=== PATIENT | female | born 1995 | race Hispanic/Latino ===

== ENCOUNTER 2021-12-18 02:52 | Emergency (ER) | payer OTHER ==
--- OUTSIDE RECORDS SUMMARY | 2021-12-18 02:55 | XMS REPORT | Continuity of Care Document ---
:1995 Author Organization [facility] t Address [address] [place] [address] Care Team Providers Name Role Phone SHARPLESS Primary Care Physician Unavailable VIRY_Israel_Gracia Attending Clinician Unavailable Heraclio Wood Attending Clinician [phone] LUCÍA Attending Clinician Unavailable PATRICKOR Attending Clinician Unavailable VIRY_Israel_Gracia Admitting Clinician Unavailable YOSHOR Admitting Clinician Unavailable Payers Payer Name Policy Type Policy Number Effective Date Expiration Date [facility] [id number] CHOICE (MEDICAID REPLACEMENT - HMO) BCBS PPO POS EPO [id number] 2017 2019 CHOICE 00:00:00 00:00:00 SELF PAY OP [id number] 2020 2020 DIAGNSTC IMGING PKG 00:00:00 00:00:00 Problems This patient has no known problems. Allergies, Adverse Reactions, Alerts Allergy Allergy Status Severity Reaction(s) Onset Inactive Treating Comm ents Source Name Type Date Date Clinician No Known DA Active [facility] [place] No Known DA Active U 2017-07 [facility] [place] No Known DA Active U 2017-07 [facility] 00 [facility] NO KNOWN Allergy Active [facility] Medications This patient has no known medications. Procedures This patient has no known procedures. Encounters Start End Encounter Admission Attending Care Care Encounter Source Date/Time Date/Time Type Type Clinicians Facility Department ID 2021-12-12 2021-12-12 Outpatient [facility]_ PRIV PRIV [id number] [facility] 09:34:00 09:34:00 Shelton_G [id number] [facility] 2021-12-08 2021-12-08 Outpatient [facility]_ PRIV PRIV [id number] [facility] 06:38:00 06:38:00 Shelton_G [id number] [facility] 2021-12-08 2021-12-08 Outpatient [facility]_ PRIV PRIV [id number] [facility] 06:38:00 06:38:00 Shelton_G [id number] [facility] 2021-12-08 2021-12-08 Outpatient [facility]_ PRIV PRIV [id number] [facility] 06:38:00 06:38:00 Shelton_G [id number] [facility] 2021-11-26 2021-11-26 Outpatient [facility]_ PRIV PRIV [id number] [facility] 11:19:00 11:19:00 Shelton_G [id number] [facility] 2021-11-26 2021-11-26 Outpatient [facility]_ PRIV PRIV [id number] [facility] 11:19:00 11:19:00 Shelton_G [id number] [facility] 2021-11-26 2021-11-26 Outpatient Wood, PRIV PRIV [id number] 00:00:00 00:00:00 Heraclio [id number] Arnel [id number] 2021-11-25 2021-11-25 Outpatient [facility]_ PRIV PRIV [id number] [facility] 10:18:00 10:18:00 Shelton_G [id number] [facility] 2020-11-20 2020-11-20 Outpatient DARREN CALLAHAN SLE SLE [id number] [facility] 00:00:00 00:00:00 2020-01-12 2020-01-12 Outpatient ADELAIDA CANADA [facility] [id number] [facility] 00:00:00 00:00:00 RAJIV 2019-12-28 2019-12-28 Outpatient ADELAIDA CANADA [facility] [id number] [facility] 00:00:00 00:00:00 RAJIV 2019-12-14 2019-12-14 Outpatient ADELAIDA CANADA [facility] [id number] [facility] 00:00:00 00:00:00 RAJIV Results Test Description Test Time Test Comments Results Result Comments Source HEMOGLOBIN ELECTROPHORESIS 2021-11-26 08:49:03 Test Item Value Reference Range Interpretation Comme nts HEMOGLOBIN A1 (test code = 97.2 % 95.0-98.5 2575) HEMOGLOBIN A2 (test code = 2.8 % 1.6-3.7 2576) HEMOGLOBIN F () (test 0.0 % 0.0-2.0 code = 2722) HEMOGLOBIN S (test code = NONE % NONE DETECTED 2724) HEMOGLOBIN C (test code = NONE % NONE DETECTED 2726) OTHER HEMOGLOBIN VARIANT (test NONE DETEC % NONE DETECTED code = 24230) PATHOLOGIST'S INTERPRETATION (NOTE) NO ABNORMAL HEMOGLOBINS (test code = 2577) GERALDINE ZAMORANO M.D. THC METABOLITE, QUANT, [id number] 17:09:09 Test Item Value Reference Range Interpretation Comments CARBOXY-THC Negative INTERP (test code = 33946) CARBOXY-THC <15 ng/mL <15 Reference rang e indicates QNT (test cutoff for posi tive result code = 64337) determination. Specimen Type: Urine Urine zunilda g and metabolite concentrations are dependent on manyfactors, in cluding patient compliance, zunilda g dosing, dosing interval,indivi dual variation in drug absorpt ion and metabolism, uri neconcentration, and limitations of testing. Assay is intend ed formedical purposes only, not for forensic use. This test was developed and its perform ance characteristics determined by [facility] ([facility]). It has n ot beencleared or approved by the U.S. Food and Drug Admini stration (FDA).The FDA h as determined that such clear ance or approval is notnecessary . This test is used for clinic al purposes and should not jumana garded as investigational or for research. [facility] i s qualified toperform high complexity testing under t Clinical LaboratoryImpro vement Amendments (CLI A). TESTING PERFORM ED AT [facility], [facility]. [address] [facility], [facility] [address] [place] [address] CLIA NO: [id number] UNLESS OTHE RWISE INDICATED, ALL TESTING PER FORMED ATCLINICAL PATH [facility] [place]. [address] [place] [address] LABORATORY DIRE CTOR: BELLE HUBBARD M.D. CLIA NUMBER [id number] CAP ACCREDITATION N O. [id number] CULTURE, [id number] 09:19:03SPECIMEN NUMBER: [id number] CULTURE, URINE SPECIMEN NUMBER: [id number] SPECIMEN COMMENT: URINE SOURCE: URINE REPORT STATUS: FINAL FINAL REPORT: 11/23/2021 10- 50,000 CFU/ML UROGENITAL TE PRESENT NO COMMON PATHOGENSCT/NG, NAAT, [id number] 19:03:26 Test Item Value Reference Range Interpretation Comments GONORRHEA, NAAT NEGATIVE NEGATIVE IMPORTANT (test code = NOTICE: [place] [address]) [email or web address] Note: Assay methodology is nucleic acid amplification b y historical interpreter mediated amplification ( TMA) utilizing the A ptima Combo 2 Assay. CHLAMYDIA, NAAT NEGATIVE NEGATIVE IMPORTANT (test code = NOTICE: [place] [address]) [email or web address] Note: Assay methodology is nucleic acid amplification b y historical interpreter mediated amplification ( TMA) utilizing the A ptima Combo 2 Assay. VARICELLA ZOSTER [id number] 16:03:42 Test Item Value Reference Range Interpretation Comments VARICELLA ZOSTER IgG 541 INDEX SEE BELOW INTERPRETATION (test code = 67035) VZV IgG N EGATIVE . . . . . . . . . . . . INDEX <135 EQUIVOCAL. . . . . . . . . . . . I NDEX 135-164 NOTE: CONSIDER RETEST ING IN A CLINICALLY SUIT ABLE YADI OD OF TIME, NO SOONER THAN 1-2 WEEKS. POSITIVE . . . . . . . . . . . . INDEX >=165 DRUG ABUSE SCREEN 10 REFLEX [id number] 05:19:45 Test Item Value Reference Interpretation Comments Range AMPHETAMINES (test NEGATIVE NEGATIVE code = 3201) BARBITURATES (test NEGATIVE NEGATIVE code = 3202) BENZODIAZEPINES NEGATIVE NEGATIVE (test code = 3203) CANNABINOIDS (test SEE REFLEX NEGATIVE A code = 3204) TESTING COCAINE METABOLITE NEGATIVE NEGATIVE (test code = 3205) OPIATES (test code = NEGATIVE NEGATIVE 3209) OXYCODONE (test code NEGATIVE NEGATIVE = 41246) PHENCYCLIDINE (test NEGATIVE NEGATIVE code = 3210) METHADONE (test code NEGATIVE NEGATIVE = 3207) BUPRENORPHINE (test NEGATIVE NEGATIVE code = 40142) SOURCE (test code = URINE * SEE BELOW FOR 994294) THRESHOLDS AND IMPORTANT METHOD NOTES * ANALYTE SCREENING CUTOF F CONFIRMATORY CUTOFF ___AMPHETAMINES 500 NG/M L 100 NG/MLBARBITURAT ES 200 NG /ML 100 NG/MLBENZODIAZE PINES 200 NG /ML 100 NG/MLCANNABINOI DS (THC) 20 NG /ML 15 NG/MLCOCAINE ME TABOLITES 150 NG /ML 100 NG /MLOPIATE METABOLITES 300 NG/ML 100 NG/MLOXYCOD ONE 10 0 NG/ML 10 0 NG/MLPHENCYCLID INE (PCP) 25 NG /ML 25 NG/MLMETHADONE 300 NG /ML 100 NG/MLBUPRENORPH INE 5 NG /ML 5 NG /ML NOTE: Screening metho dology is qualitative Enz yme Immunoassay.The screening metho d may be less sensitive for certain medicationsincl uding clonazepam and lorazepam in the benzodia zepine assay andtramad ol or fentanyl in the opiate assay, amongst others. Patientcomplian ce, hydration statu s, timing and dose of med ications, drugabsorption and specimen qualit y may affect screenin g assay.For clini randa discrepancies, consider directed testin g for specificcompoun ds or contact the lab oratory within specimen stability tofor siddiqui for confirmatory te sting. This test is sp ecified for medicalpurp oses only. It is no t valid for forensic us e. [id number] 03:55:25 Test Item Value Reference Range Interpretation Comments RPR RESULT (test code = NON-REACTIVE NON-REACTIVE 3501) RPR TITER (test code = 3500) NOT INDIC. TITER NOT INDIC. HEPATITIS C REFLEX [id number] 03:48:03 Test Item Value Reference Range Interpretation Comments HEPATITIS C ANTIBODY (test code NON-REACTIVE NON-REACTIVE = 4675) OBSTETRIC PANEL + [id number] 03:48:03 Test Item Value Reference Range Interpretation Comments WBC (test code = 6.6 K/UL 3.5-11.0 1001) RBC (test code = 4.50 M/UL 3.80-5.40 1002) HEMOGLOBIN (test 13.3 G/DL 11.5-15.5 code = 1003) HEMATOCRIT (test 39.1 % 34.0-45.0 code = 1004) MCV (test code = 86.9 fL 80.0-99.0 1005) MCH (test code = 29.6 PG 25.0-33.0 1006) MCHC (test code = 34.0 G/DL 31.0-36.0 1007) RDW (test code = 12.7 % 11.5-15.0 1038) NEUTROPHILS (test 66.3 % code = 1008) LYMPHOCYTES (test 25.2 % code = 1010) MONOCYTES (test 5.4 % code = 1011) EOSINOPHILS (test 2.3 % code = 1012) BASOPHILS (test 0.5 % code = 1013) IMMATURE 0.3 % GRANULOCYTES (test code = 1036) NUCLEATED RBCS 0.0 /100 WBC'S See_Comment [Automate d message] (test code = 1065) The syste m which generated this result transmit laureano reference range : 0.0. The refere nce range was not u sed to interpret th is result as normal/abnormal . PLATELET COUNT 305 K/UL 130-400 (test code = 1015) ABSOLUTE 4.41 K/UL 1.50-7.50 NEUTROPHILS (test code = 1066) ABSOLUTE 1.67 K/UL 1.00-4.00 LYMPHOCYTES (test code = 1067) ABSOLUTE MONOCYTES 0.36 K/UL 0.20-1.00 (test code = 1068) ABSOLUTE 0.15 K/UL 0.00-0.50 EOSINOPHILS (test code = 1040) ABSOLUTE BASOPHILS 0.03 K/UL 0.00-0.20 (test code = 1069) ABS IMMATURE 0.02 K/UL 0.00-0.10 GRANULOCYTES (test code = 1020) ABS NUCLEATED RBCS 0.00 K/UL 0.00-0.11 (test code = 84849) BLOOD TYPE AND RH O POSITIVE A HISTORI RANDA RECORD (test code = 3901) CHECK FOR PREVIOUS RESULTS IS NOT PERFORMED.THESE RESULTS SHOULD BE CORRELATED WITH RESULTS OF PRIO R BLOODTYPING AND ANTIBODY SCREEN STUDIES. ANTIBODY SCREEN NEGATIVE NEGATIVE A HISTORICA L RECORD (test code = 3902) CHECK FOR PREVIOUS RESULTS IS NOT PERFORMED.THESE RESULTS SHOULD BE CORRELATED WITH RESULTS OF PRIO R BLOODTYPING AND ANTIBODY SCREEN STUDIES. RUBELLA ANTIBODY 215 IU/ML SEE BELOW SCREEN (test code = INTERPRE TATION 4600) RUBELLA IgG NON-REACTIVE/NO N-IMM UNE . . . . . . . IU/ML < 10 REACTIVE/IM MUNE . . . . . . . . . . . IU/ML >=10 RUBELLA IgG INTERP REACTIVE REACTIVE (test code = 31793) HEPATITIS B SURF AG NON-REACTIVE NON-REACTIVE (test code = 2739) RPR (test code = NON-REACTIVE NON-REACTIVE 91978) RPR TITER (test NOT INDIC. NOT INDIC. code = 3500) TITER HIV 1/2 4TH GEN, NON-REACTIVE NON-REACTIVE RFLX CONF (test code = 3514) PAP TEST, THINPREP, [id number] 08:18:37 Test Item Value Reference Range Interpretation Comments SOURCE: (test Cervical/Endo code = 8001) cervical SLIDES: (test 1 code = 8011) LMP: (test code = 06/23/2021 8021) SPECIMEN (NOTE) Satisfacto ry for ADEQUACY: (test evaluation. code = 87342) Endocervical cells/transform ation zone component present. INTERPRETATION: NILM/NO (test code = EPITH. --------- 21450) ABNORMALITY;S -------- EE BELOW NEGATIVE FO R INTRAEPITHELIAL LESION OR MALIGNANCY ( NILM) --------- --------- --------- - OTHER COMMENTS: (NOTE) Fungal organ isms (test code = consistent with Shirin 8081) present. SENIOR TECHNICAL PROGRAM MANAGER: Theresa Narayanan, (test code = CT(ASCP) 8101) LOCATION: (test (NOTE) Specimens pr ocessed and code = 76283) interpreted at [facility], [address] [place] [address], , CLIA: [id number] CPT: (test code = (NOTE) 61138 U NLESS 8140) OTHERWISE INDIC ATED, COMPUTER AIDED AND CYTOTECHNOLOGIS T SCREENING PERFO RMED. The Pap test i s a screening test with an inherent, but l ow probability of error. Your patient sh ould be reminded to consult you immediately if she experiences any suspicious signs or symptoms, regar dless of her Pap test re sult. An alternate re port format containi ng images or consolidated prior Pap histo ry is available as ap plicable. UNLESS O THERWISE INDICATED, ALL TESTING PERFORMED [facility] PATHOLOGY [facility], [facility]. [address] [place], [place] [address] LABORATORY DIR DAVE: BELLE RIVERS M.D. CLIA NUMBER [id number] CAP ACCREDITATION N O. [id number] THYROID II PROFILE (TU,T4,FTI,TSH)2021-07-12 06:20:17 Test Item Value Reference Range Interpretation Comments T-UPTAKE (test 30.2 % 24.3-39.0 code = 2817) THYROX. BIND. 1.1 0.8-1.3 NOT E: CAPAC. (test code THYROXINE BINDING = 71817) CAPACITY IS INV ERSELY RELATED TO T-UPTAKE,DECREA SED WITH HYPERTHYROIDISM AND LOW THYROID BINDING GLOBULIN (TBG),INCREASED IN HYPOTHYROIDISM OR WITH HIGH TBG. T4 (THYROXINE) 5.9 UG/DL 4.5-10.5 (test code = 2819) CORRECTED T4 (FTI) 5.4 UG/DL 4.2-11.6 (test code = 2820) TSH, THIRD 2.910 UIU/ML 0.400-4.100 UNLESS O THERWISE GENERATION (test INDICATED, ALL TESTING code = 2821) PERFORMED [facility] PATHOLOGY LABOR [employer] [address] [facility], [place] [address] LABORATORY DI SVETLANA: Ciro SNYDER [id number] CAP ACCREDITATION N O. [id number] CBC W/AUTO DIFF WITH [id number] 03:49:06 Test Item Value Reference Range Interpretation Comments WBC (test code = 8.1 K/UL 3.5-11.0 1001) RBC (test code = 4.49 M/UL 3.80-5.40 1002) HEMOGLOBIN (test code 13.1 G/DL 11.5-15.5 = 1003) HEMATOCRIT (test code 38.7 % 34.0-45.0 = 1004) MCV (test code = 86.2 fL 80.0-99.0 1005) MCH (test code = 29.2 PG 25.0-33.0 1006) MCHC (test code = 33.9 G/DL 31.0-36.0 1007) RDW (test code = 13.4 % 11.5-15.0 1038) NEUTROPHILS (test 56.3 % NOTE: EFF ECTIVE code = 1008) 06/10/2021, REFERENCE INTER VALS AND FLAGGING FORRELATIVE (%) WBC DIFFERENTIAL WI LL BE ELIMINATED REDUNDANT TOABS OLUTE COUNTS.SEE [email or web address] [employer] LLClabDiscovery [email or web address] l_CBC_reporting _upda te LYMPHOCYTES (test 32.9 % code = 1010) MONOCYTES (test code 6.3 % = 1011) EOSINOPHILS (test 3.7 % code = 1012) BASOPHILS (test code 0.6 % = 1013) IMMATURE GRANYLOCYTES 0.2 % (test code = 1036) NUCLEATED RBCS (test 0.0 /100 See_Comment [Autom ated message] code = 1065) WBC'S The system [employer] generated this result transmit laureano reference range : 0.0. The refere nce range was not u sed to interpret th is result as normal/abnormal . PLATELET COUNT (test 337 K/UL 130-400 code = 1015) ABSOLUTE NEUTROPHILS 4.52 K/UL 1.50-7.50 (test code = 1066) ABSOLUTE LYMPHOCYTES 2.65 K/UL 1.00-4.00 (test code = 1067) ABSOLUTE MONOCYTES 0.51 K/UL 0.20-1.00 (test code = 1068) ABSOLUTE EOSINOPHILS 0.30 K/UL 0.00-0.50 (test code = 1040) ABSOLUTE BASOPHILS 0.05 K/UL 0.00-0.20 (test code = 1069) ABS IMMATURE 0.02 K/UL 0.00-0.10 GRANULOCYTES (test code = 1020) ABS NUCLEATED RBCS 0.00 K/UL 0.00-0.11 (test code = 44299) LIPID [id number] 03:21:21 Test Item Value Reference Range Interpretation Comments CHOLESTEROL (test 190 MG/DL <200 code = 2210) TRIGLYCERIDES (test 96 MG/DL <150 code = 2232) HDL CHOLESTEROL (test 59 MG/DL >39 code = 2220) CALC LDL CHOL (test 111 MG/DL <100 H NOTE: C ALCULATED LDL code = 2237) IS BASED ON KAITLIN-JAMA METHOD WHICHINCLUDES ADJUSTABLE TRIGLYCERIDE:VL DL CHOLESTEROL RAT IO.THIS FACTOR VARIES B Y MEASURED TRIGLY CERIDE AND NON-HDLCHOL ESTEROL CONCENTRATIONS WITH INCREASED CALCU LATED LDL SEENIN HIGH ER TRIGLYCERIDE OR LOWER NON-HDL SPECIME NS. FOR MOREINFORMATION , SEE CLIENT ANNOUNCE MENT AT [email or web address] Design [email or web address] [email or web address] RATIO LDL/HDL 1.88 RATIO <3.22 (test code = 2238) COMPREHENSIVE METABOLIC [id number] 03:21:21 Test Item Value Reference Range Interpretation Comments GLUCOSE (test code = 92 MG/DL 70-99 2216) BUN (test code = 10 MG/DL 6-20 2207) CREATININE (test 0.78 MG/DL 0.60-1.30 EFFECTIVE code = 2214) 07/01/2021, [facility] HAS IMPLEMENTED THE NKF-ASN RECOMME NDED KD-EPI EGF R REFIT CALCULATI ON THAT DOES NOT INCLUDE A COEFFICIENT FOR RACE. FOR MORE INFORMATION, E ANNOUNCEMENT [email or web address] MR [employer]oelectricity/EGFR_CALC eGFR (2020 CKD-EPI) 106 >60 (test code = 16401) ML/MIN/1.73 CALC BUN/CREAT (test 13 RATIO 6-28 code = 2235) SODIUM (test code = 144 MEQ/L 678-789 7376) POTASSIUM (test code 4.0 MEQ/L 3.5-5.4 = 222) CHLORIDE (test code 107 MEQ/L 95-107 = 221) CARBON DIOXIDE (test 25 MEQ/L 19-31 code = 2206) CALCIUM (test code = 9.7 MG/DL 8.5-10.5 2208) PROTEIN, TOTAL (test 7.6 G/DL 6.1-8.3 code = 222) ALBUMIN (test code = 4.6 G/DL 3.5-5.2 2200) CALC GLOBULIN (test 3.0 G/DL 1.9-3.7 code = 2240) CALC A/G RATIO (test 1.5 RATIO 1.0-2.6 code = 2234) BILIRUBIN, TOTAL 0.3 MG/DL See_Comment [Automated message] (test code = 2207) The syste m which generated this result transmit laureano reference range : <=1.2. The refe rence range was not u sed to interpret th is result as normal/abnormal . ALKALINE PHOSPHATASE 91 U/L 40-112 (test code = 2204) AST (test code = 20 U/L 9-40 2217) ALT (test code = 25 U/L 5-40 2218) VAGINAL PATHOGENS DNA [id number] 16:05:19 Test Item Value Reference Range Interpretation Comments SHIRIN SPECIES (test POSITIVE NEGATIVE A code = ) G. VAGINALIS (test NEGATIVE NEGATIVE code = ) T. VAGINALIS (test NEGATIVE NEGATIVE UN LESS OTHERWISE code = ) INDICATED, ALL TESTING PERFORMED [facility] PATHOLOGY LABOR [facility] [address] [place] [id number] LABORATORY DIR DAVE: BELLE RIVERS M.D. CLIA NUMBER [id number] CAP ACCREDITATION N O. [id number] HGB [id number] 20:52:00 Test Item Value Reference Range Interpretation Comments HEMOGLOBIN (test code = 6.3 g/dL 10.7-13.9 LL RESU LTS CALLED TO HGB) KWADWO GAITAN D BACK & CONFIRMED? y. BY F.LAB.RV 2050. HEMATOCRIT (test code = 20.8 % 32.1-42.1 L HCT) HGB [id number] 10:43:00 Test Item Value Reference Range Interpretation Comments HEMOGLOBIN (test code = 6.2 g/dL 10.7-13.9 LL RES ULTS CALLED TO HGB) YUKI TrejoREAD BACK & CONFIRMED? YES. BY F.LAB.EBONY 12/02.Results ve rified by repeat rhoda sis HEMATOCRIT (test code = 21.2 % 32.1-42.1 L Resu lts verified by HCT) repeat analysis AG HEPATITIS B [id number] 00:16:00 Test Item Value Reference Range Interpretation Comments AG HEPATITIS B SURFACE (test code NONREACTIVE NONREACTIVE = HBSAG) Comments to Cigarette Tipper: LDO JIS CONSENT FORM SIGNED FOR HIV TESTING? YAB HEPATITIS C [id number] 00:16:00 Test Item Value Reference Range Interpretation Comments AB HEPATITIS C (test code = NONREACTIVE NONREACTIVE HCVAB) SIGNAL TO CUTOFF (test code = 0.03 <0.80 N CUTOFF) Comments to Cigarette Tipper: LDO JIS CONSENT FORM SIGNED FOR HIV TESTING? YAB [id number] 00:16:00 Test Item Value Reference Range Interpretation Comments AB TREPONEMA (test code = TREPAB) NONREACTIVE NONREACTIVE Comments to Cigarette Tipper: LDO JIS CONSENT FORM SIGNED FOR HIV TESTING? YAB HIV 1 00:16:00 Test Item Value Reference Range Interpretation Comments AB HIV 1 2 (test NONREACTIVE NONREACTIVE Done by Wayne ju[facility]district [facility] hospitalwayne Humphreyr code = [id number]) 4th Gen HIV Ag/Ab Combo Screen Comments to Cigarette Tipper: LDO JIS CONSENT FORM SIGNED FOR HIV TESTING? YAG HEPATITIS B [id number] 23:57:00 Test Item Value Reference Range Interpretation Comments AG HEPATITIS B SURFACE (test code NONREACTIVE NONREACTIVE = HBSAG) Comments to Cigarette Tipper: LDO JIS CONSENT FORM SIGNED FOR HIV TESTING? PALAKB HEPATITIS C [id number] 23:57:00 Test Item Value Reference Range Interpretation Comments AB HEPATITIS C (test code = HCVAB) NONREACTIVE SIGNAL TO CUTOFF (test code = CUTOFF) <0.80 Comments to Cigarette Tipper: LDO JIS CONSENT FORM SIGNED FOR HIV TESTING? PALAKB [id number] 23:57:00 Test Item Value Reference Range Interpretation Comments AB TREPONEMA (test code = TREPAB) NONREACTIVE NONREACTIVE Comments to Cigarette Tipper: LDO JIS CONSENT FORM SIGNED FOR HIV TESTING? PALAKB HIV 1 23:57:00 Test Item Value Reference Range Interpretation Comments AB HIV 1 2 (test code = [id number]) NONREACTIVE Comments to Cigarette Tipper: LDO JIS CONSENT FORM SIGNED FOR HIV TESTING? YCBC W/AUTO [id number] 22:48:00 Test Item Value Reference Range Interpretation Comments WHITE BLOOD CELL (test code = WBC) 13.4 K/mm3 6.6-12.1 H RED BLOOD CELL (test code = RBC) 4.35 M/mm3 3.45-5.01 N HEMOGLOBIN (test code = HGB) 9.6 g/dL 10.7-13.9 L HEMATOCRIT (test code = HCT) 32.6 % 32.1-42.1 N MEAN CELL VOLUME (test code = MCV) 75 fL 84.1-94.8 L MEAN CELL HGB (test code = MCH) 22.1 pg 27-35 L MEAN CELL HGB CONCETRATION (test 29.4 gm/dL 32.2-34.1 L code = MCHC) RED CELL DISTRIBUTION WIDTH (test 18.2 % 12.4-16.5 H code = RDW) PLATELET COUNT (test code = PLT) 299 K/mm3 133-385 N IMMATURE PLATELET FRACTION (test 0.0 % 0.0-10.8 N code = IPF) MEAN PLATELET VOLUME (test code = 11.0 fl 9.1-12.7 N MPV) NEUTROPHIL % (test code = NT%) 75.9 % 56.5-79.4 N LYMPHOCYTE % (test code = LY%) 10.6 % 14.3-34.3 L MONOCYTE % (test code = MO%) 6.4 % 5.1-10.4 N EOSINOPHIL % (test code = EO%) 6.1 % 0.1-3.0 H BASOPHIL % (test code = BA%) 0.1 % 0.1-1.0 N NEUTROPHIL # (test code = NT#) 10.2 K/mm3 LYMPHOCYTE # (test code = LY#) 1.4 K/mm3 MONOCYTE # (test code = MO#) 0.9 K/mm3 EOSINOPHIL # (test code = EO#) 0.82 K/mm3 BASOPHIL # (test code = BA#) 0.0 K/mm3 RBC MORPHOLOGY REQUIRED (test code NORMAL NORMAL = RBCM) PLATELET MORPHOLOGY REQUIRED (test NORMAL NORMAL code = PLTMR) URINALYSIS [id number] 09:12:00 Test Item Value Reference Range Interpretation Comments UA COLOR (test code = YELLOW YELLOW COLU) UA APPEARANCE (test code CLOUDY CLEAR A = APPU) UA GLUCOSE DIPSTICK (test NEGATIVE NEG code = DGLUU) UA BILIRUBIN DIPSTICK NEGATIVE NEG (test code = BILU) UA KETONE DIPSTICK (test NEGATIVE NEG code = KETU) UA SPECIFIC GRAVITY (test 1.009 1.001-1.035 N code = SGU) UA BLOOD DIPSTICK (test 1+ NEG A code = WILBERT) UA PH DIPSTICK (test code 6.0 5-9 = MINI) UA PROTEIN DIPSTICK (test NEGATIVE NEG code = PROU) UA UROBILINIOGEN DIPSTICK NEGATIVE mg/dL NEG (test code = URO) UA NITRITE DIPSTICK (test NEG NEG code = ROSITA) UA LEUKOCYTE ESTERASE 3+ NEG A DIPSTICK (test code = LEUU) UA WBC (test code = WBCU) TOO NUMEROUS TO CNT NONE SEEN A #/hpf UA RBC (test code = RBCU) 6-10 #/hpf NONE SEEN A UA EPITHELIAL CELLS (test MANY #/HPF RARE-FEW A code = EPIU) UA BACTERIA (test code = MANY /HPF RARE-FEW A BACU) UA MUCUS (test code = RARE NONE SEEN MUCU) URINE SAMPLE: CLEAN CATCH- US ABDOMEN [id number] 23:12:00 Patient Name: TAMARA SERRANO Unit No: [id number] EXAMS: CPT CODE: [id number] US ABDOMEN LTD [id number] PROCEDURE: RIGHT UPPER QUADRANT ULTRASOUND 09/19/2018 INDICATION: Right upper quadrant pain today with mild nausea. Attention gallbladder. COMPARISON: Limited abdomen ultrasound 05/12/2018 TECHNIQUE: Sonographic evaluation of the right upper quadrant was performed with supplemental color and pulsed Doppler. FINDINGS: LIVER: The liver is normal in contour and morphology with normal parenchymal echogenicity. GALLBLADDER: There are no gallstones, sludge, pericholecystic fluid or wall thickening. Positive sonographic Joyce. BILE DUCTS: No biliary dilatation. The common bile duct measures 3 mm in diameter. PANCREAS: The visualized pancreas appears normal. Obscured pancreatic tail by bowel gas. RIGHT KIDNEY: The right kidney measures 11 cm in length. Normal renal contour and morphology with normal echogenicity. Mild to moderate hydronephrosisand proximal hydroureter. No solid lesions. ADDITIONAL COMMENTS: No free fluid. IMPRESSION: 1. Mild to moderate right hydronephrosis and proximal hydroureter. Obstructing stone and distal extrinsic ureteral compression in the differential. 2. Otherwise unremarkable right upper quadrant ultrasound. 3. No free fluid. SL: ER-H at 2312 Reported and signed by: HANK Haines CC: Nika Wood Technologist: Cherry Disla RDMS Probe: Trnscrbd D/ (2312) [email or web address] OrigPrint D/T: S: 09/19/2018 (2315) [facility] NAME: TAMARA SERRANO Radiology Department PHYS: Nika Dunham MD [address] : 1995 AGE: 23 SEX: F [place], [place] [address] LOC: OlgaKAREN PHONE #: [phone] EXAM DATE: 09/19/2018 STATUS: REG ER FAX #: [phone] RAD NO: Page 1 SignedReport Patient Name: TAMARA SERRANO Unit No: [id number] EXAMS: CPT CODE: [id number] US ABDOMEN LTD [id number] <Continued> [facility] NAME: TAMARA SERRANO Radiology Department PHYS: Nika Dunham MD [address] : 1995 AGE: 23 SEX: F [place], [place] [address] LOC: OlgaKAREN PHONE #: [phone] EXAM DATE: 09/19/2018 STATUS: REG ER FAX #: [phone] RAD NO: Page 2 Signed ReportLIVER [id number] 22:27:00 Test Item Value Reference Range Interpretation Comments TOTAL PROTEIN (test code = PROT) 6.9 gm/dL 6.3-8.2 N ALBUMIN (test code = ALB) 2.8 gm/dL 3.4-4.8 L BILIRUBIN TOTAL (test code = 0.3 mg/dL 0.2-1.0 N BILT) BILIRUBIN DIRECT (test code = 0.1 mg/dL <0.2 N BILD) SGOT/AST (test code = AST) 17 units/L 15-37 N SGPT/ALT (test code = ALT) <6 units/L 12-78 L ALKALINE PHOSPHATASE TOTAL (test 168 units/L 46-116 H code = ALKP) MR, BRAIN, [id number] 10:59:00FINAL REPORT MRI brain and sella with and without contrast 02/23/2018 at 10:15.CLINICAL INDICATION: Prolactinoma. COMPARISON: 11/13/2017. TECHNIQUE: Multiplanar MR imaging of the br ain and sella was provided [id number] IV gadolinium administration using T1, T2, FLAIR, FFE, and diffusion weighted sequences. Thin cut sagittal and coronal sella imaging was included. FINDINGS: Patient motion limits this examination. Pathology may be obscured. With this limitation mind, there is no evident residual/recurrent tumor status post resection of a pathology proven prolactinoma. There has been relief of mass effect on the optic chiasm. There is no infarct, hematoma, mass, hydrocephalus,extra-axial collection, or abnormal intracranial enhancement. Normal appearing flow-voids are present in the major intracranial vascular structures. The pineal region, craniocervical junction, and orbits are unremarkable. The paranasal sinuses and nasal passages have a nonworrisome postoperative appearance. IMPRESSION: Motion limited examination, without evidence for residual/recurrent tumor. Signed: Donavon Momin MDReport Verified Date/Time: 02/23/2018 10:59:36 Reading Location: [facility] C013V Neuro Reading Room TISSUE [id number] 12:03:00Surgical Pathology Report Case: [id number] Authorizing Provider: Rajiv Canada MD Collected: 11/23/2017 1418 Ordering Location: [facility] PERIOPERATIVE Received: 11/23/2017 1422 SERVICES Pathologist: Sekou Burton MD Specimens: A) - Soft Tissue, Other, cyst wall vs compressed pituitary B) - Tumor, pituitary tumor A. 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 PITUITARY GLAND, TUMOR, TRANSSPHENOIDAL HYPOPHYSECTOMY: - SEVERELY FIBROTIC ADENOHYPOPHYSIS WITH MINUTE FRAGMENTS OF PROLACTIN CELL ADENOMA Signing Pathologist Direct Phone Line: [phone] signed by Sekou Burton MD on 11/26/2017 at 12:03 PMImmunoperoxidase stains are strongly positive for prolactin in a portion of the first specimen that lies adjacent to compressed adenohypophysis. In approximately stains for FSH, LH, growth hormone, TSH and ACTH are negative in tumor. The second specimen contains irregular nests of probable tumor with abundant fibrosis. Reticulin stains strongly support irregular and attenuated tumor lying adjacent to normal adenohypophysial nests. Reticulin stains on the second specimen cannot be interpreted secondary to the dense fibrosis.19095 X2, 64406 X2, 03115, 65928 X5, 45427H. Soft tissue, description, cyst wall versus compressed pituitary. B. Pituitary tumorA. Received fresh for frozen section examination labeled "soft tissue"is a 0.3 x 0.2 x 0.1 cm pink-taylor to red irregular shaped fragment of soft tissue that was submitted entirely for frozen section examination in one cassette (FSA). MH/plB. Received fresh labeled "tumor", description "pituitary tumor" is a 0.2 cm in greatest dimension, dark-red, irregular fragment of soft tissue. The specimen is entirely submitted in cassette B1. DB/ew FROZEN SECTION DIAGNOSIS: A. PITUITARY, SOFT TISSUE, BIOPSY: - ADENOMA WITH SURROUNDING COMPRESSED ADENOHYPOPHYSIS A-B Performed.Thefollowing special studies were performed on this case and the interpretation is incorporated in the diagnostic report above:The immunohistochemistry test was developed and its performance characteristics determined by [facility], Pathology Laboratory. It has not been cleared or approved by the U.S. Food and Drug Administration. The FDA has determined that such clearance or approval is not necessary. The test is used for clinical purposes. It should not be regarded as investigational or for research. This laboratory is certified under the Clinical Laboratory Improvement Amendments of 1988 (CLIA-88) as qualified to perform high complexity clinical laboratory testing.OSMOLALITY, [id number] 11:44:00 Test Item Value Reference Range Interpretation Comments OSMOLALITY URINE (BEAKER) (test 232 mOsm/kg 40-1400 code = 614) SPECIFIC GRAVITY, [id number] 09:26:00 Test Item Value Reference Range Interpretation Comments SPECIFIC GRAVITY UA (BEAKER) (test code 1.008 1.001-1.035 = 468) [id number] 06:51:00 Test Item Value Reference Range Interpretation Comments PROLACTIN (BEAKER) (test code = 41.88 ng/mL 5.18-26.53 H 758) BASIC METABOLIC [id number] 06:49:00 Test Item Value Reference Range Interpretation Comments SODIUM (BEAKER) 138 meq/L 136-145 (test code = 381) POTASSIUM (BEAKER) 3.6 meq/L 3.5-5.1 (test code = 379) CHLORIDE (BEAKER) 106 meq/L 98-107 (test code = 382) CO2 (BEAKER) (test 22 meq/L 22-29 code = 355) BLOOD UREA NITROGEN 6 mg/dL 7-21 L (BEAKER) (test code = 354) CREATININE (BEAKER) 0.72 mg/dL 0.57-1.25 (test code = 358) GLUCOSE RANDOM 119 mg/dL 70-105 H (BEAKER) (test code = 652) CALCIUM (BEAKER) 9.2 mg/dL 8.4-10.2 (test code = 697) EGFR (BEAKER) (test 100 mL/min/1.73 ESTIM ATED GFR IS code = 1092) sq m NOT ACCURATE CREATININE CLEARANCE IN PREDICTING GLOMERULAR FILTRATION RATE . ESTIMATED GFR I S NOT APPLICABLE FOR DIALYSIS PATIEN TS. CBC W/PLT COUNT & AUTO [id number] 06:23:00 Test Item Value Reference Range Interpretation Comments WHITE BLOOD CELL COUNT (BEAKER) 12.3 K/ L 3.5-10.5 H (test code = 775) RED BLOOD CELL COUNT (BEAKER) 3.78 M/ L 3.93-5.22 L (test code = 761) HEMOGLOBIN (BEAKER) (test code = 11.0 GM/DL 11.2-15.7 L 410) HEMATOCRIT (BEAKER) (test code = 33.4 % 34.1-44.9 L 411) MEAN CORPUSCULAR VOLUME (BEAKER) 88.4 fL 79.4-94.8 (test code = 753) MEAN CORPUSCULAR HEMOGLOBIN 29.1 pg 25.6-32.2 (BEAKER) (test code = 751) MEAN CORPUSCULAR HEMOGLOBIN CONC 32.9 GM/DL 32.2-35.5 (BEAKER) (test code = 752) RED CELL DISTRIBUTION WIDTH 13.3 % 11.7-14.4 (BEAKER) (test code = 412) PLATELET COUNT (BEAKER) (test 278 K/CU MM 150-450 code = 756) MEAN PLATELET VOLUME (BEAKER) 9.8 fL 9.4-12.3 (test code = 754) NUCLEATED RED BLOOD CELLS 0 /100 WBC 0-0 (BEAKER) (test code = 413) NEUTROPHILS RELATIVE PERCENT 86 % (BEAKER) (test code = 429) LYMPHOCYTES RELATIVE PERCENT 9 % (BEAKER) (test code = 430) MONOCYTES RELATIVE PERCENT 5 % (BEAKER) (test code = 431) EOSINOPHILS RELATIVE PERCENT 0 % (BEAKER) (test code = 432) BASOPHILS RELATIVE PERCENT 0 % (BEAKER) (test code = 437) NEUTROPHILS ABSOLUTE COUNT 10.59 K/ L 1.56-6.13 H (BEAKER) (test code = 670) LYMPHOCYTES ABSOLUTE COUNT 1.05 K/ L 1.18-3.74 L (BEAKER) (test code = 414) MONOCYTES ABSOLUTE COUNT (BEAKER) 0.56 K/ L 0.24-0.36 H (test code = 415) EOSINOPHILS ABSOLUTE COUNT 0.00 K/ L 0.04-0.36 L (BEAKER) (test code = 416) BASOPHILS ABSOLUTE COUNT (BEAKER) 0.01 K/ L 0.01-0.08 (test code = 417) IMMATURE GRANULOCYTES-RELATIVE 1 % 0-1 PERCENT (BEAKER) (test code = 2801) BASIC METABOLIC [id number] 17:26:00 Test Item Value Reference Range Interpretation Comments SODIUM (BEAKER) 142 meq/L 136-145 (test code = 381) POTASSIUM (BEAKER) 3.8 meq/L 3.5-5.1 (test code = 379) CHLORIDE (BEAKER) 112 meq/L 98-107 H (test code = 382) CO2 (BEAKER) (test 24 meq/L 22-29 code = 355) BLOOD UREA NITROGEN 7 mg/dL 7-21 (BEAKER) (test code = 354) CREATININE (BEAKER) 0.69 mg/dL 0.57-1.25 (test code = 358) GLUCOSE RANDOM 85 mg/dL 70-105 (BEAKER) (test code = 652) CALCIUM (BEAKER) 8.1 mg/dL 8.4-10.2 L (test code = 697) EGFR (BEAKER) (test 105 mL/min/1.73 ESTIM ATED GFR IS code = 1092) sq m NOT ACCURATE CREATININE CLEARANCE IN PREDICTING GLOMERULAR FILTRATION RATE . ESTIMATED GFR I S NOT APPLICABLE FOR DIALYSIS PATIEN TS. MR, BRAIN, [id number] 11:59:00FINAL REPORT MRI brain and sella with and without contrast [facility] protocol 11/13/2017 at 1139. CLINICAL INDICATION: Pituitary lesion. COMPARISON: CT brain 10/26/2017. TECHNIQUE: Mul tiplanar MR imaging of the brain and sella was provided [id number] IV gadolinium administration using T1, T2, FLAIR, FFE, and diffusion weighted sequences. Thin cut sagittal and coronal sella imagingwas included. Thin section axial T2 FLAIR and pre and postcontrast T1 3-D FFE imaging sequences were obtained for intraoperative neuro navigation purposes. FINDINGS: There is a cystic lesion within the sella turcica, which measures 14 mm AP by 19 mm transverse by 17 mm craniocaudal. There is suprasellar extension, with the lesion and displaced pituitary gland abutting the optic chiasm. There is mild right lateral parasellar extension, without arterial encasement or cavernous sinus invasion. There is chronic remodeling of the sella turcica, with the lesion bulging into the right sphenoid sinus. Thenative pituitary gland is draped over the superior and left margin of the lesion, with resultant posterior and leftward displacement of the infundibulum. There is no infarct, hematoma, hydrocephalus, or extra-axial collection. Normal appearing flow-voids are present in the major intracranial vascular structures. 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 The pineal region, craniocervical junction, and orbits are unremarkable.There are no concerning anatomic variants in the nasal passages or paranasal sinuses. 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 Signed: Donavon Momin Verified Date/Time: 11/13/2017 11:59:57 Reading Location: [address] Neuro Reading Room . [facility], BRAIN, [id number] 18:09:00FINAL REPORT CT head with and without contrast [facility] protocol 10/26/2017 3:37PM CLINICAL HISTORY: Disorder of pituitary gland, unspecified [E23.7] TECHNIQUE: With zero gantry angle, helical axial 1 mm noncontrast and contrast-enhanced CT images of the head were obtained. This examination was performed according to our departmental dose optimization program, which includes automated exposure control, adjustment of the mA and/or kV according to patient size, and/or use of iterated reconstruction technique. COMPARISON: None available FINDINGS: There is no hemorrhage, extraaxialfluid collection, hydrocephalus, or midline shift. There is an approximately 17 mm noncalcified cystic sellar/suprasellar lesion, with resultant chronic remodeling of the sella turcica. The paranasal sinuses and mastoid air cells are well aerated. The skull is intact. IMPRESSION: Stealth neuronavigation study. Signed: Donavon Momin Verified Date/Time: 10/26/2017 18:09:09 Reading Location: [facility] Radiology Reading Room BASI METABOLIC [id number] 12:42:00 Test Item Value Reference Range Interpretation Comments SODIUM (BEAKER) 144 meq/L 136-145 (test code = 381) POTASSIUM (BEAKER) 3.8 meq/L 3.5-5.1 (test code = 379) CHLORIDE (BEAKER) 106 meq/L 98-107 (test code = 382) CO2 (BEAKER) (test 27 meq/L 22-29 code = 355) BLOOD UREA NITROGEN 9 mg/dL 7-21 (BEAKER) (test code = 354) CREATININE (BEAKER) 0.79 mg/dL 0.57-1.25 (test code = 358) GLUCOSE RANDOM 88 mg/dL 70-105 (BEAKER) (test code = 652) CALCIUM (BEAKER) 9.7 mg/dL 8.4-10.2 (test code = 697) EGFR (BEAKER) (test 89 mL/min/1.73 ESTIMA LAUREANO GFR IS code = 1092) sq m NOT ACCURATE CREATININE CLEARANCE IN PREDICTING GLOMERULAR FILTRATION RATE . ESTIMATED GFR I S NOT APPLICABLE FOR DIALYSIS PATIEN TS. PROTHROMBIN [id number] 12:38:00 Test Item Value Reference Range Interpretation Comments PROTIME (BEAKER) (test code = 12.5 seconds 11.7-14.7 759) INR (BEAKER) (test code = 370) 0.9 <=5.9 RECOMMENDED COUMADIN/WARFARIN INR THERAPY RANGESSTANDARD DOSE: 2.0 - 3.0 Includes: PROPHYLAXIS forvenous thrombosis, systemic embolization; TREATMENT for venous thrombosis and/or pulmonary embolus.HIGH RISK: Target INR is 2.5-3.5 for patients with mechanical heart valves.[id number] 12:38:00 Test Item Value Reference Range Interpretation Comments PARTIAL THROMBOPLASTIN TIME 31.2 seconds 22.5-36.0 (BEAKER) (test code = 760) URINALYSIS W/ REFLEX URINE [id number] 12:29:00 Test Item Value Reference Range Interpretation Comments COLOR (BEAKER) (test code = 470) Yellow CLARITY (BEAKER) (test code = 469) Clear SPECIFIC GRAVITY UA (BEAKER) (test 1.019 1.001-1.035 code = 468) PH UA (BEAKER) (test code = 467) 5.5 5.0-8.0 PROTEIN UA (BEAKER) (test code = Negative Negative 464) GLUCOSE UA (BEAKER) (test code = Negative Negative 365) KETONES UA (BEAKER) (test code = Negative Negative 371) BILIRUBIN UA (BEAKER) (test code = Negative Negative 462) BLOOD UA (BEAKER) (test code = 461) Small Negative A NITRITE UA (BEAKER) (test code = Negative Negative 465) LEUKOCYTE ESTERASE UA (BEAKER) Trace Negative A (test code = 466) UROBILINOGEN UA (BEAKER) (test code 0.2 mg/dL 0.2-1.0 = 463) RBC UA (BEAKER) (test code = 519) 1 /HPF WBC UA (BEAKER) (test code = 520) 3 /HPF BACTERIA (BEAKER) (test code = 517) Rare MUCUS (BEAKER) (test code = 1574) Rare SQUAMOUS EPITHELIAL (BEAKER) (test 3 /HPF code = 516) SOURCE(BEAKER) (test code = 2795) CBC W/PLT COUNT & AUTO [id number] 12:20:00 Test Item Value Reference Range Interpretation Comments WHITE BLOOD CELL COUNT (BEAKER) 7.2 K/ L 3.5-10.5 (test code = 775) RED BLOOD CELL COUNT (BEAKER) 4.44 M/ L 3.93-5.22 (test code = 761) HEMOGLOBIN (BEAKER) (test code = 12.9 GM/DL 11.2-15.7 410) HEMATOCRIT (BEAKER) (test code = 39.5 % 34.1-44.9 411) MEAN CORPUSCULAR VOLUME (BEAKER) 89.0 fL 79.4-94.8 (test code = 753) MEAN CORPUSCULAR HEMOGLOBIN 29.1 pg 25.6-32.2 (BEAKER) (test code = 751) MEAN CORPUSCULAR HEMOGLOBIN CONC 32.7 GM/DL 32.2-35.5 (BEAKER) (test code = 752) RED CELL DISTRIBUTION WIDTH 12.9 % 11.7-14.4 (BEAKER) (test code = 412) PLATELET COUNT (BEAKER) (test 356 K/CU MM 150-450 code = 756) MEAN PLATELET VOLUME (BEAKER) 10.1 fL 9.4-12.3 (test code = 754) NUCLEATED RED BLOOD CELLS 0 /100 WBC 0-0 (BEAKER) (test code = 413) NEUTROPHILS RELATIVE PERCENT 70 % (BEAKER) (test code = 429) LYMPHOCYTES RELATIVE PERCENT 22 % (BEAKER) (test code = 430) MONOCYTES RELATIVE PERCENT 6 % (BEAKER) (test code = 431) EOSINOPHILS RELATIVE PERCENT 2 % (BEAKER) (test code = 432) BASOPHILS RELATIVE PERCENT 0 % (BEAKER) (test code = 437) NEUTROPHILS ABSOLUTE COUNT 5.04 K/ L 1.56-6.13 (BEAKER) (test code = 670) LYMPHOCYTES ABSOLUTE COUNT 1.58 K/ L 1.18-3.74 (BEAKER) (test code = 414) MONOCYTES ABSOLUTE COUNT (BEAKER) 0.43 K/ L 0.24-0.36 H (test code = 415) EOSINOPHILS ABSOLUTE COUNT 0.14 K/ L 0.04-0.36 (BEAKER) (test code = 416) BASOPHILS ABSOLUTE COUNT (BEAKER) 0.03 K/ L 0.01-0.08 (test code = 417) IMMATURE GRANULOCYTES-RELATIVE 0 % 0-1 PERCENT (BEAKER) (test code = 0773)
[2021-12-18 05:17] LABS: Urine Blood 2+ (Negative); Urine Glucose Negative (Negative); Urine Protein Trace (Negative); Urine Specific Gravity 1.025 (1.005-1.030)
[2021-12-18 05:32] LABS: Absolute Lymphocytes (CBC) 2.9 K/uL (0.7-4.9); Hematocrit 41.8 % (36.0-45.0); Lymphocytes % 30.3 % (15.3-44.8); MPV 8.9 fL (7.6-11.3); RBC Red Blood Cell Count 4.77 M/uL (3.86-4.86)
[2021-12-18 05:40] LABS: Urine Specific Gravity/Preg 1.025 (1.005-1.030)
[2021-12-18 05:49] LABS: Albumin 3.9 g/dL (3.4-5.0); Bilirubin Total 0.5 mg/dL (0.2-1.0); Potassium 3.4 mmol/L (3.5-5.1); Uric Acid 3.1 mg/dL (2.6-6.0)
[2021-12-18] MEDS ORDERED: ONDANSETRON 4 MG/2 ML VIAL ONE ×2 (07:02→07:03)
[2021-12-18] MEDS ORDERED: D5 0.9 NS 1,000 ML IV ONE (07:02)
[2021-12-18 07:08] LABS: Urine Bacteria 20-50 /HPF (<20); Urine Mucus 1+ /HPF (NONE SEEN); Urine RBC <5 /HPF (NONE SEEN)
--- NOTE | 2021-12-18 07:40 | EDPHYS ---
Physician Documentation [facility] Name: Kacy Mishra Age: 26 yrs Sex: Female : 1995 Arrival Date: 12/18/2021 Time: 02:54 Bed 16 Private MD: ED Physician Von Flores HPI: 12/18 06:05 This 26 yrs old Female presents to ER via Ambulatory with complaints of mh7 Abdominal Pain, Vomiting, Constipation. 06:05 The patient presents to the emergency department with nausea, that is moderate, mh7 vomiting, that is intermittent, described as clear fluid, abdominal pain, of the epigastric area, described as intermittent, and does not radiate. 06:05 Onset: The symptoms/episode began/occurred 2 week(s) ago. Possible causes: . mh7 The symptoms are aggravated by food , The symptoms are alleviated by nothing. Associated signs and symptoms: Pertinent positives: constipation, nausea, vomiting, Pertinent negatives: anorexia, belching, diarrhea, dysuria, fever, flatulence, GI bleeding, hematuria, vaginal discharge. Severity of symptoms: At their worst the symptoms were moderate 5 day(s) ago, in the emergency department the symptoms are unchanged. States that she is 9 weeks , , nausea, vomiting for 2 weeks. She has been seen by her healthcare management for this and given oral Zofran. She has had a normal ultrasound with her doctor. She denies vaginal bleeding.. 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 - Social history:: Smoking status: Patient denies any tobacco usage or history of. ROS: 06:05 Constitutional: Negative for fever, chills, and weight loss, Eyes: Negative for injury, mh7 pain, redness, and discharge, ENT: Negative for injury, pain, and discharge, Neck: Negative for injury, pain, and swelling, Cardiovascular: Negative for chest pain, palpitations, and edema, Respiratory: Negative for shortness of breath, cough, wheezing, and pleuritic chest pain, Back: Negative for injury and pain, : Negative for injury, bleeding, discharge, and swelling, MS/Extremity: Negative for injury and deformity, Skin: Negative for injury, rash, and discoloration, Neuro: Negative for headache, weakness, numbness, tingling, and seizure, Psych: Negative for depression, anxiety, suicide ideation, homicidal ideation, and hallucinations, Allergy/Immunology: Negative for hives, rash, and allergies, Endocrine: Negative for neck swelling, polydipsia, polyuria, polyphagia, and marked weight changes, Hematologic/Lymphatic: Negative for swollen nodes, abnormal bleeding, and unusual bruising. Exam: 06:05 Constitutional: This is a well developed, well nourished patient who is awake, alert, mh7 and in no acute distress. Head/Face: Normocephalic, atraumatic. Eyes: Pupils equal round and reactive to light, extra-ocular motions intact. Lids and lashes normal. Conjunctiva and sclera are non-icteric and not injected. Cornea within normal limits. Periorbital areas with no swelling, redness, or edema. Neck: Trachea midline, no thyromegaly or masses palpated, and no cervical lymphadenopathy. Supple, full range of motion without nuchal rigidity, or vertebral point tenderness. No Meningismus. Chest/axilla: Normal chest wall appearance and motion. Nontender with no deformity. No lesions are appreciated. Cardiovascular: Regular rate and rhythm with a normal S1 and S2. No gallops, murmurs, or rubs. Normal PMI, no JVD. No pulse deficits. Respiratory: Lungs have equal breath sounds bilaterally, clear to auscultation and percussion. No rales, rhonchi or wheezes noted. No increased work of breathing, no retractions or nasal flaring. Abdomen/GI: Soft, non-tender, with normal bowel sounds. No distension or tympany. No guarding or rebound. No evidence of tenderness throughout. Back: No spinal tenderness. No costovertebral tenderness. Full range of motion. Skin: Warm, dry with normal turgor. Normal color with no rashes, no lesions, and no evidence of cellulitis. MS/ Extremity: Pulses equal, no cyanosis. Neurovascular intact. Full, normal range of motion. Neuro: Awake and alert, GCS 15, oriented to person, place, time, and situation. Cranial nerves II-XII grossly intact. Motor strength 5/5 in all extremities. Sensory grossly intact. Cerebellar exam normal. Normal gait. Psych: Awake, alert, with orientation to person, place and time. Behavior, mood, and affect are within normal limits. Vital Signs: 03:20 BP 114 / 68; Pulse 87; Resp 20; Temp 98.5(O); Pulse Ox 100% ; Weight 72.57 kg; Height 5 vc1 ft. 6 in. (167.64 cm); Pain 5/10; 03:55 BP 138 / 80; Pulse 90; Resp 16; Temp 98.5; Pulse Ox 100% on R/A; liliana 05:31 BP 124 / 70; Pulse 64; Resp 16; Temp 98.5; Pulse Ox 100% on R/A; liliana 03:20 Body Mass Index 25.82 (72.57 kg, 167.64 cm) vc1 MDM: 07:38 Differential diagnosis: Nonspecific abd pain, gastritis, pancreatitis. Data reviewed: [facility] vital signs, nurses notes, lab test result(s), Beta HCG: CBC, electrolytes, urinalysis. Data interpreted: Pulse oximetry: on room air is 100 %. Interpretation: normal. Counseling: I had a detailed discussion with the patient and/or guardian regarding: the historical points, exam findings, and any diagnostic results supporting the discharge/admit diagnosis, lab results, the need for outpatient follow up, an OB/Gyne specialist, to return to the emergency department if symptoms worsen or persist or if there are any questions or concerns that arise at home. Response to treatment: the patient's symptoms have resolved after treatment, the patient's blood pressure is in an acceptable range, mental status has returned to baseline, the patient no longer shows bradycardia, the patient is not short of breath, the patient is not tachycardic, the patient's pain is gone, the patient's temperature has normalized. 07:40 Patient medically screened. [facility] 12/18 03:42 Order name: CBC with Diff; Complete Time: 06:29 lp1 12/18 03:42 Order name: CMP; Complete Time: 06:29 lp1 12/18 03:42 Order name: Lipase; Complete Time: 06:29 lp1 06/01 05:18 Order name: Urine Dipstick-Ancillary; Complete Time: 06:29 EDMS 12/18 05:21 Order name: Urine --Ancillary (enter results); Complete Time: 06:29 oe 12/18 05:26 Order name: Uric Acid; Complete Time: 06:29 EDMS 12/18 06:44 Order name: HCG-Quantitative; Complete Time: 07:29 [facility] 12/18 06:46 Order name: Urine Microscopic Only; Complete Time: 07:21 [facility] 12/18 06:46 Order name: Urine Culture [facility] 12/18 03:42 Order name: IV Saline Lock; Complete Time: 05:56 lp1 12/18 03:42 Order name: Labs collected and sent; Complete Time: 05:57 lp1 12/18 03:43 Order name: Urine Dipstick-Ancillary (obtain specimen); Complete Time: 05:57 lp1 12/18 03:43 Order name: Urine Test (obtain specimen); Complete Time: 05:57 lp1 12/18 07:38 Order name: PO challenge; Complete Time: 08:08 [facility] Administered Medications: 06:43 CANCELLED (wrong medicationn): NS 0.9% 1000 ml IV at 1000 ml once [facility] 07:05 Drug: Zofran (Ondansetron) 4 mg Route: IVP; Site: left antecubital; [facility] 07:05 Drug: D5-NS 1000 ml Route: IV; Rate: per protocol; Site: left antecubital; [facility] 08:00 Drug: Rocephin (cefTRIAXone) 1 grams Route: IV; Rate: per protocol; Site: left [facility] antecubital; Disposition Summary: 12/18/21 07:40 Discharge Ordered Location: Home [facility] Problem: an ongoing problem [facility] Symptoms: have improved [facility] Condition: Stable [facility] Diagnosis - Hyperemesis Gravidarum [facility] - UTI/ Urinary tract infection, site not specified [facility] Followup: [facility] - With: Private Physician - When: 1 - 2 days - Reason: Worsening of condition, Recheck today's complaints, Continuance of care, Re-evaluation by your physician Followup: [facility] - With: Julian Heart MD - When: 1 - 2 days - Reason: Worsening of condition, Recheck today's complaints Discharge Instructions: - Discharge Summary Sheet 7 - Hyperemesis Gravidarum [facility] - Urinary Tract Infection, Adult, [id number] [facility] Forms: - Medication Reconciliation Form [facility] - Thank You Letter [facility] - Antibiotic Education [facility] - Prescription Opioid Use [facility] Prescriptions: - ondansetron 4 mg Oral tablet,disintegrating - place 1 tablet by TRANSLINGUAL route every 8 hours As needed; 15 tablet; [facility] Refills: 0, Product Selection Permitted - Cephalexin 500 mg Oral Capsule - take 1 capsule by ORAL route every 12 hours for 7 days; 14 capsule; Refills: 0, [facility] Product Selection Permitted - Pepcid 20 mg Oral Tablet - take 1 tablet by ORAL route every 12 hours for 5 days; 10 tablet; Refills: 0, [facility] Product Selection Permitted Signatures: Dispatcher [employer] EDMS Mary Pace, RN RN lp1 Kenny Candelaria MD MD mh7 Shaylee Garner RN RN jg9 Maribel Riggs RN RN vc1 Corrections: (The following items were deleted from the chart) 05:24 05:22 URIC ACID+C.LAB.BRZ ordered. EDKS EDMS 06:43 06:43 NS 0.9% 1000 ml IV at 1000 ml once ordered. [facility]7
--- NOTE | 2021-12-18 07:40 | ER ---
Nurse's Notes [facility] Name: Kacy Mishra Age: 26 yrs Sex: Female : 1995 Arrival Date: 12/18/2021 Time: 02:54 Bed 16 Private MD: Diagnosis: Hyperemesis Gravidarum;UTI/ Urinary tract infection, site not specified Presentation: 12/18 03:20 Chief complaint: Patient states: "I have been constipated for over a month. I have vc1 tried everything suppositories, enemas, milk of magnesium. I am having so much abdominal pain. I have also been vomiting for 2 weeks and am unable to keep anything down. I just need help to get it out.". Coronavirus screen: Vaccine status: Patient reports receiving the 2nd dose of the covid vaccine. Pfizer At this time, the client does not indicate any symptoms associated with coronavirus-19. Ebola Screen: No symptoms or risks identified at this time. Initial Sepsis Screen: Does the patient meet any 2 criteria? RR > 20 per min. Does the patient have a suspected source of infection? No. Patient's initial sepsis screen is negative. Risk Assessment: Do you want to hurt yourself or someone else? Patient reports no desire to harm self or others. Onset of symptoms is unknown. 03:20 Method Of Arrival: Ambulatory vc1 03:20 Acuity: DALIA 3 vc1 Triage Assessment: 06:35 General: Appears in no apparent distress. liliana 06:37 General: Behavior is calm, cooperative. liliana 06:37 Pain: Denies pain. 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 - Social history:: Smoking status: Patient denies any tobacco usage or history of. Screenin:55 Abuse screen: Denies threats or abuse. Denies injuries from another. Nutritional liliana screening: No deficits noted. Tuberculosis screening: No symptoms or risk factors identified. Fall Risk None identified. Assessment: 03:32 Reassessment: The pt was placed in room #16 at this time. liliana 03:52 Reassessment: The pt reports that she has not had a bowel movement in 2 months, liliana although her PCP had her use MOM and enemas. The pt still denied that she has had a bowel movement in that time. She also states that she is 8-9 weeks with her second . I have asked the pt to provide a urine specimen. 06:35 Reassessment: MD is at bedside. liliana 06:38 GI: Bowel sounds present X 4 quads. liliana 06:38 GI: Abd is soft and non tender. liliana 08:09 Reassessment: Patient did not tolerate the PO challenge very well, she started having jg9 dry heaves but she reports she is ok to go home. Vital Signs: 03:20 BP 114 / 68; Pulse 87; Resp 20; Temp 98.5(O); Pulse Ox 100% ; Weight 72.57 kg; Height 5 vc1 ft. 6 in. (167.64 cm); Pain 5/10; 03:55 BP 138 / 80; Pulse 90; Resp 16; Temp 98.5; Pulse Ox 100% on R/A; liliana 05:31 BP 124 / 70; Pulse 64; Resp 16; Temp 98.5; Pulse Ox 100% on R/A; liliana 03:20 Body Mass Index 25.82 (72.57 kg, 167.64 cm) vc1 ED Course: 02:54 Patient arrived in ED. bp1 03:26 Triage completed. vc1 03:26 Arm band placed on left wrist. vc1 03:32 Kiara Leong, RN is Primary Nurse. liliana 03:52 Kenny Candelaria MD is Attending Physician. mh7 03:55 Bed in low position. Call light in reach. Side rails up X 1. liliana 05:32 No provider procedures requiring assistance completed. Inserted saline lock: 20 gauge liliana in left antecubital area, using aseptic technique. Blood collected. 06:48 HCG-Quantitative Sent. liliana 06:58 Urine Culture Sent. liliana 06:58 Urine Microscopic Only Sent. liliana 06:58 HCG-Quantitative Sent. liliana 07:39 Julian Heart MD is Referral Physician. mh7 07:44 Attending Physician role handed off by Kenny Candelaria MD [facility] 07:44 Von Flores MD is Attending Physician. [facility] 08:16 IV discontinued. jg9 Administered Medications: 06:43 CANCELLED (wrong medicationn): NS 0.9% 1000 ml IV at 1000 ml once [facility] 07:05 Drug: Zofran (Ondansetron) 4 mg Route: IVP; Site: left antecubital; 9 07:05 Drug: D5-NS 1000 ml Route: IV; Rate: per protocol; Site: left antecubital; j9 08:00 Drug: Rocephin (cefTRIAXone) 1 grams Route: IV; Rate: per protocol; Site: left 9 antecubital; Medication: 08:16 VIS not applicable for this client. jg9 Outcome: 06:37 Condition: stable liliana 07:40 Discharge ordered by . [facility] 08:16 Discharged to home ambulatory. 9 08:16 Discharge instructions given to patient. 08:17 Patient left the ED. jg9 Signatures: Von Flores MD MD [facility] Kenny Canedlaria MD MD [facility] Shaylee Garner RN RN jg9 Kiara Leong RN RN bo Calcote, Vanessa, RN RN vc1 Corrections: (The following items were deleted from the chart) 06:38 06:36 GI: liliana liliana
[2021-12-18] MEDS ORDERED: CEFTRIAXONE 1000 MG/VIAL ONE (08:03)
[2021-12-18 08:24] VITALS: TEMP 98.5; O2SAT 100
[2021-12-18 08:27] VITALS: BP 124/70
== END 2021-12-18 08:17 | disposition home or self-care (01) ==
LOC: ER 02:52
DX: O21.0 Mild hyperemesis gravidarum (principal); O23.41 Unspecified infection of urinary tract in pregnancy, first trimester; N39.0 Urinary tract infection, site not specified; Z3A.09 9 weeks gestation of pregnancy
CPT/HCPCS: 87088; 85025; 87086; 36415; 81025; 84550; 84702; 83690; 80053; 96375; 96374; 99284; J7042; J2405 ×2; 81003; 81015

== ENCOUNTER 2022-01-16 09:36 | Emergency (ER) | payer OTHER ==
[2022-01-16 10:34] LABS: Absolute Lymphocytes (CBC) 0.7 K/uL (0.7-4.9); Hematocrit 38.5 % (36.0-45.0); Lymphocytes % 3.5 % (15.3-44.8); MPV 8.9 fL (7.6-11.3); RBC Red Blood Cell Count 4.54 M/uL (3.86-4.86)
[2022-01-16 10:52] LABS: Blood Morphology Comment NOT SEEN (NOT SEEN); Platelet Estimate ADEQ
[2022-01-16] MEDS ORDERED: ONDANSETRON 4 MG/2 ML VIAL ONE (10:55)
[2022-01-16] MEDS ORDERED: NA CHLORIDE 0.9% 1,000 ML ONE ×2 (10:55→14:48)
[2022-01-16] MEDS ORDERED: FAMOTIDINE 20 MG/2 ML VIAL IV ONE (10:55)
[2022-01-16 11:23] LABS: Albumin 3.4 g/dL (3.4-5.0); Bilirubin Total 1.3 mg/dL (0.2-1.0); Potassium 3.4 mmol/L (3.5-5.1); Protein, Total 7.8 g/dL (6.4-8.2)
[2022-01-16] MEDS ORDERED: MORPHINE 2 MG/ML SYR ONE (11:56)
--- NOTE | 2022-01-16 12:05 | RAD REPORT ---
EXAM DESCRIPTION: US - OB Limited - 01/16/2022 11:43 am CLINICAL HISTORY: lower abdomen pain, COMPARISON: No comparisons FINDINGS: Single IUP identified with positive heart tones. The heart rate is measured at 185 beats . minute. Curvilinear small hypoechoic area along the right lateral head of the placenta is noted. Mild uplifti ng of the margins of the placenta. IMPRESSION: Single IUP with positive heart tones. Mild uplifting of the lateral margins of the placenta could represent placental abruption. Recommend clinical correlation.
[2022-01-16 12:53] LABS: Urine Blood 2+ (Negative); Urine Glucose Trace (Negative); Urine Protein Trace (Negative); Urine Specific Gravity >=1.030 (1.005-1.030); Urine pH 5.5 (5.0-7.0)
[2022-01-16 13:36] LABS: Urine Bacteria <20 /HPF (<20); Urine RBC <5 /HPF (NONE SEEN)
[2022-01-16 13:37] LABS: Urine Mucus 2+ /HPF (NONE SEEN)
--- NOTE | 2022-01-16 14:34 | ER ---
Nurse's Notes [facility] Name: Kacy Mishra Age: 26 yrs Sex: Female : 1995 Arrival Date: 01/16/2022 Time: 09:39 Bed 15 Private MD: Diagnosis: GI Bleed/ Gastrointestinal hemorrhage, unspecified;Elevated white blood cell count;Diarrhea, unspecified Presentation: 01/16 10:07 Chief complaint: Patient states: she has been having nausea, vomiting, diarrhea, ap3 abdominal cramping, chills, and bleeding since early this morning. Patient states she feels faint each time she attempts to go to the restroom. Patient reports being 12/13 weeks and has the urge to constantly "push". Coronavirus screen: Client presents with at least one sign or symptom that may indicate coronavirus-19. Ebola Screen: Patient denies travel to an Ebola-affected area in the 21 days before illness onset. Initial Sepsis Screen: Does the patient meet any 2 criteria? HR > 90 bpm. Does the patient have a suspected source of infection? No. Patient's initial sepsis screen is negative. Risk Assessment: Do you want to hurt yourself or someone else? Patient reports no desire to harm self or others. Onset of symptoms was January 16, 2022 at 02:00. 10:07 Method Of Arrival: Ambulatory ap3 10:07 Acuity: DALIA 3 ap3 Triage Assessment: 10:10 General: Appears uncomfortable, Behavior is restless. Pain: Complains of pain in ap3 abdomen. Neuro: Level of Consciousness is awake, alert, obeys commands, Oriented to person, place, time, situation, Speech is normal. Cardiovascular: Patient's skin is warm and dry. Respiratory: Airway is patent Respiratory effort is even, unlabored, Respiratory pattern is regular, symmetrical. GI: Reports diarrhea, nausea, vomiting. 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 - Social history:: Smoking status: Patient denies any tobacco usage or history of. Screenin:11 Abuse screen: Denies threats or abuse. Nutritional screening: No deficits noted. ap3 Tuberculosis screening: No symptoms or risk factors identified. 12:26 Fall Risk None identified. ww Assessment: 10:40 General: Appears uncomfortable. Pain: Complains of pain in back and abdomen. Neuro: ww Aguilar Agitation-Sedation Scale (RASS): 0 - Alert and Calm Level of Consciousness is awake, alert, obeys commands, Oriented to person, place, time, situation, Moves all extremities. Speech is normal. Cardiovascular: Capillary refill < 3 seconds Patient's skin is warm and dry. Respiratory: Airway is patent Respiratory effort is even, unlabored, Respiratory pattern is regular, symmetrical. GI: Abdomen is non-distended, Abd is soft Abdomen is tender to palpation in suprapubic area, right lower quadrant and left lower quadrant Reports lower abdominal pain, cramping, diarrhea, rectal bleeding, nausea, vomiting. : Reports inability to void. Derm: No signs and/or symptoms reported regarding the dermatologic system. Skin is intact, is healthy with good turgor. 11:00 Reassessment: Patient and/or family updated on plan of care and expected duration. Pain ww level reassessed. patient states she is having back pain and lower abdominal pain and she feels like she needs to push. Patient on hands and knees rocking in the bed. Jayro Page notified. Set up for vaginal exam and rectal exam. 12:24 Reassessment: Patient appears in no apparent distress at this time. Patient and/or ww family updated on plan of care and expected duration. Pain level reassessed. Patient is alert, oriented x 3, equal unlabored respirations, skin warm/dry/pink. Patient states symptoms have improved. 13:15 Reassessment: No changes from previously documented assessment. Patient and/or family ww updated on plan of care and expected duration. Pain level reassessed. Patient is alert, oriented x 3, equal unlabored respirations, skin warm/dry/pink. Patient states symptoms have not improved. 14:25 Reassessment: No changes from previously documented assessment. Patient and/or family ww updated on plan of care and expected duration. Pain level reassessed. Patient is alert, oriented x 3, equal unlabored respirations, skin warm/dry/pink. 15:11 Reassessment: Patient appears in no apparent distress at this time. No changes from ww previously documented assessment. Patient and/or family updated on plan of care and expected duration. Pain level reassessed. Patient is alert, oriented x 3, equal unlabored respirations, skin warm/dry/pink. Report given to NAEL Daugherty. 15:48 Reassessment: report given to EMS. ww Vital Signs: 10:07 BP 118 / 55; Pulse 124; Resp 19; Temp 98.8; Pulse Ox 100% ; Weight 68.04 kg; Height 5 ap3 ft. 6 in. (167.64 cm); Pain 9/10; 15:16 BP 114 / 64; Pulse 100; Resp 20; Pulse Ox 100% on R/A; ww 15:49 BP 116 / 65; Pulse 80; Resp 18; Pulse Ox 100% on R/A; ww 10:07 Body Mass Index 24.21 (68.04 kg, 167.64 cm) ap3 ED Course: 09:39 Patient arrived in ED. as 09:47 Jayro Hannon PA is PHCP. cp 09:47 Jayro Andrews MD is Attending Physician. cp 10:09 Triage completed. ap3 10:11 Arm band placed on right wrist. ap3 10:16 Aye Chavez RN is Primary Nurse. ww 10:32 Initial lab(s) drawn, by az, sent to lab. Inserted saline lock: 20 gauge in left em1 antecubital area, using aseptic technique. Blood collected. 11:43 US OB Limited In Process Unspecified. EDMS 12:26 Patient has correct armband on for positive identification. Placed in gown. Bed in low ww position. Call light in reach. Side rails up X 1. Pulse ox on. NIBP on. Warm blanket given. 13:31 attempted to initiate a transfer with Nenita from the [facility] Transfer Center. eb 13:36 initiated a transfer with Carmine from the [facility] transfer center. eb 13:53 connected the emergency room doctor radiotelephone technical operator for [facility] with Jayro YOON for patient transfer consultation. 13:59 administrative approval given by Carmine Aguayo Rn/ patient has been accepted to [facility] ER/ Dr. Estefany Rosales has accepted the patient in transfer/ report to be called to [phone]. Administered Medications: 10:50 Drug: NS 0.9% 1000 ml Route: IV; Rate: 1 bolus; Site: left antecubital; ww 10:51 Drug: Pepcid (famotidine) 20 mg Route: IVP; Site: left antecubital; ww 10:55 Drug: Zofran (Ondansetron) 4 mg Route: IVP; Site: left antecubital; ww 15:10 Drug: NS 0.9% (30 ml/kg) 30 ml/kg Route: IV; Rate: bolus; Site: left antecubital; ww Outcome: 14:34 ER care complete, transfer ordered by MD. lee 15:50 Transferred by ground EMS ww 15:50 Condition: stable 15:50 Instructed on the need for transfer. 15:58 Patient left the ED. ww Signatures: Dispatcher [employer] Malathi Hale Eric em1 Jayro Hannon PA PA cp Prokisch, Amanda, RN RN ap3 Elsa Gómez Whitney RN RN ww
--- NOTE | 2022-01-16 14:34 | EDPHYS ---
Physician Documentation [facility] Name: Kacy Mishra Age: 26 yrs Sex: Female : 1995 Arrival Date: 01/16/2022 Time: 09:39 Bed 15 Private MD: ED Physician Jayro Andrews HPI: 01/16 10:15 This 26 yrs old Female presents to ER via Ambulatory with complaints of cp Nausea/Vomiting/Diarrhea, Abdominal Cramping - 13 wks preg. 10:15 The patient presents to the emergency department with nausea, with "dry heaves", cp vomiting, that is continuous, diarrhea, that is continuous, abdominal pain, of the suprapubic area, right lower quadrant and left lower quadrant, described as constant. Onset: The symptoms/episode began/occurred this morning. Possible causes: . Associated signs and symptoms: Pertinent positives: rectal pain and rectal bleeding, Pertinent negatives: constipation, fever, vaginal bleeding. Severity of symptoms: in the emergency department the symptoms are unchanged despite home interventions. 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 - Social history:: Smoking status: Patient denies any tobacco usage or history of. ROS: 10:20 Constitutional: Negative for body aches, chills, fever, poor PO intake. cp 10:20 Eyes: Negative for injury, pain, redness, and discharge. cp 10:20 ENT: Negative for drainage from ear(s), ear pain, sore throat, difficulty swallowing, difficulty handling secretions. 10:20 Cardiovascular: Negative for chest pain, edema, palpitations. 10:20 Respiratory: Negative for cough, shortness of breath, wheezing. 10:20 Abdomen/GI: Positive for abdominal pain, nausea, vomiting, diarrhea, rectal bleeding, Negative for constipation. 10:20 Back: Negative for pain at rest, pain with movement. 10:20 : Negative for urinary symptoms, vaginal bleeding. 10:20 Neuro: Positive for near syncope, weakness, Negative for altered mental status, headache. 10:20 All other systems are negative. Exam: 10:25 Constitutional: The patient appears in no acute distress, alert, awake, non-toxic, well cp developed, well nourished, uncomfortable. 10:25 Head/Face: Normocephalic, atraumatic. cp 10:25 Eyes: Periorbital structures: appear normal, Conjunctiva: normal, no exudate, no injection, Sclera: no appreciated abnormality, Lids and lashes: appear normal, bilaterally. 10:25 ENT: External ear(s): are unremarkable, Nose: is normal, Mouth: Lips: moist, Oral mucosa: moist, Posterior pharynx: Airway: no evidence of obstruction, patent. 10:25 Chest/axilla: Inspection: normal. 10:25 Cardiovascular: Rate: tachycardic, Rhythm: regular. 10:25 Respiratory: the patient does not display signs of respiratory distress, Respirations: normal, no use of accessory muscles, no retractions, labored breathing, is not present, Breath sounds: are clear throughout, no decreased breath sounds, no stridor, no wheezing. 10:25 Abdomen/GI: Inspection: abdomen appears normal, Bowel sounds: active, all quadrants, Palpation: soft, in all quadrants, severe abdominal tenderness, in the suprapubic area and right lower quadrant, voluntary guarding, is elicited in the suprapubic area and right lower quadrant. 10:25 Back: CVA tenderness, is absent. 10:25 : Rectal exam: Guaiac testing: insufficient stool is present to send for examination. Vital Signs: 10:07 BP 118 / 55; Pulse 124; Resp 19; Temp 98.8; Pulse Ox 100% ; Weight 68.04 kg; Height 5 ap3 ft. 6 in. (167.64 cm); Pain 9/10; 15:16 BP 114 / 64; Pulse 100; Resp 20; Pulse Ox 100% on R/A; ww 15:49 BP 116 / 65; Pulse 80; Resp 18; Pulse Ox 100% on R/A; ww 10:07 Body Mass Index 24.21 (68.04 kg, 167.64 cm) ap3 MDM: 10:13 Patient medically screened. cp 13:55 Data reviewed: vital signs, nurses notes, lab test result(s), radiologic studies, cp ultrasound. 01/16 10:11 Order name: CBC with Diff; Complete Time: 10:59 01/16 12:05 Interpretation: Normal except: WBC 19.3; CINTHIA% 92.6; LYM% 3.5; NEUT A 17.9. 01/16 10:11 Order name: CMP; Complete Time: 12:05 01/16 12:05 Interpretation: Normal except: NA 134; K 3.4; CO2 20; GLUC 126; BUN 4; BILIT 1.3; A/G cp 0.8; GLOB 4.4. 01/16 10:11 Order name: Lipase; Complete Time: 12:05 01/16 10:11 Order name: Urine Microscopic Only; Complete Time: 13:51 01/16 13:51 Interpretation: Reviewed. 01/16 10:11 Order name: Quantitative Hcg; Complete Time: 12:05 01/16 10:53 Order name: Manual Differential; Complete Time: 10:59 EDMS 01/16 12:53 Order name: Urine Dipstick-Ancillary; Complete Time: 13:27 EDTN 01/16 13:31 Order name: COVID-19 SARS RT PCR (Document "Date of Onset" if Symptomatic) 01/16 13:51 Order name: Occult Blood 01/16 13:51 Order name: Ova And Parasites 01/16 13:51 Order name: Rotavirus Antigen 01/16 13:51 Order name: Stool Culture 01/16 10:11 Order name: IV Saline Lock; Complete Time: 10:31 01/16 10:11 Order name: Labs collected and sent; Complete Time: 10:31 01/16 10:11 Order name: Urine Dipstick-Ancillary (obtain specimen); Complete Time: 12:53 01/16 10:11 Order name: Urine Test (obtain specimen); Complete Time: 12:53 01/16 10:59 Order name: Pelvic Exam Setup; Complete Time: 11:03 01/16 11:20 Order name: US OB Limited; Complete Time: 12:17 01/16 12:17 Interpretation: Report reviewed. 01/16 13:51 Order name: CDIFF cp 01/16 14:00 Order name: Lactate 01/16 14:00 Order name: Procalcitonin 01/16 14:00 Order name: Blood Culture Adult (2) 01/16 11:20 Order name: Cath; Complete Time: 12:44 cp Administered Medications: 10:50 Drug: NS 0.9% 1000 ml Route: IV; Rate: 1 bolus; Site: left antecubital; ww 10:51 Drug: Pepcid (famotidine) 20 mg Route: IVP; Site: left antecubital; ww 10:55 Drug: Zofran (Ondansetron) 4 mg Route: IVP; Site: left antecubital; ww 15:10 Drug: NS 0.9% (30 ml/kg) 30 ml/kg Route: IV; Rate: bolus; Site: left antecubital; ww Disposition Summary: 01/16/22 14:34 Transfer Ordered Transfer Location: [facility] cp Reason: Higher level of care cp Condition: Stable cp Problem: new cp Symptoms: have improved cp Accepting Physician: Dr. Rosales [facility](01/16/22 15:58) ww Diagnosis - GI Bleed/ Gastrointestinal hemorrhage, unspecified cp - Elevated white blood cell count cp - Diarrhea, unspecified cp Forms: - Medication Reconciliation Form cp - SBAR form cp Signatures: Dispatcher [employer] EDMS Jayro Hannon PA PA cp Prokisch, Amanda, RN RN [email or web address] Elsa Gómez Whitney, RN RN ww Corrections: (The following items were deleted from the chart) 14:45 14:34 Doctor cp 15:58 14:45 Dr. Rosales [facility]
[2022-01-16 16:12] VITALS: TEMP 98.8; O2SAT 100
[2022-01-16 16:15] VITALS: BP 116/65
[2022-01-17 14:02] LABS: C.diff Antigen/Toxin Ag neg : Tox neg (NEG : NEG)
== END 2022-01-16 15:58 ==
LOC: ER 09:36
DX: O99.611 Diseases of the digestive system complicating pregnancy, first trimester (principal); K92.2 Gastrointestinal hemorrhage, unspecified; R19.7 Diarrhea, unspecified; D72.829 Elevated white blood cell count, unspecified; Z3A.13 13 weeks gestation of pregnancy; Z20.822 Contact with and (suspected) exposure to COVID-19
CPT/HCPCS: 87040; 87045; 85025; 36415; 87205; 87177; 82274; 87046; 83605; 87209; 84702; 87324; 83690; 80053; 84145; 87449; 87425; 76815; 96375; 96374; 99285; U0003; J2270; J7030 ×2; J2405; J3490; 81003; 81015

== ENCOUNTER 2025-04-19 14:50 | Inpatient (IN) | payer OTHER, SELFPAY ==
--- OUTSIDE RECORDS SUMMARY | 2025-04-19 15:00 | XMS REPORT | Continuity of Care Document ---
Author Name Unknown Address [address] [facility] [address] [place] [address] [facility] Address [address] [facility] 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 Primary Care Physician [phone] Estefany Rosales Attending Clinician Unavail able Ashly PETERSON, Vicki Attending Clinician [phone] [id number] Attending Clinician Ree Moreno NP, Nenita Attending Clinician [phone] MARTHA_JOSE RAUL_[place]_G Attending Clinician Unavail able Ann-Marie Wood Attending Clinician Unavailab natalie THOMAS_LJ_[place] Attending Clinician Unavaila Ann-Marie Briceno Attending Clinician [phone] Jerel Martin Attending Clinician Unavailable JADA BENITES Attending Clinician Ree Benites MD, Jada Augustin Attending Clinician + [phone] DARREN CASTREJON Attending Clinician Unavailable RAJIV CANADA Attending Clinician Unavailable MARTHA_JOSE RAUL_[place]_G Admitting Clinician Unavail Ann-Marie Padilla Admitting Clinician Unavailab natalie MARTHA_SWHATBIC_[place] Admitting Clinician Unavaila RAJIV Parra Admitting Clinician Unavailable Payers Payer Name Policy Type Policy Number Effective Date Expirati on Date Source [facility] (MEDICAID REPLACEMENT - HMO) [id number] 2021 00:00:00 [facility] [id number] 2019 00:00:00 2021 00:00:00 SELF PAY OP DIAGNSTC IMGING [id number] 2020 00:00:00 [employer] PPO POS EPO CHOICE [id number] 2017 00:00:00 2019 00:00:00 Problems Condition Name Condition Details Condition Category Status Onset Date Resolution Date Last Treatment Date Treating Clinician Comments Source depression Depression Problem Active 03 00:00: 00 [facility] 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 2018-07 015 00:00: 00 [facility] Pituitary lesion Pituitary lesion Disease Active 11-23 00:00: 00 [facility] Pre-op testing Pre-op testing Disease Active 11-23 00:00: 00 [facility] Allergies, Adverse Reactions, Alerts Allergy Name Allergy Type Status Severity Reaction(s) Onset Date Inactive Date Treating Clinician Comments Source No Known Allergie s DA Active U 2021-07 2-21 00:00: 00 [facility] No Known Allergie s DA Active U 30 00:00: 00 [facility] No Known Allergie s DA Active U 5-14 00:00: 00 [facility] No Known Allergie s DA Active U 5-14 00:00: 00 [facility] No Known Allergie s DA Active U 2017-07 0-24 00:00: 00 [facility] No Known Allergie s DA Active U 2017-07 0-18 00:00: 00 [facility] NO KNOWN ALLERGIE S Allergy Active [facility] Social History Social Habit Start Date Stop Date Quantity Comments Source Gender identity [facility] Health Sexual orientation C VS Health History SDOH Alcohol Frequency [facility] History SDOH Alcohol Std Drinks [facility] History SDOH Alcohol Binge [facility] Alcohol intake 2021-12-20 00:00:00 2021-12-20 00:00:00 Current drinker of alcohol (finding) [facility] Tobacco use and exposure 2017-10-26 00:00:00 2017-10-26 00:00:00 Never used [facility] Alcohol Comment 2017-10-26 00:00:00 2017-10-26 00:00:00 rare [facility] Sex Assigned At 1995 00:00:00 1995 00:00:00 [facility] Smoking Status Start Date Stop Date Source Tobacco smoking consumption unknown [facility] Health Never smoker [facility] Medications Ordered Medication Name Filled Medication Name Start Date Stop Date Current Medication? Ordering Clinician Indication Dosage Frequency Signature (SIG) Comments Components Source 21-iron fu-folic acid ( Complete) 14 mg iron- 400 mcg Tab 12-20 00:00: 00 Yes 1{tbl} QD Take 1 tablet by mouth daily. [facility] hydrocortis one (CORTEF) 10 MG tablet 11-24 13:04: 06 Yes 10mg Q.5D Take 10 mg by mouth 2 (two) times daily. [facility] sod chlor-bicar b-squeez bottle (NEILMED SINUS RINSE COMPLETE) pkdv 11-24 00:00: 00 Yes 1{packe t} Q.25D 1 packet by Nasal route 4 (four) times daily. [facility] cefpodoxime 200 mg tablet TAKE ONE (1) TABLET(S) BY MOUTH TWICE A DAY FOR 5 DAYS. cefpodoxime 200 mg tablet TAKE ONE (1) TABLET(S) BY MOUTH TWICE A DAY FOR 5 DAYS. No cefpodoxim e 200 mg tablet TAKE ONE (1) TABLET(S) BY MOUTH TWICE A DAY FOR 5 DAYS. [facility] cephalexin 500 mg capsule TAKE ONE (1) CAPSULE(S) BY MOUTH EVERY TWELVE HOURS FOR SEVEN DAYS. cephalexin 500 mg capsule TAKE ONE (1) CAPSULE(S) BY MOUTH EVERY TWELVE HOURS FOR SEVEN DAYS. No cephalexin 500 mg capsule TAKE ONE (1) CAPSULE(S) BY MOUTH EVERY TWELVE HOURS FOR SEVEN DAYS. [facility] famotidine 20 mg tablet TAKE ONE (1) TABLET(S) BY MOUTH EVERY TWELVE HOURS FOR 5 DAYS. famotidine 20 mg tablet TAKE ONE (1) TABLET(S) BY MOUTH EVERY TWELVE HOURS FOR 5 DAYS. No famotidine 20 mg tablet TAKE ONE (1) TABLET(S) BY MOUTH EVERY TWELVE HOURS FOR 5 DAYS. [facility] ondansetron 4 mg disintegrat ing tablet DISSOLVE ONE (1) TABLET(S) BY MOUTH EVERY EIGHT HOURS NEEDED. ondansetron 4 mg disintegrat ing tablet DISSOLVE ONE (1) TABLET(S) BY MOUTH EVERY EIGHT HOURS NEEDED. No ondansetro n 4 mg disintegra ting tablet DISSOLVE ONE (1) TABLET(S) BY MOUTH EVERY EIGHT HOURS NEEDED. [facility] terconazole 0.4 % vaginal cream INSERT ONE (1) APPLICATORF UL VAGINAL EVERY DAY FOR 7 DAYS. terconazole 0.4 % vaginal cream INSERT ONE (1) APPLICATORF UL VAGINAL EVERY DAY FOR 7 DAYS. No terconazol e 0.4 % vaginal cream INSERT ONE (1) APPLICATOR FUL VAGINAL EVERY DAY FOR 7 DAYS. [facility] 3-Day Vaginal 2 % cream APPLY ONE (1) GRAM VAGINALLY AT BEDTIME FOR 3 DAYS. 3-Day Vaginal 2 % cream APPLY ONE (1) GRAM VAGINALLY AT BEDTIME FOR 3 DAYS. No 3-Day Vaginal 2 % cream APPLY ONE (1) GRAM VAGINALLY AT BEDTIME FOR 3 DAYS. [facility] fluconazole 150 mg tablet TAKE ONE (1) TABLET(S) BY MOUTH FOR A SINGLE DOSE. fluconazole 150 mg tablet TAKE ONE (1) TABLET(S) BY MOUTH FOR A SINGLE DOSE. No fluconazol e 150 mg tablet TAKE ONE (1) TABLET(S) BY MOUTH FOR A SINGLE DOSE. [facility] hydrocortis one 2.5 % topical cream APPLY TO AFFECTED AREA TWICE A DAY. hydrocortis one 2.5 % topical cream APPLY TO AFFECTED AREA TWICE A DAY. No hydrocorti sone 2.5 % topical cream APPLY TO AFFECTED AREA TWICE A DAY. [facility] nitrofurant oin monohydrate /macrocryst als 100 mg capsule TAKE ONE (1) CAPSULE(S) BY MOUTH EVERY TWELVE HOURS FOR 7 DAYS. nitrofurant oin monohydrate /macrocryst als 100 mg capsule TAKE ONE (1) CAPSULE(S) BY MOUTH EVERY TWELVE HOURS FOR 7 DAYS. No nitrofuran toin monohydrat e/macrocry stals 100 mg capsule TAKE ONE (1) CAPSULE(S) BY MOUTH EVERY TWELVE HOURS FOR 7 DAYS. [facility] promethazin e 25 mg rectal suppository INSERT ONE (1) SUPPOSITORY RECTALLY EVERY FOUR HOURS NEEDED FOR NAUSEA OR VOMITING. promethazin e 25 mg rectal suppository INSERT ONE (1) SUPPOSITORY RECTALLY EVERY FOUR HOURS NEEDED FOR NAUSEA OR VOMITING. No promethazi ne 25 mg rectal suppositor y INSERT ONE (1) SUPPOSITOR Y RECTALLY EVERY FOUR HOURS NEEDED FOR NAUSEA OR VOMITING. [facility] 3-Day Vaginal 2 % cream APPLY ONE (1) GRAM VAGINALLY AT BEDTIME FOR 3 DAYS. 3-Day Vaginal 2 % cream APPLY ONE (1) GRAM VAGINALLY AT BEDTIME FOR 3 DAYS. No 3-Day Vaginal 2 % cream APPLY ONE (1) GRAM VAGINALLY AT BEDTIME FOR 3 DAYS. [facility] cefpodoxime 200 mg tablet TAKE ONE (1) TABLET(S) BY MOUTH TWICE A DAY FOR 5 DAYS. cefpodoxime 200 mg tablet TAKE ONE (1) TABLET(S) BY MOUTH TWICE A DAY FOR 5 DAYS. No cefpodoxim e 200 mg tablet TAKE ONE (1) TABLET(S) BY MOUTH TWICE A DAY FOR 5 DAYS. [facility] cephalexin 500 mg capsule TAKE ONE (1) CAPSULE(S) BY MOUTH EVERY TWELVE HOURS FOR SEVEN DAYS. cephalexin 500 mg capsule TAKE ONE (1) CAPSULE(S) BY MOUTH EVERY TWELVE HOURS FOR SEVEN DAYS. No cephalexin 500 mg capsule TAKE ONE (1) CAPSULE(S) BY MOUTH EVERY TWELVE HOURS FOR SEVEN DAYS. [facility] famotidine 20 mg tablet TAKE ONE (1) TABLET(S) BY MOUTH EVERY TWELVE HOURS FOR 5 DAYS. famotidine 20 mg tablet TAKE ONE (1) TABLET(S) BY MOUTH EVERY TWELVE HOURS FOR 5 DAYS. No famotidine 20 mg tablet TAKE ONE (1) TABLET(S) BY MOUTH EVERY TWELVE HOURS FOR 5 DAYS. [facility] fluconazole 150 mg tablet TAKE ONE (1) TABLET(S) BY MOUTH FOR A SINGLE DOSE. fluconazole 150 mg tablet TAKE ONE (1) TABLET(S) BY MOUTH FOR A SINGLE DOSE. No fluconazol e 150 mg tablet TAKE ONE (1) TABLET(S) BY MOUTH FOR A SINGLE DOSE. [facility] hydrocortis one 2.5 % topical cream APPLY TO AFFECTED AREA TWICE A DAY. hydrocortis one 2.5 % topical cream APPLY TO AFFECTED AREA TWICE A DAY. No hydrocorti sone 2.5 % topical cream APPLY TO AFFECTED AREA TWICE A DAY. [facility] nitrofurant oin monohydrate /macrocryst als 100 mg capsule TAKE ONE (1) CAPSULE(S) BY MOUTH EVERY TWELVE HOURS FOR 7 DAYS. nitrofurant oin monohydrate /macrocryst als 100 mg capsule TAKE ONE (1) CAPSULE(S) BY MOUTH EVERY TWELVE HOURS FOR 7 DAYS. No nitrofuran toin monohydrat e/macrocry stals 100 mg capsule TAKE ONE (1) CAPSULE(S) BY MOUTH EVERY TWELVE HOURS FOR 7 DAYS. [facility] ondansetron 4 mg disintegrat ing tablet DISSOLVE ONE (1) TABLET(S) BY MOUTH EVERY EIGHT HOURS NEEDED. ondansetron 4 mg disintegrat ing tablet DISSOLVE ONE (1) TABLET(S) BY MOUTH EVERY EIGHT HOURS NEEDED. No ondansetro n 4 mg disintegra ting tablet DISSOLVE ONE (1) TABLET(S) BY MOUTH EVERY EIGHT HOURS NEEDED. [facility] promethazin e 25 mg rectal suppository INSERT ONE (1) SUPPOSITORY RECTALLY EVERY FOUR HOURS NEEDED FOR NAUSEA OR VOMITING. promethazin e 25 mg rectal suppository INSERT ONE (1) SUPPOSITORY RECTALLY EVERY FOUR HOURS NEEDED FOR NAUSEA OR VOMITING. No promethazi ne 25 mg rectal suppositor y INSERT ONE (1) SUPPOSITOR Y RECTALLY EVERY FOUR HOURS NEEDED FOR NAUSEA OR VOMITING. [facility] terconazole 0.4 % vaginal cream INSERT ONE (1) APPLICATORF UL VAGINAL EVERY DAY FOR 7 DAYS. terconazole 0.4 % vaginal cream INSERT ONE (1) APPLICATORF UL VAGINAL EVERY DAY FOR 7 DAYS. No terconazol e 0.4 % vaginal cream INSERT ONE (1) APPLICATOR FUL VAGINAL EVERY DAY FOR 7 DAYS. [facility] 3-Day Vaginal 2 % cream APPLY ONE (1) GRAM VAGINALLY AT BEDTIME FOR 3 DAYS. 3-Day Vaginal 2 % cream APPLY ONE (1) GRAM VAGINALLY AT BEDTIME FOR 3 DAYS. No 3-Day Vaginal 2 % cream APPLY ONE (1) GRAM VAGINALLY AT BEDTIME FOR 3 DAYS. [facility] cefpodoxime 200 mg tablet TAKE ONE (1) TABLET(S) BY MOUTH TWICE A DAY FOR 5 DAYS. cefpodoxime 200 mg tablet TAKE ONE (1) TABLET(S) BY MOUTH TWICE A DAY FOR 5 DAYS. No cefpodoxim e 200 mg tablet TAKE ONE (1) TABLET(S) BY MOUTH TWICE A DAY FOR 5 DAYS. [facility] cephalexin 500 mg capsule TAKE ONE (1) CAPSULE(S) BY MOUTH EVERY TWELVE HOURS FOR SEVEN DAYS. cephalexin 500 mg capsule TAKE ONE (1) CAPSULE(S) BY MOUTH EVERY TWELVE HOURS FOR SEVEN DAYS. No cephalexin 500 mg capsule TAKE ONE (1) CAPSULE(S) BY MOUTH EVERY TWELVE HOURS FOR SEVEN DAYS. [facility] famotidine 20 mg tablet TAKE ONE (1) TABLET(S) BY MOUTH EVERY TWELVE HOURS FOR 5 DAYS. famotidine 20 mg tablet TAKE ONE (1) TABLET(S) BY MOUTH EVERY TWELVE HOURS FOR 5 DAYS. No famotidine 20 mg tablet TAKE ONE (1) TABLET(S) BY MOUTH EVERY TWELVE HOURS FOR 5 DAYS. [facility] FeroSul 325 mg (65 mg iron) tablet TAKE ONE (1) TABLET(S) BY MOUTH DAILY. FeroSul 325 mg (65 mg iron) tablet TAKE ONE (1) TABLET(S) BY MOUTH DAILY. No FeroSul 325 mg (65 mg iron) tablet TAKE ONE (1) TABLET(S) BY MOUTH DAILY. [facility] fluconazole 150 mg tablet TAKE ONE (1) TABLET(S) BY MOUTH FOR A SINGLE DOSE. fluconazole 150 mg tablet TAKE ONE (1) TABLET(S) BY MOUTH FOR A SINGLE DOSE. No fluconazol e 150 mg tablet TAKE ONE (1) TABLET(S) BY MOUTH FOR A SINGLE DOSE. [facility] hydrocortis one 2.5 % topical cream APPLY TO AFFECTED AREA TWICE A DAY. hydrocortis one 2.5 % topical cream APPLY TO AFFECTED AREA TWICE A DAY. No hydrocorti sone 2.5 % topical cream APPLY TO AFFECTED AREA TWICE A DAY. [facility] Micro Thin Lancets 33 gauge USE TO TEST 4 TIMES A DAY. Micro Thin Lancets 33 gauge USE TO TEST 4 TIMES A DAY. No Micro Thin Lancets 33 gauge USE TO TEST 4 TIMES A DAY. [facility] nitrofurant oin monohydrate /macrocryst als 100 mg capsule TAKE ONE (1) CAPSULE(S) BY MOUTH EVERY TWELVE HOURS FOR 7 DAYS. nitrofurant oin monohydrate /macrocryst als 100 mg capsule TAKE ONE (1) CAPSULE(S) BY MOUTH EVERY TWELVE HOURS FOR 7 DAYS. No nitrofuran toin monohydrat e/macrocry stals 100 mg capsule TAKE ONE (1) CAPSULE(S) BY MOUTH EVERY TWELVE HOURS FOR 7 DAYS. [facility] ondansetron 4 mg disintegrat ing tablet DISSOLVE ONE (1) TABLET(S) BY MOUTH EVERY EIGHT HOURS NEEDED. ondansetron 4 mg disintegrat ing tablet DISSOLVE ONE (1) TABLET(S) BY MOUTH EVERY EIGHT HOURS NEEDED. No ondansetro n 4 mg disintegra ting tablet DISSOLVE ONE (1) TABLET(S) BY MOUTH EVERY EIGHT HOURS NEEDED. [facility] promethazin e 25 mg rectal suppository INSERT ONE (1) SUPPOSITORY RECTALLY EVERY FOUR HOURS NEEDED FOR NAUSEA OR VOMITING. promethazin e 25 mg rectal suppository INSERT ONE (1) SUPPOSITORY RECTALLY EVERY FOUR HOURS NEEDED FOR NAUSEA OR VOMITING. No promethazi ne 25 mg rectal suppositor y INSERT ONE (1) SUPPOSITOR Y RECTALLY EVERY FOUR HOURS NEEDED FOR NAUSEA OR VOMITING. [facility] terconazole 0.4 % vaginal cream INSERT ONE (1) APPLICATORF UL VAGINAL EVERY DAY FOR 7 DAYS. terconazole 0.4 % vaginal cream INSERT ONE (1) APPLICATORF UL VAGINAL EVERY DAY FOR 7 DAYS. No terconazol e 0.4 % vaginal cream INSERT ONE (1) APPLICATOR FUL VAGINAL EVERY DAY FOR 7 DAYS. [facility] True Metrix Air Glucose Meter USE DIRECTED FOUR TIMES DAILY. True Metrix Air Glucose Meter USE DIRECTED FOUR TIMES DAILY. No True Metrix Air Glucose Meter USE DIRECTED FOUR TIMES DAILY. [facility] True Metrix Glucose Test Strip USE TO TEST 4 TIMES A DAY. True Metrix Glucose Test Strip USE TO TEST 4 TIMES A DAY. No True Metrix Glucose Test Strip USE TO TEST 4 TIMES A DAY. [facility] 3-Day Vaginal 2 % cream APPLY ONE (1) GRAM VAGINALLY AT BEDTIME FOR 3 DAYS. 3-Day Vaginal 2 % cream APPLY ONE (1) GRAM VAGINALLY AT BEDTIME FOR 3 DAYS. No 3-Day Vaginal 2 % cream APPLY ONE (1) GRAM VAGINALLY AT BEDTIME FOR 3 DAYS. [facility] cefpodoxime 200 mg tablet TAKE ONE (1) TABLET(S) BY MOUTH TWICE A DAY FOR 5 DAYS. cefpodoxime 200 mg tablet TAKE ONE (1) TABLET(S) BY MOUTH TWICE A DAY FOR 5 DAYS. No cefpodoxim e 200 mg tablet TAKE ONE (1) TABLET(S) BY MOUTH TWICE A DAY FOR 5 DAYS. [facility] cephalexin 500 mg capsule TAKE ONE (1) CAPSULE(S) BY MOUTH EVERY TWELVE HOURS FOR SEVEN DAYS. cephalexin 500 mg capsule TAKE ONE (1) CAPSULE(S) BY MOUTH EVERY TWELVE HOURS FOR SEVEN DAYS. No cephalexin 500 mg capsule TAKE ONE (1) CAPSULE(S) BY MOUTH EVERY TWELVE HOURS FOR SEVEN DAYS. [facility] famotidine 20 mg tablet TAKE ONE (1) TABLET(S) BY MOUTH EVERY TWELVE HOURS FOR 5 DAYS. famotidine 20 mg tablet TAKE ONE (1) TABLET(S) BY MOUTH EVERY TWELVE HOURS FOR 5 DAYS. No famotidine 20 mg tablet TAKE ONE (1) TABLET(S) BY MOUTH EVERY TWELVE HOURS FOR 5 DAYS. [facility] FeroSul 325 mg (65 mg iron) tablet TAKE ONE (1) TABLET(S) BY MOUTH DAILY. FeroSul 325 mg (65 mg iron) tablet TAKE ONE (1) TABLET(S) BY MOUTH DAILY. No FeroSul 325 mg (65 mg iron) tablet TAKE ONE (1) TABLET(S) BY MOUTH DAILY. [facility] fluconazole 150 mg tablet TAKE ONE (1) TABLET(S) BY MOUTH FOR A SINGLE DOSE. fluconazole 150 mg tablet TAKE ONE (1) TABLET(S) BY MOUTH FOR A SINGLE DOSE. No fluconazol e 150 mg tablet TAKE ONE (1) TABLET(S) BY MOUTH FOR A SINGLE DOSE. [facility] hydrocortis one 2.5 % topical cream APPLY TO AFFECTED AREA TWICE A DAY. hydrocortis one 2.5 % topical cream APPLY TO AFFECTED AREA TWICE A DAY. No hydrocorti sone 2.5 % topical cream APPLY TO AFFECTED AREA TWICE A DAY. [facility] Micro Thin Lancets 33 gauge USE TO TEST 4 TIMES A DAY. Micro Thin Lancets 33 gauge USE TO TEST 4 TIMES A DAY. No Micro Thin Lancets 33 gauge USE TO TEST 4 TIMES A DAY. [facility] nitrofurant oin monohydrate /macrocryst als 100 mg capsule TAKE ONE (1) CAPSULE(S) BY MOUTH EVERY TWELVE HOURS FOR 7 DAYS. nitrofurant oin monohydrate /macrocryst als 100 mg capsule TAKE ONE (1) CAPSULE(S) BY MOUTH EVERY TWELVE HOURS FOR 7 DAYS. No nitrofuran toin monohydrat e/macrocry stals 100 mg capsule TAKE ONE (1) CAPSULE(S) BY MOUTH EVERY TWELVE HOURS FOR 7 DAYS. [facility] ondansetron 4 mg disintegrat ing tablet DISSOLVE ONE (1) TABLET(S) BY MOUTH EVERY EIGHT HOURS NEEDED. ondansetron 4 mg disintegrat ing tablet DISSOLVE ONE (1) TABLET(S) BY MOUTH EVERY EIGHT HOURS NEEDED. No ondansetro n 4 mg disintegra ting tablet DISSOLVE ONE (1) TABLET(S) BY MOUTH EVERY EIGHT HOURS NEEDED. [facility] promethazin e 25 mg rectal suppository INSERT ONE (1) SUPPOSITORY RECTALLY EVERY FOUR HOURS NEEDED FOR NAUSEA OR VOMITING. promethazin e 25 mg rectal suppository INSERT ONE (1) SUPPOSITORY RECTALLY EVERY FOUR HOURS NEEDED FOR NAUSEA OR VOMITING. No promethazi ne 25 mg rectal suppositor y INSERT ONE (1) SUPPOSITOR Y RECTALLY EVERY FOUR HOURS NEEDED FOR NAUSEA OR VOMITING. [facility] terconazole 0.4 % vaginal cream INSERT ONE (1) APPLICATORF UL VAGINAL EVERY DAY FOR 7 DAYS. terconazole 0.4 % vaginal cream INSERT ONE (1) APPLICATORF UL VAGINAL EVERY DAY FOR 7 DAYS. No terconazol e 0.4 % vaginal cream INSERT ONE (1) APPLICATOR FUL VAGINAL EVERY DAY FOR 7 DAYS. [facility] True Metrix Air Glucose Meter USE DIRECTED FOUR TIMES DAILY. True Metrix Air Glucose Meter USE DIRECTED FOUR TIMES DAILY. No True Metrix Air Glucose Meter USE DIRECTED FOUR TIMES DAILY. [facility] True Metrix Glucose Test Strip USE TO TEST 4 TIMES A DAY. True Metrix Glucose Test Strip USE TO TEST 4 TIMES A DAY. No True Metrix Glucose Test Strip USE TO TEST 4 TIMES A DAY. [facility] 3-Day Vaginal 2 % cream APPLY ONE (1) GRAM VAGINALLY AT BEDTIME FOR 3 DAYS. 3-Day Vaginal 2 % cream APPLY ONE (1) GRAM VAGINALLY AT BEDTIME FOR 3 DAYS. No 3-Day Vaginal 2 % cream APPLY ONE (1) GRAM VAGINALLY AT BEDTIME FOR 3 DAYS. [facility] cefpodoxime 200 mg tablet TAKE ONE (1) TABLET(S) BY MOUTH TWICE A DAY FOR 5 DAYS. cefpodoxime 200 mg tablet TAKE ONE (1) TABLET(S) BY MOUTH TWICE A DAY FOR 5 DAYS. No cefpodoxim e 200 mg tablet TAKE ONE (1) TABLET(S) BY MOUTH TWICE A DAY FOR 5 DAYS. [facility] cephalexin 500 mg capsule TAKE ONE (1) CAPSULE(S) BY MOUTH EVERY TWELVE HOURS FOR SEVEN DAYS. cephalexin 500 mg capsule TAKE ONE (1) CAPSULE(S) BY MOUTH EVERY TWELVE HOURS FOR SEVEN DAYS. No cephalexin 500 mg capsule TAKE ONE (1) CAPSULE(S) BY MOUTH EVERY TWELVE HOURS FOR SEVEN DAYS. [facility] famotidine 20 mg tablet TAKE ONE (1) TABLET(S) BY MOUTH EVERY TWELVE HOURS FOR 5 DAYS. famotidine 20 mg tablet TAKE ONE (1) TABLET(S) BY MOUTH EVERY TWELVE HOURS FOR 5 DAYS. No famotidine 20 mg tablet TAKE ONE (1) TABLET(S) BY MOUTH EVERY TWELVE HOURS FOR 5 DAYS. [facility] FeroSul 325 mg (65 mg iron) tablet TAKE ONE (1) TABLET(S) BY MOUTH DAILY. FeroSul 325 mg (65 mg iron) tablet TAKE ONE (1) TABLET(S) BY MOUTH DAILY. No FeroSul 325 mg (65 mg iron) tablet TAKE ONE (1) TABLET(S) BY MOUTH DAILY. [facility] fluconazole 150 mg tablet TAKE ONE (1) TABLET(S) BY MOUTH FOR A SINGLE DOSE. fluconazole 150 mg tablet TAKE ONE (1) TABLET(S) BY MOUTH FOR A SINGLE DOSE. No fluconazol e 150 mg tablet TAKE ONE (1) TABLET(S) BY MOUTH FOR A SINGLE DOSE. [facility] hydrocortis one 2.5 % topical cream APPLY TO AFFECTED AREA TWICE A DAY. hydrocortis one 2.5 % topical cream APPLY TO AFFECTED AREA TWICE A DAY. No hydrocorti sone 2.5 % topical cream APPLY TO AFFECTED AREA TWICE A DAY. [facility] Micro Thin Lancets 33 gauge USE TO TEST 4 TIMES A DAY. Micro Thin Lancets 33 gauge USE TO TEST 4 TIMES A DAY. No Micro Thin Lancets 33 gauge USE TO TEST 4 TIMES A DAY. [facility] nitrofurant oin monohydrate /macrocryst als 100 mg capsule TAKE ONE (1) CAPSULE(S) BY MOUTH EVERY TWELVE HOURS FOR 7 DAYS. nitrofurant oin monohydrate /macrocryst als 100 mg capsule TAKE ONE (1) CAPSULE(S) BY MOUTH EVERY TWELVE HOURS FOR 7 DAYS. No nitrofuran toin monohydrat e/macrocry stals 100 mg capsule TAKE ONE (1) CAPSULE(S) BY MOUTH EVERY TWELVE HOURS FOR 7 DAYS. [facility] ondansetron 4 mg disintegrat ing tablet DISSOLVE ONE (1) TABLET(S) BY MOUTH EVERY EIGHT HOURS NEEDED. ondansetron 4 mg disintegrat ing tablet DISSOLVE ONE (1) TABLET(S) BY MOUTH EVERY EIGHT HOURS NEEDED. No ondansetro n 4 mg disintegra ting tablet DISSOLVE ONE (1) TABLET(S) BY MOUTH EVERY EIGHT HOURS NEEDED. [facility] promethazin e 25 mg rectal suppository INSERT ONE (1) SUPPOSITORY RECTALLY EVERY FOUR HOURS NEEDED FOR NAUSEA OR VOMITING. promethazin e 25 mg rectal suppository INSERT ONE (1) SUPPOSITORY RECTALLY EVERY FOUR HOURS NEEDED FOR NAUSEA OR VOMITING. No promethazi ne 25 mg rectal suppositor y INSERT ONE (1) SUPPOSITOR Y RECTALLY EVERY FOUR HOURS NEEDED FOR NAUSEA OR VOMITING. [facility] terconazole 0.4 % vaginal cream INSERT ONE (1) APPLICATORF UL VAGINAL EVERY DAY FOR 7 DAYS. terconazole 0.4 % vaginal cream INSERT ONE (1) APPLICATORF UL VAGINAL EVERY DAY FOR 7 DAYS. No terconazol e 0.4 % vaginal cream INSERT ONE (1) APPLICATOR FUL VAGINAL EVERY DAY FOR 7 DAYS. [facility] True Metrix Air Glucose Meter USE DIRECTED FOUR TIMES DAILY. True Metrix Air Glucose Meter USE DIRECTED FOUR TIMES DAILY. No True Metrix Air Glucose Meter USE DIRECTED FOUR TIMES DAILY. [facility] True Metrix Glucose Test Strip USE TO TEST 4 TIMES A DAY. True Metrix Glucose Test Strip USE TO TEST 4 TIMES A DAY. No True Metrix Glucose Test Strip USE TO TEST 4 TIMES A DAY. [facility] 3-Day Vaginal 2 % cream APPLY ONE (1) GRAM VAGINALLY AT BEDTIME FOR 3 DAYS. 3-Day Vaginal 2 % cream APPLY ONE (1) GRAM VAGINALLY AT BEDTIME FOR 3 DAYS. No 3-Day Vaginal 2 % cream APPLY ONE (1) GRAM VAGINALLY AT BEDTIME FOR 3 DAYS. [facility] cefpodoxime 200 mg tablet TAKE ONE (1) TABLET(S) BY MOUTH TWICE A DAY FOR 5 DAYS. cefpodoxime 200 mg tablet TAKE ONE (1) TABLET(S) BY MOUTH TWICE A DAY FOR 5 DAYS. No cefpodoxim e 200 mg tablet TAKE ONE (1) TABLET(S) BY MOUTH TWICE A DAY FOR 5 DAYS. [facility] cephalexin 500 mg capsule TAKE ONE (1) CAPSULE(S) BY MOUTH EVERY TWELVE HOURS FOR SEVEN DAYS. cephalexin 500 mg capsule TAKE ONE (1) CAPSULE(S) BY MOUTH EVERY TWELVE HOURS FOR SEVEN DAYS. No cephalexin 500 mg capsule TAKE ONE (1) CAPSULE(S) BY MOUTH EVERY TWELVE HOURS FOR SEVEN DAYS. [facility] famotidine 20 mg tablet TAKE ONE (1) TABLET(S) BY MOUTH EVERY TWELVE HOURS FOR 5 DAYS. famotidine 20 mg tablet TAKE ONE (1) TABLET(S) BY MOUTH EVERY TWELVE HOURS FOR 5 DAYS. No famotidine 20 mg tablet TAKE ONE (1) TABLET(S) BY MOUTH EVERY TWELVE HOURS FOR 5 DAYS. [facility] FeroSul 325 mg (65 mg iron) tablet TAKE ONE (1) TABLET(S) BY MOUTH DAILY. FeroSul 325 mg (65 mg iron) tablet TAKE ONE (1) TABLET(S) BY MOUTH DAILY. No FeroSul 325 mg (65 mg iron) tablet TAKE ONE (1) TABLET(S) BY MOUTH DAILY. [facility] fluconazole 150 mg tablet TAKE ONE (1) TABLET(S) BY MOUTH FOR A SINGLE DOSE. fluconazole 150 mg tablet TAKE ONE (1) TABLET(S) BY MOUTH FOR A SINGLE DOSE. No fluconazol e 150 mg tablet TAKE ONE (1) TABLET(S) BY MOUTH FOR A SINGLE DOSE. [facility] hydrocortis one 2.5 % topical cream APPLY TO AFFECTED AREA TWICE A DAY. hydrocortis one 2.5 % topical cream APPLY TO AFFECTED AREA TWICE A DAY. No hydrocorti sone 2.5 % topical cream APPLY TO AFFECTED AREA TWICE A DAY. [facility] ibuprofen 600 mg tablet TAKE ONE (1) TABLET(S) BY MOUTH EVERY SIX HOURS NEEDED FOR PAIN. ibuprofen 600 mg tablet TAKE ONE (1) TABLET(S) BY MOUTH EVERY SIX HOURS NEEDED FOR PAIN. No ibuprofen 600 mg tablet TAKE ONE (1) TABLET(S) BY MOUTH EVERY SIX HOURS NEEDED FOR PAIN. [facility] Loestrin Fe 1/20 (28-Day) 1 mg-20 mcg (21)/75 mg (7) tablet Take 1 tablet every day by oral route. Loestrin Fe 1/20 (28-Day) 1 mg-20 mcg (21)/75 mg (7) tablet Take 1 tablet every day by oral route. No 1 Q1D Loestrin Fe 1/20 (28-Day) 1 mg-20 mcg (21)/75 mg (7) tablet Take 1 tablet every day by oral route. [facility] Micro Thin Lancets 33 gauge USE TO TEST 4 TIMES A DAY. Micro Thin Lancets 33 gauge USE TO TEST 4 TIMES A DAY. No Micro Thin Lancets 33 gauge USE TO TEST 4 TIMES A DAY. [facility] nitrofurant oin monohydrate /macrocryst als 100 mg capsule TAKE ONE (1) CAPSULE(S) BY MOUTH EVERY TWELVE HOURS FOR 7 DAYS. nitrofurant oin monohydrate /macrocryst als 100 mg capsule TAKE ONE (1) CAPSULE(S) BY MOUTH EVERY TWELVE HOURS FOR 7 DAYS. No nitrofuran toin monohydrat e/macrocry stals 100 mg capsule TAKE ONE (1) CAPSULE(S) BY MOUTH EVERY TWELVE HOURS FOR 7 DAYS. [facility] ondansetron 4 mg disintegrat ing tablet DISSOLVE ONE (1) TABLET(S) BY MOUTH EVERY EIGHT HOURS NEEDED. ondansetron 4 mg disintegrat ing tablet DISSOLVE ONE (1) TABLET(S) BY MOUTH EVERY EIGHT HOURS NEEDED. No ondansetro n 4 mg disintegra ting tablet DISSOLVE ONE (1) TABLET(S) BY MOUTH EVERY EIGHT HOURS NEEDED. [facility] promethazin e 25 mg rectal suppository INSERT ONE (1) SUPPOSITORY RECTALLY EVERY FOUR HOURS NEEDED FOR NAUSEA OR VOMITING. promethazin e 25 mg rectal suppository INSERT ONE (1) SUPPOSITORY RECTALLY EVERY FOUR HOURS NEEDED FOR NAUSEA OR VOMITING. No promethazi ne 25 mg rectal suppositor y INSERT ONE (1) SUPPOSITOR Y RECTALLY EVERY FOUR HOURS NEEDED FOR NAUSEA OR VOMITING. [facility] terconazole 0.4 % vaginal cream INSERT ONE (1) APPLICATORF UL VAGINAL EVERY DAY FOR 7 DAYS. terconazole 0.4 % vaginal cream INSERT ONE (1) APPLICATORF UL VAGINAL EVERY DAY FOR 7 DAYS. No terconazol e 0.4 % vaginal cream INSERT ONE (1) APPLICATOR FUL VAGINAL EVERY DAY FOR 7 DAYS. [facility] True Metrix Air Glucose Meter USE DIRECTED FOUR TIMES DAILY. True Metrix Air Glucose Meter USE DIRECTED FOUR TIMES DAILY. No True Metrix Air Glucose Meter USE DIRECTED FOUR TIMES DAILY. [facility] True Metrix Glucose Test Strip USE TO TEST 4 TIMES A DAY. True Metrix Glucose Test Strip USE TO TEST 4 TIMES A DAY. No True Metrix Glucose Test Strip USE TO TEST 4 TIMES A DAY. [facility] Zoloft 50 mg tablet Take 1 tablet every day by oral route. Zoloft 50 mg tablet Take 1 tablet every day by oral route. No 1 Q1D Zoloft 50 mg tablet Take 1 tablet every day by oral route. [facility] 3-Day Vaginal 2 % cream APPLY ONE (1) GRAM VAGINALLY AT BEDTIME FOR 3 DAYS. 3-Day Vaginal 2 % cream APPLY ONE (1) GRAM VAGINALLY AT BEDTIME FOR 3 DAYS. No 3-Day Vaginal 2 % cream APPLY ONE (1) GRAM VAGINALLY AT BEDTIME FOR 3 DAYS. [facility] cefpodoxime 200 mg tablet TAKE ONE (1) TABLET(S) BY MOUTH TWICE A DAY FOR 5 DAYS. cefpodoxime 200 mg tablet TAKE ONE (1) TABLET(S) BY MOUTH TWICE A DAY FOR 5 DAYS. No cefpodoxim e 200 mg tablet TAKE ONE (1) TABLET(S) BY MOUTH TWICE A DAY FOR 5 DAYS. [facility] cephalexin 500 mg capsule TAKE ONE (1) CAPSULE(S) BY MOUTH EVERY TWELVE HOURS FOR SEVEN DAYS. cephalexin 500 mg capsule TAKE ONE (1) CAPSULE(S) BY MOUTH EVERY TWELVE HOURS FOR SEVEN DAYS. No cephalexin 500 mg capsule TAKE ONE (1) CAPSULE(S) BY MOUTH EVERY TWELVE HOURS FOR SEVEN DAYS. [facility] famotidine 20 mg tablet TAKE ONE (1) TABLET(S) BY MOUTH EVERY TWELVE HOURS FOR 5 DAYS. famotidine 20 mg tablet TAKE ONE (1) TABLET(S) BY MOUTH EVERY TWELVE HOURS FOR 5 DAYS. No famotidine 20 mg tablet TAKE ONE (1) TABLET(S) BY MOUTH EVERY TWELVE HOURS FOR 5 DAYS. [facility] fluconazole 150 mg tablet TAKE ONE (1) TABLET(S) BY MOUTH FOR A SINGLE DOSE. fluconazole 150 mg tablet TAKE ONE (1) TABLET(S) BY MOUTH FOR A SINGLE DOSE. No fluconazol e 150 mg tablet TAKE ONE (1) TABLET(S) BY MOUTH FOR A SINGLE DOSE. [facility] hydrocortis one 2.5 % topical cream APPLY TO AFFECTED AREA TWICE A DAY. hydrocortis one 2.5 % topical cream APPLY TO AFFECTED AREA TWICE A DAY. No hydrocorti sone 2.5 % topical cream APPLY TO AFFECTED AREA TWICE A DAY. [facility] nitrofurant oin monohydrate /macrocryst als 100 mg capsule TAKE ONE (1) CAPSULE(S) BY MOUTH EVERY TWELVE HOURS FOR 7 DAYS. nitrofurant oin monohydrate /macrocryst als 100 mg capsule TAKE ONE (1) CAPSULE(S) BY MOUTH EVERY TWELVE HOURS FOR 7 DAYS. No nitrofuran toin monohydrat e/macrocry stals 100 mg capsule TAKE ONE (1) CAPSULE(S) BY MOUTH EVERY TWELVE HOURS FOR 7 DAYS. [facility] ondansetron 4 mg disintegrat ing tablet DISSOLVE ONE (1) TABLET(S) BY MOUTH EVERY EIGHT HOURS NEEDED. ondansetron 4 mg disintegrat ing tablet DISSOLVE ONE (1) TABLET(S) BY MOUTH EVERY EIGHT HOURS NEEDED. No ondansetro n 4 mg disintegra ting tablet DISSOLVE ONE (1) TABLET(S) BY MOUTH EVERY EIGHT HOURS NEEDED. [facility] promethazin e 25 mg rectal suppository INSERT ONE (1) SUPPOSITORY RECTALLY EVERY FOUR HOURS NEEDED FOR NAUSEA OR VOMITING. promethazin e 25 mg rectal suppository INSERT ONE (1) SUPPOSITORY RECTALLY EVERY FOUR HOURS NEEDED FOR NAUSEA OR VOMITING. No promethazi ne 25 mg rectal suppositor y INSERT ONE (1) SUPPOSITOR Y RECTALLY EVERY FOUR HOURS NEEDED FOR NAUSEA OR VOMITING. [facility] terconazole 0.4 % vaginal cream INSERT ONE (1) APPLICATORF UL VAGINAL EVERY DAY FOR 7 DAYS. terconazole 0.4 % vaginal cream INSERT ONE (1) APPLICATORF UL VAGINAL EVERY DAY FOR 7 DAYS. No terconazol e 0.4 % vaginal cream INSERT ONE (1) APPLICATOR FUL VAGINAL EVERY DAY FOR 7 DAYS. [facility] 3-Day Vaginal 2 % cream APPLY ONE (1) GRAM VAGINALLY AT BEDTIME FOR 3 DAYS. 3-Day Vaginal 2 % cream APPLY ONE (1) GRAM VAGINALLY AT BEDTIME FOR 3 DAYS. No 3-Day Vaginal 2 % cream APPLY ONE (1) GRAM VAGINALLY AT BEDTIME FOR 3 DAYS. [facility] cefpodoxime 200 mg tablet TAKE ONE (1) TABLET(S) BY MOUTH TWICE A DAY FOR 5 DAYS. cefpodoxime 200 mg tablet TAKE ONE (1) TABLET(S) BY MOUTH TWICE A DAY FOR 5 DAYS. No cefpodoxim e 200 mg tablet TAKE ONE (1) TABLET(S) BY MOUTH TWICE A DAY FOR 5 DAYS. [facility] cephalexin 500 mg capsule TAKE ONE (1) CAPSULE(S) BY MOUTH EVERY TWELVE HOURS FOR SEVEN DAYS. cephalexin 500 mg capsule TAKE ONE (1) CAPSULE(S) BY MOUTH EVERY TWELVE HOURS FOR SEVEN DAYS. No cephalexin 500 mg capsule TAKE ONE (1) CAPSULE(S) BY MOUTH EVERY TWELVE HOURS FOR SEVEN DAYS. [facility] famotidine 20 mg tablet TAKE ONE (1) TABLET(S) BY MOUTH EVERY TWELVE HOURS FOR 5 DAYS. famotidine 20 mg tablet TAKE ONE (1) TABLET(S) BY MOUTH EVERY TWELVE HOURS FOR 5 DAYS. No famotidine 20 mg tablet TAKE ONE (1) TABLET(S) BY MOUTH EVERY TWELVE HOURS FOR 5 DAYS. [facility] fluconazole 150 mg tablet TAKE ONE (1) TABLET(S) BY MOUTH FOR A SINGLE DOSE. fluconazole 150 mg tablet TAKE ONE (1) TABLET(S) BY MOUTH FOR A SINGLE DOSE. No fluconazol e 150 mg tablet TAKE ONE (1) TABLET(S) BY MOUTH FOR A SINGLE DOSE. [facility] hydrocortis one 2.5 % topical cream APPLY TO AFFECTED AREA TWICE A DAY. hydrocortis one 2.5 % topical cream APPLY TO AFFECTED AREA TWICE A DAY. No hydrocorti sone 2.5 % topical cream APPLY TO AFFECTED AREA TWICE A DAY. [facility] nitrofurant oin monohydrate /macrocryst als 100 mg capsule TAKE ONE (1) CAPSULE(S) BY MOUTH EVERY TWELVE HOURS FOR 7 DAYS. nitrofurant oin monohydrate /macrocryst als 100 mg capsule TAKE ONE (1) CAPSULE(S) BY MOUTH EVERY TWELVE HOURS FOR 7 DAYS. No nitrofuran toin monohydrat e/macrocry stals 100 mg capsule TAKE ONE (1) CAPSULE(S) BY MOUTH EVERY TWELVE HOURS FOR 7 DAYS. [facility] ondansetron 4 mg disintegrat ing tablet DISSOLVE ONE (1) TABLET(S) BY MOUTH EVERY EIGHT HOURS NEEDED. ondansetron 4 mg disintegrat ing tablet DISSOLVE ONE (1) TABLET(S) BY MOUTH EVERY EIGHT HOURS NEEDED. No ondansetro n 4 mg disintegra ting tablet DISSOLVE ONE (1) TABLET(S) BY MOUTH EVERY EIGHT HOURS NEEDED. [facility] promethazin e 25 mg rectal suppository INSERT ONE (1) SUPPOSITORY RECTALLY EVERY FOUR HOURS NEEDED FOR NAUSEA OR VOMITING. promethazin e 25 mg rectal suppository INSERT ONE (1) SUPPOSITORY RECTALLY EVERY FOUR HOURS NEEDED FOR NAUSEA OR VOMITING. No promethazi ne 25 mg rectal suppositor y INSERT ONE (1) SUPPOSITOR Y RECTALLY EVERY FOUR HOURS NEEDED FOR NAUSEA OR VOMITING. [facility] terconazole 0.4 % vaginal cream INSERT ONE (1) APPLICATORF UL VAGINAL EVERY DAY FOR 7 DAYS. terconazole 0.4 % vaginal cream INSERT ONE (1) APPLICATORF UL VAGINAL EVERY DAY FOR 7 DAYS. No terconazol e 0.4 % vaginal cream INSERT ONE (1) APPLICATOR FUL VAGINAL EVERY DAY FOR 7 DAYS. [facility] Immunizations Ordered Immunization Name Filled Immunization Name Date Status Comments Source PPD Test PPD Test 2023-09-19 00:00:[address] [facility] PPD Test PPD Test 2023-09-19 00:00:[address] [facility] Vital Signs Vital Name Observation Time Observation Value Comments S ource BP Diastolic 2022-08-22 00:00:00 70 mm[Hg] [facility] Height 2022-08-22 00:00:00 66 [in_i] [facility] BMI (Body Mass Index) 2022-08-22 00:00:00 25.8 kg/m2 [facility] BP Systolic 2022-08-22 00:00:00 122 mm[Hg] [facility] Body Weight 2022-08-22 00:00:00 160 [lb_av] [facility] BP Diastolic 2022-07-03 00:00:00 70 mm[Hg] [facility] BP Systolic 2022-07-03 00:00:00 121 mm[Hg] [facility] Body Weight 2022-07-03 00:00:00 167 [lb_av] [facility] BP Diastolic 2022-06-26 00:00:00 84 mm[Hg] [facility] Height 2022-06-26 00:00:00 66 [in_i] [facility] BMI (Body Mass Index) 2022-06-26 00:00:00 26.5 kg/m2 [facility] BP Systolic 2022-06-26 00:00:00 136 mm[Hg] [facility] Body Weight 2022-06-26 00:00:00 164 [lb_av] [facility] Height 2022-06-11 00:00:00 66 [in_i] [facility] BMI (Body Mass Index) 2022-06-11 00:00:00 26.5 kg/m2 [facility] Body Weight 2022-06-11 00:00:00 164 [lb_av] [facility] BP Diastolic 2022-05-29 00:00:00 64 mm[Hg] [facility] Height 2022-05-29 00:00:00 66 [in_i] [facility] BMI (Body Mass Index) 2022-05-29 00:00:00 26 kg/m2 [facility] BP Systolic 2022-05-29 00:00:00 102 mm[Hg] [facility] Body Weight 2022-05-29 00:00:00 161 [lb_av] [facility] BP Diastolic 2022-05-15 00:00:00 68 mm[Hg] [facility] Height 2022-05-15 00:00:00 66 [in_i] [facility] BMI (Body Mass Index) 2022-05-15 00:00:00 25.7 kg/m2 [facility] BP Systolic 2022-05-15 00:00:00 102 mm[Hg] [facility] Body Weight 2022-05-15 00:00:00 159 [lb_av] [facility] BP Diastolic 2022-04-24 00:00:00 68 mm[Hg] [facility] Height 2022-04-24 00:00:00 66 [in_i] [facility] BMI (Body Mass Index) 2022-04-24 00:00:00 24.7 kg/m2 [facility] BP Systolic 2022-04-24 00:00:00 106 mm[Hg] [facility] Body Weight 2022-04-24 00:00:00 153 [lb_av] [facility] BP Diastolic 2022-03-20 00:00:00 68 mm[Hg] [facility] Height 2022-03-20 00:00:00 66 [in_i] [facility] BMI (Body Mass Index) 2022-03-20 00:00:00 23.2 kg/m2 [facility] BP Systolic 2022-03-20 00:00:00 104 mm[Hg] [facility] Body Weight 2022-03-20 00:00:00 144 [lb_av] [facility] BP Diastolic 2022-01-31 00:00:00 78 mm[Hg] [facility] Height 2022-01-31 00:00:00 66 [in_i] [facility] BMI (Body Mass Index) 2022-01-31 00:00:00 22.8 kg/m2 [facility] BP Systolic 2022-01-31 00:00:00 126 mm[Hg] [facility] Body Weight 2022-01-31 00:00:00 141 [lb_av] [facility] BP Diastolic 2022-01-03 00:00:00 80 mm[Hg] [facility] Height 2022-01-03 00:00:00 66 [in_i] [facility] BMI (Body Mass Index) 2022-01-03 00:00:00 24.3 kg/m2 [facility] BP Systolic 2022-01-03 00:00:00 124 mm[Hg] [facility] Body Weight 2022-01-03 00:00:00 150 [lb_av] [facility] WEIGHT 2021-12-20 13:54:00 72.576 kg HEIGHT 2021-12-20 13:54:00 167.6 cm WEIGHT 2021-12-20 13:54:00 72.576 kg HEIGHT 2021-12-20 13:54:00 167.6 cm Body Weight 2021-11-26 00:00:00 163 [lb_av] [facility] BP Diastolic 2021-11-26 00:00:00 72 mm[Hg] [facility] Height 2021-11-26 00:00:00 66 [in_i] [facility] BMI (Body Mass Index) 2021-11-26 00:00:00 26.3 kg/m2 [facility] BP Systolic 2021-11-26 00:00:00 130 mm[Hg] [facility] Systolic blood pressure 2021-12-20 22:49:00 108 mm[Hg] [facility] Diastolic blood pressure 2021-12-20 22:49:00 67 mm[Hg] [facility] Heart rate 2021-12-20 22:49:00 76 /min [facility] Body temperature 2021-12-20 22:49:00 36.94 Mariela [facility] Respiratory rate 2021-12-20 22:49:00 18 /min [facility] Oxygen saturation in Arterial blood by Pulse oximetry 2021-12-20 19:15:00 100 /min [facility] Body height 2021-12-20 13:54:00 167.6 cm [facility] Body weight 2021-12-20 13:54:00 72.576 kg [facility] BMI 2021-12-20 13:54:00 25.82 kg/m2 [facility] Procedures Procedure Date / Time Performed Performing Clinicia n Source NON-POSITIVE READ PPD 2023-09-21 17:40:25 Odette Limon [facility] TB SKIN TEST PLACEMENT 2023-09-19 16:57:50 Lazaro Flowers [facility] [id number] 2022-07-09 00:00:00 [facility] [id number] 2022-07-09 00:00:00 [facility] NON TO STRESS TEST 2022-06-26 00:00:00 [facility] ULTRASOUND RE TO EVALUATION OF UTERUS PER FETUS 2022-06-11 00:00:00 [facility] ABDOMINAL ULTRASOUND OF UTERUS (GREATER OR EQUAL TO 14 WEEKS 0 DAYS) SINGLE OR FIRST FETUS 2022-01-31 00:00:00 [facility] TYPE AND SCREEN, AUTOMATED 2021-12-20 20:54:00 Jada Benites [facility] US FIRST TRIMESTER 2021-12-20 18:53:00 Jada Benites Demetria [facility] US ABDOMEN LIMITED 2021-12-20 18:43:00 Jada Benites [facility] URINE CULTURE 2021-12-20 17:14:00 Jada Benites [facility] URINALYSIS W/ REFLEX URINE CULTURE 2021-12-20 17:14:00 Jada Benites [facility] SCREEN, URINE 2021-12-20 17:14:00 Star Benites [facility] XR CHEST 2 VIEWS 2021-12-20 17:03:00 Jada Benites [facility] LIPASE 2021-12-20 16:52:00 Jada Benites [facility] TSH/FREE T4 IF INDICATED 2021-12-20 16:52:00 Sonam Benites [facility] HCG, QUANTITATIVE, 2021-12-20 16:52:00 Jada Benites [facility] BASIC METABOLIC PANEL 2021-12-20 14:49:00 Kory Worthy [facility] HEPATIC FUNCTION PANEL 2021-12-20 14:49:00 Abdulkadir Worthy ph [facility] CBC W/PLT COUNT & AUTO DIFFERENTIAL 2021-12-20 14:49:00 Darwin Worthy [facility] MAGNESIUM 2021-12-20 14:49:00 Jada Benites [facility] CBC W/PLT COUNT & AUTO DIFFERENTIAL 2021-12-20 14:49:00 Darwin Worthy [facility] ABDOMINAL ULTRASOUND OF UTERUS (LESS THAN 14 WEEKS 0 DAYS) SINGLE OR FIRST FETUS 2021-11-26 00:00:00 [facility] Unlisted Procedure Breast 2020-08-20 00:00:00 [facility] Breast Surgery - Augmentation 2014-07-20 00:00:00 [facility] Plan of Care Planned Activity Planned Date Details Comments Source Diagnostic Test Pending 2022-08-22 00:00:00 [place] IgE Ab [Units/volume] in Serum [code = 6195-2] [facility] Future Scheduled Test 2022-03-20 00:00:00 INFLUENZA VACCINE (#1) [code = INFLUENZA VACCINE (#1)] [facility] Future Scheduled Test 2022-03-20 00:00:00 INFLUENZA VACCINE (#1) [code = INFLUENZA VACCINE (#1)] [facility] Future Scheduled Test 2022-03-20 00:00:00 INFLUENZA VACCINE (#1) [code = INFLUENZA VACCINE (#1)] [facility] Future Scheduled Test 2022-03-20 00:00:00 INFLUENZA VACCINE (#1) [code = INFLUENZA VACCINE (#1)] [facility] Future Scheduled Test 2021-07-20 00:00:00 DEPRESSION SCREENING (12+) [code = DEPRESSION SCREENING (12+)] [facility] Future Scheduled Test 2021-07-20 00:00:00 DEPRESSION SCREENING (12+) [code = DEPRESSION SCREENING (12+)] [facility] Future Scheduled Test 2021-07-20 00:00:00 DEPRESSION SCREENING (12+) [code = DEPRESSION SCREENING (12+)] [facility] Future Scheduled Test 2021-07-20 00:00:00 DEPRESSION SCREENING (12+) [code = DEPRESSION SCREENING (12+)] [facility] Future Scheduled Test 2014 00:00:00 Screening for malignant neoplasm of cervix (procedure) [code = 553495006] [facility] Future Scheduled Test 2014 00:00:00 Screening for malignant neoplasm of cervix (procedure) [code = 270873054] [facility] Future Scheduled Test 2014 00:00:00 Screening for malignant neoplasm of cervix (procedure) [code = 604223096] [facility] Future Scheduled Test 2014 00:00:00 Screening for malignant neoplasm of cervix (procedure) [code = 077004335] [facility] Future Scheduled Test 2012 00:00:00 DTAP/TDAP/TD VACCINES (1 - Tdap) [code = DTAP/TDAP/TD VACCINES (1 - Tdap)] [facility] Future Scheduled Test 2012 00:00:00 DTAP/TDAP/TD VACCINES (1 - Tdap) [code = DTAP/TDAP/TD VACCINES (1 - Tdap)] [facility] Future Scheduled Test 2012 00:00:00 DTAP/TDAP/TD VACCINES (1 - Tdap) [code = DTAP/TDAP/TD VACCINES (1 - Tdap)] [facility] Future Scheduled Test 2012 00:00:00 DTAP/TDAP/TD VACCINES (1 - Tdap) [code = DTAP/TDAP/TD VACCINES (1 - Tdap)] [facility] Future Scheduled Test 2011 00:00:00 HEPATITIS C SCREENING [code = HEPATITIS C SCREENING] [facility] Future Scheduled Test 2011 00:00:00 HEPATITIS C SCREENING [code = HEPATITIS C SCREENING] [facility] Future Scheduled Test 2011 00:00:00 HEPATITIS C SCREENING [code = HEPATITIS C SCREENING] [facility] Future Scheduled Test 2011 00:00:00 HEPATITIS C SCREENING [code = HEPATITIS C SCREENING] [facility] Future Scheduled Test 2005 00:00:00 Tobacco Cessation Counseling and Screening (12+) [code = Tobacco Cessation Counseling and Screening (12+)] [facility] Future Scheduled Test 2005 00:00:00 Tobacco Cessation Counseling and Screening (12+) [code = Tobacco Cessation Counseling and Screening (12+)] [facility] Future Scheduled Test 2005 00:00:00 Tobacco Cessation Counseling and Screening (12+) [code = Tobacco Cessation Counseling and Screening (12+)] [facility] Future Scheduled Test 2005 00:00:00 Tobacco Cessation Counseling and Screening (12+) [code = Tobacco Cessation Counseling and Screening (12+)] [facility] Future Scheduled Test 1993 00:00:00 COVID-19 VACCINE (#1) [code = COVID-19 VACCINE (#1)] [facility] Future Scheduled Test 1993 00:00:00 COVID-19 VACCINE (#1) [code = COVID-19 VACCINE (#1)] [facility] Future Scheduled Test 1993 00:00:00 COVID-19 VACCINE (#1) [code = COVID-19 VACCINE (#1)] [facility] Future Scheduled Test 1993 00:00:00 COVID-19 VACCINE (#1) [code = COVID-19 VACCINE (#1)] [facility] Encounters Start Date/Time End Date/Time Encounter Type Admission Type Attending [facility] Care Facility Care Department Encounter ID Source 2022-01-16 17:02:00 Inpatient Estefany Rosales [facility] JAMIN [id number] [facility] 2022-01-16 14:18:00 Inpatient [facility] JAMIN [id number] [facility] 2023-09-21 17:10:00 2023-09-21 17:41:30 Office Visit Vicki Limon [id number] [place] [address] [facility] [employer] [id number] [facility] 2023-09-19 17:00:00 2023-09-19 17:01:24 Office Visit Nenita Moreno [id number] v[facility]y Diagnosti [facility] of [employer] [id number] [facility] 2022-08-22 00:00:00 2022-08-22 00:00:00 Stephanie Osborne MD: [id number] [facility], [address], [place] [address] , Ph. [facility] - GC_SWHAOM_ [place] Office* [id number] [facility] 2022-07-09 04:11:00 2022-07-10 14:10:00 Inpatient Ann-Marie Contreras [facility] OBPP [id number] [facility] 2022-07-08 08:26:00 2022-07-08 11:38:00 Emergency Ann-Marie Muro KAREN [id number] [facility] 2022-07-03 00:00:00 2022-07-03 00:00:00 Ann-Marie Wood MD: [address], [address], [place] [address] , Ph. [facility] Homecare Homebase_SendTaskOK [facility] [place]_ [place] Office* [id number] [facility] 2022-06-26 13:00:00 2022-06-26 16:53:00 Emergency Ann-Marie Muro KAREN [id number] [address] [facility] 2022-06-26 00:00:00 2022-06-26 00:00:00 Ann-Marie Wood MD: [address], [address], [place] [address] , Ph. [facility] Homecare Homebase_SendTaskOM_ [place] Office* [id number] [facility] 2022-06-23 21:24:00 2022-06-24 17:15:00 Inpatient Ann-Marie Muro [facility] OBANTE [id number] [facility] 2022-06-11 00:00:00 2022-06-11 00:00:00 Ann-Marie Wood MD: [address], [address], [place] [address] , Ph. [facility] InDemand InterpretingOK [facility] [place]_ [place] Office* [id number] [facility] 2022-05-29 00:00:00 2022-05-29 00:00:00 Ann-Marie Wood MD: [address], [address], [place] [address] , Ph. [facility]_SWOM_ [place] Office* [id number] [facility] 2022-05-15 00:00:00 2022-05-15 00:00:00 Ann-Marie Wood MD: [address] [facility], [address], [place] [address] , Ph. [facility]_SWOM_ [place] Office* [id number] [facility] 2022-04-24 00:00:00 2022-04-24 00:00:00 Ann-Marie Wood MD: [address] [facility], [address], [place] [address] , Ph. [facility]_ [place] Office* [id number] [facility] 2022-03-20 00:00:00 2022-03-20 00:00:00 Ann-Marie Wood MD: [address] [facility], [address], [place] [address] , Ph. [facility]_ [place] Office* [id number] [facility] 2022-03-20 00:00:00 2022-03-20 00:00:00 Outpatient Ann-Marie Wood [facility] [id number] 2022-01-31 00:00:00 2022-01-31 00:00:00 Ann-Marie Wood MD: [place] [address] , Ph. [facility]_ [place] Office [id number] [facility] 2022-01-31 00:00:00 2022-01-31 00:00:00 Outpatient [place] Ann-Marie Seals [facility] [id number] 2022-01-27 01:59:00 2022-01-27 03:50:00 Emergency EM Jerel Martin [facility] [id number] [facility] 2022-01-27 01:59:00 2022-01-27 03:50:00 Emergency EM Jerel Martin [facility] [id number] [facility] 2022-01-22 18:50:00 2022-01-22 21:03:00 Emergency EM Jerel Martin [facility] [id number] [facility] 2022-01-22 18:50:00 2022-01-22 21:03:00 Emergency EM Jerel Martin [facility] [id number] [facility] 2022-01-17 17:05:00 2022-01-18 18:30:00 Inpatient EM Ann-Marie Wood [facility] MEDI.01 [id number] [facility] 2022-01-17 17:05:00 2022-01-18 18:30:00 Inpatient EM Ann-Marie Wood [facility] MEDI.01 [id number] [facility] 2022-01-16 17:03:00 2022-01-16 17:02:00 Inpatient EM Ann-Marie Wood [facility] MEDI.01 [id number] [facility] 2022-01-03 00:00:00 2022-01-03 00:00:00 Ann-Marie Wood MD: [place] [address] , Ph. [facility] - GC_SWHAOM_ [place] Office [id number] [facility] 2022-01-03 00:00:00 2022-01-03 00:00:00 Outpatient Ann-Marie Wood [facility] [id number] 2021-12-20 14:20:00 2021-12-20 22:51:00 Emergency ER JADA BNEITES [facility] Emergency [id number] [facility] 2021-12-20 14:20:00 2021-12-20 22:51:00 Emergency ER Jada Benites [facility] [id number] [facility] 2021-12-20 00:00:00 2021-12-20 00:00:00 Travel [facility] [id number] [facility] 2021-11-26 00:00:00 2021-11-26 00:00:00 Outpatient Ann-Marie Wood [facility] [id number] 2021-11-26 00:00:00 2021-11-26 00:00:00 Ann-Marie Wood MD: [address] [facility] [address], [address], [place] [address] , Ph. [facility] - GC_S[facility]AOMC_ [place] Office* [id number] [facility] 2020-11-20 00:00:00 2020-11-20 00:00:00 Outpatient DARREN CALLAHAN [facility] [id number] [facility] 2020-01-12 00:00:00 2020-01-12 00:00:00 Outpatient ADELAIDA PATRICKRAJIV HERNANDEZ [facility] [id number] [facility] 2019-12-28 00:00:00 2019-12-28 00:00:00 Outpatient RAJIV DOVER [facility] [id number] [facility] 2019-12-14 00:00:00 2019-12-14 00:00:00 Outpatient RAJIV DOVER [facility] [id number] [facility] Results Test Description Test Time Test Comments Results Result Co mments Source [facility] HEPATITIS B [id number] 05:54:00* Test Item Value Reference Range Interpretation Comme nts AG HEPATITIS B SURFACE (test code = HBSAG) NONREACTIVE NONREACTIVE AB HEPATITIS C [id number] 05:54:00* Test Item Value Reference Range Interpretation Comme nts AB HEPATITIS C (test code = HCVAB) NONREACTIVE NONREACTIVE SIGNAL TO CUTOFF (test code = CUTOFF) <0.02 <0.80 N AB [id number] 05:54:00* Test Item Value Reference Range Interpretation Comme nts AB TREPONEMA (test code = TREPAB) NONREACTIVE NONREACTIVE AB HIV 1 05:54:00* Test Item Value Reference Range Interpretation Comme nts AB HIV 1 2 (test code = [id number]) NONREACTIVE NONREACTIVE Done by [employer] 4th Gen HIV Ag/Ab Combo Screen CBC W/AUTO [id number] 04:28:00* Test Item Value Reference Range Interpretation Comme nts WHITE BLOOD CELL (test code = WBC) 8.3 K/mm3 6.5-12.3 N RED BLOOD CELL (test code = RBC) 4.50 M/mm3 3.51-4.69 N HEMOGLOBIN (test code = HGB) 10.8 g/dL 10.1-13.8 N HEMATOCRIT (test code = HCT) 35.5 % 32.5-41.8 N MEAN CELL VOLUME (test code = MCV) 78.9 fL 84.6-96.6 L MEAN CELL HGB (test code = MCH) 24.0 pg 27.3-33.9 L MEAN CELL HGB CONCETRATION ( test code = MCHC) 30.4 gm/dL 32.0-34.2 L RED CELL DISTRIBUTION WIDTH (test code = RDW) 18.9 % 12.2-16.3 H PLATELET COUNT (test code = PLT) 279 K/mm3 134-363 N MEAN PLATELET VOLUME (test c ode = MPV) 11.9 fL 9.2-12.7 N NEUTROPHIL % (test code = NT%) 68.4 % 57.9-77.3 N LYMPHOCYTE % (test code = LY%) 20.1 % 14.5-29.7 N MONOCYTE % (test code = MO%) 9.2 % 3.6-10.2 N EOSINOPHIL % (test code = EO%) 1.6 % 0.0-3.0 N BASOPHIL % (test code = BA%) 0.2 % 0.1-0.9 N NEUTROPHIL # (test code = NT#) 5.7 K/mm3 LYMPHOCYTE # (test code = LY#) 1.7 K/mm3 MONOCYTE # (test code = MO#) 0.8 K/mm3 EOSINOPHIL # (test code = EO#) 0.13 K/mm3 BASOPHIL # (test code = BA#) 0.0 K/mm3 RBC MORPHOLOGY REQUIRED (amarilis t code = RBCM) NORMAL NORMAL PLATELET MORPHOLOGY REQUIRED (test code = PLTMR) NORMAL NORMAL RUPTURE OF [id number] 09:15:00* Test Item Value Reference Range Interpretation Comme nts RUPTURE OF MEMBRANES (test c ode = ROM) NON-RUPTURED Urinalysis macro (dipstick) panel - [id number] 11:53:22* Test Item Value Reference Range Interpretation Comme nts Protein (test code = Protein) 100 Glucose (test code = Glucose) Normal [facility]- US FET BIO PH WA W/O [id number] 00:00:00 [facility] : 1995 Sex: F Patient Name: TAMARA SERRANO Unit No: [id number] EXAMS: CPT CODE: [id number] US FET BIO PH WA W/O NST 58461 PROCEDURE INFORMATION: Exam: US Biophysical Profile Without Non-Stress Test Exam date and time: 06/26/2022 1:57 PM Age: 27 years old Clinical indication: Screening exam; Routine US screening of fetus; Third trimester (=28 weeks 0 days); ; Additional info: 36.3 weeks nrnst inofficeTECHNIQUE: Imaging protocol: US biophysical profile without non-stress testing. COMPARISON: US FET BIO PH WA W/O NST 06/24/2022 1:50 PM FINDINGS: heart rate: 138 bpm Presentation: Vertex Placenta: Posterior left lateral, grade 2 Placenta previa: No evidence of placenta previa Amniotic fluid index: 10.9 cm Cervix: Not well seen BIOPHYSICAL PROFILE: Breathin/2 Gross body movements: 2/2 tone: 2/2 Qualitative amniotic fluid: 2/2 Biophysical Profile Score: 6/8 IMPRESSION: Biophysical profile score is 6 out of 8. at 1445 Reported and signed by: Vishnu Ortiz MD CC: Ann-Marie Wood Technologist: Odilia Cintron RDMS Probe: Trnscrbd D/ (1445) GCD.CPS Orig Print D/T: S: 06/26/2022 (1445) [facility] NAME: TAMARA SERRANO Radiology Department PHYS: Ann-Marie Bautista MD [address] : 1995 AGE: 27 SEX: F [place] [address] LOC: OlgaKAREN PHONE #: [phone] EXAM DATE: 06/26/2022 STATUS: REG ER FAX #: [phone] RAD NO: Page 1 Signed Report Patient Name: TAMARA SERRANO Unit No: [id number] EXAMS: CPT CODE: [id number] US FET BIO PH WA W/O NST 15464 (Continued) [facility] NAME: TAMARA SERRANO Radiology Department PHYS: Ann-Marie Bautista MD [address] : 1995 AGE: 27 SEX: F [place] [address] LOC: OlgaKAREN PHONE #: [phone] EXAM DATE: 06/26/2022 STATUS: REG ER FAX #: [phone] RAD NO: Page 2 Signed Report- US FET BIO PH WA W/O [id number] [facility] 1995 Sex: F Patient Name: TAMARA SERRANO Unit No: [id number] EXAMS: CPT CODE: [id number] US FET BIO PH WA W/O [id number] PROCEDURE INFORMATION: Exam: US Biophysical Profile Without Non-Stress Test Exam date and time: 06/24/2022 1:50 PM Age: 27 years old Clinical indication: Screening exam; Routine US screening of fetus; Third trimester (=28 weeks 0 days); ; Additional info: Repeat bpp TECHNIQUE: Imaging protocol: US biophysical profile without non-stress testing. COMPARISON: US FET BIO PH WA W/O NST 06/23/2022 10:33 PM FINDINGS: presentation: Vertex Cervix: 3.1 cm Placental location, posterior, grade 2. No placenta previa heart rate: 140 bpm Amniotic fluid index: HALLIE is 10.90 cm. BIOPHYSICAL PROFILE: breathing movement (BPP): 2 out of 2. body movement (BPP): 2 out of 2. tone (BPP): 2 out of 2. Amniotic fluid (BPP): 2 out of 2. IMPRESSION: Biophysical profile score is 8 out of 8. at 1422 Reported and signed by: Vishnu Ortiz MD CC: Yajaira Gillis MD; Ann-Marie Wood Technologist: Odilia Cintron RDMS Probe: Trnscrbd D/ (142) GCD.CPS Orig Print D/T: S: 06/24/2022 (1422) [facility] NAME: TAMARA SERRANO Radiology Department PHYS: Yajaira Harrington MD [address] : 1995 AGE: 27 SEX: F [place], [place] [address] LOC: Olga5040 A PHONE#: [phone] EXAM DATE: 06/24/2022 STATUS: ADM IN FAX #: [phone] RAD NO: Page 1 Signed Report Patient Name: TAMARA SERRANO Unit No: [id number] EXAMS: CPT CODE: [id number] US FET BIO PH WA W/O NST 44528 (Continued) [facility] NAME: TAMARA SERRANO Radiology Department PHYS:Yajaira Harrington MD [address] : 1995 AGE: 27 SEX: F [place], [place] [address] LOC: F.5040 A PHONE #: [phone] EXAM DATE: 06/24/2022 STATUS: ADM IN FAX #: [phone] RAD NO: Page 2 Signed Report- US FET BIO PH WA W/O [id number] [facility] 1995 Sex: F Patient Name: TAMARA SERRANO Unit No: [id number] Report Has Been Amended EXAMS: CPT CODE: [id number] US FET BIO PH WA W/O NST 60727 Addendum - 06/24/2022 SIGNED 06/24/2022 ADDENDUM: [id number] US/USBPPWONST Findings were discussed with Saira Duron Rn at 06/24/2022 12:35 AM CANDY SEPARATOR HARD. at 0036 Reported and signed by: Zachariah Blake MD Transcribed: 06/24/2022 (0036) D.CPS Report PROCEDURE INFORMATION: Exam: US Biophysical Profile Without Non-Stress Test Exam date and time: 06/23/2022 10:33 PM Age: 27 years old Clinical indication: status abnormalities: ; movements, decreased; Single gestation; Third trimester (=28 weeks 0 days); 37 weeks ; Additional info: Decreased movement TECHNIQUE: Imaging protocol: US biophysical profile without non-stress testing. COMPARISON: US PREG UT TRANSVAGINAL 01/27/2022 2:19 AM FINDINGS: Gestation: A single live intrauterine is identified currently in cephalic position with heart tones of 137 bpm. Amniotic fluid index measures 10.4 cm. Posterior grade2 placenta is seen. No placenta previa identified. Cervix partially obscured measuring approximately 3.1 cm length. Both ovaries obscured by overlying gas. heart rate: 137 bpm Amniotic fluid index: HALLIE is 10.4 cm. BIOPHYSICAL PROFILE: breathing movement (BPP): 0/2 points body movement (BPP): 2 out of 2. tone (BPP): 2 out of 2. Amniotic fluid (BPP): 2 out of 2. IMPRESSION: Biophysical profile score of 6/8 with no points awarded for breathing movement. [facility] NAME: TAMARA SERRANO Radiology Department PHYS: Yajaira Harrington MD [address] : 1995 AGE: 27 SEX: F [place], [place] [address] LOC: OlgaKAREN PHONE #: EXAM DATE: 06/23/2022 STATUS: REG ER FAX #: [phone] RAD NO: Page 1 Signed Report (CONTINUED) Patient Name: TAMARA SERRANO Unit No: [id number] Report Has Been Amended EXAMS: CPT CODE: [id number] US FET BIO PH WA W/O NST 16315 (Continued) at 0034 Reported and signed by: Zachariah Blake MD CC: Yajaira Gillis MD; Gregory Wood Technologist: Anjali Mcdermott RDMS Probe: Trnscrbd D/ (0034) GCD.CPS OrigPrint D/T: S: 06/24/2022 (0034) [facility] NAME: TAMARA SERRANO Radiology Department PHYS: Yajaira Harrington MD [address] : 1995 AGE: 27 SEX: F [place] [address] LOC: Pilo.KAREN PHONE #: [phone] EXAM DATE: 06/23/2022 STATUS: REG ER FAX #: [phone] RAD NO: Page 2 Signed Report Patient Name: TAMARA SERRANO Unit No: [id number] Report Has Been Amended EXAMS: CPT CODE: [id number] [facility] BIO PH WA W/O NST [address]93 (Continued) [facility] NAME: TAMARA SERRANO Radiology Department PHYS: Yajaira Harrington MD [address] : 1995 AGE: 27 SEX: F [place] [address] LOC: Pil[place].KAREN PHONE #: [phone] EXAM DATE: 06/23/2022 STATUS: REG ER FAX #: [phone] RAD NO: Page 3 Signed ReportUrinalysis macro (dipstick) panel - [id number] 15:10:00* Test Item Value Reference Range Interpretation Comme nts Protein (test code = Protein) Negative Glucose (test code = Glucose) Negative [facility] [Mass/volume] in Serum or Plasma --4th specimen post XXX [id number] 00:00:00* Test Item Value Reference Range Interpretation Comme nts g.T.T.1HR.(preg/100gm) (test code = g.T.T.1HR.(preg/100gm)) 198 mg/dL <190 H g.T.T.2HR.(preg/100gm) (test code = g.T.T.2HR.(preg/100gm)) 168 mg/dL <165 H g.T.T.3HR.(preg/100gm) (test code = g.T.T.3HR.(preg/100gm)) 126 mg/dL <145 glucose, fasting (test code = glucose, fasting) 89 mg/dL 70-99 [facility] Medical[facility]inal[facility] (dipstick) panel - [id number] 09:51:00* Test Item Value Reference Range Interpretation Comme nts Protein (test code = Protein) Negative Glucose (test code = Glucose) Trace [facility] - Blood by Automated [id number] 00:00:00* Test Item Value Reference Range Interpretation Comme nts WBC (test code = WBC) 8.7 10 3.7-12.0 RBC (test code = RBC) 3.76 10 3.60-5.50 HGB (test code = HGB) 9.2 g/dL 11.5-15.6 L HCT (test code = HCT) 28.7 % 34.5-46.5 L MCV (test code = MCV) 76.1 um 80.0-102.0 L MCH (test code = MCH) 24.5 pg 25.0-34.1 L MCHC (test code = MCHC) 32.2 g/dL 29.0-35.0 RDW (test code = RDW) 16.1 % 10.9-16.9 plt (test code = plt) 283 10 136-392 MPV (test code = MPV) 8.6 um 7.4-11.1 gran % (test code = gran %) 74.3 % 36.0-78.0 lymph % (test code = lymph %) 18.1 % 12.0-48.0 mono % (test code = mono %) 5.9 % 0.0-13.0 eos % (test code = eos %) 1 % 0-8 baso % (test code = baso %) 0 % 0-2 gran # (test code = gran #) 6.5 10 1.2-6.8 lymph # (test code = lymph #) 1.6 10 1.2-3.2 mono # (test code = mono #) 0.5 10 0.3-0.8 eos # (test code = eos #) 0.1 10 0.0-0.2 baso # (test code = baso #) 0.0 10 0.0-0.2 [facility]inal[facility] macro (dipstick) panel - [id number] 10:34:18* Test Item Value Reference Range Interpretation Comme nts Protein (test code = Protein) Negative Glucose (test code = Glucose) Negative [facility]inal[facility] macro (dipstick) panel - [id number] 13:41:00* Test Item Value Reference Range Interpretation Comme nts Glucose (test code = Glucose) Negative Protein (test code = Protein) Negative [facility] [Mass/volume] in Serum or Plasma --post 50 g glucose 2022-04-25 00:00:00* Test Item Value Reference Range Interpretation Comme nts glu.1HR(glucola)preg. (test code = glu.1HR(glucola)preg.) 144 mg/dL <130 H [facility] [id number] 03:30:00* Test Item Value Reference Range Interpretation Comme nts HCG SERUM (test code = HCG) [address] INTERPRETATION:V ALUES BETWEEN 15-20 milliInternational units/mL NEED TO BERETESTED WITHIN 48 HOURS. All units for these ranges are in milliInternationalunits/mL0-1 WK AFTER CONCEPTION 0-50 1-2 WKS AFTER CONCEPTION 40-3002-3 WKS AFTER CONCEPTION 100-1,0003-4 WKS AFTER CONCEPTION 500-6,0001-2 MONTHS AFTER CONCEPTION 5,000-200,0002-3 MONTHS AFTER CONCEPTION 10,000-100,0002ND TRIMESTER 3,000-50,0003RD TRIMESTER 1,000-50,000 SPECIMENS WITH AN HCG LEVEL FROM 0-6 milliInternationalunits/mL SHOULD BE CONSIDERED NEGATIVE UA RFLX MICR CULT IF [id number] 02:48:00* Test Item Value Reference Range Interpretation Comme nts UA COLOR (test code = COLU) YELLOW YELLOW UA APPEARANCE (test code = APPU) CLEAR CLEAR UA GLUCOSE DIPSTICK (test code = DGLUU) NEGATIVE NEGATIVE UA BILIRUBIN DIPSTICK (test code = BILU) NEGATIVE NEGATIVE UA KETONE DIPSTICK (test code = KETU) 1+ NEGATIVE UA SPECIFIC GRAVITY (test code = SGU) 1.020 1.001-1.035 N UA BLOOD DIPSTICK (test code = WILBERT) TRACE NEGATIVE A UA PH DIPSTICK (test code = MINI) 6.0 5-9 UA PROTEIN DIPSTICK (test code = PROU) NEGATIVE NEGATIVE UA UROBILINIOGEN DIPSTICK (test code = URO) 1.0 EU/dL See_Comment [Automated messa ge] The system which generated this result transmitted reference range: <=1.0. The reference range was not used to interpret this result as normal/abnormal. UA NITRITE DIPSTICK (test code = ROSITA) NEGATIVE NEGATIVE UA LEUKOCYTE ESTERASE DIPSTICK (test code = LEUU) 1+ NEGATIVE A UA WBC (test code = WBCU) 3-5 #/hpf NONE SEEN A UA RBC (test code = RBCU) 3-5 #/hpf NONE SEEN A UA EPITHELIAL CELLS (test code = EPIU) FEW #/hpf NONE SEEN UA MUCUS (test code = MUCU) 3+ NONE SEEN A Indication for culture: Dysuria/FrequencySpecimen Description: CLEAN CATCHBASIC METABOLIC [id number] 02:46:00* Test Item Value Reference Range Interpretation Comme nts SODIUM (test code = NA) 136 mEq/L 135-145 N POTASSIUM (test code = K) 3.4 mEq/L 3.5-5.0 L CHLORIDE (test code = CL) 103 mEq/L 100-115 N CARBON DIOXIDE (test code = CO2) 25 mEq/L 22-31 N ANION GAP (test code = GAP) 11.10 10-20 N GLUCOSE (test code = GLU) 87 mg/dL 65-110 N BLOOD UREA NITROGEN (test co de = BUN) 6 mg/dL 7-18 L GLOMERULAR FILTRATION RATE ( test code = GFR) 100 ml/min >60 N CREATININE (test code = CREAT) 0.7 mg/dL 0.5-1.0 N CALCIUM (test code = CA) 8.7 mg/dL 8.4-10.2 N COVID 19 Asymptomatic IH [id number] 02:46:00* Test Item Value Reference Range Interpretation Comme nts COVID 19 Asymptomatic IH AG (test code = COVNONPUIAG) NEGATIVE NEGATIVE This test has be en authorized only for the detection ofproteins from SARS-CoV-2, not for any other viruses orpathogens. Negative results should be treated as presumptive andconfirmed with a molecular assay, if necessary for patientmanagement. Negative results do not rule out COVID-19 andshould not be used as the sole basis for treatment orpatient management decisions, including infection controldecisions. Negative results should be considered in thecontext of a patient's recent exposures, history and thepresence of clinical signs and symptoms consistent withCOVID-19. This test has not been FDA cleared or approved; the test hasbeen authorized by FDA under an Emergency Use Authorization(EUA) for use by laboratories certified under the CLIA thatmeet the requirements to perform moderate, high or waivedcomplexity tests. This test is authorized for use at thePoint of Care (POC), i.e., in patient care settingsoperating under a CLIA Certificate of Waiver, Certificate ofCompliance, or Certificate of Accreditation. This test is only authorized for the duration of thedeclaration that circumstances exist justifying theauthorization of emergency use of in vitro diagnostic testsfor detection and/or diagnosis of COVID-19 under Vlaejvq594(b)(1) of the Act, 21 U.S.C. 360bbb-3(b)(1), unless theauthorization is terminated or revoked sooner. CBC W/AUTO [id number] 02:36:00* Test Item Value Reference Range Interpretation Comme nts WHITE BLOOD CELL (test code = WBC) 10.4 K/mm3 6.5-12.3 N RED BLOOD CELL (test code = RBC) 4.16 M/mm3 3.51-4.69 N HEMOGLOBIN (test code = HGB) 12.2 g/dL 10.1-13.8 N HEMATOCRIT (test code = HCT) 35.8 % 32.5-41.8 N MEAN CELL VOLUME (test code = MCV) 86.1 fL 84.6-96.6 N MEAN CELL HGB (test code = MCH) 29.3 pg 27.3-33.9 N MEAN CELL HGB CONCETRATION ( test code = MCHC) 34.1 gm/dL 32.0-34.2 N RED CELL DISTRIBUTION WIDTH (test code = RDW) 13.5 % 12.2-16.3 N PLATELET COUNT (test code = PLT) 302 K/mm3 134-363 N MEAN PLATELET VOLUME (test c ode = MPV) 10.7 fL 9.2-12.7 N NEUTROPHIL % (test code = NT%) 72.4 % 57.9-77.3 N LYMPHOCYTE % (test code = LY%) 20.9 % 14.5-29.7 N MONOCYTE % (test code = MO%) 4.8 % 3.6-10.2 N EOSINOPHIL % (test code = EO%) 1.2 % 0.0-3.0 N BASOPHIL % (test code = BA%) 0.3 % 0.1-0.9 N NEUTROPHIL # (test code = NT#) 7.5 K/mm3 LYMPHOCYTE # (test code = LY#) 2.2 K/mm3 MONOCYTE # (test code = MO#) 0.5 K/mm3 EOSINOPHIL # (test code = EO#) 0.12 K/mm3 BASOPHIL # (test code = BA#) 0.0 K/mm3 RBC MORPHOLOGY REQUIRED (amarilis t code = RBCM) NORMAL NORMAL PLATELET MORPHOLOGY REQUIRED (test code = PLTMR) NORMAL NORMAL - US PREG UT [id number] 00:00:00 [facility] : 1995 Sex: F Patient Name: TAMARA SERRANO Unit No: [id number] Cancelled Exam EXAMS: CPT CODE: [id number] US PREG UT TRANSVAGINAL 32699 PROCEDURE INFORMATION: Exam: US , Limited and US , Transvaginal Exam date and time: 01/27/2022 2:19 AM Age: 26 years old Clinical indication: complicated by abdominal or pelvic pain; Lower; Second trimester (14 weeks 0 days to 27 weeks 6 days); Gestational age or lmp: 14w 6d; LABS AND CLINICAL REPORTS: Gestational age (Established): 14 w 6 d Estimated due date (Established): 07/22/2022 TECHNIQUE: Imaging protocol: Real-time ultrasound of the maternal uterus with image documentation. Transvaginal imaging was used for better evaluation of the fetus, adnexa, and/or cervix. Exam focused on the clinical indication. COMPARISON: US PREG UT TRANSVAGINAL 01/16/2022 6:44 PM FINDINGS: Gestation: Intrauterine gestation. heart rate: 157 bpm. presentation: Vertex Placenta: Posteriorly located with maturity grade of 1. No placenta previa. Amniotic fluid: Single deepest pocket: 3.1 cm MATERNAL: Cervix: 2.5 cm in length. Right ovary/adnexa: Right ovary is not visualized. Left ovary/adnexa: Left ovary is not visualized. IMPRESSION: Viable intrauterine . at 0340 Reported and signed by: Eloy Rothman MD CC: Jerel Martin DO; Ann-Marie Wood Technologist: Julianne Concepcion RDMS Probe: Trnscrbd D/ (0340) GCD.CPS Orig Print D/T: S: 01/27/2022 (0340) [facility] NAME: TAMARA SERRANO Radiology Department PHYS: Jerel Groves DO [address] : 1995 AGE: 26 SEX: F [place] [address] LOC: OlgaERS PHONE #: [phone] EXAM DATE: 01/27/2022 STATUS: REG ER FAX #: [phone] RAD NO: Page 1 Signed Report Patient Name: TAMARA SERRANO Unit No: [id number] Cancelled Exam EXAMS: CPT CODE: [id number] US PREG UT TRANSVAGINAL 36471 (Continued) [facility] NAME:PALAK SERRANORELI Radiology Department PHYS: Jerel Groves DO [address] : 1995 AGE:26 SEX: F [place] [address] LOC: KITA PHONE #: [phone] EXAM DATE: 01/27/2022 STATUS: BOONE ER FAX #: [phone] RAD NO: Page 2 Signed Report- US PREG UT TRANSVAGINAL 2022-01-27 00:00:00 [facility] 1995 Sex: F Patient Name: TAMARA SERRANO Unit No: [id number] EXAMS: CPT CODE: [id number] US PREG UT TRANSVAGINAL 67839 PROCEDURE INFORMATION: Exam: US , Limited and US , Transvaginal Exam date andtime: 01/27/2022 2:19 AM Age: 26 years old Clinical indication: complicated by abdominal or pelvic pain; Lower; Second trimester (14 weeks 0 days to 27 weeks 6 days); Gestational age or lmp: 14w 6d; LABS AND CLINICAL REPORTS: Gestational age (Established): 14 w 6 d Estimated due date (Established): 07/22/2022 TECHNIQUE: Imaging protocol: Real-time ultrasound of the maternal uterus with image documentation. Transvaginal imaging was used for better evaluation of the fetus, adnexa, and/or cervix. Exam focused on the clinical indication. COMPARISON: US PREG UT TRANSVAGINAL 01/16/2022 6:44 PM FINDINGS: Gestation: Intrauterine gestation. heart rate: 157 bpm. presentation: Vertex Placenta: Posteriorly located with maturity grade of 1. No placenta previa. Amniotic fluid: Single deepest pocket: 3.1 cm MATERNAL: Cervix: 2.5 cm in length. Right ovary/adnexa: Right ovary is not visualized. Left ovary/adnexa: Left ovary is not visualized. IMPRESSION: Viable intrauterine . at 0340 Reported and signed by: Eloy Rothman MD CC: Jerel Martin DO; Ann-Marie Wood Technologist: Julianne Concepcion, [facility] Probe: [id number] Trnscrbd D/ (034) GCD.CPS Orig Print D/T: S: 01/27/2022 (0340) [facility] NAME: TAMARA SERRANO Radiology Department PHYS: Jerel Groves DO [address] : 1995 AGE: 26 SEX: F [place] [address] LOC:[email or web address].ERS PHONE #: [phone] EXAM DATE: 01/27/2022 STATUS: REG ER FAX #: [phone] RAD NO: Page 1Signed Report Patient Name: TAMARA SERRANO Unit No: [id number] EXAMS: CPT CODE: [id number] US PREG UT TRANSVAGINAL [id number] (Continued) [facility] NAME: TAMARA SERRANO Radiology Department PHYS: Jerel Groves DO [address] : 1995 AGE: 26 SEX: F [place], [place] [address] LOC: [facility] PHONE #: [phone] EXAM DATE: 01/27/2022 STATUS: REG ER FAX #:[phone] RAD NO: Page 2 Signed Report- US [id number] 00:00:00HCA [facility] : 1995 Sex: F Patient Name: TAMARA SERRANO Unit No: [id number] EXAMS: CPT CODE: [id number] US LTD 65752 PROCEDURE INFORMATION: Exam: US , Limited and US , Transvaginal Exam date and time:01/27/2022 2:19 AM Age: 26 years old Clinical indication: complicated by abdominal or pelvic pain; Lower; Second trimester (14 weeks 0 days to 27 weeks 6 days); Gestational age or lmp: 14w 6d; LABS AND CLINICAL REPORTS: Gestational age (Established): 14 w 6 d Estimated due date (Established): 07/22/2022 TECHNIQUE: Imaging protocol: Real- time ultrasound of the maternal uterus with image documentation. Transvaginal imaging was used for better evaluation of the fetus, adnexa, and/or cervix. Exam focused on the clinical indication. COMPARISON: US PREG UT TRANSVAGINAL 01/16/2022 6:44 PM FINDINGS: Gestation: Intrauterine gestation. heart rate: 157 bpm. presentation: Vertex Placenta: Posteriorly located with maturity grade of 1. No placenta previa. Amniotic fluid: Single deepest pocket: 3.1 cm MATERNAL: Cervix: 2.5 cm in length. Right ovary/adnexa: Right ovary is not visualized. Left ovary/adnexa: Left ovary is not visualized. IMPRESSION: Viable intrauterine . at 0340 Reported andsigned by: Eloy Rothman MD CC: Jerel Martin DO; Ann-Marie Wood Technologist: Julianne Concepcion RDMS Probe: Trnscrbd D/ (034) GCBaltazar.CPS Orig Print D/T: S: 01/27/2022 (0340) [facility] NAME: TAMARA SERRANO Radiology Department PHYS: Jerel Groves DO [address] : 1995 AGE: 26 SEX: F [place], [place] [address] LOC: F.ERS PHONE #: [phone] EXAM DATE: 01/27/2022 STATUS: REG ER FAX #: [phone] RAD NO: Page 1 Signed Report Patient Name: TAMARA SERRANO Unit No: [id number] EXAMS: CPT CODE: [id number] US LTD 11771 (Continued) [facility] NAME: TAMARA SERRANO Radiology Department PHYS: Jerel Groves DO [address] : 1995 AGE: 26 SEX: F [place], [place] [address] LOC: Pilo.ERS PHONE #: [phone] EXAM DATE: 01/27/2022 STATUS: REG ER FAX #: [phone] RAD NO: Page 2 Signed ReportCOVID 19 Asymptomatic IH [id number] 20:33:00* Test Item Value Reference Range Interpretation Comme nts COVID 19 Asymptomatic IH AG (test code = COVNONPUIAG) NEGATIVE NEGATIVE This test has be en authorized only for the detection ofproteins from SARS-CoV-2, not for any other viruses orpathogens. Negative results should be treated as presumptive andconfirmed with a molecular assay, if necessary for patientmanagement. Negative results do not rule out COVID-19 andshould not be used as the sole basis for treatment orpatient management decisions, including infection controldecisions. Negative results should be considered in thecontext of a patient's recent exposures, history and thepresence of clinical signs and symptoms consistent withCOVID-19. This test has not been FDA cleared or approved; the test hasbeen authorized by FDA under an Emergency Use Authorization(EUA) for use by laboratories certified under the CLIA thatmeet the requirements to perform moderate, high or waivedcomplexity tests. This test is authorized for use at thePoint of Care (POC), i.e., in patient care settingsoperating under a CLIA Certificate of Waiver, Certificate ofCompliance, or Certificate of Accreditation. This test is only authorized for the duration of thedeclaration that circumstances exist justifying theauthorization of emergency use of in vitro diagnostic testsfor detection and/or diagnosis of COVID-19 under Nmlnabk340(b)(1) of the Act, 21 U.S.C. 360bbb-3(b)(1), unless theauthorization is terminated or revoked sooner. UA RFLX MICR CULT IF [id number] 19:52:00* Test Item Value Reference Range Interpretation Comme nts UA COLOR (test code = COLU) SIMONE YELLOW A UA APPEARANCE (test code = APPU) Slightly-Cloudy CLEAR UA GLUCOSE DIPSTICK (test code = DGLUU) NEGATIVE NEG UA BILIRUBIN DIPSTICK (test code = BILU) NEGATIVE NEG UA KETONE DIPSTICK (test cod e = KETU) 2+ NEG A UA SPECIFIC GRAVITY (test code = SGU) 1.029 1.001-1.035 N UA BLOOD DIPSTICK (test code = WILBERT) 1+ NEG A UA PH DIPSTICK (test code = MINI) 5.0 5-9 UA PROTEIN DIPSTICK (test code = PROU) 1+ NEG A UA UROBILINIOGEN DIPSTICK (test code = URO) 4.0 mg/dL NEG A UA NITRITE DIPSTICK (test code = ROSITA) NEG NEG UA LEUKOCYTE ESTERASE DIPSTICK (test code = LEUU) TRACE NEG A UA WBC (test code = WBCU) 2-5 #/hpf NONE SEEN A UA RBC (test code = RBCU) 3-5 #/hpf NONE SEEN A UA EPITHELIAL CELLS (test code = EPIU) MODERATE #/HPF RARE-FEW A UA BACTERIA (test code = BACU) RARE /HPF RARE-FEW UA MUCUS (test code = MUCU) 2+ NONE SEEN UA YEAST (test code = YEASTU) FEW #/hpf NONE SEEN A Indication for culture: Dysuria/FrequencySpecimen Description: CLEAN CATCHBASIC METABOLIC [id number] 19:51:00* Test Item Value Reference Range Interpretation Comme nts SODIUM (test code = NA) 135 mEq/L 135-145 N POTASSIUM (test code = K) 3.4 mEq/L 3.5-5.0 L CHLORIDE (test code = CL) 100 mEq/L 100-115 N CARBON DIOXIDE (test code = CO2) 23 mEq/L 22-31 N ANION GAP (test code = GAP) 15.40 10-20 N GLUCOSE (test code = GLU) 82 mg/dL 65-110 N BLOOD UREA NITROGEN (test co de = BUN) 8 mg/dL 7-18 N GLOMERULAR FILTRATION RATE ( test code = GFR) 100 ml/min >60 N CREATININE (test code = CREAT) 0.7 mg/dL 0.5-1.0 N CALCIUM (test code = CA) 9.3 mg/dL 8.4-10.2 N DRUGS OF ABUSE [id number] 19:51:00* Test Item Value Reference Range Interpretation Comme nts UR COCAINE (test code = COCAU) NEGATIVE NEGATIVE DETECTION CUT OF F: 150 ng/mL UR CANNABINOIDS (test code = CANU) NEGATIVE NEGATIVE DETECTION CUT OF F: 50 ng/mL UR AMPHETAMINE (test code = AMPHU) NEGATIVE NEGATIVE DETECTION CUT OF F: 500 ng/mL UR BARBITURATE QUAL (test code = BARBQLU) NEGATIVE NEGATIVE DETECTION CUT OF F: 200 ng/mL UR BENZODIAZEPINE (test code = BENZU) NEGATIVE NEGATIVE DETECTION CUT OF F: 150 ng/mL UR OPIATES QUAL (test code = OPIAQLU) NEGATIVE NEGATIVE DETECTION CUT OF F: 100 ng/mL UR PHENCYCLIDINE (PCP) (test code = PHENCU) NEGATIVE NEGATIVE DETECTION C UT OFF: 25 ng/mL UA RFLX MICR CULT IF [id number] 18:02:00* Test Item Value Reference Range Interpretation Comme nts UA COLOR (test code = COLU) SIMONE YELLOW A UA APPEARANCE (test code = APPU) CLEAR CLEAR UA GLUCOSE DIPSTICK (test co de = DGLUU) NEGATIVE NEG UA BILIRUBIN DIPSTICK (test code = BILU) NEGATIVE NEG UA KETONE DIPSTICK (test cod e = KETU) 2+ NEG A UA SPECIFIC GRAVITY (test co de = SGU) 1.019 1.001-1.035 N UA BLOOD DIPSTICK (test code = WILBERT) 2+ NEG A UA PH DIPSTICK (test code = MINI) 5.0 5-9 UA PROTEIN DIPSTICK (test co de = PROU) NEGATIVE NEG UA UROBILINIOGEN DIPSTICK (t est code = URO) 4.0 mg/dL NEG A UA NITRITE DIPSTICK (test co de = ROSITA) NEG NEG UA LEUKOCYTE ESTERASE DIPSTI CK (test code = LEUU) NEG NEG UA WBC (test code = WBCU) 0-2 #/hpf NONE SEEN UA RBC (test code = RBCU) 3-5 #/hpf NONE SEEN A UA EPITHELIAL CELLS (test co de = EPIU) RARE #/HPF RARE-FEW UA MUCUS (test code = MUCU) 1+ NONE SEEN Indication for culture: Suprapubic PainSpecimen Description: CLEAN CATCHSpecimen Comment: CLEAN CATCHLACTIC [id number] 17:59:00* Test Item Value Reference Range Interpretation Comme nts LACTIC ACID (test code = LACT) 1.5 MMOL/L 0.5-2.2 N COMPREHENSIVE METABOLIC [id number] 17:59:00* Test Item Value Reference Range Interpretation Comme nts SODIUM (test code = NA) 134 mEq/L 135-145 L POTASSIUM (test code = K) 3.5 mEq/L 3.5-5.0 N CHLORIDE (test code = CL) 103 mEq/L 100-115 N CARBON DIOXIDE (test code = CO2) 22 mEq/L 22-31 N ANION GAP (test code = GAP) 12.10 10-20 N GLUCOSE (test code = GLU) 97 mg/dL 65-110 N BLOOD UREA NITROGEN (test co de = BUN) 3 mg/dL 7-18 L GLOMERULAR FILTRATION RATE ( test code = GFR) 100 ml/min >60 N CREATININE (test code = CREAT) 0.7 mg/dL 0.5-1.0 N TOTAL PROTEIN (test code = PROT) 6.8 gm/dL 6.3-8.2 N ALBUMIN (test code = ALB) 3.0 gm/dL 3.4-4.8 L CALCIUM (test code = CA) 8.3 mg/dL 8.4-10.2 L BILIRUBIN TOTAL (test code = BILT) 1.1 mg/dL 0.2-1.0 H SGOT/AST (test code = AST) 21 units/L 15-37 N SGPT/ALT (test code = ALT) 26 units/L 12-78 N ALKALINE PHOSPHATASE TOTAL ( test code = ALKP) 88 units/L 46-116 N LIVER [id number] 17:59:00* Test Item Value Reference Range Interpretation Comme nts BILIRUBIN DIRECT (test code = BILD) 0.4 mg/dL <0.2 H [id number] 17:59:00* Test Item Value Reference Range Interpretation Comme nts TROPONIN-I (test code = TROPI) <4.0 pg/mL <51.4 N Please Note:New method is in use for measuring Troponin Jul 04 2021Units are pg/mL which differs from the prior testmethodology (ng/mL) by a factor of 1000. CBC W/AUTO [id number] 17:49:00* Test Item Value Reference Range Interpretation Comme nts WHITE BLOOD CELL (test code = WBC) 16.2 K/mm3 6.5-12.3 H RED BLOOD CELL (test code = RBC) 4.04 M/mm3 3.51-4.69 N HEMOGLOBIN (test code = HGB) 11.5 g/dL 10.1-13.8 N HEMATOCRIT (test code = HCT) 34.4 % 32.5-41.8 N MEAN CELL VOLUME (test code = MCV) 85.1 fL 84.6-96.6 N MEAN CELL HGB (test code = MCH) 28.5 pg 27.3-33.9 N MEAN CELL HGB CONCETRATION ( test code = MCHC) 33.4 gm/dL 32.0-34.2 N RED CELL DISTRIBUTION WIDTH (test code = RDW) 13.2 % 12.2-16.3 N PLATELET COUNT (test code = PLT) 243 K/mm3 134-363 N MEAN PLATELET VOLUME (test c ode = MPV) 11.0 fL 9.2-12.7 N NEUTROPHIL % (test code = NT%) 88.6 % 57.9-77.3 H LYMPHOCYTE % (test code = LY%) 6.8 % 14.5-29.7 L MONOCYTE % (test code = MO%) 4.0 % 3.6-10.2 N EOSINOPHIL % (test code = EO%) 0.1 % 0.0-3.0 N BASOPHIL % (test code = BA%) 0.1 % 0.1-0.9 N NEUTROPHIL # (test code = NT#) 14.4 K/mm3 LYMPHOCYTE # (test code = LY#) 1.1 K/mm3 MONOCYTE # (test code = MO#) 0.7 K/mm3 EOSINOPHIL # (test code = EO#) 0.01 K/mm3 BASOPHIL # (test code = BA#) 0.0 K/mm3 RBC MORPHOLOGY REQUIRED (amarilis t code = RBCM) NORMAL NORMAL PLATELET MORPHOLOGY REQUIRED (test code = PLTMR) NORMAL NORMAL - US PREG UT [id number] 00:00:00 [facility] : 1995 Sex: F Patient Name: TAMARA SERRANO Unit No: [id number] EXAMS: CPT CODE: [id number] US PREG UT TRANSVAGINAL 91107 PROCEDURE INFORMATION: Exam: US , Limited and US , Transvaginal Exam date and time: 01/16/2022 6:44 PM Age: 26 years old Clinical indication: complicated by abdominal or pelvic pain; Generalized abdominal pain; Second trimester (14 weeks 0 days to 27 weeks 6 days); ; Additional info: 16 weeks TECHNIQUE: Imaging protocol: Real- time ultrasound of the maternal uterus with image documentation. Transvaginal imaging was used for better evaluation of the fetus, adnexa, and/or cervix. Exam focused on the clinical indication. ADDITIONAL STUDY INFORMATION: heart rate: 170 bpm COMPARISON: US ABDOMEN LTD 09/19/2018 9:57 PM Gestational age (Established): 14 weeks 3 days Estimated due date (Established): 07/14/2022 A transabdominal pelvic ultrasound was performed and reveals the presence of a single intrauterine in transverse position with head on maternal left. cardiac activity is detected with a heart rate of 170 bpm. The placenta is posteriorly positioned and demonstrates grade 0 echotexture. On the transvaginal study, the inferior margin of the placenta extends to the margin of the internal os of the endocervical canal, compatible with a marginal placenta previa. A 2.2 x 1.7 x 5.0 cm heterogeneous avascular collection is identified superior to the gestational sac, likely representing subchorionic hemorrhage. No abnormalities of the myometrium are noted. The cervix is closed with a measured length of 3.0 cm using transvaginal imaging. The right ovary measures 2.5 x 1.6 x 3.2 cm and contains a 1.3 x 1.2 x 1.5 cm complex corpus luteal cyst. The left ovary measures 2.4 x 1.4 x 1.4 cm and maintains normal echotexture.Ovarian blood flow is documented bilaterally using color Doppler ultrasound. No adnexal masses or pelvic fluid collections are detected. IMPRESSION: 1. Single living intrauterine in transverse position. 2. Marginal placenta previa. Follow-up is recommended. 3. No sonographic abnormalitiesof the ovaries or adnexa are detected. [facility] NAME: PALAK SERRANORELI RadiologyDepartment PHYS: NIC. Estefany Rosales [address] : 1995 AGE: 26 SEX: F [place] [address] LOC: KITA PHONE #: [phone] EXAM DATE: 01/16/2022 STATUS: REG ER FAX #: [phone] RAD NO: Page 1 Signed Report (CONTINUED) Patient Name: TAMARA SERRANO Unit No: [id number] EXAMS: CPT CODE: [id number] US PREG UT TRANSVAGINAL 98732 (Continued) at 2035 Reported and signed by: Bola Garcia MD CC: Estefany Rosales MD; Ann-Marie Wood Technologist: Bethany Siu RDMS Probe: [id number] Trnscrbd D/ (2035) GCBaltazar.KIM Orig Print D/T: S: 01/16/2022 (2035) [facility] NAME: SERRANOPALAKTAMARA Radiology Department PHYS: . Estefany Rosales [address] : 1995 AGE: 26 SEX: F [place] [address] LOC: OlgaERS PHONE #: [phone] EXAM DATE: 01/16/2022 STATUS: REG ER FAX #: [phone] RAD NO: Page 2 Signed Report Patient Name: TAMARA SERRANO Unit No: [id number] EXAMS: CPT CODE: [id number] US PREG UT TRANSVAGINAL 59794 (Continued) [facility] NAME: TAMARA SERRANO Radiology Department PHYS: PETMAR.Hu - Estefany Rosales [address] : 1995 AGE: 26 SEX: F [place], [place] [address] LOC: KITA PHONE #: [phone] EXAM DATE: 01/16/2022 STATUS: REG ER FAX #: [phone] RAD NO: Page 3 Signed Report - US PELVIS LTD OR [id number] 00:00:00 [facility] : 1995 Sex: F Patient Name: TAMARA SERRANO Unit No: [id number] EXAMS: CPT CODE: [id number] US PELVIS LTD [place] FU 50385 PROCEDURE INFORMATION: Exam: US Abdomen, Limited; Appendix Exam date and time: 01/16/2022 7:16 PM Age: 26 years old Clinical indication: Abdominal pain; Right lower quadrant; Additional info: Rlq pain: 16 weeks TECHNIQUE: Imaging protocol: Real time ultrasound of the abdomen with image docu mentation. Limited exam focused on the appendix. COMPARISON: OT US ABDOMEN LTD 01/16/2022 6:54 PM FINDINGS: Bowel: Question of wall thickening of a bowel loop in the right abdomen, nonspecific. Appendix: Appendix not visualized. Intraperitoneal space: Mild free fluid noted in the right lower quadrant, nonspecific. IMPRESSION: 1. Appendix not visualized. 2. Mild free fluid noted in the right lowerquadrant, nonspecific. 3. Question of wall thickening of a bowel loop in the right abdomen, nonspecific. at 2048 Reported and signed by:Lorenzo Rneee MD CC: Estefany Rosales MD; Ann-Marie Wood Technologist: Bethany Siu RDMS Probe: Trnscrbd D/ (2048) GCD.CPS Orig Print D/T: S: 01/16/2022 (2049) [facility] NAME: SERRANOPALAKTAMARA Radiology Department PHYS: Estefany Rosales [address] : 1995 AGE: 26 SEX: F [place] [address] [facility] PHONE #: [phone] EXAM DATE: 01/16/2022 STATUS: REG ER FAX #: [phone] RAD NO: Page 1 Signed Report Patient Name: TAMARA SERRANO Unit No: [id number] EXAMS: CPT CODE: [id number] US PELVIS LTD [place] FU 66526 (Continued) [facility] Rad[facility] Department PHYS: PETCA. -Estefany Rosales [address] : 1995 AGE: 26 SEX: F [place], [place] [address] LOC: Pilo.ERS PHONE #: [phone] EXAM DATE: 01/16/2022 STATUS: REG ER FAX #: [phone] RAD NO: Page 2 Signed Report- US ABDOMEN [id number] 00:00:00 [facility] : 1995 Sex: F Patient Name: TAMARA SERRANO Unit No: [id number] EXAMS: CPT CODE: [id number] US ABDOMEN LTD 92256 PROCEDURE INFORMATION: Exam: US Abdomen, Limited; Right Upper Quadrant Exam date and time: 01/16/2022 6:54 PM Age: 26 years old Clinical indication: Nausea and vomiting and other: Diarrhea; Abdominal pain; ; Additional info: Elevated tbili TECHNIQUE: Imaging protocol: Real time ultrasound of the abdomen with image documentation. Limited exam focused on the right upper quadrant. COMPARISON: US ABDOMEN LTD 09/19/2018 9:57 PM FINDINGS: Liver: The liver measures 14.9 cm length. There is an incidentally detected, indeterminate 1.5 x 1 x 1.9 cm hyperechoic lesion in the left hepatic lobe on athre3739 of series 2. Further evaluation with non-emergent liver MRI is recommended. (Reference: Kevin).Gallbladder: The gallbladder wall is 1.5 mm thick. There is no pericholecystic fluid. The gallbladder is full intermediate hyperechoic material. Biliary ducts: The common bile duct is 3 mm diameter. There is no evidence of bile duct obstruction. Pancreas: The imaged pancreas appears normal. Right kidney: The right kidney measures 10.4 cm length. There is no hydronephrosis, mass or acute renal process. Aorta: The imaged abdominal aorta appears normal. Inferior vena cava: The imaged inferior venacava appears normal. Portal venous: There is hepato pedal flow in the portal vein. IMPRESSION: 1. The gallbladder wall is 1.5 mm thick. There is no pericholecystic fluid. The gallbladder is full of hyperechoic nonshadowing the material that likely represents sludge. 2. The common bile duct is 3 mm diameter. There is no evidence of bile duct obstruction. 3. There is an incidentally detected, indete rminate 1.5 x 1 x 1.9 cm hyperechoic lesion in the left hepatic lobe on image 4096 of series 2. Further evaluation with non-emergent liver MRI is recommended. (Reference: Kevin). REFERENCES: Kevin ARAMBULA,et al. Management of Incidental Liver Lesions on CT: A White Paper of the ACR Incidental Findings Committee. J Am [facility] Radiol. 2017;14(11):2238-1814. at 8 Reported and signed by: Clinton Best DO [facility] NAME: ROLAND SERRANOI Radiology Department PHYS: PETCA. - Estefany Rosales [address] : 1995AGE: 26 SEX: F [place] [address] LOC: Pilo.ERS PHONE #: [phone] EXAM DATE: 01/16/2022 STATUS: REG ER FAX #: [phone] RAD NO: Page 1 Signed Report (CONTINUED) Patient Name: TAMARA SERRANO Unit No: [id number] EXAMS: CPT CODE: [id number] US ABDOMEN LTD 12285 (Continued) CC: Estefany Rosales MD; Ann-Marie Wood Technologist: Bethany Siu RDMS Probe: Trnscrbd D/ (2047) GCD.CPS Orig Print D/T: S: 01/16/2022 (2047) [facility] NAME: ROLAND SERRANOI Radiology Department PHYS: PETCA. - Estefany Rosales [address] : 1995 AGE: 26 SEX: F [place] [address] LOC: Pilo.ERS PHONE #: [phone] EXAM DATE: 01/16/2022 STATUS: REG ER FAX #: [phone] RAD NO: Page 2 Signed Report Patient Name: TAMARA SERRANO Unit No: [id number] EXAMS: CPT CODE: [id number] US ABDOMEN LTD 42422 (Continued) [facility] NAME: TAMARA SERRANO Radiology Department PHYS: Estefany Matos Baltazar [address] : 1995 AGE: 26 SEX: [place] [address] LOC: KITA PHONE #: [phone] EXAM DATE: 01/16/2022 STATUS: REG ER FAX #: [phone] RAD NO: Page 3 Signed Report- US [id number] 00:00:00 [facility] 1995 Sex: F Patient Name: TAMARA SERRANO Unit No: [id number] EXAMS: CPT CODE: [id number] US LTD 14247 PROCEDURE INFORMATION: Exam: US , Limited and US , Transvaginal Exam date and time:01/16/2022 6:44 PM Age: 26 years old Clinical indication: complicated by abdominal or pelvic pain; Generalized abdominal pain; Second trimester (14 weeks 0 days to 27 weeks 6 days); ; Additional info: 16 weeks TECHNIQUE: Imaging protocol: Real-time ultrasound of the maternal uterus with image documentation. Transvaginal imaging was used for better evaluation of the fetus, adnexa, and/or cervix. Exam focused on the clinical indication. ADDITIONAL STUDY INFORMATION: heart rate: 170 bpm COMPARISON: US ABDOMEN LTD 09/19/2018 9:57 PM Gestational age (Established): 14 w eeks 3 days Estimated due date (Established): 07/14/2022 A transabdominal pelvic ultrasound was performed and reveals the presence of a single intrauterine in transverse position with head on maternal left. cardiac activity is detected with a heart rate of 170 bpm. The placenta is posteriorly positioned and demonstrates grade 0 echotexture. On the transvaginal study, the inferiormargin of the placenta extends to the margin of the internal os of the endocervical canal, compatible with a marginal placenta previa. A 2.2 x 1.7 x 5.0 cm heterogeneous avascular collection is identified superior to the gestational sac, likely representing subchorionic hemorrhage. No abnormalities of the myometrium are noted. The cervix is closed with a measured length of 3.0 cm using transvaginal imaging. The right ovary measures 2.5 x 1.6 x 3.2 cm and contains a 1.3 x 1.2 x 1.5 cm complex corpus luteal cyst. The left ovary measures 2.4 x 1.4 x 1.4 cm and maintains normal echotexture. Ovarian blood flow is documented bilaterally using color Doppler ultrasound. No adnexal masses or pelvicfluid collections are detected. IMPRESSION: 1. Single living intrauterine in transverse position. 2. Marginal placenta previa. Follow-up is recommended. 3. No sonographic abnormalities of the ovaries or adnexa are detected. [facility] NAME: TAMARA SERRANO Radiology Depar tment PHYS: PETCA.01 - Estefany Rosales [address] : 1995 AGE: 26 SEX: F [place], [place] [address] LOC: KITA PHONE #: [phone] EXAM DATE: 01/16/2022 STATUS: REG ER FAX #: [phone] RAD NO: Page 1 Signed Report (CONTINUED) Patient Name: TAMARA SERRANO Unit No: [id number] EXAMS: CPT CODE: [id number] US LTD 51887 (Continued) at 2035 Reported and signed by: Bola Garcia MD CC: Estefany Rosales MD; Ann-Marie Wood Technologist: Bethany Siu RDMS Probe: Trnscrbd D/ (2035) GCD.CPS Orig Print D/T: S: 01/16/2022 (2035) [facility] NAME: TAMARA SERRANO Radiology Department PHYS: PETMAR. - ConnieEstefany Baltazar [address] : 1995 AGE: 26 SEX: F [place], [place] [address] LOC: Pilo.ERS PHONE #: [phone] EXAM DATE: STATUS: REG ER FAX #: [phone] RAD NO: Page 2 Signed Report Patient Name: TAMARA SERRANO Unit No: [id number] EXAMS: CPT CODE: [id number] LTD 98387 (Continued) [facility] NAME: TAMARA SERRANO Radiology Department PHYS: PETCA. - Estefany Rosales Baltazar [address] : 1995 AGE: 26 SEX: F [place], [place] [address] LOC: Pilo.ERS PHONE#: [phone] EXAM DATE: 01/16/2022 STATUS: REG ER FAX #: [phone] RAD NO: Page 3 Signed Report- XR CHEST 1 [id number] 00:00:00[facility] 1995 Sex: F Patient Name: TAMARA SERRANO Unit No: [id number] EXAMS: CPT CODE: [id number] XR CHEST 1 V 83317 PROCEDURE INFORMATION: Exam: XR Chest Exam date and time: 01/16/2022 5:46 PM Age: 26 years old Clinical indication: Other: Line placement; Additional info: Code sepsis TECHNIQUE: Imaging protocol: Radiologic exam of the chest. Views: 1 view. COMPARISON: No relevant prior studies available. FINDINGS: Lungs: Normal lung volumes. No consolidation. Pleural spaces: Unremarkable. No pleural effusion. No pneumothorax. Heart/Mediastinum: Heart size is within normal limits. Vasculature is unremarkable. Bones/joints: Unremarkable. IMPRESSION: No acute cardiopulmonary findings. at 1912 Reported and signed by: Ghulam Parker MD CC: Estefany Crystal; Ann-Marie Wood Technologist: Danay Holland RT, CT Trnscrbd D/ (1911) GCD.CPS Orig Print D/T: S: 01/16/2022 (1911) [facility] NAME: PALAK SERRANORELI Radiology Department PHYS: PETCA. Estefany Rosales [address] : 1995 AGE: 26 SEX: F [place], [place] [address] LOC: KITA PHONE #: [phone] EXAM DATE: 01/16/2022 STATUS: REG ER FAX #: [phone] RAD NO: Page 1 Signed Report Bacteria identified in Urine by [id number] 00:00:00* Test Item Value Reference Range Interpretation Comme nts bacteria, urine (test code = bacteria, urine) few none-few blood, urine (test code = blood, urine) trace negative A bilirubin, urine (test code = bilirubin, urine) small negative A cast, granular, ur (test code = cast, granular, ur) none seen 0-1 cast, hyaline, urine (test code = cast, hyaline, urine) >20 0-4 H cast, RBC, urine (test code = cast, RBC, urine) none seen 0-1 character (test code = character) clear clear color (test code = color) dk yellow yellow, straw, simone crystal amt. urine (test code = crystal amt. urine) none none crystals urine (test code = crystals urine) none none culture, urine (test code = culture, urine) see below no growth epithelial cells, ur (test code = epithelial cells, ur) profuse none-few A glucose, urine (test code = glucose, urine) negative negative ketone, urine (test code = ketone, urine) 1+,15 mg/dL negative A leukocyte esterase (test code = leukocyte esterase) small negative A nitrites urine (test code = nitrites urine) negative negative pH urine (test code = pH urine) 5.5 5.0-8.0 protein, urine (test code = protein, urine) trace negative A RBC, urine (test code = RBC, urine) none seen none seen specific gravity ur (test code = specific gravity ur) 1.027 1.003-1.030 urobilinogen urine (test code = urobilinogen urine) 1.0 mg/dL 0.2-1.0 WBC, urine (test code = WBC, urine) 11-20 0-4 [place] [id number] panel - Serum and [id number] 00:00:00* Test Item Value Reference Range Interpretation Comme nts WBC (test code = WBC) 6.24 x10(3)/uL 4.00-10.10 RBC (test code = RBC) 4.33 x10(6)/uL 3.58-5.19 HGB (test code = HGB) 12.7 g/dL 11.0-15.5 HCT (test code = HCT) 37.7 % 31.5-44.8 MCV (test code = MCV) 87.1 fL 78.0-98.0 MCH (test code = MCH) 29.3 pg 25.2-32.6 MCHC (test code = MCHC) 33.7 g/dL 31.0-34.7 RDW (test code = RDW) 13.3 % 12.0-15.5 platelet count (test code = platelet count) 258 x10(3)/uL 140-425 lymphs (test code = lymphs) 23.9 % 13.7-50.9 monos (test code = monos) 5.8 % 3.0-11.9 eos (test code = eos) 1.9 % 0.0-5.0 basos (test code = basos) 0.3 % 0.0-1.0 MPV (test code = MPV) 11.0 fL 8.6-12.1 polys (test code = polys) 67.8 % 37.1-78.1 RPR (test code = RPR) non-reactive non-reactive immature granulocytes (test code = immature granulocytes) 0.3 % 0.0-1.0 ABO/Rh blood type (test code = ABO/Rh blood type) O pos antibody screen (test code = antibody screen) negative negative hep. B surf. Ag (test code = hep. B surf. Ag) non-reactive non-reactive rubella,IgG (test code = rubella,IgG) 49.6 [IU]/mL See_Comment [Automated m essage] The system which generated this result transmitted reference range: immune >9.9. The reference range was not used to interpret this result as normal/abnormal. [facility] MedicalThyrotropin [Units/volume] in Serum or [id number] 00:00:00* Test Item Value Reference Range Interpretation Comme nts TSH (test code = TSH) 3.010 uIU/mL 0.178-4.530 [facility] MedicalHepatitis C virus Ab [Presence] in [id number] 00:00:00* Test Item Value Reference Range Interpretation Comme nts ethnicity: (test code = ethnicity:) other race: (test code = race:) unknown hep C Ab. (S/co ratio) (test code = hep C Ab. (S/co ratio)) 0.09 S/co <0.80 hep. C Ab. (test code = hep. C Ab.) non-reactive non-reactive [facility] MedicalHIV 1+2 Ab+HIV1 p24 Ag [Presence] in Serum or Plasma by [id number] 00:00:00* Test Item Value Reference Range Interpretation Comme nts ethnicity: (test code = ethnicity:) other race: (test code = race:) unknown HIV Ag/Ab (test code = HIV Ag/Ab) non-reactive non-reactive [facility] MedicalUrine [id number] 09:16:20* Test Item Value Reference Range Interpretation Comme nts Result (test code = 6463-4) 70-79,000 col/mL Red albicans A Lab Interpretation (test code = 85811-8) [facility]normal [facility], [id number] 20:11:00Abdomen limited area? Add comment if clarification is needed.->Right upper quadrantReason for exam:->HEMATEMESISShould this be performed at the bedside?->NoCH[facility] : 1995 Sex: FFINAL REPORT TECHNIQUE: Grayscale ultrasound of the right abdomen. INDICATION: HEMATEMESIS. COMPARISON: None. FINDINGS: MIDLINE VASCULATURE: The visualized inferior vena cava is unremarkable. The maximum visualized aortic diameter is 1.5 cm. LIVER: The liver is increased in echogenicity. Smooth liver contour. No focal lesions. The main portal vein is patent and measures 1.1 cm in diameter. BILIARY:Gallbladder: The gallbladder is near completely filled with sludge, and there are likely a couple of small stones. No gallbladder wall thickening, pericholecystic fluid, or distention.Negative sonographic Joyce sign.Common bile duct measures 0.3 cm, within normal limits. No intrahepatic biliary ductal dilatation. PANCREAS: Incompletely visualized due to overlying bowel gas. The partially visualized pancreatic head, body, and tail are normal. PERITONEUM: No free fluid. RIGHT KIDNEY: Normal in size. No hydronephrosis. No sonographically evident solid mass lesion. IMPRESSION: 1.Diffuse fatty infiltration of the liver 2.Cholelithiasis and sludge in the gallbladder without acutecholecystitis. Signed: Zully Ponce Verified Date/Time: 12/20/2021 20:11:50 U/S, , FIRST [id number] 20:03:00Reason for exam:-> [facility] : 1995 Sex: FFINAL REPORT Comparison; None Discussion: Sonographic evaluation of the gravid uteruswas performed transabdominally with duplex Doppler. Spectral analysis was also performed. The uterus is normal in echogenicity and size measuring 11.6 x 5.9 x 8.5 cm. A single intrauterine gestational sac with normal shape is observed that measures 5.8 x 2.5 x 3.3 cm, corresponding to mean gestational sac diameter of 3.9 cm. Approximate gestational age based on CRL of 3.4 cm is 10 weeks 3 days. The heart rate is 169 beats per minute, normal. No significant perigestational hemorrhage. The cervix is closed. Placenta is not visualized due to gestational age. Right adnexa:The right ovary isnormal in echogenicity and measures 2.3 x 1.5 x 1.9 cm. No ovarian mass. Left adnexa:Left ovarian unable to be seen secondary to transabdominal technique, bowel gas, and the gravid uterus. Impression: 1. Single live intrauterine with gestational age of 10 weeks 3 days as estimated by crown-rump length. 2. Left ovary was unable to be seen. Right ovary is unremarkable. Signed: Tony Madsen MDReport Verified Date/Time: 12/20/2021 20:03:02 HCG, QUANTITATIVE, [id number] 20:02:42* Test Item Value Reference Range Interpretation Comme nts GONADOTROPIN, CHORIONIC (HCG ) QUANT (BEAKER) (test code = 649) 07[address] mIU/mL 0-10 H Non- Females: <10 mIU/mL Females: Gestation Age Reference Range(mIU/mL) 0.2-1 Week 5-50 1-2 Weeks 50-500 2-3 Weeks 100-5,000 3-4 Weeks 500-10,000 4-5 Weeks 1,000-50,000 5-6 Weeks10,000-100,000 6-8 Weeks 15,000- 200,000 2-3 Months 10,000-100,000 Inventory Associate ID - BSOperator ID - BSPregnancy screen, [id number] 18:08:50* Test Item Value Reference Range Interpretation Comme nts Preg Test, Ur (test code = 2112-1) Positive [facility] CenterP[facility] SCREEN, [id number] 18:08:50* Test Item Value Reference Range Interpretation Comme nts TEST URINE (BEAKER ) (test code = 583) Positive TSH/FREE T4 IF [id number] 18:05:45* Test Item Value Reference Range Interpretation Comme nts THYROID STIMULATING HORMONE (BEAKER) (test code = 772) 2.844 uIU/mL 0.350-4.940 Inventory Associate ID - BSUrinalysis w/Microscopic + Reflex to [id number] 18:01:50 * Test Item Value Reference Range Interpretation Comme nts Color, UA (test code = 5778-6) Yellow Clarity, UA (test code = 5767-9) Hazy Specific [place], UA (test code = 5811-5) 1.013 1.001-1.035 pH, UA (test code = 5803-2) 6.0 5.0-8.0 Protein, UA (test code = 05939-6) Negative Negative Glucose, UA (test code = 365) Negative Negative Ketones, UA (test code = 2514-8) 60 mg/dL Negative A Bilirubin, UA (test code = 41901-4) Negative Negative Blood, UA (test code = 76165-9) Small Negative A Nitrite, UA (test code = 5802-4) Negative Negative Leukocytes, UA (test code = 5799-2) Large Negative A Urobilinogen, UA (test code = 03071-4) 0.2 mg/dL 0.2-1.0 RBC, UA (test code = 99238-9) 15 See_Comment [Automated message] The system which generated this result transmitted reference range: /HPF. The reference range was not used to interpret this result as normal/abnormal. WBC, UA (test code = 5821-4) 31 See_Comment [Automated message] The system which generated this result transmitted reference range: /HPF. The reference range was not used to interpret this result as normal/abnormal. Bacteria, UA (test code = 82195-5) None Seen Mucus (test code = 8247-9) Many Squam Epithel, UA (test code = 39096-3) 21 See_Comment [Automated message] The system which generated this result transmitted reference range: /HPF. The reference range was not used to interpret this result as normal/abnormal. Crystals, Urine (test code = 39735-0) None Seen Yeast (test code = 51657-7) Rare Specimen Source (test code = 2795) SATNAM (test code = SATNAM) Inventory Associate ID - [auto]Inventory Associate ID - tech Lab Interpretation (test code = 46178-9) [facility] [id number] 18:01:50 * Test Item Value Reference Range Interpretation Comme nts COLOR (BEAKER) (test code = 470) Yellow CLARITY (BEAKER) (test code = 469) Hazy SPECIFIC GRAVITY UA (BEAKER) (test code = 468) 1.013 1.001-1.035 PH UA (BEAKER) (test code = 467) 6.0 5.0-8.0 PROTEIN UA (BEAKER) (test co de = 464) Negative Negative GLUCOSE UA (BEAKER) (test co de = 365) Negative Negative KETONES UA (BEAKER) (test co de = 371) 60 mg/dL Negative A BILIRUBIN UA (BEAKER) (test code = 462) Negative Negative BLOOD UA (BEAKER) (test code = 461) Small Negative A NITRITE UA (BEAKER) (test co de = 465) Negative Negative LEUKOCYTE ESTERASE UA (BEAKE R) (test code = 466) Large Negative A UROBILINOGEN UA (BEAKER) (te st code = 463) 0.2 mg/dL 0.2-1.0 RBC UA (BEAKER) (test code = 519) 15 /HPF WBC UA (BEAKER) (test code = 520) 31 /HPF BACTERIA (BEAKER) (test code = 517) None Seen MUCUS (BEAKER) (test code = 1574) Many SQUAMOUS EPITHELIAL (BEAKER) (test code = 516) 21 /HPF CRYSTALS, URINE (BEAKER) (te st code = 1521) None Seen YEAST (BEAKER) (test code = 1585) Rare SOURCE(BEAKER) (test code = 2795) Inventory Associate ID - [auto]Inventory Associate ID - [id number] 17:42:22* Test Item Value Reference Range Interpretation Comme nts LIPASE (BEAKER) (test code = 749) 25 U/L 8-78 Inventory Associate ID - BSRAD, CHEST, 2 [id number] 17:31:00Reason for exam:- >HEMATEMESISShould this be performed at the bedside?->No [facility] : 1995 Sex: FFINAL REPORT TECHNIQUE: Frontal and lateral views of the chest. INDICATION: HEMATEMESIS. COMPARISON: None. FINDINGS: LINES/TUBES: None. LUNGS: The lungs are well inflated and clear. No consolidation or pulmonary edema. PLEURA: No pleural effusion or pneumothorax. HEART AND MEDIASTINUM: The cardiac silhouette is normal in size. SOFT TISSUES AND BONES: Unremarkable. IMPRESSION: No acute intrathoracic abnormality. Signed: Zully Ponce MDReport Verified Date/Time: 12/20/2021 17:31:27 [id number] 16:27:00* Test Item Value Reference Range Interpretation Comme nts MAGNESIUM (BEAKER) (test cod e = 627) 1.8 mg/dL 1.6-2.6 Inventory Associate ID - BSBASIC METABOLIC [id number] 15:30:08* Test Item Value Reference Range Interpretation Comme nts SODIUM (BEAKER) (test code = 381) 135 meq/L 136-145 L POTASSIUM (BEAKER) (test code = 379) 3.4 meq/L 3.5-5.1 L CHLORIDE (BEAKER) (test code = 382) 103 meq/L 98-107 CO2 (BEAKER) (test code = 355) 20 meq/L 22-29 L BLOOD UREA NITROGEN (BEAKER) (test code = 354) 4 mg/dL 7-21 L CREATININE (BEAKER) (test code = 358) 0.70 mg/dL 0.57-1.25 GLUCOSE RANDOM (BEAKER) (test code = 652) 90 mg/dL 70-105 CALCIUM (BEAKER) (test code = 697) 9.5 mg/dL 8.4-10.2 EGFR (BEAKER) (test code = 1092) 100 mL/min/1.73 sq m ESTIMATED GFR IS NOT ACCURATE CREATININE CLEARANCE IN PREDICTING GLOMERULAR FILTRATION RATE. ESTIMATED GFR IS NOT APPLICABLE FOR DIALYSIS PATIENTS. Inventory Associate ID - BSHEPATIC FUNCTION [id number] 15:30:08* Test Item Value Reference Range Interpretation Comme nts TOTAL PROTEIN (BEAKER) (test code = 770) 7.8 gm/dL 6.0-8.3 ALBUMIN (BEAKER) (test code = 1145) 4.2 g/dL 3.5-5.0 BILIRUBIN TOTAL (BEAKER) (te st code = 377) 0.6 mg/dL 0.2-1.2 BILIRUBIN DIRECT (BEAKER) (t est code = 706) 0.2 mg/dL 0.1-0.5 ALKALINE PHOSPHATASE (BEAKER ) (test code = 346) 70 U/L 40-150 AST (SGOT) (BEAKER) (test co de = 353) 15 U/L 5-34 ALT (SGPT) (BEAKER) (test co de = 347) 14 U/L 6-55 Inventory Associate ID - BSCBC W/PLT COUNT & AUTO [id number] 14:59:45* Test Item Value Reference Range Interpretation Comme nts WHITE BLOOD CELL COUNT (BEAK ER) (test code = 775) 7.6 K/ L 3.5-10.5 RED BLOOD CELL COUNT (BEAKER ) (test code = 761) 4.43 M/ L 3.93-5.22 HEMOGLOBIN (BEAKER) (test co de = 410) 13.0 GM/DL 11.2-15.7 HEMATOCRIT (BEAKER) (test co de = 411) 38.1 % 34.1-44.9 MEAN CORPUSCULAR VOLUME (BEATA KER) (test code = 753) 86.0 fL 79.4-94.8 MEAN CORPUSCULAR HEMOGLOBIN (BEAKER) (test code = 751) 29.3 pg 25.6-32.2 MEAN CORPUSCULAR HEMOGLOBIN CONC (BEAKER) (test code = 752) 34.1 GM/DL 32.2-35.5 RED CELL DISTRIBUTION WIDTH (BEAKER) (test code = 412) 13.1 % 11.7-14.4 PLATELET COUNT (BEAKER) (amarilis t code = 756) 263 K/CU MM 150-450 MEAN PLATELET VOLUME (BEAKER ) (test code = 754) 10.8 fL 9.4-12.3 NUCLEATED RED BLOOD CELLS (BEAKER) (test code = 413) 0 /100 WBC 0-0 NEUTROPHILS RELATIVE PERCENT (BEAKER) (test code = 429) 67 % LYMPHOCYTES RELATIVE PERCENT (BEAKER) (test code = 430) 26 % MONOCYTES RELATIVE PERCENT (BEAKER) (test code = 431) 5 % EOSINOPHILS RELATIVE PERCENT (BEAKER) (test code = 432) 1 % BASOPHILS RELATIVE PERCENT (BEAKER) (test code = 437) 0 % NEUTROPHILS ABSOLUTE COUNT (BEAKER) (test code = 670) 5.04 K/ L 1.56-6.13 LYMPHOCYTES ABSOLUTE COUNT (BEAKER) (test code = 414) 1.96 K/ L 1.18-3.74 MONOCYTES ABSOLUTE COUNT (BE TAMARA) (test code = 415) 0.41 K/ L 0.24-0.36 H EOSINOPHILS ABSOLUTE COUNT (BEAKER) (test code = 416) 0.10 K/ L 0.04-0.36 BASOPHILS ABSOLUTE COUNT (BE TAMARA) (test code = 417) 0.03 K/ L 0.01-0.08 IMMATURE GRANULOCYTES-RELATI VE PERCENT (BEAKER) (test code = 2801) 0 % 0-1 HEMOGLOBIN [id number] 08:49:03* Test Item Value Reference Range Interpretation Comme nts HEMOGLOBIN A1 (test code = 2575) 97.2 % 95.0-98.5 HEMOGLOBIN A2 (test code = 2576) 2.8 % 1.6-3.7 HEMOGLOBIN F () (test code = 2722) 0.0 % 0.0-2.0 HEMOGLOBIN S (test code = 2724) NONE % NONE DETECTED HEMOGLOBIN C (test code = 2726) NONE % NONE DETECTED OTHER HEMOGLOBIN VARIANT (test code = 22650) NONE DETEC % NONE DETECTED PATHOLOGIST'S INTERPRETATION (test code = 2577) (NOTE) NO ABNORMAL HEMOGLOBINS IDENTIFIED. FIONA ZAMORANO M.D. THC METABOLITE, QUANT, [id number] 17:09:09* Test Item Value Reference Range Interpretation Comme nts CARBOXY-THC INTERP (test code = 85336) Negative CARBOXY-THC QNT (test code = 85701) <15 ng/mL <15 Reference range indicates cutoff for positive result determination. Specimen Type: Urine Urine drug and metabolite concentrations are dependent on manyfactors, including patient compliance, drug dosing, dosing interval,individual variation in drug absorption and metabolism, urineconcentration, and limitations of testing. Assay is intended formedical purposes only, not for forensic use. This test was developed and its performance characteristicsdetermined by [facility] ([facility]). It has not beencleared or approved by the U.S. Food and Drug Administration (FDA).The FDA has determined that such clearance or approval is notnecessary. This test is used for clinical purposes and should not beregarded as investigational or for research. [facility] is qualified toperform high complexity testing under the Clinical LaboratoryImprovement Amendments (CLIA). TESTING PERFORMED AT [facility] [address] [place] [address], [address], [address] [address] CLIA NO: [id number] UNLESS OTHERWISE INDICATED, ALL TESTING PERFORMED [facility] [address] [place] [address] SENIOR FIREWALL ENGINEER: BELLE HUBBARD M.D. CLIA NUMBER [id number] [facility]. [id number] CULTURE, [id number] 09:19:03SPECIMEN NUMBER: [id number] CULTURE, URINE SPECIMEN NUMBER: [id number] SPECIMEN COMMENT: URINE SOURCE: URINE REPORT STATUS: FINAL FINAL REPORT: 11/23/2021 10-50,000 CFU/ML UROGENITAL TE PRESENT NO CO MMON PATHOGENSCT/NG, NAAT, [id number] 19:03:26* Test Item Value Reference Range Interpretation Comme nts GONORRHEA, NAAT (test code = 16049) NEGATIVE NEGATIVE IMPORTANT NO DARIAN: SEE ANNOUNCEMENT AT [email or web address] Note: Assay methodology is nucleic acid amplification by alumni secretary mediated amplification (TMA) utilizing the Aptima Combo 2 Assay. CHLAMYDIA, NAAT (test code = 87170) NEGATIVE NEGATIVE IMPORTANT NO DARIAN: SEE ANNOUNCEMENT AT [email or web address] Note: Assay methodology is nucleic acid amplification by alumni secretary mediated amplification (TMA) utilizing the Aptima Combo 2 Assay. VARICELLA ZOSTER [id number] 16:03:42* Test Item Value Reference Range Interpretation Comme nts VARICELLA ZOSTER IgG (test code = 93600) 541 INDEX SEE BELOW INTERPRETATI ON VZV IgG NEGATIVE . . . . . . . . . . . . INDEX <135 EQUIVOCAL. . . . . . . . . . . . INDEX 135-164 NOTE: CONSIDER RETESTING IN A CLINICALLY SUITABLE PERIOD OF TIME, NO SOONER THAN 1-2 WEEKS. POSITIVE . . . . . . . . . . . . INDEX >=165 DRUG ABUSE SCREEN 10 REFLEX [id number] 05:19:45* Test Item Value Reference Range Interpretation Comments AMPHETAMINES (test code = 3201) NEGATIVE NEGATIVE BARBITURATES (test code = 3202) NEGATIVE NEGATIVE BENZODIAZEPINES (test code = 3203) NEGATIVE NEGATIVE CANNABINOIDS (test code = 3204) SEE REFLEX TESTING NEGATIVE A COCAINE METABOLITE (test code = 3205) NEGATIVE NEGATIVE OPIATES (test code = 3209) NEGATIVE NEGATIVE OXYCODONE (test code = 80201) NEGATIVE NEGATIVE PHENCYCLIDINE (test code = 3210) NEGATIVE NEGATIVE METHADONE (test code = 3207) NEGATIVE NEGATIVE BUPRENORPHINE (test code = 45217) NEGATIVE NEGATIVE SOURCE (test code = 352118) URINE SEE BELOW FO R THRESHOLDS AND IMPORTANT METHOD NOTES ANALYTE SCREENING CUTOFF CONFIRMATORY CUTOFF ___AMPHETAMINES 500 NG/ML 100 NG/MLBARBITURATES 200 NG/ML 100 NG/MLBENZODIAZEPINES 200 NG/ML 100 NG/MLCANNABINOIDS (THC) 20 NG/ML 15 NG/MLCOCAINE METABOLITES 150 NG/ML 100 NG/MLOPIATE METABOLITES 300 NG/ML 100 NG/MLOXYCODONE 100 NG/ML 100 NG/MLPHENCYCLIDINE (PCP) 25 NG/ML 25 NG/MLMETHADONE 300 NG/ML 100 NG/MLBUPRENORPHINE 5 NG/ML 5 NG/ML NOTE: Screening methodology is qualitative Enzyme Immunoassay.The screening method may be less sensitive for certain medicationsincluding clonazepam and lorazepam in the benzodiazepine assay andtramadol or fentanyl in the opiate assay, amongst others. Patientcompliance, hydration status, timing and dose of medications, drugabsorption and specimen quality may affect screening assay.For clinical discrepancies, consider directed testing for specificcompounds or contact the laboratory within specimen stability toforward for confirmatory testing. This test is specified for medicalpurposes only. It is not valid for forensic use. [id number] 03:55:25* Test Item Value Reference Range Interpretation Comme nts RPR RESULT (test code = 3501) NON-REACTIVE NON-REACTIVE RPR TITER (test code = 3500) NOT INDIC. TITER NOT INDIC. HEPATITIS C REFLEX [id number] 03:48:03* Test Item Value Reference Range Interpretation Comme nts HEPATITIS C ANTIBODY (test c ode = 4675) NON-REACTIVE NON-REACTIVE OBSTETRIC PANEL + [id number] 03:48:03* Test Item Value Reference Range Interpretation Comme nts WBC (test code = 1001) 6.6 K/UL 3.5-11.0 RBC (test code = 1002) 4.50 M/UL 3.80-5.40 HEMOGLOBIN (test code = 1003) 13.3 G/DL 11.5-15.5 HEMATOCRIT (test code = 1004) 39.1 % 34.0-45.0 MCV (test code = 1005) 86.9 fL 80.0-99.0 MCH (test code = 1006) 29.6 PG 25.0-33.0 MCHC (test code = 1007) 34.0 G/DL 31.0-36.0 RDW (test code = 1038) 12.7 % 11.5-15.0 NEUTROPHILS (test code = 1008) 66.3 % LYMPHOCYTES (test code = 1010) 25.2 % MONOCYTES (test code = 1011) 5.4 % EOSINOPHILS (test code = 1012) 2.3 % BASOPHILS (test code = 1013) 0.5 % IMMATURE GRANULOCYTES (test code = 1036) 0.3 % NUCLEATED RBCS (test code = 1065) 0.0 /100 WBC'S See_Comment [Automated me ssage] The system which generated this result transmitted reference range: 0.0. The reference range was not used to interpret this result as normal/abnormal. PLATELET COUNT (test code = 1015) 305 K/UL 130-400 ABSOLUTE NEUTROPHILS (test code = 1066) 4.41 K/UL 1.50-7.50 ABSOLUTE LYMPHOCYTES (test code = 1067) 1.67 K/UL 1.00-4.00 ABSOLUTE MONOCYTES (test code = 1068) 0.36 K/UL 0.20-1.00 ABSOLUTE EOSINOPHILS (test code = 1040) 0.15 K/UL 0.00-0.50 ABSOLUTE BASOPHILS (test code = 1069) 0.03 K/UL 0.00-0.20 ABS IMMATURE GRANULOCYTES (test code = 1020) 0.02 K/UL 0.00-0.10 ABS NUCLEATED RBCS (test code = 34707) 0.00 K/UL 0.00-0.11 BLOOD TYPE AND RH (test code = 3901) O POSITIVE A HISTORICAL RECORD CHECK FOR PREVIOUS RESULTS IS NOT PERFORMED.THESE RESULTS SHOULD BE CORRELATED WITH RESULTS OF PRIOR BLOODTYPING AND ANTIBODY SCREEN STUDIES. ANTIBODY SCREEN (test code = 3902) NEGATIVE NEGATIVE A HISTORICAL RECORD CHECK FOR PREVIOUS RESULTS IS NOT PERFORMED.THESE RESULTS SHOULD BE CORRELATED WITH RESULTS OF PRIOR BLOODTYPING AND ANTIBODY SCREEN STUDIES. RUBELLA ANTIBODY SCREEN (test code = 4600) 215 IU/ML SEE BELOW INTERPRETATION RUBELLA IgG NON-REACTIVE/NON-IMM UNE . . . . . . . IU/ML <10 REACTIVE/IMMUNE . . . . . . . . . . . IU/ML >=10 RUBELLA IgG INTERP (test code = 41780) REACTIVE REACTIVE HEPATITIS B SURF AG (test code = 2739) NON-REACTIVE NON-REACTIVE RPR (test code = 75954) NON-REACTIVE NON-REACTIVE RPR TITER (test code = 3500) NOT INDIC. TITER NOT INDIC. HIV 1/2 4TH GEN, RFLX CONF (test code = 3514) NON-REACTIVE NON-REACTIVE PAP TEST, THINPREP, [id number] 08:18:37* Test Item Value Reference Range Interpretation Comme nts SOURCE: (test code = 8001) Cervical/Endo cervical SLIDES: (test code = 8011) 1 LMP: (test code = 8021) 06/23/2021 SPECIMEN ADEQUACY: (test code = 75541) (NOTE) Satisfactory for evaluation. Endocervical cells/transformation zone component present. INTERPRETATION: (test code = 30267) NILM/NO EPITH. ABNORMALITY;S EE BELOW ---- NEGATIVE FOR INTRAEPITHELIAL LESION OR MALIGNANCY (NILM) - OTHER COMMENTS: (test code = 8081) (NOTE) Fungal organisms consistent with Red present. MOUNTER FLUTES AND PICCOLOS: (test code = 8101) MAGDIEL Gomez(ASCP) LOCATION: (test code = 17649) (NOTE) Specimens proces sed and interpreted at [facility], [address] [place] [address], , CLIA: [id number] CPT: (test code = 8140) (NOTE) 10245 UNLESS OTH ERWISE INDICATED, COMPUTER AIDED AND MOUNTER FLUTES AND PICCOLOS SCREENING PERFORMED. The Pap test is a screening test with an inherent, but low probability of error. Your patient should be reminded to consult you immediately if she experiences any suspicious signs or symptoms, regardless of her Pap test result. An alternate report format containing images or consolidated prior Pap history is available as applicable. UNLESS OTHERWISE INDICATED, ALL TESTING PERFORMED [facility] [address] [place] [address] SENIOR FIREWALL ENGINEER: BELLE HUBBARD M.D. CLIA NUMBER [id number] [place]. [id number] THYROID II PROFILE (TU,T4,FTI,TSH)2021-07-12 06:20:17* Test Item Value Reference Range Interpretation Comme nts T-UPTAKE (test code = 2817) 30.2 % 24.3-39.0 THYROX. BIND. CAPAC. (test code = 98508) 1.1 0.8-1.3 NOTE: THYROXINE BINDING CAPACITY IS INVERSELY RELATED TO T-UPTAKE,DECREASED WITH HYPERTHYROIDISM AND LOW THYROID BINDING GLOBULIN (TBG),INCREASED IN HYPOTHYROIDISM OR WITH HIGH TBG. T4 (THYROXINE) (test code = 2819) 5.9 UG/DL 4.5-10.5 CORRECTED T4 (FTI) (test code = 2820) 5.4 UG/DL 4.2-11.6 TSH, THIRD GENERATION (test code = 2821) 2.910 UIU/ML 0.400-4.100 UNLESS OTHERWISE INDICATED, ALL TESTING PERFORMED [facility] [address] [place] [id number] [employer]: BELLE HUBBARD M.D. CLIA NUMBER [id number] [place]. [id number] CBC W/AUTO DIFF WITH [id number] 03:49:06* Test Item Value Reference Range Interpretation Comme nts WBC (test code = 1001) 8.1 K/UL 3.5-11.0 RBC (test code = 1002) 4.49 M/UL 3.80-5.40 HEMOGLOBIN (test code = 1003) 13.1 G/DL 11.5-15.5 HEMATOCRIT (test code = 1004) 38.7 % 34.0-45.0 MCV (test code = 1005) 86.2 fL 80.0-99.0 MCH (test code = 1006) 29.2 PG 25.0-33.0 MCHC (test code = 1007) 33.9 G/DL 31.0-36.0 RDW (test code = 1038) 13.4 % 11.5-15.0 NEUTROPHILS (test code = 1008) 56.3 % NOTE: EFFECTIVE 06/10/2021, REFERENCE INTERVALS AND FLAGGING FORRELATIVE (%) WBC DIFFERENTIAL WILL BE ELIMINATED REDUNDANT TOABSOLUTE COUNTS.SEE [email or web address] [email or web address]_upda te LYMPHOCYTES (test code = 1010) 32.9 % MONOCYTES (test code = 1011) 6.3 % EOSINOPHILS (test code = 1012) 3.7 % BASOPHILS (test code = 1013) 0.6 % IMMATURE GRANYLOCYTES (test code = 1036) 0.2 % NUCLEATED RBCS (test code = 1065) 0.0 /100 WBC'S See_Comment [Automated message] The system which generated this result transmitted reference range: 0.0. The reference range was not used to interpret this result as normal/abnormal. PLATELET COUNT (test code = 1015) 337 K/UL 130-400 ABSOLUTE NEUTROPHILS (test code = 1066) 4.52 K/UL 1.50-7.50 ABSOLUTE LYMPHOCYTES (test code = 1067) 2.65 K/UL 1.00-4.00 ABSOLUTE MONOCYTES (test code = 1068) 0.51 K/UL 0.20-1.00 ABSOLUTE EOSINOPHILS (test code = 1040) 0.30 K/UL 0.00-0.50 ABSOLUTE BASOPHILS (test code = 1069) 0.05 K/UL 0.00-0.20 ABS IMMATURE GRANULOCYTES (test code = 1020) 0.02 K/UL 0.00-0.10 ABS NUCLEATED RBCS (test code = 42388) 0.00 K/UL 0.00-0.11 LIPID [id number] 03:21:21* Test Item Value Reference Range Interpretation Comme nts CHOLESTEROL (test code = 2210) 190 MG/DL <200 TRIGLYCERIDES (test code = 2232) 96 MG/DL <150 HDL CHOLESTEROL (test code = 2220) 59 MG/DL >39 CALC LDL CHOL (test code = 2236) 111 MG/DL <100 H NOTE: CALCULATED LDL IS BASED ON KAITLIN-JAMA METHOD WHICHINCLUDES ADJUSTABLE TRIGLYCERIDE:VLDL CHOLESTEROL RATIO.THIS FACTOR VARIES BY MEASURED TRIGLYCERIDE AND NON-HDLCHOLESTEROL CONCENTRATIONS WITH INCREASED CALCULATED LDL SEENIN HIGHER TRIGLYCERIDE OR LOWER NON-HDL SPECIMENS. FOR MOREINFORMATION, SEE CLIENT ANNOUNCEMENT AT [email or web address] RISK RATIO LDL/HDL (test code = 223) 1.88 RATIO <3.22 COMPREHENSIVE METABOLIC [id number] 03:21:21* Test Item Value Reference Range Interpretation Comme nts GLUCOSE (test code = 221) 92 MG/DL 70-99 BUN (test code = 2207) 10 MG/DL 6-20 CREATININE (test code = 221) 0.78 MG/DL 0.60-1.30 EFFECTIVE 07/01/2021, [facility] HAS IMPLEMENTED THE NKF-ASN RECOMMENDED KD-EPI EGFR REFIT CALCULATION THAT DOES NOT INCLUDE A COEFFICIENT FORRACE. FOR MORE INFORMATION, SEE ANNOUNCEMENT [email or web address]_[email or web address] eGFR (2020 CKD-EPI) (test code = 97843) 106 ML/MIN/1.73 >60 CALC BUN/CREAT (test code = 2234) 13 RATIO 6-28 SODIUM (test code = 223) 144 MEQ/L 133-146 POTASSIUM (test code = 222) 4.0 MEQ/L 3.5-5.4 CHLORIDE (test code = 2215) 107 MEQ/L 95-107 CARBON DIOXIDE (test code = 220) 25 MEQ/L 19-31 CALCIUM (test code = 2209) 9.7 MG/DL 8.5-10.5 PROTEIN, TOTAL (test code = 222) 7.6 G/DL 6.1-8.3 ALBUMIN (test code = 2200) 4.6 G/DL 3.5-5.2 CALC GLOBULIN (test code = 2240) 3.0 G/DL 1.9-3.7 CALC A/G RATIO (test code = 2234) 1.5 RATIO 1.0-2.6 BILIRUBIN, TOTAL (test code = 2206) 0.3 MG/DL See_Comment [Automated me ssage] The system which generated this result transmitted reference range: <=1.2. The reference range was not used to interpret this result as normal/abnormal. ALKALINE PHOSPHATASE (test code = 2204) 91 U/L 40-112 AST (test code = 2218) 20 U/L 9-40 ALT (test code = 2219) 25 U/L 5-40 VAGINAL PATHOGENS DNA [id number] 16:05:19* Test Item Value Reference Range Interpretation Comme nts RED SPECIES (test code = 12281) POSITIVE NEGATIVE A G. VAGINALIS (test code = ) NEGATIVE NEGATIVE T. VAGINALIS (test code = ) NEGATIVE NEGATIVE UNLESS OTHERWISE INDICATED, ALL TESTING PERFORMED [facility] [address] [place] [address] SENIOR FIREWALL ENGINEER: BELLE HUBBARD M.D. CLIA NUMBER [id number] [facility] [place]. [id number] HGB [id number] 20:52:00* Test Item Value Reference Range Interpretation Comme nts HEMOGLOBIN (test code = HGB) 6.3 g/dL 10.7-13.9 LL RESULTS CALLED Audi GILLIS.READ BACK & CONFIRMED? y.BY F.LAB.RV 12/02/182050. HEMATOCRIT (test code = HCT) 20.8 % 32.1-42.1 L HGB [id number] 10:43:00* Test Item Value Reference Range Interpretation Comme nts HEMOGLOBIN (test code = HGB) 6.2 g/dL 10.7-13.9 LL RESULTS CALLED Audi TrejoREAD BACK & CONFIRMED? YES.BY F.LAB.EBONY 12/02/18 1042.Results verified by repeat analysis HEMATOCRIT (test code = HCT) 21.2 % 32.1-42.1 L Results verified by repeat analysis AG HEPATITIS B [id number] 00:16:00* Test Item Value Reference Range Interpretation Comme nts AG HEPATITIS B SURFACE (test code = HBSAG) NONREACTIVE NONREACTIVE Comments to [employer] Cut Out Worker: NISHA MARIE CONSENT FORM SIGNED FOR HIV TESTING? YAB HEPATITIS C [id number] 00:16:00* Test Item Value Reference Range Interpretation Comme nts AB HEPATITIS C (test code = HCVAB) NONREACTIVE NONREACTIVE SIGNAL TO CUTOFF (test code = CUTOFF) 0.03 <0.80 N Comments to [employer] Cut Out Worker: LDO JIS CONSENT FORM SIGNED FOR HIV TESTING? PALAKB [id number] 00:16:00* Test Item Value Reference Range Interpretation Comme nts AB TREPONEMA (test code = TREPAB) NONREACTIVE NONREACTIVE Comments to [employer] Cut Out Worker: LDO JIS CONSENT FORM SIGNED FOR HIV TESTING? PALAKB HIV 1 00:16:00* Test Item Value Reference Range Interpretation Comme nts AB HIV 1 2 (test code = PTE26VV) NONREACTIVE NONREACTIVE Done by [employer] HIV Ag/Ab Combo Screen Comments to Vamp Cut Out Worker: LDO JIS CONSENT FORM SIGNED FOR HIV TESTING? YAG HEPATITIS B [id number] 23:57:00* Test Item Value Reference Range Interpretation Comme nts AG HEPATITIS B SURFACE (test code = HBSAG) NONREACTIVE NONREACTIVE Comments to [employer] Cut Out Worker: LDO JIS CONSENT FORM SIGNED FOR HIV TESTING? PALAKTano HEPATITIS C [id number] 23:57:00* Test Item Value Reference Range Interpretation Comme nts AB HEPATITIS C (test code = HCVAB) NONREACTIVE SIGNAL TO CUTOFF (test code = CUTOFF) <0.80 Comments to [employer] Cut Out Worker: LDO JIS CONSENT FORM SIGNED FOR HIV TESTING? NADIA [id number] 23:57:00* Test Item Value Reference Range Interpretation Comme nts AB TREPONEMA (test code = TREPAB) NONREACTIVE NONREACTIVE Comments to [employer] Cut Out Worker: LDO JIS CONSENT FORM SIGNED FOR HIV TESTING? PALAKB HIV 1 23:57:00* Test Item Value Reference Range Interpretation Comme nts AB HIV 1 2 (test code = [id number]) NONREACTIVE Comments to [employer] Cut Out Worker: LDO JIS CONSENT FORM SIGNED FOR HIV TESTING? YCBC W/AUTO [id number] 22:48:00* Test Item Value Reference Range Interpretation Comme nts WHITE BLOOD CELL (test code = WBC) [...] pg 27-35 L MEAN CELL HGB CONCETRATION ( test code = MCHC) 29.4 gm/dL 32.2-34.1 L RED CELL DISTRIBUTION WIDTH (test code = RDW) 18.2 % 12.4-16.5 H PLATELET COUNT (test code = PLT) 299 K/mm3 133-385 N IMMATURE PLATELET FRACTION ( test code = IPF) 0.0 % 0.0-10.8 N MEAN PLATELET VOLUME (test c ode = MPV) 11.0 fl 9.1-12.7 N NEUTROPHIL % (test code = NT%) 75.9 [...] = BA#) 0.0 K/mm3 RBC MORPHOLOGY REQUIRED (amarilis t code = RBCM) NORMAL NORMAL PLATELET MORPHOLOGY REQUIRED (test code = PLTMR) NORMAL NORMAL URINALYSIS [id number] 09:12:00* Test Item Value Reference Range Interpretation Comme nts UA COLOR (test code = COLU) YELLOW YELLOW UA APPEARANCE (test code = APPU) CLOUDY CLEAR A UA GLUCOSE DIPSTICK (test code = DGLUU) NEGATIVE NEG UA BILIRUBIN DIPSTICK (test code = BILU) NEGATIVE NEG UA KETONE DIPSTICK (test code = KETU) NEGATIVE NEG UA SPECIFIC GRAVITY (test code = SGU) 1.009 1.001-1.035 N UA BLOOD DIPSTICK (test code = WILBERT) 1+ NEG A UA PH DIPSTICK (test code = MINI) 6.0 5-9 UA PROTEIN DIPSTICK (test code = PROU) NEGATIVE NEG UA UROBILINIOGEN DIPSTICK (test code = URO) NEGATIVE mg/dL NEG UA NITRITE DIPSTICK (test code = ROSITA) NEG NEG UA LEUKOCYTE ESTERASE DIPSTICK (test code = LEUU) 3+ NEG A UA WBC (test code = WBCU) TOO NUMEROUS T O CNT #/hpf NONE SEEN A UA RBC (test code = RBCU) 6-10 #/hpf NONE SEEN A UA EPITHELIAL CELLS (test code = EPIU) MANY #/HPF RARE-FEW A UA BACTERIA (test code = BACU) MANY /HPF RARE-FEW A UA MUCUS (test code = MUCU) RARE NONE SEEN URINE SAMPLE: CLEAN CATCH- US ABDOMEN [id number] 23:12:00Patient Name: TAMARA SERRANO Unit No: [id number] EXAMS: CPT CODE: [id number] US ABDOMEN LTD 11281 PROCEDURE: RIGHT UPPER QUADRANT ULTRASOUND 09/19/2018 INDICATION: [...] length. Normal renal contour and morphology with normalechogenicity. Mild to moderate hydronephrosis and proximal hydroureter. No solid lesions. ADDITIONAL COMMENTS: No free fluid. IMPRESSION: 1. Mild to moderate right hydronephrosis and proximal hydroureter. Obstructing stone and distal extrinsic ureteral compression in the differential. 2. Otherwise unremarkable right upper quadrant ultrasound. 3. No free fluid. SL: ER-H at 2312 Reported and signed by: Raleigh Burnham, [facility] [place]: Nika Mendosa; Ann-Marie Wood Technologist: Cherry Disla RDMS Probe: Trnscrbd D/ (2312) [email or web address] Orig Print D/T: S: 09/19/2018 (2315) [facility] NAME: SERRANO,TAMARA Radiology Department PHYS: Nika Dunham MD [address] : 1995 AGE: 23 SEX: [place] [address] LOC: OlgaKAREN PHONE #: [phone] EXAM DATE: 09/19/2018 STATUS: REG ER FAX #: [phone] RAD NO: Page 1 Signed Report Patient Name: TAMARA SERRANO Unit No: [id number] EXAMS: CPT CODE: [id number] ABDOMEN LTD 09725 (Continued) [facility] PHYS: Nika Dunham MD [address] : 1995 AGE: 23 SEX: [place] [address] LOC: F.KAREN PHONE #: [phone] EXAM DATE: 09/19/2018 STATUS: REG ER FAX #: [phone] RAD NO: Page 2 Signed ReportLIVER [id number] 22:27:00* Test Item Value Reference Range Interpretation Comme nts TOTAL PROTEIN (test code = PROT) 6.9 gm/dL 6.3-8.2 N ALBUMIN (test code = ALB) 2.8 gm/dL 3.4-4.8 L BILIRUBIN TOTAL (test code = BILT) 0.3 mg/dL 0.2-1.0 N BILIRUBIN DIRECT (test code = BILD) 0.1 mg/dL <0.2 N SGOT/AST (test code = AST) 17 units/L 15-37 N SGPT/ALT (test code = ALT) <6 units/L 12-78 L ALKALINE PHOSPHATASE TOTAL ( test code = ALKP) 168 units/L 46-116 H MR, BRAIN, [id number] 10:59:00FINAL REPORT MRI brain and sella with and without contrast 02/23/2018 at 10:15. CLINICAL INDICATION: Prolactinoma. COMPARISON: 11/13/2017. TECHNIQUE: Multiplanar MR imaging of the br ain and sella was provided [id number] IV gadolinium administration using T1, T2, FLAIR, FFE, and diffusion weighted sequences. Thin cut sagittal and coronal sella imaging was included. FINDINGS: Patient motion limits this examination. Pathology may be obscured. With this limitation mind, there isno evident residual/recurrent tumor status post resection of a pathology proven prolactinoma. Therehas been relief of mass effect on the optic chiasm. There is no infarct, hematoma, mass, hydrocephalus, extra-axial collection, or abnormal intracranial enhancement. Normal appearing flow-voids are present in the major intracranial vascular structures. The pineal region, craniocervical junction, and orbits are unremarkable. The paranasal sinuses and nasal passages have a nonworrisome postoperative appearance. IMPRESSION: Motion limited examination, without evidence for residual/recurrent tumor.Signed: Moses Momin [facility] Verified Date/Time: 02/23/2018 10:59:36 Reading Location: [facility] C0[facility] Neuro Reading Room TISSUE [id number] 12:03:00Surgical Pathology Report Case: [id number] Authorizing Provider: Rajiv Canada MD Collected: 11/23/2017 1418 Ordering Location: [facility] PERIOPERATIVE Received: 11/23/2017 1422 SERVICES Pathologist: Sekou Gonzalez MD Specimens: A) - Soft Tissue, Other, cyst wall vs compressed pituitary B) - Tumor,pituitary tumor A. 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 PITUITARY GLAND, TUMOR, TRANSSPHENOIDAL HYPOPHYS ECTOMY: - SEVERELY FIBROTIC ADENOHYPOPHYSIS WITH MINUTE FRAGMENTS OF PROLACTIN CELL ADENOMA SigningPathologist Direct Phone Line: [phone] signed by Sekou Burton MD on 11/26/2017 [...] stains on the second specimen cannot be int erpreted secondary to the dense fibrosis.47048 X2, 76601 X2, 02208, 86490 X5, 24562F. Soft tissue, description, cyst wall versus compressed pituitary. B. Pituitary tumorA. Received fresh for frozen section examination labeled "soft tissue" is a 0.3 x 0.2 x 0.1 cm pink-taylor to red irregular shaped fragment of soft tissue that was submitted entirely for frozen section examination in one cassette (FSA). MH/plB. Received fresh labeled "tumor", description "pituitary tumor" is a 0.2 cm in greatest dimension, dark-red, irregular fragment of soft tissue. The specimen is entirely submitted in cassetteB1. DB/ew FROZEN SECTION DIAGNOSIS: A. PITUITARY, SOFT TISSUE, BIOPSY: - ADENOMA WITH SURROUNDING CO MPRESSED ADENOHYPOPHYSIS A-B Performed.The following special studies were performed on this case and the interpretation is incorporated in the diagnostic report above:The immunohistochemistry test was developed and its performance characteristics determined by [facility], Pathology Laboratory. It has not been cleared [...] to perform high complexity clinical laboratory testing.OSMOLALITY, [id number] 11:44:00* Test Item Value Reference Range Interpretation Comme nts OSMOLALITY URINE (BEAKER) (t est code = 614) 232 mOsm/kg 40-1400 SPECIFIC GRAVITY, [id number] 09:26:00* Test Item Value Reference Range Interpretation Comme nts SPECIFIC GRAVITY UA (BEAKER) (test code = 468) 1.008 1.001-1.035 [id number] 06:51:00* Test Item Value Reference Range Interpretation Comme nts PROLACTIN (BEAKER) (test cod e = 758) 41.88 ng/mL 5.18-26.53 H BASIC METABOLIC [id number] 06:49:00* Test Item Value Reference Range Interpretation Comme nts SODIUM (BEAKER) (test code = 381) 138 meq/L 136-145 POTASSIUM (BEAKER) (test code = 379) 3.6 meq/L 3.5-5.1 CHLORIDE (BEAKER) (test code = 382) 106 meq/L 98-107 CO2 (BEAKER) (test code = 355) 22 meq/L 22-29 BLOOD UREA NITROGEN (BEAKER) (test code = 354) 6 mg/dL 7-21 L CREATININE (BEAKER) (test code = 358) 0.72 mg/dL 0.57-1.25 GLUCOSE RANDOM (BEAKER) (test code = 652) 119 mg/dL 70-105 H CALCIUM (BEAKER) (test code = 697) 9.2 mg/dL 8.4-10.2 EGFR (BEAKER) (test code = 1092) 100 mL/min/1.73 sq m ESTIMATED GFR IS NOT ACCURATE CREATININE CLEARANCE IN PREDICTING GLOMERULAR FILTRATION RATE. ESTIMATED GFR IS NOT APPLICABLE FOR DIALYSIS PATIENTS. CBC W/PLT COUNT & AUTO [id number] 06:23:00* Test Item Value Reference Range Interpretation Comme nts WHITE BLOOD CELL COUNT (BEAK ER) (test code = 775) 12.3 K/ L 3.5-10.5 H RED BLOOD CELL COUNT (BEAKER ) (test code = 761) 3.78 M/ L 3.93-5.22 L HEMOGLOBIN (BEAKER) (test co de = 410) 11.0 GM/DL 11.2-15.7 L HEMATOCRIT (BEAKER) (test co de = 411) 33.4 % 34.1-44.9 L MEAN CORPUSCULAR VOLUME (BEATA KER) (test code = 753) 88.4 fL 79.4-94.8 MEAN CORPUSCULAR HEMOGLOBIN (BEAKER) (test code = 751) 29.1 pg 25.6-32.2 MEAN CORPUSCULAR HEMOGLOBIN CONC (BEAKER) (test code = 752) 32.9 GM/DL 32.2-35.5 RED CELL DISTRIBUTION WIDTH (BEAKER) (test code = 412) 13.3 % 11.7-14.4 PLATELET COUNT (BEAKER) (amarilis t code = 756) 278 K/CU MM 150-450 MEAN PLATELET VOLUME (BEAKER ) (test code = 754) 9.8 fL 9.4-12.3 NUCLEATED RED BLOOD CELLS (BEAKER) (test code = 413) 0 /100 WBC 0-0 NEUTROPHILS RELATIVE PERCENT (BEAKER) (test code = 429) 86 % LYMPHOCYTES RELATIVE PERCENT (BEAKER) (test code = 430) 9 % MONOCYTES RELATIVE PERCENT (BEAKER) (test code = 431) 5 % EOSINOPHILS RELATIVE PERCENT (BEAKER) (test code = 432) 0 % BASOPHILS RELATIVE PERCENT (BEAKER) (test code = 437) 0 % NEUTROPHILS ABSOLUTE COUNT (BEAKER) (test code = 670) 10.59 K/ L 1.56-6.13 H LYMPHOCYTES ABSOLUTE COUNT (BEAKER) (test code = 414) 1.05 K/ L 1.18-3.74 L MONOCYTES ABSOLUTE COUNT (BE TAMARA) (test code = 415) 0.56 K/ L 0.24-0.36 H EOSINOPHILS ABSOLUTE COUNT (BEAKER) (test code = 416) 0.00 K/ L 0.04-0.36 L BASOPHILS ABSOLUTE COUNT (BE TAMARA) (test code = 417) 0.01 K/ L 0.01-0.08 IMMATURE GRANULOCYTES-RELATI VE PERCENT (BEAKER) (test code = 2801) 1 % 0-1 BASIC METABOLIC [id number] 17:26:00* Test Item Value Reference Range Interpretation Comme nts SODIUM (BEAKER) (test code = 381) 142 meq/L 136-145 POTASSIUM (BEAKER) (test code = 379) 3.8 meq/L 3.5-5.1 CHLORIDE (BEAKER) (test code = 382) 112 meq/L 98-107 H CO2 (BEAKER) (test code = 355) 24 meq/L 22-29 BLOOD UREA NITROGEN (BEAKER) (test code = 354) 7 mg/dL 7-21 CREATININE (BEAKER) (test code = 358) 0.69 mg/dL 0.57-1.25 GLUCOSE RANDOM (BEAKER) (test code = 652) 85 mg/dL 70-105 CALCIUM (BEAKER) (test code = 697) 8.1 mg/dL 8.4-10.2 L EGFR (BEAKER) (test code = 1092) 105 mL/min/1.73 sq m ESTIMATED GFR IS NOT ACCURATE CREATININE CLEARANCE IN PREDICTING GLOMERULAR FILTRATION RATE. ESTIMATED GFR IS NOT APPLICABLE FOR DIALYSIS PATIENTS. MR, BRAIN, [id number] 11:59:00FINAL REPORT MRI brain and sella with and without contrast Stealth protocol 11/13/2017 at 1139. CLINICAL INDICATION: Pituitary lesion. COMPARISON: CT brain 10/26/2017. TECHNIQUE: Mul tiplanar MR imaging of the brain and sella was provided paw-bky-mazn IV gadolinium administration using T1, T2, FLAIR, FFE, and diffusion weighted sequences. Thin cut sagittal and coronal sella imaging was included. Thin section axial T2 FLAIR and pre and postcontrast T1 3-D FFE imaging sequences we re obtained for intraoperative neuro navigation purposes. FINDINGS: There is a cystic lesion withinthe sella turcica, which measures 14 mm AP by 19 mm transverse by 17 mm craniocaudal. There is suprasellar extension, with the lesion and displaced pituitary gland abutting the optic chiasm. There ismild right lateral parasellar extension, without arterial encasement or cavernous sinus invasion. There is chronic remodeling of the sella turcica, with the lesion bulging into the right sphenoid sinus. The [place] pituitary gland is draped over the superior and left margin of the lesion, with resultant posterior and leftward displacement of the infundibulum. There is no infarct, hematoma, hydrocephalus, or extra-axial collection. Normal appearing flow-voids are present in the major intracranialvascular structures. 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 The pineal region, craniocervical junction, and orbits are unremarkable. There are no concerning anatomic variants in the nasal passages or paranasal sinuses. 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 Signed: Moses Momin Verified Date/Time: 11/13/2017 11:59:57 Reading Location: [facility] C0[facility] Neuro Reading Room CT, BRAIN, [id number] 18:09:00FINAL REPORT CT head with and without contrast APJeT protocol 10/26/2017 3:37 PM CLINICAL HISTORY: Disorder of pituitary gland, unspecified [...] None available FINDINGS: There is no hemorrhage, extraaxial fluid collection, hydrocephalus, or midline shift. There is an approximately 17 mm noncalcifiedcystic sellar/suprasellar lesion, with resultant chronic remodeling of the sella turcica. The paranasal sinuses and mastoid air cells are well aerated. The skull is intact. IMPRESSION: Stealth neuronavigation study. Signed: Moses Momin Verified Date/Time: 10/26/2017 18:09:09 Reading Location: [facility] Radiology Reading Room [facility] METABOLIC [id number] 12:42:00* Test Item Value Reference Range Interpretation Comme nts SODIUM (BEAKER) (test code = 381) 144 meq/L 136-145 POTASSIUM (BEAKER) (test code = 379) 3.8 meq/L 3.5-5.1 CHLORIDE (BEAKER) (test code = 382) 106 meq/L 98-107 CO2 (BEAKER) (test code = 355) 27 meq/L 22-29 BLOOD UREA NITROGEN (BEAKER) (test code = 354) 9 mg/dL 7-21 CREATININE (BEAKER) (test code = 358) 0.79 mg/dL 0.57-1.25 GLUCOSE RANDOM (BEAKER) (test code = 652) 88 mg/dL 70-105 CALCIUM (BEAKER) (test code = 697) 9.7 mg/dL 8.4-10.2 EGFR (BEAKER) (test code = 1092) 89 mL/min/1.73 sq m ESTIMATED GFR IS NOT ACCURATE CREATININE CLEARANCE IN PREDICTING GLOMERULAR FILTRATION RATE. ESTIMATED GFR IS NOT APPLICABLE FOR DIALYSIS PATIENTS. PROTHROMBIN TIME/[id number] 12:38:00* Test Item Value Reference Range Interpretation Comme nts PROTIME (BEAKER) (test code = 759) 12.5 seconds 11.7-14.7 INR (BEAKER) (test code = 370) 0.9 <=5.9 RECOMMENDED COUMADIN/WARFARIN INR THERAPY RANGESSTANDARD DOSE: 2.0 - 3.0 Includes: PROPHYLAXIS for venous thrombosis, systemic embolization; TREATMENT for venous thrombosis and/or pulmonary embolus.HIGH RISK: Target INR is 2.5-3.5 for patients with mechanical heart valves.[id number] 12:38:00* Test Item Value Reference Range Interpretation Comme nts PARTIAL THROMBOPLASTIN TIME (BEAKER) (test code = 760) 31.2 seconds 22.5-36.0 URINALYSIS W/ REFLEX URINE [id number] 12:29:00* Test Item Value Reference Range Interpretation Comme nts COLOR (BEAKER) (test code = 470) Yellow CLARITY (BEAKER) (test code = 469) Clear SPECIFIC GRAVITY UA (BEAKER) (test code = 468) 1.019 1.001-1.035 PH UA (BEAKER) (test code = 467) 5.5 5.0-8.0 PROTEIN UA (BEAKER) (test co de = 464) Negative Negative GLUCOSE UA (BEAKER) (test co de = 365) Negative Negative KETONES UA (BEAKER) (test co de = 371) Negative Negative BILIRUBIN UA (BEAKER) (test code = 462) Negative Negative BLOOD UA (BEAKER) (test code = 461) Small Negative A NITRITE UA (BEAKER) (test co de = 465) Negative Negative LEUKOCYTE ESTERASE UA (BEAKE R) (test code = 466) Trace Negative A UROBILINOGEN UA (BEAKER) (te st code = 463) 0.2 mg/dL 0.2-1.0 RBC UA (BEAKER) (test code = 519) 1 /HPF WBC UA (BEAKER) (test code = 520) 3 /HPF BACTERIA (BEAKER) (test code = 517) Rare MUCUS (BEAKER) (test code = 1574) Rare SQUAMOUS EPITHELIAL (BEAKER) (test code = 516) 3 /HPF SOURCE(BEAKER) (test code = 2795) CBC W/PLT COUNT & AUTO [id number] 12:20:00* Test Item Value Reference Range Interpretation Comme nts WHITE BLOOD CELL COUNT (BEAK ER) (test code = 775) 7.2 K/ L 3.5-10.5 RED BLOOD CELL COUNT (BEAKER ) (test code = 761) 4.44 M/ L 3.93-5.22 HEMOGLOBIN (BEAKER) (test co de = 410) 12.9 GM/DL 11.2-15.7 HEMATOCRIT (BEAKER) (test co de = 411) 39.5 % 34.1-44.9 MEAN CORPUSCULAR VOLUME (BEATA KER) (test code = 753) 89.0 fL 79.4-94.8 MEAN CORPUSCULAR HEMOGLOBIN (BEAKER) (test code = 751) 29.1 pg 25.6-32.2 MEAN CORPUSCULAR HEMOGLOBIN CONC (BEAKER) (test code = 752) 32.7 GM/DL 32.2-35.5 RED CELL DISTRIBUTION WIDTH (BEAKER) (test code = 412) 12.9 % 11.7-14.4 PLATELET COUNT (BEAKER) (amarilis t code = 756) 356 K/CU MM 150-450 MEAN PLATELET VOLUME (BEAKER ) (test code = 754) 10.1 fL 9.4-12.3 NUCLEATED RED BLOOD CELLS (BEAKER) (test code = 413) 0 /100 WBC 0-0 NEUTROPHILS RELATIVE PERCENT (BEAKER) (test code = 429) 70 % LYMPHOCYTES RELATIVE PERCENT (BEAKER) (test code = 430) 22 % MONOCYTES RELATIVE PERCENT (BEAKER) (test code = 431) 6 % EOSINOPHILS RELATIVE PERCENT (BEAKER) (test code = 432) 2 % BASOPHILS RELATIVE PERCENT (BEAKER) (test code = 437) 0 % NEUTROPHILS ABSOLUTE COUNT (BEAKER) (test code = 670) 5.04 K/ L 1.56-6.13 LYMPHOCYTES ABSOLUTE COUNT (BEAKER) (test code = 414) 1.58 K/ L 1.18-3.74 MONOCYTES ABSOLUTE COUNT (BE TAMARA) (test code = 415) 0.43 K/ L 0.24-0.36 H EOSINOPHILS ABSOLUTE COUNT (BEAKER) (test code = 416) 0.14 K/ L 0.04-0.36 BASOPHILS ABSOLUTE COUNT (BE TAMARA) (test code = 417) 0.03 K/ L 0.01-0.08 IMMATURE GRANULOCYTES-RELATI VE PERCENT (JESUS) (test code = 2801) 0 % 0-1 Notes Date/Time Note Provider Source 2023-09-21 18:44:08 Patient Instructions Vicki Limon NP - 09/21/2023 5:10 PM [facility] SEPAR[facility] HARD Tuberculin Skin Test- Reading What is tuberculosis (TB)? Tuberculosis is a bacterial infection that affects the lungs. It may also be found in other parts of the body like the brain, kidneys, or spine. It is spread from [id number] through the air. Latent TB infection is when the TB germs live in your body without causing symptoms. These sleeping germs cannot be passed on to anyone else. Active TB disease is when the germs are active in your body, causing symptoms such as weakness, weight loss, fever, night sweats, and coughing (with or without blood). It is important to screen for this disease because people infected with TB can become seriously ill if they do not receive treatment. What do I do if the tuberculin skin test is negative? A negative skin test usually means you are not infected with tuberculosis. Keep in mind the following: The test may be falsely negative if you were recently infected. It can take 2 to 10 weeks after exposure to TB for the skin test to be positive. If you find yourself in this situation, it is recommended to re-test again in 3 months. Even with a negative skin test, if you have continued TB symptoms, you should be evaluated by your primary care provider. What do I do if the tuberculin skin test is positive? A positive skin test usually means you have a latent TB infection. It does not necessarily mean you have TB disease. It is very important to see your primary care provider. Other tests, such as an x-ray or cultures, are needed to check for active disease. Once you have a positive test, avoid having another one done. A positive result will remain that way for life. The skin reaction of any further TB skin tests could become increasingly severe. [facility] & [facility] 2023-09-21 18:44:08 Vicki Limno NP - 09/21/2023 5:10 PM CANDY SEPARATOR HARD Subjective: Patient ID: The patient is a 28 y.o. for a TB skin test. HIV Infection?: No Recent contact with person who has active TB?: No Fibrotic changes on chest x-ray constistent with prior TB?: No Organ transplant in the past?: No Immunosuppression?: No Recent arrival (<5 years) from high prevalence country?: No Previous vacccination with BCG?: No IV drug user?: No Resident or employee of high risk congregate setting?: No Mycobacterial lab personnel?: No High risk clinical conditions?: No Is the patent a child <5 years of age?: No Is the patient an , child or adolescent exposed to adults in high risk categories?: No Patient tested in [place]?: No Objective: Assessment/Plan: PPD read completed. Results and recommendations reviewed with patient in accordance with [facility] Guidelines. 1. Encounter for issue of other medical certificate TB skin read PPD [facility] & [facility] & [id number] 18:44:08 Not on file [facility] & [id number] 18:44:08 Diagnosis Encounter for issue of other medical certificate - Primary [facility] & ArjtkvWfaavb3719-07-22 18:44:[address] [facility] & [id number] 18:44:08* [facility] & [facility] 2023-09-21 18:44:08 Cognitive Status Response Date of Assessm ent Because of a physical, menta l, or emotional condition, does this person have serious difficulty concentrating, remembering, or making decisions? [facility] & [id number] 18:04:11 Cognitive Status Response Date of Assessm ent Because of a physical, menta l, or emotional condition, does this person have serious difficulty concentrating, remembering, or making decisions? [facility] & [id number] 18:04:11* Patient Instructions* Carola Flowers LVN - 09/19/2023 5:00 PM CANDY SEPARATOR HARD Follow up: Return to [facility] within 48 - 72 hours to have your skin test read. If you wait more than 72 hours to have it read, the skin test must be re-administered. Tuberculin Skin Test- Placement IMPORTANT: You must return to [facility] in 48-72 hours to have the results read by the practitioner. The test cannot be read before 48 hours and if more than 72 hours have gone by, the skin test must be repeated as the results are invalid. What is tuberculosis (TB)? Tuberculosis is a bacterial infection that affects the lungs. It may also be found in other parts of the body like the brain, kidneys, or spine. It is spread from irdgly-kp-qtmybr through the air. Latent TB infection is when the TB germs live in your body without causing symptoms. These "sleeping" germs cannot be passed on to anyone else. Active TB disease is when the germs are active in your body, causing symptoms such as weakness, weight loss, fever, night sweats, and coughing (with or without blood). It is important to screen for this disease because people infected with TB can become seriously ill if they do not receive treatment. What is a tuberculin skin test? A tuberculin skin test is one way to help detect a TB infection. A small needle is used to inject the testing material (tuberculin purified protein derivative) under the skin on your arm. This will form a small circular bump where the testing material was injected. What should I watch for after receiving the tuberculin skin test? Serious allergic reactions from the tuberculin skin test are very rare. If they do happen, it would be within a few minutes to a few hours of the receiving the shot. Mild itching, swelling, or irritation at the injection site may occur. These reactions do not require treatment and usually go away within a week. How should I care for the injection site? ? Avoid scratching, rubbing, or wiping the injection site ? Avoid putting creams, lotions, or bandages over the injection site ? Getting the area wet is not harmful, but the injection site should not be scrubbed or wiped. Pat the area dry if it becomes wet. [facility] & [id number] 18:04:11* Carola Flowers LVN - 09/19/2023 5:00 PM CANDY SEPARATOR HARD Subjective: The patient is a 28 y.o. female who is here for a TB skin test. TB Placement 1. Why are you getting a TB test today? Select all that apply.: c. My school requires it 2. Have you ever received a BCG (bacille Calmette-Quinton) vaccination for TB? This vaccine is not widely used in the [place] and is more common in countries where TB is common.: c. I don't know 3. Have you ever received a positive test result for TB?: b. No 4. Have you ever had a serious reaction to a TB skin test?: b. No 5. Have you received a TB diagnosis or treatment for TB in the past?: b. No 6. Are you experiencing any of the following TB symptoms? Select all that apply.: g. No symptoms 7. Do you have a known allergy to phenol?: b. No 8. Have you had any of the following vaccines in the last 30 days? MMR (measles, mumps, rubella), rotavirus, smallpox, chickenpox or yellow fever: b. No 9. Have you had the flu, chickenpox, measles or mumps in the last 30 days?: b. No 10. Do you have a history of fainting after receiving a vaccine or injection? This can include fainting, feeling like you might faint, or feeling concerned about fainting.: b. No Objective: Assessment/Plan: PPD placed per [facility] Guidelines. Patient Instructed to return in 48-72 hours for PPD reading. [facility] [employer] & [id number] 18:04:11 [facility] [employer] & [id number] 18:04:11 Not on file [facility] [employer] & [id number] 18:04:11 Diagnosis Screening examination for pu lmonary tuberculosis - Primary [facility] [employer] & [id number] 18:04:11 [facility] [employer] & [id number] 18:04:11* [facility] [employer] & [facility] 2022-08-20 21:43:[id number] [facility] [address] PATIENT NAME: TAMARA SERRANO ADMIT DATE: 07/09/22 ACCOUNT NO: [id number] ROOM NO: AGE: 27 SEX: F ADMITTING PHYSICIAN: Ann-Marie Wood MD ATTENDING PHYSICIAN: Ann-Marie Wood MD Provider Query QUERY TEXT: Condition General 360MD Query related questions should be directed to:[facility] Coding Query Helpline Based on your clinical judgment and the clinical indicators listed below, can you please clarify the patient's hemorrhage was confirmed, hemorrhage was not confirmed, or other more appropriate diagnosis- The patient's Clinical Indicators include: EXCESSIVE BLEEDING -Clinical Note 07/09/2022 (3) EXCESSIVE BLEEDING RECENTLY-Clinical Note 07/09/2022 (3) ONE LARGE CLOT-Clinical Note 07/09/2022 (3) MINIMAL BLEEDING-Clinical Note 07/09/2022 (3) CYTOTEC 1000uG -Clinical Note 07/09/2022 (3) Options provided: -- Respond - Create new note now -- Dismiss - Not applicable / Not valid -- Dismiss - Clinically unable to determine / Unknown -- Assign to another provider QUERY RESPONSE: hemorrhage Query created by: FRANKIE SIMEON on 07/13/2022 11:21 PM at 2143 PATIENT NAME: TAMARA SERRANO 08:50:00 [facility]) OB Postpart Progr Note REPORT#:[id number] REPORT STATUS: Signed DATE:07/10/22 TIME: 50 PATIENT: TAMARA SERRANO UNIT #: [id number] ROOM/BED: : 93 AGE: 27 SEX: F ATTEND: Ann-Marie Wood MD ADM AUTHOR: Ann-Marie Wood MD * ALL edits or amendments must be made on the electronic/computer document * Subjective Subjective Admission EGA: Weeks: 38 Days: 2 Status/Day: post (d1) Patient reports: Patient reports: Yes no complaints, Yes pain management effective, Yes tolerating po well Objective Nursing Documentation Review Nursing Data: The data set between the solid lines has been imported from nursing documentation. Any exceptions have been noted below under Provider comments. Feeding preference: Post hemorrhage risk score: Low Risk for Hemorrhage. Provider comments on imported nursing data: [] General VS: Vital Signs: Date Time Temp Pulse Resp B/P B/P Pulse O2 O2 Flow FiO2 Mean Ox Delivery Rate 07/09 2339 98.4 64 18 107/69 81.5 99 Room air 07/09 1700 84.0 07/09 1700 99.6 72 16 107/72 100 07/09 1550 80.0 07/09 1550 99.7 69 18 103/68 100 07/09 0916 73.0 07/09 0916 81 104/51 PATIENT WEIGHT: Weight (lb): Weight (oz): Weight (kg): 83.535938 Physical Exam Neuro: Exam: alert, oriented x3 Abdomen: soft, no abnormal tenderness Uterus: firm, non-tender Lacerations: Perineal laceration(s): 1st Degree w/vagina, 1st Degree w/labia/skin Diagnosis, Assessment Plan Diagnosis, Assessment Plan Assessment: nml progress Plan: routine care, discharge today at 0851 RPT #:[id number] END OF REPORT [id number] 06:57:00 [facility] ([facility]) Clinical Note REPORT#:[id number] REPORT STATUS: Signed DATE:07/09/22 TIME: 656 PATIENT: TAMARA SERRANO UNIT #: [id number] ROOM/BED: [facility] : 93 AGE: 27 SEX: F ATTEND: Ann-Marie Wood MD ADM AUTHOR: Tony Duarte Jr, MD * ALL edits or amendments must be made on the electronic/computer document * Clinical Note Note: HOSPITALIST NOTE: I WAS CALLED TO ROOM AROUND 6:20AM FOR EXCESSIVE BLEEDING . PATIENT DELIVERED SPONTANEOUS VAGINAL DELIVERY @ 04:[address] SALCIDO. ACCORDING TO NURSE THE PATIENT DID HAVE EXCESSIVE BLEEDING RECENTLY. THE NURSE ADMINISTERED CYTOTEC 1000uG RECTALLY AND ONE DOSE OF METHERGINE IM. WHEN I ARRIVED I NOTED ONE LARGE CLOT APPROXIMATELY 200ML IN BED. EXAM: V/S STABLE PATIENT ALERT UTERUS VERY FIRM NOW; MINIMAL BLEEDING NOTED SVE: BIMANUAL EXAM NOT WELL TOLERATED SINCE SHE HAS NO EPIDURAL; SMALL CLOT FELT IN CERVIX BUT NO EXCESSIVE BLEEDING NOW PLAN: CONTINUE SECOND LITER OF PITOCIN OBSERVATION at 0702 [facility] #:[id number] END OF REPORT [id number] 05:37:00 [facility] ([facility]) OB Delivery Note REPORT#:[id number] REPORT STATUS: Signed DATE:07/09/22 TIME: 536 PATIENT: TAMARA SERRANO UNIT #: [id number] ROOM/BED: [facility] : 93 AGE: 27 SEX: F ATTEND: Ann-Marie Wood MD ADM AUTHOR: Yolanda Salcido MD * ALL edits or amendments must be made on the electronic/computer document * OB Delivery Pre-delivery GBS status: GBS status: unknown [place] evaluation at delivery: NRP certified personnel Admission EGA: Weeks: 38 Days: 2 Blood Loss/Details Blood loss at delivery: no more than expected EBL at delivery (ml's): 200 Baby A Information Baby A information Delivery date: 07/09/22 Delivery time: 443 status: live born Wt of baby (lbs/oz): 7/2 Gender: male 1 minute: 9 5 minutes: 9 Presentation: vertex Vaginal Delivery Vaginal Delivery Vaginal delivery: Labor: spontaneous Vaginal delivery: spontaneous Amniotic fluid: clear Anesthesia type: local (for repair ) Laceration repair: yes, 2-0 suture, 3-0 suture Placenta: spontaneous Post delivery meds used: oxytocin Count: correct, vag exam neg for sponges Mother's condition: mother stable Infant's condition: infant stable in room Lacerations: Perineal laceration(s): 1st Degree w/vagina, 1st Degree w/labia/skin at 0539 RPT #:[id number] END OF REPORT [id number] 05:30:00 [facility] ([facility] OB Admission / H P REPORT#:[id number] REPORT STATUS: Signed DATE:07/09/22 TIME: 529 PATIENT: TAMARA SERRANO UNIT #: [id number] ROOM/BED: [facility] : 93 AGE: 27 SEX: F ATTEND: Ann-Marie Wood MD ADM AUTHOR: Yolanda Salcido MD * ALL edits or amendments must be made on the electronic/computer document * OB History Chief complaint: suspected ruptured memb, uterine contractions history: : 2 Term: 1 Living children: 1 Current : Best EDC: 07/21/22 Admission EGA (weeks) 38 Admission EGA (days) 2 Conditions of : diabetes - gestational Labs: Blood type: O Rh: positive Rubella: immune Hepatitis B: negative HIV: negative STD: negative Syphilis: currently negative GBS: unknown Past History Past Medical History: Reports: Anemia. Additional Medical History: pituitary tumor Additional Surgical History: transphenoidal resection, breast augmentation Alcohol Use Denies EtOH use Drug Use Denies recreational drugs Other Social History Good social support Medications: Home Medications: PNV WITH FE FUMARATE/FA () 1 TAB PO DAILY FERROUS SULFATE (FEOSOL) 325 MG PO DAILY Allergies: Coded Allergies: No Known Allergies (07/09/22) Objective General VS: Last Documented: Result Date Time B/P Mean 91.0 07/09 426 B/P 119/74 07/09 426 Temp 97.9 07/09 426 Pulse 75 07/09 426 Resp 19 07/09 426 Vital Signs Date Temp Pulse Resp B/P B/P Mean Pulse Ox FiO2 07/09 97.9-98.7 75-85 19-20 119-144/74-81 91.0-107.0 PATIENT WEIGHT: Weight (lb): Weight (oz): Weight (kg): 83.578603 Physical Exam Neuro: Exam: alert, oriented x3, normal speech Abdomen: gravid Uterine activity: Monitor: toco Frequency (description): regular Intensity: strong Cervical/ exam: Dilatation (cm): 10 - complete (8 on admission ) Effacement (%): 100 station: + 3 Membranes: Membranes: SROM ROM date: 07/09/22 ROM time: 0200 Diagnosis, Assessment Plan Diagnosis, Assessment Plan Free Text A P: @ 38w2d presented with SROM in active labor. I was called for delivery as patient pushing. -gdm -gbs unknown Plan: admit to inpatient, delivery at 0537 RPT #:[id number] END OF REPORT [id number] 04:48:00 [facility]) Clinical Note REPORT#:[id number] REPORT STATUS: Signed DATE:07/09/22 TIME: 447 PATIENT: TAMARA SERRANO UNIT #: [id number] ROOM/BED: [facility] : 93 AGE: 27 SEX: F ATTEND: Ann-Marie Wood MD ADM AUTHOR: Sherry Silveira MD * ALL edits or amendments must be made on the electronic/computer document * Clinical Note Note: Called by RN for delivery Dr. Viveros on her way. entered room. pt . gowned and about to get patient positioned in dorsal lithotomy. Dr. Viveros arrives in room and assumes care. stayed to help support Mom's leg during delivery due to mom not coming down in bed and clamping legs. lap count correct. assumed care of patient at 0450 RPT #:[id number] END OF REPORT [id number] 16:10:00 [facility] ([facility]) Clinical Note REPORT#:[id number] REPORT STATUS: Signed DATE:06/24/22 TIME: 1609 PATIENT: TAMARA SERRANO UNIT #: [id number] ROOM/BED: [facility] : 93 AGE: 27 SEX: F ATTEND: Ann-Marie Wood MD ADM AUTHOR: Ann-Marie Wood MD * ALL edits or amendments must be made on the electronic/computer document * Clinical Note Note: repeat BPP 8/8. no c/o. good FM. no ctx. reactive NST. stable for d/c, has appt with sono 2 days. at 1611 RPT #:[id number] END OF REPORT [id number] 07:36:00 [facility] ([facility]) Clinical Note REPORT#:[id number] REPORT STATUS: Signed DATE:06/24/22 TIME: 735 PATIENT: TAMARA SERRANO UNIT #: [id number] ROOM/BED: [facility]-E : 93 AGE: 27 SEX: F ATTEND: Ann-Marie Wood MD ADM AUTHOR: Ann-Marie Wood MD * ALL edits or amendments must be made on the electronic/computer document * Clinical Note Note: Pt presented to [facility] c/o decreased movement. BPP 6/8 with Cat I NST. pt initally reported good FM, but now reports not feeling anymore. has been sleeping. no ctx, feels some pressure. will repeat BPP later today. if improved and pt feeling better FM, likely for d /c home. at 0738 RPT #:[id number] END OF REPORT [id number] 22:04:00 [facility] Evaluation Note REPORT#:[id number] REPORT STATUS: Signed DATE:06/23/22 TIME: 2203 PATIENT: TAMARA SERRANO UNIT #: [id number] ROOM/BED: : 93 AGE: 27 SEX: F ATTEND: Ann-Marie Wood MD ADM DT: AUTHOR: Yajaira Gillis MD * ALL edits or amendments must be made on the electronic/computer document * [facility] History Chief complaint: decreased movement HPI: 27 year old at 37.0 weeks who presents with complaint of decreased movement. Patient states that last night was the last time that felt good movement. No vaginal bleeding, rupture of membrane, or contractions. Since arriving on [facility] patient endorses normal movement once placed on the monitor complicated by gestational diabetes and anemia history: : 2 Term: 1 Living children: 1 Comments: G1-Full term vaginal delivery. no complications Current : EDC: 07/14/22 EGA (weeks/days): 37 weeks Past medical history: denies PMH Past surgical history: breast implant, breast implant removal, pituitary tumor resection Social history: no alcohol use, no tobacco use, no drug use Medications: Home Medications: Medication Dose/Rte/Freq Days Qty Entered Last Max Daily Dose Reviewed PNV WITH FE 1 TAB PO DAILY 11/23/18 FUMARATE/FA 0854 () Strength: 1 EACH TAB Allergies Coded Allergies: No Known Allergies (01/16/22) Review of Systems All systems rev neg: except as marked Objective General VS: Last Documented: Result Date Time B/P Mean 79.0 06/23 2147 B/P 116/56 06/23 2147 Temp 98.3 06/23 2147 Pulse 88 06/23 2147 Resp 18 06/23 2147 Vital Signs Date Temp Pulse Resp B/P B/P Mean Pulse Ox FiO2 06/23 98.3 88 18 116/56 79.0 PATIENT WEIGHT: Weight (lb): 164 Weight (oz): 3.91 Weight (kg): 74.500 Physical Exam HEENT: normocephalic w/o injury, no scleral icterus Lungs: unlabored breathing Neuro: Exam: alert, oriented x3, normal speech, CNII-XII grossly intact Abdomen: gravid, soft, no abnormal tenderness Musculoskeletal: normal inspection Uterine activity: Monitor: toco Frequency (description): none FHR evaluation: Baseline: 140 bpm Variability: moderate 6-25 bpm Accelerations: 15 X 15 Decelerations: none Results Findings/Data: Recent Impressions: ULTRASOUND - US FET BIO PH WA W/O NST 06/23 2235 Report Impression - Status: SIGNED Entered: 06/24/202233 IMPRESSION: Biophysical profile score of 6/8 with no points awarded for breathing movement. Impression By: [email or web address] - Zachariah Blake MD Diagnosis, Assessment Plan Diagnosis, Assessment Plan Free Text A P: 27 year old at 37 weeks with decreased movement Plan: - Reactive NST; BPP 6/8 (-2 for breathing) - Patient discussed with Dr. Wood. Admit to Antepartum with plan to repeat BPP tomorrow at 0131 RPT #:[id number] END OF REPORT [id number] 03:19:00 [facility] ([facility]) EMERGENCY PROVIDER REPORT REPORT#:[id number] REPORT STATUS: Signed DATE:01/27/22 TIME: 031 PATIENT: TAMARA SERRANO UNIT #: [id number] ROOM/BED: AGE: 26 SEX: F PCP PHYS: Ann-Marie Wood MD SERVICE AUTHOR: Jerel Martin DO * ALL edits or amendments must be made on the electronic/computer document * HPI-General Illness Free Text HPI Notes Free Text HPI Notes Onset 1 day ago at its worst pain is 9 out of 10 currently pain is 5 out of 10 it does not radiate its dull crampy, not sudden onset, nothing makes better or worse General Initial Greet Date/Time 01/27/22 0201 Presentation Chief Complaint Diarrhea Associated with Denies: Aura. Associated Other Pt denies other symptoms Review of Systems ROS Statements All systems rev neg except as marked. Complete sys rev neg except as marked. Review of Systems Constitutional Denies: Chills, Fatigue, Fever, Lethargy, Malaise, Recent wt loss, Weakness - generalized. Past Medical History - Adult Stated Complaint 15 WKS, BLOOD DIARRHEA SINCE 10 PM Allergies Coded Allergies: No Known Allergies (01/16/22) Home Medications Active Scripts CLOTRIMAZOLE (GYNE-LOTRIMIN 2% VAGINAL) 1 APPFUL VAGINAL BEDTIME CLOTRIMAZOLE (GYNE-LOTRIMIN 2% VAGINAL) 1 APPFUL VAGINAL BEDTIME #21 GM Prov: 01/22/22 PROMETHAZINE (PHENERGAN) 25 MG RECTAL Q4H PRN PRN NAUSEA/VOMITING PROMETHAZINE (PHENERGAN) 25 MG RECTAL Q4H PRN PRN NAUSEA/VOMITING #12 SUPP Prov: 01/22/22 Reported Medications PNV WITH FE FUMARATE/FA () 1 TAB PO DAILY Pt reports no significant: Family history, Social history Additional Medical History pituitary tumor Additional Surgical History transphenoidal resection, breast augmentation Alcohol Use Denies EtOH use Drug Use Denies recreational drugs Smoking status for patients 13 years old or older: Never Smoker Physical Exam Vital Signs Vital Signs First Documented: Result Date Time Pulse Ox 98 01/274 B/P 102/63 01/274 B/P Mean 76 01/28 204 O2 Delivery Room air 01/28 204 Temp 36.3 01/27 020 Pulse 88 01/27 0204 Resp 16 01/28 204 Last Documented: Result Date Time Pulse Ox 100 01/27 0419 B/P 113/70 01/27 0419 B/P Mean 84 01/27 419 Pulse 81 01/27 0419 Resp 17 01/27 419 O2 Delivery Room air 01/28 204 Temp 36.3 01/274 Review of Vital Signs Reviewed Physical Exam General/Const General/Const Awake, Alert, No acute distress, Well appearing, Well developed , Well hydrated, Well nourished, Cooperative, Not toxic appearing MS Head Head Normocephalic Eyes Eyes PERRL Ears/Nose/Throat Ears/Nose/Throat Airway patent, Mucous membranes moist, Pharynx NL MS Neck Neck Supple, No meningismus, Full range of motion, No swelling, Non-tender, No masses Resp/Chest Respiratory/Chest Breath sounds NL, Breath sounds = bilat, No respiratory distress, No rales, No rhonchi, No wheezing Cardiovascular Cardiovascular Heart rate NL, Regular rhythm, Heart sounds NL, Cap refill not delayed, Peripheral circulation NL Abdomen/GI Abdomen/GI Soft, Non-tender, No guarding, No rebound MS Back Back Inspection NL, Painless range of motion, Non-tender, No CVA tenderness Lymphatic Lymphatic No gross adenopathy MS Upper Extrem Upper Extremity/MS Inspection NL, No swelling, Non-tender, No erythema, No deformity, Neurologic intact, Vascular intact, No clubbing/cyanosis MS Wrist/Hand Wrist/Hand Inspection NL, No swelling, No erythema, Non-tender, No deformity, Neurologic intact, Vascular intact, No clubbing/cyanosis MS Lower Extrem Lower Ext/Pelvis/MS Inspection NL, No swelling, Non-tender, No erythema, No deformity, Neurologic intact, Vascular intact, No edema MS Ankle/Foot Ankle/Foot Inspection NL, No swelling, No erythema, Non-tender, No deformity, Neurologic intact, Vascular intact, No edema Skin Skin Color NL, Warm, Dry, Turgor NL Neurologic Neurologic Oriented X3, Speech NL, No motor deficits, No sensory deficits Psychiatric Psychiatric Affect NL, Mood NL, Thought content NL Interpretation Diagnostics Lab Results Interpretation Considerations Independ review imaging, Reviewed prior records Results Laboratory Tests 01/27/22223: [Embedded Image Not Available] Laboratory Tests: 01/28 224 Chemistry Sodium (135 - 145 mEq/L) 136 Potassium (3.5 - 5.0 mEq/L) 3.4 L Chloride (100 - 115 mEq/L) 103 Carbon Dioxide (22 - 31 mEq/L) 25 Anion Gap (10 - 20) 11.10 BUN (7 - 18 mg/dL) 6 L Creatinine (0.5 - 1.0 mg/dL) 0.7 Glomerular Filtr Rate (>60 ml/min) 100 Glucose (65 - 110 mg/dL) 87 Calcium (8.4 - 10.2 mg/dL) 8.7 Hematology WBC (6.5 - 12.3 K/mm3) 10.4 RBC (3.51 - 4.69 M/mm3) 4.16 Hgb (10.1 - 13.8 g/dL) 12.2 Hct (32.5 - 41.8 %) 35.8 MCV (84.6 - 96.6 fL) 86.1 MCH (27.3 - 33.9 pg) 29.3 MCHC (32.0 - 34.2 gm/dL) 34.1 RDW (12.2 - 16.3 %) 13.5 Plt Count (134 - 363 K/mm3) 302 MPV (9.2 - 12.7 fL) 10.7 Neut % (Auto) (57.9 - 77.3 %) 72.4 Lymph % (Auto) (14.5 - 29.7 %) 20.9 [place] % (Auto) (3.6 - 10.2 %) 4.8 Eos % (Auto) (0.0 - 3.0 %) 1.2 Baso % (Auto) (0.1 - 0.9 %) 0.3 Neut # (Auto) (K/mm3) 7.5 Lymph # (Auto) (K/mm3) 2.2 [place] # (Auto) (K/mm3) 0.5 Eos # (Auto) (K/mm3) 0.12 Baso # (Auto) (K/mm3) 0.0 Miscellaneous Maternal Serum HCG 18356 Serology SARS-CoV-2 Ag (Rapid) (NEGATIVE) NEGATIVE Urines Urine Color (YELLOW) YELLOW Urine Appearance (CLEAR) CLEAR Urine pH (5 - 9) 6.0 Ur Specific [place] (1.001 - 1.035) 1.020 Urine Protein (NEGATIVE) NEGATIVE Urine Glucose (UA) (NEGATIVE) NEGATIVE Urine Ketones (NEGATIVE) 1+ Urine Blood (NEGATIVE) TRACE H Urine Nitrite (NEGATIVE) NEGATIVE Urine Bilirubin (NEGATIVE) NEGATIVE Urine Urobilinogen (<=1.0 EU/dL) 1.0 Ur Leukocyte Esterase (NEGATIVE) 1+ H Urine RBC (NONE SEEN #/hpf) 3-5 H Urine WBC (NONE SEEN #/hpf) 3-5 H Ur Epithelial Cells (NONE SEEN #/hpf) FEW Urine Mucus (NONE SEEN) 3+ H Microbiology: Date/Time Procedure - Status Source Growth 01/27 0248 Urine Culture - RECD URINE Recent Impressions: ULTRASOUND - US PREG UT TRANSVAGINAL 01/27 225 Report Impression - Status: CANCELLED Entered: 01/27/2022339 IMPRESSION: Viable intrauterine . Impression By: Esau Rothman MD ULTRASOUND - US PREG UT TRANSVAGINAL 01/27 225 Report Impression - Status: SIGNED Entered: 01/27/2022339 IMPRESSION: Viable intrauterine . Impression By: Esau Rothman MD ULTRASOUND - US LTD 01/27 225 Report Impression - Status: SIGNED Entered: 01/27/2022339 IMPRESSION: Viable intrauterine . Impression By: Esau Rothman MD Lab Imaging Statement Laboratory radiographic studies reviewed and considered in the medical decision-making. Re-Evaluation MDM Re-Evaluation/Progress #1 Time of Re-Eval 0320 Re-Eval Status Improved Eval Following Treatment Pt. feels better, Condition improved ED Course Medication(s) Ordered Medication(s) Ordered: Electrolytic, Caloric, And Cortez Sig/Alma Delia Start time Last Medication Dose Route Stop Time Status Admin Potassium Chloride 40 MEQ X1ED STA 01/27 0247 DC 01/27 PO 01/27 0248 0300 Sodium Chloride 1,000 ML X1ED STA 01/27 0232 DC 01/27 IV 01/27 0233 0301 Patient Discharge Departure Vital Signs/Condition Vital Signs First Documented: Result Date Time Pulse Ox 98 01/27 0204 B/P 102/63 01/27 0204 B/P Mean 76 01/27 0204 O2 Delivery Room air 01/27 0204 Temp 36.3 01/27 0204 Pulse 88 01/27 0204 Resp 16 01/27 0204 Last Documented: Result Date Time Pulse Ox 100 01/27 0419 B/P 113/70 / 0419 B/P Mean 84 01/27 0419 Pulse 81 / 0419 Resp 17 01/27 0419 O2 Delivery Room air 01/27 0204 Temp 36.3 01/27 0204 All vital signs available at the time of this entry have been reviewed. Condition Stable, Improved Clinical Impression Clinical Impression Primary Impression: Bloody diarrhea Secondary Impressions: Dehydration, Exposure to COVID-19 virus, Pelvic cramping, related condition in second trimester Time of Impression 0320 Disposition Decision Discharge )( Discharged to Home Yes )( Time 0345 )( Date 01/27/22 Discharge/Care Plan Counseled Regarding Diagnosis, Lab results, Imaging studies, Prescriptions, Need for follow-up, When to return to ED Patient Instructions Comfort Tips During , ED Dehydration (Adult), ED Diarrhea, Unknown Cause, ED Hypokalemia, ED Potassium-Rich Foods, Potassium Referrals Provider Referral: Sukh Mendez MD Address: [address] [place] [address] Provider Group: PRIMARY CARE Provider Group: [facility] Gastroenterology Departure Forms ABNORMAL LABS ABNORMAL RADIOLOGY READING FREE OR LOW COST CLINICS Discharge Note I have spoken with the patient and/or caregivers. I have explained the patient's condition, diagnoses and treatment plan based on the information available to me at this time. I have answered the patient's and/or caregiver's questions and addressed any concerns. The patient and/or caregivers have as good an understanding of the patient's diagnosis, condition and treatment plan as can be expected at this point. The vital signs have been stable. The patient's condition is stable and appropriate for discharge from the emergency department. The patient will pursue further outpatient evaluation with the primary care physician or other designated or consulting physician as outlined in the discharge instructions. The patient and/or caregivers are agreeable to this plan of care and follow-up instructions have been explained in detail. The patient and/or caregivers have received these instructions in written format and have expressed an understanding of the discharge instructions. The patient and/or caregivers are aware that any significant change in condition or worsening of symptoms should prompt an immediate return to this or the closest emergency department or a call to 911. at 0457 [facility] #:[id number] END OF [id number] 20:39:[address] [facility] ([facility]) EMERGENCY PROVIDER REPORT REPORT#:[id number] REPORT STATUS: Signed DATE:01/22/22 TIME: 2038 PATIENT: TAMARA SERRANO UNIT #: [id number] ROOM/BED: AGE: 26 SEX: F PCP PHYS: Ann-Marie Wood MD SERVICE AUTHOR: Jerel Martin DO * ALL edits or amendments must be made on the electronic/computer document * HPI-General Illness Free Text HPI Notes Free Text HPI Notes Onset 1 day ago at its worst pain is 9 out of 10 currently pain is 5 out of 10 it does not radiate its dull crampy, not sudden onset, nothing makes better or worse General Initial Greet Date/Time 01/22/221857 Presentation Chief Complaint Vomiting Associated with Denies: Anorexia. Associated Other Pt denies other symptoms Review of Systems ROS Statements All systems rev neg except as marked. Complete sys rev neg except as marked. Review of Systems Constitutional Denies: Chills, Fatigue, Fever, Lethargy, Malaise, Recent wt loss, Weakness - generalized. Past Medical History - Adult Stated Complaint 14WKS PREG,VOMITING,HEADACHE,DE Allergies Coded Allergies: No Known Allergies (01/16/22) Home Medications Reported Medications PNV WITH FE FUMARATE/FA () 1 TAB PO DAILY Calculated Suicide Risk (nurs) No risk Pt reports no significant: Family history, Social history Additional Medical History pituitary tumor Additional Surgical History transphenoidal resection, breast augmentation Alcohol Use Denies EtOH use Drug Use Denies recreational drugs Smoking status for patients 13 years old or older: Never Smoker Physical Exam Vital Signs Vital Signs First Documented: Result Date Time Pulse Ox 98 01/22 1859 B/P 107/67 01/22 1859 B/P Mean 80 01/22 1859 O2 Delivery Room air 01/22 1859 Temp 36.9 01/22 1859 Pulse 94 01/22 1859 Resp 17 01/22 1859 Last Documented: Result Date Time Pulse Ox 100 01/22 2103 B/P 111/73 01/22 2103 B/P Mean 85 01/22 2103 Pulse 88 01/22 2103 Resp 16 01/22 2103 O2 Delivery Room air 01/22 1859 Temp 36.9 01/22 1859 Review of Vital Signs Reviewed Physical Exam General/Const General/Const Awake, Alert, No acute distress, Well appearing, Well developed , Well hydrated, Well nourished, Cooperative, Not toxic appearing MS Head Head Normocephalic Eyes Eyes PERRL Ears/Nose/Throat Ears/Nose/Throat Airway patent, Mucous membranes moist, Pharynx NL MS Neck Neck Supple, No meningismus, Full range of motion, No swelling, Non-tender, No masses Resp/Chest Respiratory/Chest Breath sounds NL, Breath sounds = bilat, No respiratory distress, No rales, No rhonchi, No wheezing Cardiovascular Cardiovascular Heart rate NL, Regular rhythm, Heart sounds NL, Cap refill not delayed, Peripheral circulation NL Abdomen/GI Abdomen/GI Soft, Non-tender, No guarding, No rebound MS Back Back Inspection NL, Painless range of motion, Non-tender, No CVA tenderness Lymphatic Lymphatic No gross adenopathy MS Upper Extrem Upper Extremity/MS Inspection NL, No swelling, Non-tender, No erythema, No deformity, Neurologic intact, Vascular intact, No clubbing/cyanosis MS Wrist/Hand Wrist/Hand Inspection NL, No swelling, No erythema, Non-tender, No deformity, Neurologic intact, Vascular intact, No clubbing/cyanosis MS Lower Extrem Lower Ext/Pelvis/MS Inspection NL, No swelling, Non-tender, No erythema, No deformity, Neurologic intact, Vascular intact, No edema MS Ankle/Foot Ankle/Foot Inspection NL, No swelling, No erythema, Non-tender, No deformity, Neurologic intact, Vascular intact, No edema Skin Skin Color NL, Warm, Dry, Turgor NL Neurologic Neurologic Oriented X3, Speech NL, No motor deficits, No sensory deficits Psychiatric Psychiatric Affect NL, Mood NL, Thought content NL Interpretation Diagnostics Lab Results Interpretation Considerations Independ review imaging, Reviewed prior records Results Laboratory Tests 01/22/221924: [Embedded Image Not Available] Laboratory Tests: 01/22 Chemistry Sodium (135 - 145 mEq/L) 135 Potassium (3.5 - 5.0 mEq/L) 3.4 L Chloride (100 - 115 mEq/L) 100 Carbon Dioxide (22 - 31 mEq/L) 23 Anion Gap (10 - 20) 15.40 BUN (7 - 18 mg/dL) 8 Creatinine (0.5 - 1.0 mg/dL) 0.7 Glomerular Filtr Rate (>60 ml/min) 100 Glucose (65 - 110 mg/dL) 82 Calcium (8.4 - 10.2 mg/dL) 9.3 Serology SARS-CoV-2 Ag (Rapid) (NEGATIVE) NEGATIVE Toxicology Urine Opiates Screen (NEGATIVE) NEGATIVE Ur Barbiturates, Qual (NEGATIVE) NEGATIVE Ur Phencyclidine Scrn (NEGATIVE) NEGATIVE Ur Amphetamines Screen (NEGATIVE) NEGATIVE U Benzodiazepines Scrn (NEGATIVE) NEGATIVE Urine Cocaine Screen (NEGATIVE) NEGATIVE Urine Cannabinoids (NEGATIVE) NEGATIVE Urines Urine Color (YELLOW) SIMONE A Urine Appearance (CLEAR) Slightly-Cloudy Urine pH (5 - 9) 5.0 Ur Specific [place] (1.001 - 1.035) 1.029 Urine Protein (NEG) 1+ H Urine Glucose (UA) (NEG) NEGATIVE Urine Ketones (NEG) 2+ H Urine Blood (NEG) 1+ H Urine Nitrite (NEG) NEG Urine Bilirubin (NEG) NEGATIVE Urine Urobilinogen (NEG mg/dL) 4.0 H Ur Leukocyte Esterase (NEG) TRACE H Urine RBC (NONE SEEN #/hpf) 3-5 H Urine WBC (NONE SEEN #/hpf) 2-5 H Ur Epithelial Cells (RARE - FEW #/HPF) MODERATE H Urine Bacteria (RARE - FEW /HPF) RARE Urine Mucus (NONE SEEN) 2+ Urine Yeast (NONE SEEN #/hpf) FEW H Lab Imaging Statement Laboratory radiographic studies reviewed and considered in the medical decision-making. Procedures Free Text Proc Notes Free Text Proc Notes Bedside ultrasound by physician time 8:10 PM indication , did bedside transabdominal, result 14-week positive heart rate, heart rate equal 145 shown to mother on monitor as proof TIME 10 MINS Re-Evaluation MDM Re-Evaluation/Progress #1 Time of Re-Eval 2039 Re-Eval Status Improved Eval Following Treatment Pt. feels better, Condition improved ED Course Medication(s) Ordered Medication(s) Ordered: Antihistamine Drugs Sig/Alma Delia Start time Last Medication Dose Route Stop Time Status Admin Diphenhydramine HCl 25 MG X1ED STA 01/22 1859 DC 01/22 IV 01/22 Central Nervous System Agents Sig/Alma Delia Start time Last Medication Dose Route Stop Time Status Admin Acetaminophen 1,000 MG X1ED STA 01/22 1901 DC 01/22 PO 01/22 Electrolytic, Caloric, And Cortez Sig/Alma Delia Start time Last Medication Dose Route Stop Time Status Admin Sodium Chloride 1,000 ML BOLUS ASDIR ONE 01/22 1900 DC 01/22 IV 01/22 Gastrointestinal Drugs Sig/Alma Delia Start time Last Medication Dose Route Stop Time Status Admin Metoclopramide HCl 10 MG X1ED STA 01/22 1859 DC 01/22 IV 01/22 Patient Discharge Departure Vital Signs/Condition Vital Signs First Documented: Result Date Time Pulse Ox 98 01/22 1859 B/P 107/67 01/22 1859 B/P Mean 80 01/22 1859 O2 Delivery Room air 01/22 1859 Temp 36.9 01/22 1859 Pulse 94 01/22 1859 Resp 17 01/22 1859 Last Documented: Result Date Time Pulse Ox 100 01/22 2103 B/P 111/73 01/22 2103 B/P Mean 85 01/22 2103 Pulse 88 01/22 2103 Resp 16 01/22 2103 O2 Delivery Room air 01/22 1859 Temp 36.9 01/22 1859 All vital signs available at the time of this entry have been reviewed. Condition Stable, Improved Clinical Impression Clinical Impression Primary Impression: Vomiting Secondary Impressions: Dehydration, Second trimester Time of Impression 2039 Disposition Decision Discharge )( Discharged to Home Yes )( Time 2039 )( Date 01/22/22 Discharge/Care Plan Counseled Regarding Diagnosis, Lab results, Imaging studies, Need for follow-up, When to return to ED (Auto) Prescriptions Current Visit Scripts CLOTRIMAZOLE (GYNE-LOTRIMIN 2% VAGINAL) 1 APPFUL VAGINAL BEDTIME CLOTRIMAZOLE (GYNE-LOTRIMIN 2% VAGINAL) 1 APPFUL VAGINAL BEDTIME #21 GM X3 DAYS PROMETHAZINE (PHENERGAN) 25 MG RECTAL Q4H PRN PRN NAUSEA/VOMITING PROMETHAZINE (PHENERGAN) 25 MG RECTAL Q4H PRN PRN NAUSEA/VOMITING #12 SUPP Prescriptions Reviewed Risks, Benefits, Alternative treatment Patient Instructions ED RED VAGINITIS, ED Dehydration (Adult), ED Hyperemesis Gravidarum Referrals Provider Group: PRIMARY CARE Departure Forms ABNORMAL LABS Discharge Note I have spoken with the patient and/or caregivers. I have explained the patient's condition, diagnoses and treatment plan based on the information available to me at this time. I have answered the patient's and/or caregiver's questions and addressed any concerns. The patient and/or caregivers have as good an understanding of the patient's diagnosis, condition and treatment plan as can be expected at this point. The vital signs have been stable. The patient's condition is stable and appropriate for discharge from the emergency department. The patient will pursue further outpatient evaluation with the primary care physician or other designated or consulting physician as outlined in the discharge instructions. The patient and/or caregivers are agreeable to this plan of care and follow-up instructions have been explained in detail. The patient and/or caregivers have received these instructions in written format and have expressed an understanding of the discharge instructions. The patient and/or caregivers are aware that any significant change in condition or worsening of symptoms should prompt an immediate return to this or the closest emergency department or a call to 911. at 2250 RPT #:[id number] END OF [id number] 16:54:00 [facility] ([facility]) Clinical Note REPORT#:[id number] REPORT STATUS: Signed DATE:01/18/22 TIME: 1653 PATIENT: TAMARA SERRANO UNIT #: [id number] ROOM/BED: [address] : 93 AGE: 26 SEX: F ATTEND: Ann-Marie Wood MD ADM AUTHOR: Palomo Mcqueen MD * ALL edits or amendments must be made on the electronic/computer document * Clinical Note Note: Patient without complaints. No diarrhea since yesterday afternoon. Tolerating diet but wants more than BRAT diet. No complaints of pain. Reasy to go home. VSS /AF. Abd exam benign. Has completed 2 days of antibiotics. Will d/c to home. Follow up with Dr. Wood this week. at 1656 RPT #:[id number] END OF REPORT [id number] 10:22:00 [facility] ([facility]) History Physical - Adult REPORT#:[id number] REPORT STATUS: Signed DATE:01/17/22 TIME: 1022 PATIENT: TAMARA SERRANO UNIT #: [id number] ROOM/BED: [address] : 93 AGE: 26 SEX: F ATTEND: Ann-Marie Wood MD ADM AUTHOR: Ann-Marie Wood MD * ALL edits or amendments must be made on the electronic/computer document * See Addendum History of Present Illness HPI Chief complaint: diarrhea HPI: 13.4 wks, presented to [facility] c/o bloody diarrhea assoc with N/V. reports some lower abd pain/pressure/fullness. no VB. no fever. reports no unusual foods, only ate jordanian fries prior to onset. no sick contacts. no other c/o. reports stools better formed, no longer seeing blood today. wants to eat, good appetite. History Additional medical history: pituitary tumor Additional surgical history: transphenoidal resection, breast augmentation Alcohol use: Denies EtOH use Drug use: Denies recreational drugs Smoking status: Smoking status for patients 13 years old or older: Never Smoker Medication/Allergy-Vaccine Hx Medications: Home Medications: Medication Dose/Rte/Freq Days Qty Entered Last Max Daily Dose Reviewed PNV WITH FE 1 TAB PO DAILY 11/23/18 01/16/22 FUMARATE/FA 0854 1738 () Strength: 1 EACH TAB Current Hospital Medications: Anti-Infective Agents Sig/Alma Delia Start time Last Medication Dose Route Stop Time Status Admin Ampicillin Sodium/ 3 GM Q6H 01/16 2345 AC 01/17 Sulbactam Sodium IV 01/20 2344 0519 (UNASYN 3 GM VIAL) Sodium Chloride 100 ML (SODIUM CHLORIDE 0.9% 100 ML ADD- Clayton) Metronidazole/Sodium 100 ML Q6H 01/16 2330 AC 01/17 Chloride IV 01/19 2329 0603 (metroNIDAZOLE 500 MG PREMIX IV) Ceftriaxone Sodium 1,000 MG X1ED STA 01/16 1709 DC 01/16 (ROCEPHIN 1000 MG/ IV 01/16 1738 1740 VIAL) Sodium Chloride 100 ML (SODIUM CHLORIDE 0.9% 100 ML ADD- Clayton) Metronidazole/Sodium 100 ML X1ED STA 01/16 1709 DC 01/16 Chloride IV 01/16 1808 1802 (metroNIDAZOLE 500 MG PREMIX IV) Central Nervous System Agents Sig/Alma Delia Start time Last Medication Dose Route Stop Time Status Admin Acetaminophen 650 MG Q4H PRN PRN 01/16 2330 AC (ACETAMINOPHEN 325 PO 01/17 2326 MG TAB) Morphine Sulfate 4 MG X1ED STA 01/16 1812 DC 01/16 (Morphine Sulfate) IV 01/16 181 1947 Electrolytic, Caloric, And Cortez Sig/Alma Delia Start time Last Medication Dose Route Stop Time Status Admin Sodium Chloride 1,000 ML X1ED STA 01/16 2326 DC 01/17 (SODIUM CHLORIDE IV 01/17 0925 0127 0.9% - 1000 ML) Lactated Ringer's 125 ML X1ED STA 01/16 2005 DC 01/16 (LACTATED RINGERS) IV 01/16 Sodium Chloride 1,000 ML X1ED STA 01/16 1708 DC 01/16 (SODIUM CHLORIDE IV 01/16 170 1728 0.9% - 1000 ML) Gastrointestinal Drugs Sig/Alma Delia Start time Last Medication Dose Route Stop Time Status Admin Ondansetron HCl 4 MG Q6H PRN PRN 01/16 2330 AC (ZOFRAN 2 MG/ML 4 MG IV 01/17 2326 SYR) Allergies: Coded Allergies: No Known Allergies (01/16/22) Physical Exam VS/I O Vital Signs: Date Time Temp Pulse Resp B/P B/P Pulse O2 O2 Flow FiO2 Mean Ox Delivery Rate 01/17 0738 98.8 91 18 102/61 75.1 99 01/17 0326 99.0 87 18 103/64 76.8 98 Room air 01/17 0138 99.1 89 16 94/58 70.1 99 Room air 01/17 0020 98.3 91 16 113/55 74 100 Room air 01/16 2223 98.3 85 16 115/75 88 100 Room air 01/16 1955 98.7 92 18 113/76 88 99 Room air 01/16 1729 99 01/16 1710 98.3 100 18 112/65 80 99 Room air 24 hour I O ending at 0700: 01/17 0701/16 1900 Intake Total 600.00 Output Total Balance 600.00 Intake, IV 600.00 Output, Emesis Patient 68.182 kg Weight Weight Standing scale Measurement Method PATIENT WEIGHT: Weight (lb): Weight (oz): Weight (kg): 68.182 General appearance: alert, awake, oriented Head/Eyes: atraumatic, normocephalic Abdomen/GI: soft, non-tender, no guarding, no rebound, no distention Neuro/BUCKET OPERATOR: alert, oriented X 3 Results Findings/Data: Laboratory Tests: 01/16 01/16 01/16 1730 1710 1710 Chemistry Sodium (135 - 145 mEq/L) 134 L Potassium (3.5 - 5.0 mEq/L) 3.5 Chloride (100 - 115 mEq/L) 103 Carbon Dioxide (22 - 31 mEq/L) 22 Anion Gap (10 - 20) 12.10 BUN (7 - 18 mg/dL) 3 L Creatinine (0.5 - 1.0 mg/dL) 0.7 Glomerular Filtr Rate (>60 ml/min) 100 Glucose (65 - 110 mg/dL) 97 Lactic Acid (0.5 - 2.2 MMOL/L) 1.5 Calcium (8.4 - 10.2 mg/dL) 8.3 L Total Bilirubin (0.2 - 1.0 mg/dL) 1.1 H Direct Bilirubin (<0.2 mg/dL) 0.4 H AST (15 - 37 units/L) 21 ALT (12 - 78 units/L) 26 Total Alk Phosphatase (46 - 116 units/L) 88 Troponin I (<51.4 pg/mL) <4.0 Total Protein (6.3 - 8.2 gm/dL) 6.8 Albumin (3.4 - 4.8 gm/dL) 3.0 L Hematology WBC (6.5 - 12.3 K/mm3) 16.2 H RBC (3.51 - 4.69 M/mm3) 4.04 Hgb (10.1 - 13.8 g/dL) 11.5 Hct (32.5 - 41.8 %) 34.4 MCV (84.6 - 96.6 fL) 85.1 MCH (27.3 - 33.9 pg) 28.5 MCHC (32.0 - 34.2 gm/dL) 33.4 RDW (12.2 - 16.3 %) 13.2 Plt Count (134 - 363 K/mm3) 243 MPV (9.2 - 12.7 fL) 11.0 Neut % (Auto) (57.9 - 77.3 %) 88.6 H Lymph % (Auto) (14.5 - 29.7 %) 6.8 L [place] % (Auto) (3.6 - 10.2 %) 4.0 Eos % (Auto) (0.0 - 3.0 %) 0.1 Baso % (Auto) (0.1 - 0.9 %) 0.1 Neut # (Auto) (K/mm3) 14.4 Lymph # (Auto) (K/mm3) 1.1 [place] # (Auto) (K/mm3) 0.7 Eos # (Auto) (K/mm3) 0.01 Baso # (Auto) (K/mm3) 0.0 Urines Urine Color (YELLOW) SIMONE A Urine Appearance (CLEAR) CLEAR Urine pH (5 - 9) 5.0 Ur Specific [place] (1.001 - 1.035) 1.019 Urine Protein (NEG) NEGATIVE Urine Glucose (UA) (NEG) NEGATIVE Urine Ketones (NEG) 2+ H Urine Blood (NEG) 2+ H Urine Nitrite (NEG) NEG Urine Bilirubin (NEG) NEGATIVE Urine Urobilinogen (NEG mg/dL) 4.0 H Ur Leukocyte Esterase (NEG) NEG Urine RBC (NONE SEEN #/hpf) 3-5 H Urine WBC (NONE SEEN #/hpf) 0-2 Ur Epithelial Cells (RARE - FEW #/HPF) RARE Urine Mucus (NONE SEEN) 1+ Diagnosis, Assessment Plan Free Text DxA P Notes Free Text DxA P Notes: 13.4 wks, suspected colitis. seems to be improving clinically. IV hydration. cont zosyn. if continues to improve, sx resolve, batsheva diet, likely home tomorrow. at 1025 Addendum 1: 01/17/22 1025 by Ann-Marie Wood MD pt is on unasyn, not zosyn. will continue. also cont flagyl. at 1026 RPT #:[id number] END OF REPORT [id number] 17:10:00 [facility] ([facility]) EMERGENCY PROVIDER REPORT REPORT#:[id number] REPORT STATUS: Signed DATE:01/16/22 TIME: 1709 PATIENT: TAMARA SERRANO UNIT #: [id number] ROOM/BED: AGE: 26 SEX: F PCP PHYS: Ann-Marie Wood MD SERVICE AUTHOR: Estefany Rosales MD * ALL edits or amendments must be made on the electronic/computer document * Estefany Rosales 01/16/22 1710: HPI-Abd Pain F Under 40 Free Text HPI Notes Free Text HPI Notes CC: N/V/D since 0200 this AM History: LMP: 10/16/21 KAT: - GA: 13w1d PMH: Prolactinoma Symptoms: RLQ abd pain, N/V/D, rectal pain, BRBPR Pain Scale: *9 out of 10 on pain scale Exacerbating Factors: none Alleviating Factors: none Meds Taken: see below COVID Sx: none Vaccination Status: fully vaccinated ObGyn: [place] Triage Vitals (10:07) BP 118/55 HR 124 RR 19 Tc 98.8 SpO2 100% Significant Labs: CBC: WBC 19.3K (92.6% PMN) CMP: Tbili 1.3 Misc: B-hCG 87454 UA 4+ ketones 2+ blood Trace protein Occult Stool: positive Imaging: TVUS Impression: 1. Single IUP with positive heart tones. 2. Mild uplifting of lateral margins of the placenta could represent placental abruption. Recommend clinical correlation. Meds Given: NS 1L bolus Pepcid 20mg IVP Zofran 4mg IVP NS 30cc/kg IV bolus Zosyn 3.375g (ordered, but not given) General Initial Greet Date/Time 01/16/22 1708 Risk-Abd Pain F Under 40 )( Ectopic Risk factors reviewed, No risk factors Review of Systems ROS Statements All systems rev neg except as marked. Focused Review of Systems Constitutional Denies: Chills, Fever, Lethargy. Respiratory Denies: Cough, non-productive, Cough, productive, Shortness of breath. Cardiovascular Denies: Chest pain, Syncope. GI Reports: Abdominal pain, Bloody/tarry stool, Diarrhea, Nausea, Vomiting. Female Denies: Dysuria, Flank pain, Pelvic pain. Musculoskeletal Denies: Back pain, Extremity pain. Past Medical History - Adult Stated Complaint COLITIS Allergies Coded Allergies: No Known Allergies (01/16/22) Home Medications Discontinued Scripts FERROUS SULFATE (FEOSOL) 325 MG PO DAILY FERROUS SULFATE (FEOSOL) 325 MG PO DAILY #30 TAB Prov: 12/03/18 DC: 01/16/22 1739 Therapy completed IBUPROFEN (MOTRIN) 600 MG PO Q6H PRN PRN MILD PAIN NOT RELIEVED BY TYL. IBUPROFEN (MOTRIN) 600 MG PO Q6H PRN PRN MILD PAIN NOT RELIEVED BY TYL. #30 TAB Prov: 12/03/18 DC: 01/16/22 1739 Patient stopped taking Reported Medications PNV WITH FE FUMARATE/FA () 1 TAB PO DAILY Discontinued Reported Medications LEVOTHYROXINE (SYNTHROID) 50 MCG PO DAILY Physical Exam Vital Signs Vital Signs First Documented: Result Date Time Pulse Ox 99 01/16 1710 B/P 112/65 01/16 1710 B/P Mean 80 01/16 1710 O2 Delivery Room air 01/16 1710 Temp 36.8 01/16 1710 Pulse 100 01/16 1710 Resp 18 01/16 1710 Last Documented: Result Date Time Pulse Ox 99 01/16 1955 B/P 113/76 01/16 1955 B/P Mean 88 01/16 1955 O2 Delivery Room air 01/16 1955 Temp 37.1 01/16 1955 Pulse 92 01/16 1955 Resp 18 01/16 1955 Review of Vital Signs Reviewed, Vital signs abnormal Focused PE General/Const General/Const Awake, Alert, Well appearing MS Head Head Normocephalic Eyes Eyes PERRL Ears/Nose/Throat Ears/Nose/Throat Airway patent, Mucous membranes moist, Pharynx NL Resp/Chest Respiratory/Chest Breath sounds NL, Breath sounds = bilat, No respiratory distress, No rales, No rhonchi, No wheezing Cardiovascular Cardiovascular Heart rate NL, Regular rhythm, Heart sounds NL, Peripheral circulation NL Abdomen/GI Abdomen/GI Soft, Non-tender, McBurney's non-tender, No guarding, No rebound, BS normoactive, No distention, No hernia, No palpable mass MS Back Back Inspection NL, Non-tender, No CVA tenderness Skin Skin Color NL, Warm, Dry, Turgor NL Genitourinary Female Genitourinary External genitalia NL, No bleeding, No discharge, No cervical motion tend, Os closed, No adnexal mass, No adnexal tenderness, No uterine enlargement, No uterine mass, No lesions or rash Rectum Rectum/Perineum Blood - occult heme neg, combat control passed, No gross blood, No fissures, No hemorrhoids, Sphincter tone NL Neurologic Neurologic Oriented X3, Speech NL, No motor deficits, No sensory deficits Interpretation Diagnostics Lab Results Interpretation Results Laboratory Tests 01/16/22 1710: [Embedded Image Not Available] Laboratory Tests: 01/16 01/16 01/16 1730 1710 1710 Chemistry Sodium (135 - 145 mEq/L) 134 L Potassium (3.5 - 5.0 mEq/L) 3.5 Chloride (100 - 115 mEq/L) 103 Carbon Dioxide (22 - 31 mEq/L) 22 Anion Gap (10 - 20) 12.10 BUN (7 - 18 mg/dL) 3 L Creatinine (0.5 - 1.0 mg/dL) 0.7 Glomerular Filtr Rate (>60 ml/min) 100 Glucose (65 - 110 mg/dL) 97 Lactic Acid (0.5 - 2.2 MMOL/L) 1.5 Calcium (8.4 - 10.2 mg/dL) 8.3 L Total Bilirubin (0.2 - 1.0 mg/dL) 1.1 H Direct Bilirubin (<0.2 mg/dL) 0.4 H AST (15 - 37 units/L) 21 ALT (12 - 78 units/L) 26 Total Alk Phosphatase (46 - 116 units/L) 88 Troponin I (<51.4 pg/mL) <4.0 Total Protein (6.3 - 8.2 gm/dL) 6.8 Albumin (3.4 - 4.8 gm/dL) 3.0 L Hematology WBC (6.5 - 12.3 K/mm3) 16.2 H RBC (3.51 - 4.69 M/mm3) 4.04 Hgb (10.1 - 13.8 g/dL) 11.5 Hct (32.5 - 41.8 %) 34.4 MCV (84.6 - 96.6 fL) 85.1 MCH (27.3 - 33.9 pg) 28.5 MCHC (32.0 - 34.2 gm/dL) 33.4 RDW (12.2 - 16.3 %) 13.2 Plt Count (134 - 363 K/mm3) 243 MPV (9.2 - 12.7 fL) 11.0 Neut % (Auto) (57.9 - 77.3 %) 88.6 H Lymph % (Auto) (14.5 - 29.7 %) 6.8 L [place] % (Auto) (3.6 - 10.2 %) 4.0 Eos % (Auto) (0.0 - 3.0 %) 0.1 Baso % (Auto) (0.1 - 0.9 %) 0.1 Neut # (Auto) (K/mm3) 14.4 Lymph # (Auto) (K/mm3) 1.1 [place] # (Auto) (K/mm3) 0.7 Eos # (Auto) (K/mm3) 0.01 Baso # (Auto) (K/mm3) 0.0 Urines Urine Color (YELLOW) SIMONE A Urine Appearance (CLEAR) CLEAR Urine pH (5 - 9) 5.0 Ur Specific [place] (1.001 - 1.035) 1.019 Urine Protein (NEG) NEGATIVE Urine Glucose (UA) (NEG) NEGATIVE Urine Ketones (NEG) 2+ H Urine Blood (NEG) 2+ H Urine Nitrite (NEG) NEG Urine Bilirubin (NEG) NEGATIVE Urine Urobilinogen (NEG mg/dL) 4.0 H Ur Leukocyte Esterase (NEG) NEG Urine RBC (NONE SEEN #/hpf) 3-5 H Urine WBC (NONE SEEN #/hpf) 0-2 Ur Epithelial Cells (RARE - FEW #/HPF) RARE Urine Mucus (NONE SEEN) 1+ Microbiology: Date/Time Procedure - Status Source Growth 01/16 1730 Urine Culture - RECD URINE 01/16 1715 Blood Culture - RECD BLOOD 01/16 1715 Blood Culture Gram Stain - RECD BLOOD 01/16 1710 Blood Culture - RECD BLOOD 01/16 1710 Blood Culture Gram Stain - RECD BLOOD Recent Impressions: RADIOLOGY - XR CHEST 1 V 01/16 1740 Report Impression - Status: SIGNED Entered: 01/16/20221911 IMPRESSION: No acute cardiopulmonary findings. Impression By: [email or web address] - Ghulam Parker MD ULTRASOUND - US LTD 01/16 1844 Report Impression - Status: SIGNED Entered: 01/16/20222035 IMPRESSION: 1. Single living intrauterine in transverse position. 2. Marginal placenta previa. Follow-up is recommended. 3. No sonographic abnormalities of the ovaries or adnexa are detected. Impression By: Alisa Garcia MD ULTRASOUND - US ABDOMEN [facility] 01/16 1854 Report Impression - Status: SIGNED Entered: 01/16/20222047 IMPRESSION: 1. The gallbladder wall is 1.5 mm thick. There is no pericholecystic fluid. The gallbladder is full of hyperechoic nonshadowing the material that likely represents sludge. 2. The common bile duct is 3 mm diameter. There is no evidence of bile duct obstruction. 3. There is an incidentally detected, indeterminate 1.5 x 1 x 1.9 cm hyperechoic lesion in the left hepatic lobe on image 4096 of series 2. Further evaluation with non-emergent liver MRI is recommended. (Reference: Kevin). REFERENCES: Kevin ARAMBULA, et al. Management of Incidental Liver Lesions on CT: A White Paper of the ACR Incidental Findings Committee. J Am Eden Radiol. 2017;14(11):5105-3854. Impression By: [email or web address] - Clinton Best DO ULTRASOUND - US PREG UT TRANSVAGINAL 01/16 1917 Report Impression - Status: SIGNED Entered: 01/16/20222035 IMPRESSION: 1. Single living intrauterine in transverse position. 2. Marginal placenta previa. Follow-up is recommended. 3. No sonographic abnormalities of the ovaries or adnexa are detected. Impression By: Alisa Garcia MD ULTRASOUND - US PELVIS [facility] OR 01/16 1917 Report Impression - Status: SIGNED Entered: 01/16/20222049 IMPRESSION: 1. Appendix not visualized. 2. Mild free fluid noted in the right lower quadrant, nonspecific. 3. Question of wall thickening of a bowel loop in the right abdomen, nonspecific. Impression By: Jeannine Renee MD Re-Evaluation MDM Free Text MDM Notes Free Text MDM Notes A/P: 26yo AAF with PMH as above p/w N/V/D; transferred for [facility]; Pt triggered sepsis at OSH; I told PA to initiate sepsis at that time. 1. Labs 2. PregUS 3. RLQ US 4. UA 5. IV Antibiotics 6. Re-assess ADDENDUM Time: 1814 Case signed out to Dr. Vieyra pending sepsis work-up. Likely admission. ED Course Medication(s) Ordered Medication(s) Ordered: Anti-Infective Agents Sig/Alma Delia Start time Last Medication Dose Route Stop Time Status Admin Ceftriaxone Sodium 1,000 MG X1ED STA 01/16 1709 DC 01/16 Sodium Chloride 100 ML IV 01/16 1738 1740 Metronidazole/Sodium 100 ML X1ED STA 01/16 1709 DC 01/16 Chloride IV 01/16 1808 1802 Central Nervous System Agents Sig/Alma Delia Start time Last Medication Dose Route Stop Time Status Admin Morphine Sulfate 4 MG X1ED STA 01/16 1812 DC 01/16 IV 01/16 181 1947 Electrolytic, Caloric, And Cortez Sig/Alma Delia Start time Last Medication Dose Route Stop Time Status Admin Lactated Ringer's 125 ML X1ED STA 01/16 2005 DC 01/16 IV 01/16 Sodium Chloride 1,000 ML X1ED STA 01/16 1708 DC 01/16 IV 01/16 1709 1728 Patient Discharge Departure Vital Signs/Condition Vital Signs First Documented: Result Date Time Pulse Ox 99 01/16 1710 B/P 112/65 01/16 1710 B/P Mean 80 01/16 1710 O2 Delivery Room air 01/16 1710 Temp 36.8 01/16 1710 Pulse 100 01/16 1710 Resp 18 01/16 1710 Last Documented: Result Date Time Pulse Ox 99 01/16 1955 B/P 113/76 01/16 1955 B/P Mean 88 01/16 1955 O2 Delivery Room air 01/16 1955 Temp 37.1 01/16 1955 Pulse 92 01/16 1955 Resp 18 01/16 1955 All vital signs available at the time of this entry have been reviewed. Mayda Vieyra 01/16/222130: HPI-Abd Pain F Under 40 General Confirmed Patient Yes Patient Type Existing patient PCP ANN-MARIE WOOD MD Presentation Chief Complaint Abdominal pain, Diarrhea moderate, Nausea, , 1st trimester, Rectal bleeding, Vomiting moderate Hx Obtained From Patient Sudden in Onset? Yes Onset Occurred Today Re-Evaluation MDM )( Re-Evaluation/Progress #1 Text/Dict Note Reviewed lab results and U/S result with patient. Still complaining of lower abdominal pain and weakness. Dizziness when walking. Patient has not had anymore bloody diarrhea. Case discussed with [place]. Will admit for observation and continued monitoring. 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 ([facility]) EMERGENCY PROVIDER REPORT REPORT#:[id number] REPORT STATUS: Signed DATE:01/16/22 TIME: 1709 PATIENT: TAMARA SERRANO UNIT #: [id number] ROOM/BED: [address] AGE: 26 SEX: F PCP PHYS: Ann-Marie Wood MD SERVICE AUTHOR: Estefany Rosales MD * ALL edits or amendments must be made on the electronic/computer document * Estefany Rosales 01/16/22 1710: HPI-Abd Pain F Under 40 Free Text HPI Notes Free Text HPI Notes CC: N/V/D since 0200 this AM History: LMP: 10/16/21 KAT: - GA: 13w1d PMH: Prolactinoma Symptoms: RLQ abd pain, N/V/D, rectal pain, BRBPR Pain Scale: *9 out of 10 on pain scale Exacerbating Factors: none Alleviating Factors: none Meds Taken: see below COVID Sx: none Vaccination Status: fully vaccinated ObGyn: [place] Triage Vitals (10:07) BP 118/55 HR 124 RR 19 Tc 98.8 SpO2 100% Significant Labs: CBC: WBC 19.3K (92.6% PMN) CMP: Tbili 1.3 Misc: B-hCG 84712 UA 4+ ketones 2+ blood Trace protein Occult Stool: positive Imaging: TVUS Impression: 1. Single IUP with positive heart tones. 2. Mild uplifting of lateral margins of the placenta could represent placental abruption. Recommend clinical correlation. Meds Given: NS 1L bolus Pepcid 20mg IVP Zofran 4mg IVP NS 30cc/kg IV bolus Zosyn 3.375g (ordered, but not given) General Initial Greet Date/Time 01/16/22 1708 Presentation Chief Complaint Diarrhea moderate, Nausea, Vomiting moderate Sudden in Onset? No Risk-Abd Pain F Under 40 )( Ectopic Risk factors reviewed, No risk factors Review of Systems ROS Statements All systems rev neg except as marked. Focused Review of Systems Constitutional Denies: Chills, Fever, Lethargy. Respiratory Denies: Cough, non-productive, Cough, productive, Shortness of breath. Cardiovascular Denies: Chest pain, Syncope. GI Reports: Abdominal pain, Bloody/tarry stool, Diarrhea, Nausea, Vomiting. Female Denies: Dysuria, Flank pain, Pelvic pain. Musculoskeletal Denies: Back pain, Extremity pain. Past Medical History - Adult Stated Complaint COLITIS Allergies Coded Allergies: No Known Allergies (01/16/22) Home Medications Discontinued Scripts FERROUS SULFATE (FEOSOL) 325 MG PO DAILY FERROUS SULFATE (FEOSOL) 325 MG PO DAILY #30 TAB Prov: 12/03/18 DC: 01/16/22 1730 Therapy completed IBUPROFEN (MOTRIN) 600 MG PO Q6H PRN PRN MILD PAIN NOT RELIEVED BY TYL. IBUPROFEN (MOTRIN) 600 MG PO Q6H PRN PRN MILD PAIN NOT RELIEVED BY TYL. #30 TAB Prov: 12/03/18 DC: 01/16/22 4155 Patient stopped taking Reported Medications PNV WITH FE FUMARATE/FA () 1 TAB PO DAILY Discontinued Reported Medications LEVOTHYROXINE (SYNTHROID) 50 MCG PO DAILY Physical Exam Vital Signs Review of Vital Signs Reviewed, Vital signs abnormal Focused PE General/Const General/Const Awake, Alert, Well appearing MS Head Head Normocephalic Eyes Eyes PERRL Ears/Nose/Throat Ears/Nose/Throat Airway patent, Mucous membranes moist, Pharynx NL Resp/Chest Respiratory/Chest Breath sounds NL, Breath sounds = bilat, No respiratory distress, No rales, No rhonchi, No wheezing Cardiovascular Cardiovascular Heart rate NL, Regular rhythm, Heart sounds NL, Peripheral circulation NL Abdomen/GI Abdomen/GI Soft, Non-tender, McBurney's non-tender, No guarding, No rebound, BS normoactive, No distention, No hernia, No palpable mass MS Back Back Inspection NL, Non-tender, No CVA tenderness Skin Skin Color NL, Warm, Dry, Turgor NL Genitourinary Female Genitourinary External genitalia NL, No bleeding, No discharge, No cervical motion tend, Os closed, No adnexal mass, No adnexal tenderness, No uterine enlargement, No uterine mass, No lesions or rash Rectum Rectum/Perineum Blood - occult heme neg, combat control passed, No gross blood, No fissures, No hemorrhoids, Sphincter tone NL Neurologic Neurologic Oriented X3, Speech NL, No motor deficits, No sensory deficits Interpretation Diagnostics Lab Results Interpretation Lab Imaging Statement Laboratory radiographic studies reviewed and considered in the medical decision-making. Re-Evaluation MDM Free Text MDM Notes Free Text MDM Notes A/P: 26yo AAF with PMH as above p/w N/V/D; transferred for [facility]; Pt triggered sepsis at OSH; I told PA to initiate sepsis at that time. 1. Labs 2. PregUS 3. RLQ US 4. UA 5. IV Antibiotics 6. Re-assess ADDENDUM Time: 1814 Case signed out to Dr. Vieyra pending sepsis work-up. Likely admission. ED Course Medication(s) Ordered Medication(s) Ordered: Anti-Infective Agents Sig/Alma Delia Start time Last Medication Dose Route Stop Time Status Admin Ceftriaxone Sodium 1,000 MG X1ED STA 01/16 1709 DC 01/16 Sodium Chloride 100 ML IV 01/16 1738 1740 Metronidazole/Sodium 100 ML X1ED STA 01/16 1709 DC 01/16 Chloride IV 01/16 1808 1802 Central Nervous System Agents Sig/Alma Delia Start time Last Medication Dose Route Stop Time Status Admin Morphine Sulfate 4 MG X1ED STA 01/16 1812 DC 01/16 IV 01/16 1813 1947 Electrolytic, Caloric, And Cortez Sig/Alma Delia Start time Last Medication Dose Route Stop Time Status Admin Lactated Ringer's 125 ML X1ED STA 01/16 2005 DC 01/16 IV 01/16 Sodium Chloride 1,000 ML X1ED STA 01/16 1708 DC 01/16 IV 01/16 1709 1728 Patient Discharge Departure Clinical Impression Clinical Impression Primary Impression: Colitis Secondary Impressions: 16 weeks gestation of , Biliary colic, BRBPR ( bright red blood per rectum), Nausea vomiting and diarrhea, Sepsis Discharge/Care Plan Admit Note I have spoken with the patient and/or caregivers. I have explained the patient's condition, diagnoses and treatment plan based on the information available to me at this time. I have answered the patient's and/or caregiver's questions and addressed any concerns. The patient and/or caregivers have as good an understanding of the patient's diagnosis, condition and treatment plan as can be expected at this point. The patient has been stabilized within the capability of the emergency department. The patient will be transported for further care and management or will be moved to an observation or inpatient service. I have communicated with the staff or medical practitioner taking over this patient's care. Mayda Vieyra 01/16/222130: HPI-Abd Pain F Under 40 General Confirmed Patient Yes Patient Type Existing patient PCP ANN-MARIE WOOD MD Presentation Chief Complaint Abdominal pain, Diarrhea moderate, Nausea, , 1st trimester, Rectal bleeding, Vomiting moderate Hx Obtained From Patient Sudden in Onset? Yes Onset Occurred Today Physical Exam Vital Signs Vital Signs First Documented: Result Date Time Pulse Ox 99 01/16 1710 B/P 112/65 01/16 1710 B/P Mean 80 01/16 1710 O2 Delivery Room air 01/16 1710 Temp 98.3 01/16 1710 Pulse 100 01/16 171 Resp 18 01/16 1710 Last Documented: Result Date Time Pulse Ox 100 01/16 2223 B/P 115/75 01/16 2223 B/P Mean 88 01/16 2223 O2 Delivery Room air 01/16 2223 Temp 98.3 01/16 2223 Pulse 85 01/16 2223 Resp 16 01/16 2223 Interpretation Diagnostics Lab Results Interpretation Results Laboratory Tests 01/16/221709: [Embedded Image Not Available] Laboratory Tests: 01/16 171 Chemistry Sodium (135 - 145 mEq/L) 134 L Potassium (3.5 - 5.0 mEq/L) 3.5 Chloride (100 - 115 mEq/L) 103 Carbon Dioxide (22 - 31 mEq/L) 22 Anion Gap (10 - 20) 12.10 BUN (7 - 18 mg/dL) 3 L Creatinine (0.5 - 1.0 mg/dL) 0.7 Glomerular Filtr Rate (>60 ml/min) 100 Glucose (65 - 110 mg/dL) 97 Lactic Acid (0.5 - 2.2 MMOL/L) 1.5 Calcium (8.4 - 10.2 mg/dL) 8.3 L Total Bilirubin (0.2 - 1.0 mg/dL) 1.1 H Direct Bilirubin (<0.2 mg/dL) 0.4 H AST (15 - 37 units/L) 21 ALT (12 - 78 units/L) 26 Total Alk Phosphatase (46 - 116 units/L) 88 Troponin I (<51.4 pg/mL) <4.0 Total Protein (6.3 - 8.2 gm/dL) 6.8 Albumin (3.4 - 4.8 gm/dL) 3.0 L Hematology WBC (6.5 - 12.3 K/mm3) 16.2 H RBC (3.51 - 4.69 M/mm3) 4.04 Hgb (10.1 - 13.8 g/dL) 11.5 Hct (32.5 - 41.8 %) 34.4 MCV (84.6 - 96.6 fL) 85.1 MCH (27.3 - 33.9 pg) 28.5 MCHC (32.0 - 34.2 gm/dL) 33.4 RDW (12.2 - 16.3 %) 13.2 Plt Count (134 - 363 K/mm3) 243 MPV (9.2 - 12.7 fL) 11.0 Neut % (Auto) (57.9 - 77.3 %) 88.6 H Lymph % (Auto) (14.5 - 29.7 %) 6.8 L [place] % (Auto) (3.6 - 10.2 %) 4.0 Eos % (Auto) (0.0 - 3.0 %) 0.1 Baso % (Auto) (0.1 - 0.9 %) 0.1 Neut # (Auto) (K/mm3) 14.4 Lymph # (Auto) (K/mm3) 1.1 [place] # (Auto) (K/mm3) 0.7 Eos # (Auto) (K/mm3) 0.01 Baso # (Auto) (K/mm3) 0.0 Urines Urine Color (YELLOW) SIMONE A Urine Appearance (CLEAR) CLEAR Urine pH (5 - 9) 5.0 Ur Specific [place] (1.001 - 1.035) 1.019 Urine Protein (NEG) NEGATIVE Urine Glucose (UA) (NEG) NEGATIVE Urine Ketones (NEG) 2+ H Urine Blood (NEG) 2+ H Urine Nitrite (NEG) NEG Urine Bilirubin (NEG) NEGATIVE Urine Urobilinogen (NEG mg/dL) 4.0 H Ur Leukocyte Esterase (NEG) NEG Urine RBC (NONE SEEN #/hpf) 3-5 H Urine WBC (NONE SEEN #/hpf) 0-2 Ur Epithelial Cells (RARE - FEW #/HPF) RARE Urine Mucus (NONE SEEN) 1+ Microbiology: Date/Time Procedure - Status Source Growth 01/16 173 Urine Culture - COMP URINE 01/16 1715 Blood Culture - COMP BLOOD 01/16 1715 Blood Culture Gram Stain - COMP BLOOD 01/16 1710 Blood Culture - COMP BLOOD 01/16 171 Blood Culture Gram Stain - COMP BLOOD Recent Impressions: RADIOLOGY - XR CHEST 1 V 01/16 174 Report Impression - Status: SIGNED Entered: 01/16/20221911 IMPRESSION: No acute cardiopulmonary findings. Impression By: [email or web address] - Ghulam Parker MD ULTRASOUND - US LTD 01/16 1844 Report Impression - Status: SIGNED Entered: 01/16/20222035 IMPRESSION: 1. Single living intrauterine in transverse position. 2. Marginal placenta previa. Follow-up is recommended. 3. No sonographic abnormalities of the ovaries or adnexa are detected. Impression By: Alisa Garcia MD ULTRASOUND - US ABDOMEN [facility] 01/16 1854 Report Impression - Status: SIGNED Entered: 01/16/20222047 IMPRESSION: 1. The gallbladder wall is 1.5 mm thick. There is no pericholecystic fluid. The gallbladder is full of hyperechoic nonshadowing the material that likely represents sludge. 2. The common bile duct is 3 mm diameter. There is no evidence of bile duct obstruction. 3. There is an incidentally detected, indeterminate 1.5 x 1 x 1.9 cm hyperechoic lesion in the left hepatic lobe on image 4096 of series 2. Further evaluation with non-emergent liver MRI is recommended. (Reference: Kevin). REFERENCES: Kevin RM, et al. Management of Incidental Liver Lesions on CT: A White Paper of the ACR Incidental Findings Committee. J Am Eden Radiol. 2017;14(11):7700-6940. Impression By: [email or web address] - Clinton Best, ULTRASOUND - US PREG UT TRANSVAGINAL 01/16 1917 Report Impression - Status: SIGNED Entered: 01/16/20222035 IMPRESSION: 1. Single living intrauterine in transverse position. 2. Marginal placenta previa. Follow-up is recommended. 3. No sonographic abnormalities of the ovaries or adnexa are detected. Impression By: Alisa Garcia MD ULTRASOUND - US PELVIS [facility] OR FU 01/16 1917 Report Impression - Status: SIGNED Entered: 01/16/20222049 IMPRESSION: 1. Appendix not visualized. 2. Mild free fluid noted in the right lower quadrant, nonspecific. 3. Question of wall thickening of a bowel loop in the right abdomen, nonspecific. Impression By: Jeannine - Lorenzo Renee MD Re-Evaluation [facility] )( Re-Evaluation/Progress #1 Text/Dict Note Reviewed lab results and U/S result with patient. Still complaining of lower abdominal pain and weakness. Dizziness when walking. Patient has not had anymore bloody diarrhea. Case discussed with Israel Hathaway. Will admit for observation and continued monitoring. Time of Re-Eval 2244 )( Re-Eval Status Improved Re-Eval Abdomen Soft, BS normoactive, Tenderness Plan Post Re-Eval Plan admit Patient Discharge Departure Vital Signs/Condition Vital Signs First Documented: Result Date Time Pulse Ox 99 01/16 1710 B/P 112/65 01/16 1710 B/P Mean 80 01/16 1710 O2 Delivery Room air 01/16 1710 Temp 98.3 01/16 1710 Pulse 100 01/16 1710 Resp 18 01/16 1710 Last Documented: Result Date Time Pulse Ox 100 01/16 2223 B/P 115/75 01/16 2223 B/P Mean 88 01/16 2223 O2 Delivery Room air 01/16 222 Temp 98.3 01/16 2223 Pulse 85 01/16 2223 Resp 16 01/16 2223 All vital signs available at the time of this entry have been reviewed. 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 Request Time 2244 Request Date 01/16/22 )( Admission Accepts Yes )( Accepted Time 2249 )( Accepted Date 01/16/22 Call Information will see patient, agrees with eval, agrees with plan Discharge/Care Plan Counseled Regarding Diagnosis, Lab results, Imaging studies, Need for admission at 2326 at 0634 RPT #:[id number] END OF [id number] 08:17:00 [facility] ([facility]) OB Postpart Progr Note REPORT#:[id number] REPORT STATUS: Signed DATE:12/03/18 TIME: 816 PATIENT: TAMARA SERRANO UNIT #: [id number] ROOM/BED: 4632-A : 93 AGE: 23 SEX: F ATTEND: Ann-Marie Wood MD ADM AUTHOR: Ann-Marie Wood MD * ALL edits or amendments must be made on the electronic/computer document * Subjective Subjective Status/Day: post (d2) Patient reports: Patient reports: Yes no complaints, Yes pain management effective, Yes tolerating po well, Yes tolerating ambulation (no orthostasis) Objective Nursing Documentation Review Nursing Data: The data set between the solid lines has been imported from nursing documentation. Any exceptions have been noted below under Provider comments. Feeding preference: Provider comments on imported nursing data: [] General VS: Vital Signs: Date Time Temp Pulse Resp B/P B/P Pulse O2 O2 Flow FiO2 Mean Ox Delivery Rate 12/03 0005 98.2 96 18 120/73 88.9 98 Room air 12/02 1658 98.5 88 20 101/55 Physical Exam Neuro: Exam: alert, oriented x3 Abdomen: soft, no abnormal tenderness Uterus: firm, non-tender Result Findings/Data: Laboratory Tests: 12/0227 Hematology Hgb (10.7 - 13.9 g/dL) 6.3 *L 6.2 *L Hct (32.1 - 42.1 %) 20.8 L 21.2 L Diagnosis, Assessment Plan Diagnosis, Assessment Plan Assessment: nml progress, anemia r/t: (acute blood loss) Plan: routine care, discharge today, VSS, no orthostatic sx. pt declines transfusion at 0818 RPT #:[id number] END OF REPORT [id number] 19:03:00 [facility] ([facility]) Clinical Note REPORT#:[id number] REPORT STATUS: Signed DATE:12/02/18 TIME: 1902 PATIENT: TAMARA SERRANO UNIT #: [id number] ROOM/BED: [address] : 93 AGE: 23 SEX: F ATTEND: Ann-Marie Wood MD ADM AUTHOR: Ann-Marie Wood MD * ALL edits or amendments must be made on the electronic/computer document * Clinical Note Note: Hgb 6.1, d/w pt. pt reports feeling fine, ambulating without difficulty or orthostasis. option of transfusion d/w pt, declines. started on iron. repeat in AM to ensure stable. at 1904 RPT #:[id number] END OF REPORT [id number] 07:47:00 [facility] ([facility]) OB Postpart Progr Note REPORT#:[id number] REPORT STATUS: Signed DATE:12/02/18 TIME: 746 PATIENT: TAMRAA SERRANO UNIT #: [id number] ROOM/BED: [address] : 93 AGE: 23 SEX: F ATTEND: Ann-Marie Wood MD ADM AUTHOR: Ann-Marie Wood MD * ALL edits or amendments must be made on the electronic/computer document * Subjective Subjective Status/Day: post (d1) Patient reports: Patient reports: Yes no complaints, Yes pain management effective, Yes tolerating po well Objective Nursing Documentation Review Nursing Data: The data set between the solid lines has been imported from nursing documentation. Any exceptions have been noted below under Provider comments. Feeding preference: Provider comments on imported nursing data: [] General VS: Vital Signs: Date Time Temp Pulse Resp B/P B/P Pulse O2 O2 Flow FiO2 Mean Ox Delivery Rate 12/01 1826 98.2 98 16 121/83 12/01 0915 99.0 72 18 103/59 12/01 0849 89.0 12/01 0849 85 121/72 12/01 0834 91.0 12/01 0834 94 18 119/73 12/01 0819 97.0 12/01 0819 94 17 135/75 12/01 0804 78.0 12/01 0804 91 22 104/55 12/01 0749 18 12/01 0749 79.0 12/01 0749 85 115/56 Physical Exam Neuro: Exam: alert, oriented x3 Abdomen: soft, no abnormal tenderness Uterus: firm, non-tender Diagnosis, Assessment Plan Diagnosis, Assessment Plan Assessment: nml progress Plan: routine care, discharge tomorrow at 0748 RPT #:[id number] END OF REPORT [id number] 07:02:00 [facility] ([facility]) OB Delivery Note REPORT#:[id number] REPORT STATUS: Signed DATE:12/01/18 TIME: 0702 PATIENT: TAMARA SERRANO UNIT #: [id number] ROOM/BED: [address] : 93 AGE: 23 SEX: F ATTEND: Ann-Marie Wood MD ADM AUTHOR: Ann-Marie Wood MD * ALL edits or amendments must be made on the electronic/computer document * OB Delivery Nursing Documentation Review Nursing data: The data set between the solid lines has been imported from nursing documentation. Any exceptions have been noted below under Provider comments. _ ROM date: 12/01/18 ROM time: 041 Membranes rupture method: AROM Amniotic fluid color: Clear Amniotic fluid amount: EGA (weeks/days): EGA at admit (weeks): EGA at delivery (weeks): Steroids prior to arrival: Antibiotic prophylaxis given: [place] evaluation at delivery: Delivery date A: Delivery time infant A: Birthweight (gm) A: Weight (lb) infant A: Weight (oz) A: Gender A: Male 1 minute A: 5 minutes A: 10 minutes A: Cord pH obtained infant A: Vacuum time A: Vacuum # pulls infant A: Vacuum # popoffs infant A: __ Provider comments on imported nursing data: [] Pre-delivery GBS status: GBS status: negative evaluation at delivery: team Admission EGA (wks/days): 38 weeks EGA at delivery (wks/days): 38 weeks Baby A Information Baby A information Delivery date: 12/01/18 Delivery time: 627 status: live born Wt of baby (lbs/oz): 7/3 Gender: male 1 minute: 8 5 minutes: 9 Presentation: vertex Nuchal cord Baby A Nuchal cord: no Vaginal Delivery Vaginal delivery Labor: spontaneous Vaginal delivery: operative vag del forceps Amniotic fluid: clear Anesthesia type: epidural anesthesia Episiotomy: none Episiotomy repair: not applicable Laceration repair: yes Episiotomy/laceration suture: 2-0 EBL (ml's): 300 Hemorrhage: no Placenta: spontaneous, intact Post delivery meds used: oxytocin Count: correct, vag exam neg for sponges Mother's condition: mother stable 's condition: stable in room Lacerations: Perineal laceration(s): 3rd Degree w/anal sphinct High vaginal laceration: no Extraction details OVD performed: yes OVD type: low forceps Indications: prolonged second stage, indications Pt counseling: indications discussed, risks discussed, questions answered, patient consent obtained Extraction assessment: cervix completely dilated, nursery anesth notified, mat-fet size appr for alex, bladder empty Degree of rotation: 0-45 degrees station: low (+2 to +4) Position of head: OA Episiotomy or incision: incis well approximated Forceps type: Gabirelle Forceps detail: cath prior to forcep appl, hinge/lock appro w/o diff, adv station w/ea traction, extraction successful Extraction outcome: extraction successful head assessment: normal, caput Shoulder dystocia Shoulder dystocia present: no Note dictated: Yes at 0704 [facility] #:[id number] END OF REPORT [id number] 07:01:[id number] [facility] [id number] PATIENT NAME: TAMARA SERRANO ADMIT DATE: 11/30/18 ACCOUNT NO: [id number] ROOM NO: [id number] AGE: 23 SEX: F ADMITTING PHYSICIAN: Ann-Marie Wood MD ATTENDING PHYSICIAN: Ann-Marie Wood MD OPERATION DATE: 12/01/2018 SURGEON: Ann-Marie Wood MD ACCESS RN: PROCEDURES PERFORMED: 1. Forceps-assisted vaginal delivery. 2. Repair of third-degree perineal laceration. PREOPERATIVE DIAGNOSES: 1. A 38-week plus gestation. 2. Spontaneous active labor. 3. Prolonged second stage with deep variable/late decelerations on heart rate tracing. POSTOPERATIVE DIAGNOSIS: ESTIMATED BLOOD LOSS: 300 mL. OPERATIVE FINDINGS: 1. Cephalic male infant, Apgars 8 and 9, weight 7 pounds 3 ounces. 2. Third-degree midline perineal laceration. 3. Hemostatic. 4. All counts correct. ANESTHESIA: Epidural. COMPLICATIONS: None. STATEMENT OF MEDICAL NECESSITY: The patient is a 23-year-old, G1, now P1, who presented at 18-jnrq-cslw gestation, in active labor. She progressed to complete, complete spontaneously and pushing was initiated. During pushing, she had intermittent, non-repetitive decelerations, which were occasionally prolonged; however, had returned to baseline with good gwvs-uj-urof variability. She progressed to complete, complete, +2 and having more frequent decelerations that were being late appearing pattern and decision made to proceed with forceps-assisted vaginal delivery. Risks, benefits, alternatives, and indications were discussed with the patient and , and they agreed to plan. PROCEDURE IN DETAIL: After informed consent was obtained, the patient was positioned in lithotomy position. Bladder was drained using a catheterization. PATIENT NAME: TAMARA SERRANO head was at +2 station. I have been at the bedside pushing with the patient and had been rotated to approximately ULISSES position for what was previously a somewhat transverse asynclitic presentation. The patient had epidural in place. Estimated weight was 7.5 pounds. Sutures were palpated. The forceps were placed on the patient's left side and applied to the head without difficulty. During placement of the forceps on the contralateral side, the patient reported extreme pain in her lower back. Due to her discomfort, it was difficult to articulate the forceps. heart rate at this time had returned to baseline with moderate negj-rw-puph variability and anesthesia at bedside. Decision was made to remove forceps and allowing anesthesia to dose the epidural for patient's comfort. After about 10 minutes, the patient reported better pain control; however, had another late decelerations. Decision was made to replace the forceps. Forceps at this time applied without difficulty and the patient noted adequate pain control. Forceps were articulated with next contraction and maternal expulsive efforts. Gentle downward traction was applied to the forceps. With first contraction, some descent of the head noted. As the contraction ended, forceps were disarticulated and left in place, and with the next contraction, forceps were rearticulated. Pressure was again applied with maternal expulsive efforts. head was delivered. Forceps were disarticulated and removed. body was delivered. Mouth and nares were bulb suctioned. Cord was doubly clamped and cut and fetus passed off for evaluation by neonatology. Placenta was delivered spontaneously. A third-degree perineal laceration was identified. A 2-0 chromic was used to reapproximate the external anal sphincter and interrupted sutures. A deep layer of 2-0 chromic was then placed in a running fashion to reapproximate the deep vaginal muscle and perirectal tissue. A new suture was then used to repair the resultant second-degree laceration from the right sulcus to the perineum and a muscle-layer closure. Small area of bleeding was identified. This was oversewn with ikybmr-[id number] suture and rendered hemostatic. Bladder was grossly inspected to be intact with external anal sphincter noted to be reapproximated. Uterus was firm, nontender, and pilar well. The patient was cleaned and allowed to recover in LDR. There were no operative or anesthetic complications. Dictated By: Ann-Marie Wood MD WT: OP:F.JOHN/CAREN/NTS Conf#: [id number]/DID#: [id number] Authenticated by Ann-Marie Wood MD On 02/04/2019 03:58:28 PM at 1550 PATIENT NAME: TAMARA SERRANO 04:18:00 [facility] ([facility]) Clinical Note REPORT#:[id number] REPORT STATUS: Signed DATE:12/01/18 TIME: 417 PATIENT: TAMARA SERRANO UNIT #: [id number] ROOM/BED: [address] : 93 AGE: 23 SEX: F ATTEND: Ann-Marie Wood MD ADM AUTHOR: Ann-Marie Wood MD * ALL edits or amendments must be made on the electronic/computer document * Clinical Note Note: C/C/+1. AROM clear. FHT now 120s, mod BTBV. had prolonged decel, recovered. will start pushing, antic . at 0419 RPT #:[id number] END OF REPORT [id number] 00:13:00 [facility] ([facility]) OB Admission / H P REPORT#:[id number] REPORT STATUS: Signed DATE:12/01/18 TIME: 0013 PATIENT: TAMARA SERRANO UNIT #: [id number] ROOM/BED: [address] : 93 AGE: 23 SEX: F ATTEND: Ann-Marie Wood MD ADM AUTHOR: Ann-Marie Wood MD * ALL edits or amendments must be made on the electronic/computer document * OB Admission H P Hx Chief complaint: uterine contractions history: : 1 Current : EDC: 12/11/18 Admission EGA (wks/days): 38 weeks Conditions of : pemphigoid gestationis, Stacy's Palsy Labs: Blood type: O Rh: positive Rubella: immune Hepatitis B: negative HIV: negative RPR: non-reactive STD: negative Syphilis: negative GBS: negative Procedures: ultrasound, genetic testing, non stress test Past medical history: thyroid, hyperprolactinemia Past surgical history: breast augmentation, resection of parapituitary mass Social history: , no alcohol use, no tobacco use, no drug use Medications: Home Medications: Medication Dose/Rte/Freq Days Qty Entered Last Max Daily Dose Reviewed PNV WITH FE 1 TAB PO DAILY 11/23/18 FUMARATE/FA 0854 () Strength: 1 EACH TAB LEVOTHYROXINE 50 MCG PO DAILY 11/23/18 (SYNTHROID) 0854 Strength: 50 MCG TAB Current Hospital Medications: Autonomic Drugs Sig/Alma Delia Start time Last Medication Dose Route Stop Time Status Admin Ephedrine Sulfate 10 MG ASDIR PRN 11/30 2300 AC (ePHEDrine SULFATE IV 01/29 2259 50 MG/ML 1ML AMP) Central Nervous System Agents Sig/Alma Delia Start time Last Medication Dose Route Stop Time Status Admin Fentanyl Citrate 100 MCG ASDIR 11/30 2300 CKD (SUBLIMAZE 2 ML) EPIDURAL 01/29 2259 Fentanyl/Bupivacaine 150 ML ASDIR 11/30 2300 AC HCl EPIDURAL 12/02 2249 (fentaNYL/ BUPIVACAINE HCL NS 0.9% - 150ML) Electrolytic, Caloric, And [place] Sig/Alma Delia Start time Last Medication Dose Route Stop Time Status Admin Lactated Ringer's 1,000 ML ONCE ONE 11/30 230 DC (LACTATED RINGERS) IV 11/30 231 Lactated Ringer's 250 ML ASDIR 11/30 2300 AC (LACTATED RINGERS) IV 01/29 225 Dextrose/Lactated 1,000 ML ASDIR 11/30 223 AC Ringer's IV 01/29 2229 (DEXTROSE 5% IN LACTATED RINGERS 1000 ML) Lactated Ringer's 2,000 ML ASDIR PRN 11/30 2229 AC (LACTATED RINGERS) IV Lactated Ringer's 1,000 ML ONCE ONE 11/30 2229 DC (LACTATED RINGERS) IV 11/30 2230 Gastrointestinal Drugs Sig/Alma Delia Start time Last Medication Dose Route Stop Time Status Admin Ondansetron HCl 4 MG Q6H PRN PRN 11/30 230 AC (ZOFRAN 2 MG/ML 4 MG IV 01/29 225 SYR) Oxytocics Sig/Alma Delia Start time Last Medication Dose Route Stop Time Status Admin Oxytocin 500 ML ASDIR 11/30 2229 AC (OXYTOCIN 30 UNITS/ IV 12/01 0829 500 ML NORMAL SALINE) Other Sig/Alma Delia Start time Last Medication Dose Route Stop Time Status Admin Pharmacy Profile Note 1 EA ONCE 11/30 2229 AC (EPIDURAL TRAY) MISC 12/03 2228 Allergies Coded Allergies: No Known Allergies (11/30/18) Objective General VS: Last Documented: Result Date Time B/P Mean 82.0 11/30 2349 B/P 121/57 11/30 234 Pulse 85 11/30 234 Temp 98.5 11/30 225 Resp 17 05/14 2259 Vital Signs Date Temp Pulse Resp B/P B/P Mean Pulse Ox FiO2 11/30 98.4-98.5 80-108 17-18 113-138/54-79 78.0-100.0 Physical Exam HEENT: normocephalic w/o injury Neuro: Exam: alert, oriented x3 Abdomen: gravid, soft, no abnormal tenderness Uterine activity: Monitor: toco Frequency (description): regular Frequency (minutes): 4 Pelvic exam: Pelvis clinically adequate: yes, inlet appears appropriate, pubic bone config appropr, no midpelvic contraction Vulvar lesions: none, no evidence herpetic les, no evidence of other STD Vagina: normal, non-septated, w/o apparent lesions Cervical/ exam: Dilatation (cm): 5 Effacement (%): 80 Est wt (gms): 3200 Suspected macrosomia: No Suspected > 5000 grams: No station: - 2 presentation: cephalic Membranes: Membranes: Intact Additional comments: extensive maculopapular erythematous rash c/w pemphigoid Baby A: Baby A baseline: 140 bpm Baby A variability: moderate 6-25 bpm Diagnosis, Assessment Plan Diagnosis, Assessment Plan Free Text A P: 38 wks, labor. antic . at 0018 RPT #:[id number] END OF REPORT [facility]
[2025-04-19] MEDS ORDERED: ONDANSETRON 4 MG/2 ML VIAL ONE (15:27)
[2025-04-19] MEDS ORDERED: KETOROLAC 30 MG/ML INJ ONE (15:27)
[2025-04-19] MEDS ORDERED: NA CHLORIDE 0.9% 1,000 ML ONE (15:27)
[2025-04-19] MEDS ORDERED: FAMOTIDINE 20 MG/2 ML VIAL IV ONE (15:27)
[2025-04-19 15:36] LABS: Absolute Lymphocytes (CBC) 1.0 K/uL (0.7-4.9); Hematocrit 39.8 % (36.0-45.0); Hemoglobin 13.3 g/dL (12.0-15.0); MCH 28.2 pg (27.0-35.0); MCHC 33.4 g/dL (32.0-36.0); MCV 84.4 fL (80-100); MPV 8.3 fL (7.6-11.3); Nucleated RBC Absolute Count 0.0 (0-0); Nucleated Red Blood Cells % 0.1 % (0-0); RBC Red Blood Cell Count 4.71 M/uL (3.86-4.86); White Blood Count 8.50 thou/uL (4.3-10.9)
[2025-04-19 15:57] LABS: ALT/SGPT 430.0 U/L (13-56); AST/SGOT 551.0 U/L (15-37); Albumin 4.0 g/dL (3.4-5.0); Albumin/Globulin Ratio 1.0 (1.1-1.8); Alkaline Phosphatase 99.0 U/L (45-117); Anion Gap 8.9 mEq/L (5.0-15.0); BUN Blood Urea Nitrogen 13.0 mg/dL (7-18); Globulin 4.1 g/dL (2.3-3.5); Glucose Level 105.0 mg/dL (74-106); Lipase 84.0 U/L (13-75); Potassium 3.9 mEq/L (3.5-5.1)
--- NOTE | 2025-04-19 17:23 | RAD REPORT ---
EXAMINATION: US Abdomen Exam Limited CLINICAL HISTORY: [facility] MAIN Y ABD PAIN Bed Name: 12 COMPARISON: None. TECHNIQUE: Limited upper abdominal grayscale and color flow sonographic images. FINDINGS: Gallbladder: Moderate distention. Layering mildly echogenic sludge. No significant wall thickening. M ild pericholecystic fluid/edema. Bile ducts: No intrahepatic biliary dilatation. Common bile duct mildly prominent measures 9 mm. Liver: Visualized portions of the liver demonstrate diffuse parenchymal echogenicity suggesting steat osis. Fluid: No ascites. IMPRESSION: Gallbladder distention with sludge and mild pericholecystic fluid/edema, concerning for acute cholecy stitis. Please correlate clinically. Mildly prominent common bile duct up to 9 mm. If there is concern for obstruction, consider additiona l evaluation by MRCP or ERCP.
[2025-04-19] MEDS ORDERED: NA CHLORIDE 0.9% 100 ML ONE (17:34)
[2025-04-19] MEDS ORDERED: PIPERACIL/TAZO 3.375 GM VIAL IV ONE (17:35)
--- NOTE | 2025-04-19 17:41 | EDPHYS ---
Physician Documentation [facility] Name: Kacy Mishra Age: 29 yrs Sex: Female : 1995 Arrival Date: 04/19/2025 Time: 14:50 Bed 12 Private MD: ED Physician Mikie Haley HPI: 04/19 17:17 This 29 yrs old Female presents to ER via Ambulatory with complaints of kb Abdominal Pain, Nausea. 17:17 Patient is a 29-year-old female who presents for right upper quadrant pain that started kb at midnight last night. Reports nausea and vomiting. Denies diarrhea or fever. States she is never had this pain before.. Historical: - Allergies: 15:48 No Known Allergies; jb4 - PSHx: 15:03 breast implants removed; pituitary tumor removed; iw - Immunization history:: Adult Immunizations unknown. - Infectious Disease History:: Denies. - Social history:: Smoking status: unknown. ROS: 15:00 Constitutional: As per HPI kb Exam: 15:00 Constitutional: This is a well developed, well nourished patient who is awake, alert, kb and in no acute distress. Head/Face: Normocephalic, atraumatic. ENT: Moist Mucous membranes Cardiovascular: Regular rate Respiratory: Respirations even and unlabored. No increased work of breathing. Talking in full sentences Skin: Warm, dry with normal turgor. Normal color. MS/ Extremity: Pulses equal, no cyanosis. Neurovascular intact. Full, normal range of motion. Neuro: Awake and alert, GCS 15, oriented to person, place, time, and situation. 15:00 Abdomen/GI: Inspection: abdomen appears normal, Bowel sounds: normal, Palpation: soft, in all quadrants, moderate abdominal tenderness, in the right upper quadrant, Vital Signs: 15:34 BP 102 / 68; Pulse 94; Resp 16; Pulse Ox 100% on R/A; jb4 17:05 BP 112 / 67; Pulse 68; Resp 16; Pulse Ox 100% on R/A; jb4 19:15 BP 96 / 60; Pulse 68; Resp 17; Pulse Ox 100% ; Pain 2/10; rg5 19:15 Pain Scale: Adult rg5 MDM: 14:52 Medical Screening Exam initiated kb 17:12 Independent interpretation of the following test(s) in the Emergency Department kb Radiology Department Ultrasound: My interpretation is pericholecystitc fluid on US. 17:18 Data reviewed: vital signs, nurses notes. kb 17:39 Differential diagnosis: cholecystitis, Cholelithiasis, gastritis, gastroesophageal kb reflux disease, non-specific abd pain, pancreatitis. Consideration of Admission/Observation Patient was admitted/placed on observation. Escalation of care including admission/observation considered. Management of patient was discussed with the following: Mold Filler And Drainer: Dr Miller accepts pt for consult. Wants MRCP in AM. Counseling: I had a detailed discussion with the patient and/or guardian regarding the historical points, exam findings, and any diagnostic results supporting the discharge/admit diagnosis, lab results, radiology results, the need for further work-up and treatment in the hospital. 18:25 Management of patient was discussed with the following: Hospitalist: NICHOLAS Chapman accepts pt for admission under Dr Chambers. Mold Filler And Drainer: Dr Nguyen accepts pt for consult. Wants MRCP, BMP and LFTs in AM (orders relayed to NICHOLAS Chapman). 04/19 14:59 Order name: CBC with Diff; Complete Time: 15:40 kb 04/19 14:59 Order name: CMP; Complete Time: 16:05 kb 04/19 14:59 Order name: Lipase; Complete Time: 16:05 kb 04/19 18:20 Order name: PT-INR; Complete Time: 19:27 kb 04/19 18:20 Order name: Ptt, Activated; Complete Time: 19:27 kb 04/19 18:21 Order name: Bilirubin, Direct; Complete Time: 19:31 kb 04/19 14:59 Order name: Abdomen Limited US; Complete Time: 17:25 kb 04/19 19:16 Order name: Cholangiogram EDMA 04/19 19:16 Order name: Cholangiogram EDMA 04/19 19:17 Order name: Dr Paul Consult EDMA 04/19 19:17 Order name: Dr Patrick Consult EDMA 04/19 14:59 Order name: IV Saline Lock; Complete Time: 15:33 kb 04/19 14:59 Order name: Labs collected and sent; Complete Time: 15:33 kb Administered Medications: 15:33 Drug: Famotidine IVP 20 mg IVP once; dilute with 10 mL 0.9% NaCl; give over 2 minutes jb4 Route: IVP; Site: right antecubital; 19:14 Follow up: Response: No adverse reaction rg5 15:33 Drug: NS 0.9% IV 1000 ml IV at 1 bolus Per protocol; to be given as a bolus over 60 jb4 minutes Route: IV; Rate: 1 bolus; Site: right antecubital; 19:14 Follow up: IV Status: Completed infusion; IV Intake: 1000ml rg5 15:34 Drug: TORadol - Ketorolac IVP 15 mg IVP once Route: IVP; Site: right antecubital; jb4 19:14 Follow up: Response: No adverse reaction; Pain is decreased rg5 15:34 Drug: Ondansetron IVP 4 mg IVP once; over 2 minutes Route: IVP; Site: right antecubital;jb4 19:14 Follow up: Response: No adverse reaction; Pain is decreased rg5 17:47 Drug: Piperacillin-Tazobactam IVPB 3.375 grams IVPB once over 60 mins; (mix in NS 100 jb4 mL) Route: IVPB; Infused Over: 60 mins; Site: right antecubital; 19:13 Follow up: IV Status: Completed infusion; IV Intake: 100ml rg5 Disposition: 15:11 I was immediately available on-site in the Emergency Department for consultation in the ms3 care of the patient. Disposition Summary: 04/19/25 17:40 Hospitalization Ordered Notes: Hospitalization Status: Inpatient Admission kb Provider: Darwin Chambers [facility] kb Condition: Stable kb Problem: new kb Symptoms: are unchanged kb Bed/Room Type: Standard Room Assignment: 228(04/19/25 20:08) rv1 Diagnosis - Acute cholecystitis kb - Abnormal results of liver function studies kb Forms: - Medication Reconciliation Form kb - SBAR form kb - Leadership Thank You Letter kb Signatures: Dispatcher [employer] Ananya Damon, OBI BARNEYP-Amrita Colon RN RN iw Bryson, James, RN RN jb4 Mikie Haley DO DO ms3 Gladys Vasquez rv1 Dung Mast RN RN rg5 Corrections: (The following items were deleted from the chart) 15:57 15:00 Test, Urine+UC.LAB.BRZ ordered. EDMS EDMS 18:21 18:21 BILIRUBIN, DIRECT+C.LAB.BRZ ordered. EDMS EDMS 20:08 17:40 kb rv1
--- NOTE | 2025-04-19 17:41 | ER ---
Nurse's Notes [facility] Name: Kacy Mishra Age: 29 yrs Sex: Female : 1995 Arrival Date: 04/19/2025 Time: 14:50 Bed 12 Private MD: Diagnosis: Acute cholecystitis;Abnormal results of liver function studies Presentation: 04/19 15:02 Chief complaint: Patient states: RLQ radiating to back. Coronavirus screen: At this iw time, the client does not indicate any symptoms associated with coronavirus-19. Ebola Screen: No symptoms or risks identified at this time. Initial Sepsis Screen: Does the patient meet any 2 criteria? No. Patient's initial sepsis screen is negative. Does the patient have a suspected source of infection? No. Patient's initial sepsis screen is negative. Risk Assessment: Do you want to hurt yourself or someone else? Patient reports no desire to harm self or others. 15:02 Acuity: DALIA 3 iw 15:02 Method Of Arrival: Ambulatory iw Historical: - Allergies: 15:48 No Known Allergies; jb4 - PSHx: 15:03 breast implants removed; pituitary tumor removed; iw - Immunization history:: Adult Immunizations unknown. - Infectious Disease History:: Denies. - Social history:: Smoking status: unknown. Screenin:15 [facility] ED Fall Risk Assessment (Adult) History of falling in the last 3 months, rg5 including since admission No falls in past 3 months (0 pts) Confusion or Disorientation No (0 pts) Intoxicated or Sedated No (0 pts) Impaired Gait No (0 pts) Mobility Assist Device Used No (0 pt) Altered Elimination No (0 pt) Score/Fall Risk Level 0 - 2 = Low Risk Oriented to surroundings, Maintained a safe environment. Abuse screen: Denies threats or abuse. Nutritional screening: No deficits noted. Tuberculosis screening: No symptoms or risk factors identified. Assessment: 15:24 General: Appears in no apparent distress. uncomfortable, Behavior is cooperative, jb4 crying. Pain: Complains of pain in right upper quadrant and right lower quadrant Pain radiates to right low back Pain currently is 10 out of 10 on a pain scale. Quality of pain is described as crampy. Neuro: Level of Consciousness is awake, alert, obeys commands, Oriented to person, place, time, situation. Cardiovascular: Patient's skin is warm and dry. Respiratory: Airway is patent Respiratory effort is even, unlabored, Respiratory pattern is regular, symmetrical. GI: Abdomen is flat, non-distended, Reports lower abdominal pain, upper abdominal pain, cramping, nausea, vomiting. Derm: Skin is intact, Skin is pink, warm \T\ dry. Musculoskeletal: Circulation, motion, and sensation intact. Range of motion: intact in all extremities. 16:53 Reassessment: Patient appears in no apparent distress at this time. Patient and/or jb4 family updated on plan of care and expected duration. Pain level reassessed. Patient is alert, oriented x 3, equal unlabored respirations, skin warm/dry/pink. Patient states feeling better. 19:15 General: Appears in no apparent distress. comfortable, Behavior is calm, cooperative, rg5 appropriate for age. Pain: Complains of pain in right upper quadrant Quality of pain is described as aching. Neuro: Level of Consciousness is awake, alert, obeys commands, Oriented to person, place, time, situation. Cardiovascular: Denies chest pain, Patient's skin is warm and dry. Respiratory: Airway is patent Respiratory effort is even, unlabored. GI: Bowel sounds present in left lower quadrant Abd is soft and non tender. : No signs and/or symptoms were reported regarding the genitourinary system. EENT: No signs and/or symptoms were reported regarding the EENT system. Derm: Skin is intact, Skin is normal, Skin temperature is warm. Musculoskeletal: Circulation, motion, and sensation intact. Range of motion: intact in all extremities. Vital Signs: 15:34 BP 102 / 68; Pulse 94; Resp 16; Pulse Ox 100% on R/A; jb4 17:05 BP 112 / 67; Pulse 68; Resp 16; Pulse Ox 100% on R/A; jb4 19:15 BP 96 / 60; Pulse 68; Resp 17; Pulse Ox 100% ; Pain 2/10; rg5 19:15 Pain Scale: Adult rg5 ED Course: 14:52 Patient arrived in ED. al6 14:52 [facility] Domin[facility]-C [facility]. kb 14:52 Mikie Haley DO is Attending Physician. kb 14:58 Amrita Walton, RN is Primary Nurse. iw 15:03 Triage completed. iw 15:24 Inserted saline lock: 18 gauge in right antecubital area, using aseptic technique. jb4 Blood collected. 15:24 No provider procedures requiring assistance completed. jb4 15:25 Abdomen Limited US In Process Unspecified. EDMS 15:34 CBC with Diff Sent. jb4 15:34 CMP Sent. jb4 15:34 Lipase Sent. jb4 17:40 Darwin Chambers is Hospitalizing Provider. kb 19:15 Patient admitted, IV remains in place. intact, No redness/swelling at site. rg5 19:15 Patient has correct armband on for positive identification. Bed in low position. Call rg5 light in reach. Side rails up X 1. Door closed. Noise minimized. Administered Medications: 15:33 Drug: Famotidine IVP 20 mg IVP once; dilute with 10 mL 0.9% NaCl; give over 2 minutes jb4 Route: IVP; Site: right antecubital; 19:14 Follow up: Response: No adverse reaction rg5 15:33 Drug: NS 0.9% IV 1000 ml IV at 1 bolus Per protocol; to be given as a bolus over 60 jb4 minutes Route: IV; Rate: 1 bolus; Site: right antecubital; 19:14 Follow up: IV Status: Completed infusion; IV Intake: 1000ml rg5 15:34 Drug: TORadol - Ketorolac IVP 15 mg IVP once Route: IVP; Site: right antecubital; jb4 19:14 Follow up: Response: No adverse reaction; Pain is decreased rg5 15:34 Drug: Ondansetron IVP 4 mg IVP once; over 2 minutes Route: IVP; Site: right antecubital;jb4 19:14 Follow up: Response: No adverse reaction; Pain is decreased rg5 17:47 Drug: Piperacillin-Tazobactam IVPB 3.375 grams IVPB once over 60 mins; (mix in NS 100 jb4 mL) Route: IVPB; Infused Over: 60 mins; Site: right antecubital; 19:13 Follow up: IV Status: Completed infusion; IV Intake: 100ml rg5 Medication: 19:15 VIS not applicable for this client. rg5 Intake: 19:13 IV: 100ml; Total: 100ml. rg5 19:14 IV: 1000ml; Total: 1100ml. rg5 Outcome: 17:40 Decision to Hospitalize by Provider. kb 19:15 Admitted to ER Hold. Please see [facility] for further documentation. rg5 19:15 Condition: stable 19:15 Instructed on the need for admit, 21:02 Patient left the ED. rg5 Signatures: Dispatcher [employer] EDAnanya Vyas, TELEGRAPHER AGENT-C TELEGRAPHER AGENT-CkAmrita Mcqueen RN RN iw Zeyad Puente RN RN jb4 Dung Mast RN RN rg5 Judy Quintanilla
--- NOTE | 2025-04-19 19:19 | P.HP ---
Certification for Inpatient Patient admitted to: Inpatient With expected LOS: >2 Midnights Patient will require the following post-hospital care: None Practitioner: I am a practitioner with admitting privileges, knowledge of patient current condition, hospital course, and medical plan of care. Services: Services provided to patient in accordance with Admission requirements found in Title 42 Section 412.3 of the Code of Federal Regulations Patient History Date of Service: 04/19/25 Reason for admission: Acute cholecystitis. 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 Patient presents to ER complaining of severe abdominal pain right upper quadrant associated with nausea but no vomiting. Patient states yesterday midnight, she started having severe abdominal pain, she states initially she thought it was just gas, but during the day the pain progressively worsened still with associated nausea, with no chest pain or shortness of breath, states due to the severity of the pain that prompted her to report to ER. Patient workup in the ER ultrasound abdomen impression of acute cholecystitis. According to report received from ER practitioner FIELD SUPERINTENDENT, she states she consulted both Dr. Miller, and Dr. Nguyen, and they requested to have MRCP, BMP, and LFT done in the morning, also requested patient to be n.p.o and to start patient on Zosyn.. On admission assessment, patient still endorses right upper quadrant abdominal pain, with rebound tenderness, and guarding. Course in ER. (1) ultrasound abdomen. Impression: Gallbladder distention with sludge and mild pericholecystitis fluid/edema, concerning for acute cholecystitis. Allergies No Known Drug Allergies Allergy (Verified 04/20/25 01:16) Unknown Home Medications: NK [No Home Meds] 11/28/14 - Past Medical/Surgical History -: Brain tumor. -: Breast implants and removal. -: Pituitary tomorrow move 2018. - Social History Smoking Status: Never smoker Alcohol use: No CD- Drugs: No Caffeine use: No Place of Residence: Home Review of Systems 10-point ROS is otherwise unremarkable Gastrointestinal: Nausea, Abdominal Pain Physical Examination - Physical Exam General: Alert, In no apparent distress, Oriented x3, Cooperative HEENT: Atraumatic, Normocephalic, PERRLA, Mucous membr. moist/pink, Sclerae nonicteric Neck: Supple, 2+ carotid pulse no bruit, JVD not distended, No Thyromegaly, No LAD Respiratory: Clear to auscultation bilaterally, Normal air movement Cardiovascular: No edema, Normal pulses, Regular rate/rhythm, Normal S1 S2, Abnormal S3, No gallops, No rubs, No murmurs Capillary refill: <2 Seconds Gastrointestinal: Normal bowel sounds, Hypoactive, Soft and benign, Non- distended, W/out hepatomegaly, No ascites, No tenderness, No masses, No rebound, No guarding Musculoskeletal: No clubbing, No swelling, No contractures, No erythema, No tenderness, No warmth Integumentary: No rashes, No breakdown, No significant lesion, No tenderness/swelling, No erythema, No warmth, No cyanosis Neurological: Normal gait, Normal speech, Normal strength at 5/5 x4 extr, Normal tone, Sensation intact, Cranial nerves 3-12 intact, Normal reflexes 2+, Normal affect Lymphatics: No axilla or inguinal lymphadenopathy - Studies Laboratory Data (last 24 hrs) 04/19/25 04/19/25 15:24 15:24 WBC 8.50 Hgb 13.3 Hct 39.8 Plt Count 328 Sodium 140 Potassium 3.9 BUN 13 Creatinine 1.00 Glucose 105 Total Bilirubin 3.0 H AST 551 H ALT 430 H Alkaline Phosphatase 99 Lipase 84 H Female Exam - Breasts Breasts: Normal configuration, Normal contours, Symmetrical Assessment and Plan - Plan Patient is a 29-year-old female who reports to ER complaining of severe abdominal pain, patient ultrasound abdomen impression positive for acute cholecystitis. (1)Acute cholecystitis. -Consult surgery Dr. Millre. -Consult GI Dr. Nguyen. -Order MRCP in AM. -NPO after midnight. -Morphine 4 mg IV as needed every 4 hours. -Zofran 4 mg IV as needed every 4 hours. -Zosyn 3.375 g IV every 8 hours. -IV D5 half NS at 100 mL/ hr. -Order LFT, and BMP in the morning. (2)Explained the entire treatment plan to the patient, solicited questions answered and voiced understanding. Discharge Plan: Home Plan to discharge in: Greater than 2 days - Advance Directives Does patient have a Living Will: No Does patient have a Durable POA for Healthcare: No - Code Status/Comfort Care Code Status Assessed: Yes Code Status: Full Code Critical Care: No Time Spent Managing Pts Care (In Minutes): 55
[2025-04-19 19:26] LABS: PT Prothrombin Time 12.9 SECONDS (10-13.0); PTT, Activated Partial Thromb 28.4 SECONDS (27.2-37.4); Protime INR 1.15
[2025-04-19] MEDS: D5 0.45 NS 1,000 ML IV SCH (20:00)
[2025-04-19 21:39] VITALS: BMI 24.8
[2025-04-20] MEDS: PIPER TAZO 3.375 GM in NA CHLORIDE 0.9% 100 ML IV SCH (01:03)
[2025-04-20 05:48] LABS: Absolute Lymphocytes (CBC) 1.7 K/uL (0.7-4.9); Hematocrit 34.6 % (36.0-45.0); Hemoglobin 11.6 g/dL (12.0-15.0); MCH 28.6 pg (27.0-35.0); MCHC 33.4 g/dL (32.0-36.0); MCV 85.5 fL (80-100); MPV 8.4 fL (7.6-11.3); Nucleated RBC Absolute Count 0.0 (0-0); Nucleated Red Blood Cells % 0.0 % (0-0); RBC Red Blood Cell Count 4.05 M/uL (3.86-4.86); White Blood Count 5.40 thou/uL (4.3-10.9)
[2025-04-20 06:07] LABS: ALT/SGPT 457.0 U/L (13-56); AST/SGOT 310.0 U/L (15-37); Albumin 3.2 g/dL (3.4-5.0); Albumin/Globulin Ratio 1.0 (1.1-1.8); Alkaline Phosphatase 101.0 U/L (45-117); Anion Gap 4.8 mEq/L (5.0-15.0); BUN Blood Urea Nitrogen 10.0 mg/dL (7-18); Bilirubin Indirect, Calculated 1.6 mg/dL (0.2-0.8); Globulin 3.3 g/dL (2.3-3.5); Glucose Level 97.0 mg/dL (74-106); Magnesium 2.0 mg/dL (1.6-2.4); Potassium 3.8 mEq/L (3.5-5.1)
--- NOTE | 2025-04-20 09:48 | RAD REPORT ---
EXAMINATION: MR CHOLANGIOGRAM CLINICAL INDICATION: Female, 29 years old. [facility] Acute Cholecystitis TECHNIQUE: Multiplanar, multisequence MR imaging of the abdomen without intravenous contrast, and wit h specific attention to the biliary system. Unless otherwise specified, incidental findings do not require dedicated imaging follow-up. 3D MIP reconstruction performed. COMPARISON: Ultrasound 04/19/2025 FINDINGS: GALLBLADDER: Moderate distention. No stones, or wall thickening. Mild Pericholecystic fluid. Layering hypointense material dependently at the neck on axial T2 images, suggesting sludge. BILE DUCTS: No biliary ductal dilatation. Common bile duct measures 5 mm in caliber. No filling defec ts. LIVER: Normal in size, contour, and signal without evidence of fatty infiltration or iron deposition. No focal lesion. PANCREAS: Normal signal. No mass, ductal dilation, or yesica-pancreatic fluid. SPLEEN: Normal size. No focal lesion. ADRENALS: Normal; no mass. KIDNEYS: Normal size and contour. No hydronephrosis. LYMPH NODES: No lymphadenopathy. ADDITIONAL FINDINGS: None. IMPRESSION: Moderate gallbladder distention with mild pericholecystic fluid. Please correlate clinically for acut e cholecystitis. Mild dependent sludge. No intra or extrahepatic biliary ductal dilation. No findings to suggest cholelithiasis.
--- NOTE | 2025-04-20 18:25 | P.PN ---
Subjective Date of Service: 04/20/25 Chief Complaint: Acute cholecystitis. Patient reports significant improvement in her abdominal pain. She denies any nausea vomiting. No fever recorded. Physical Examination - Vital Signs Temperature: 98.3 F Blood Pressure: 106/59 Pulse: 64 Respirations: 14 Pulse Ox (%): 99 Assessment And Plan - Plan Physical examination General: Alert and oriented x 3, NAD, HEENT: Conjunctiva not pale, anicteric sclera Neck: Supple, no elevated JVD Heart: Heart sounds 1 and 2 normal, regular rhythm, normal rate, no pedal edema Lungs: Clear to auscultation bilaterally, adequate breath sounds bilaterally, no rhonchi or crackles. Abdomen: Soft, nondistended, mild right upper quadrant tenderness, no rebound tenderness or guarding, normal bowel sounds. Extremities: No tenderness, no deformity Skin: Normal skin turgor, no rash, no nodules or ulcers. Neuro: No focal motor deficit. Normal speech. Psychiatry: Normal mood, no agitation. Diagnosis Acute cholecystitis Gallbladder sludge Elevated LFTs Hyperbilirubinemia Plan: GI Dr. Nguyen and general surgery Dr. Miller consult MRCP result reviewed, no CBD stone or CBD dilatation. MRCP confirmed pericholecystic fluid, gallbladder distention and sludge AST/ALT and bilirubin trended down, direct bilirubin significantly improved, ALP is normal. Dr. Nguyen is to follow. Dr. Miller is considering lap cholecystectomy after confirming with Dr. Nguyen that the patient does not need ERCP. Continue empiric IV Zosyn Supportive measures with antiemetics and analgesics as needed Continue IV hydration Monitor CMP and CBC DVT prophylaxis: SCD pending surgical procedures.
--- NOTE | 2025-04-20 19:06 | CON ---
Date of Consultation: 04/20/2025 Diagnoses: Acute abdominal pain, increased liver enzymes. 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 She said that she ate some lasagna before that. This was associated with nausea. It got worse. Came to the ER. She denies any dysuria, hematuria, hematochezia, or melena. She denies any recent traveling out of the country. Denies any family member sick at home. Allergies: NONE. Past Medical History: The patient has history of pituitary tumor removed 2019. She claimed there is a new pituitary tumor forming too. Past Surgical History: Include once again pituitary tumor removal 2019, breast implant and removal. Social History: She does not smoke. She does not drink alcohol. Family History: Noncontributory. Review of Systems: Nausea, abdominal pain. Review of Systems: 10 points otherwise unremarkable. See above. Physical Examination: Vital Signs: Reviewed. General: The patient is awake and alert. No distress. Oriented x3. HEENT: Pupils are equal and reactive. Anicteric. Neck: Supple. Chest: Clear. Heart: S1, S2. Abdomen: Epigastric right upper quadrant pain. Softly distended. Extremities: Good capillary refill. Breasts: Deferred. Rectal: Deferred. Pelvic: Deferred. Laboratory Data: Blood work: WBC count of 5.4, hemoglobin of 11.6, and platelets of 248. INR is 1. 15. The bilirubin always had been elevated direct bilirubin is 0.8, AST 551, ALT 430, alk eduardo phosphate 99, lipase is 84. Ultrasound of the abdomen shows gallbladder distention with sludge , mild pericholecystic fluid concerning for acute cholecystitis. Prominent bile duct to 9 mm. MRCP recommended. MRCP done today, interpreted by Dr. Campo as moderate distention of the gallbladder. There is no evidence of stones or wall thickening. Mild pericholecystic fluid is present sludge. The biliary ducts did not see any dilatation in this study. No filling defects. Assessment: 29-year-old patient, no major stones in the gallbladder, some sludge present. Still LFT s elevated, bilirubin, AST and ALT. We want the GI input on this one. She might have more than one reason to have LFTs elevated or blockage of the common bile duct, does not have to be stones. We are going to request an ERCP in this patient to evaluate the biliary system. We already explained to he r after evaluation with Dr. Nguyen, we may schedule laparoscopic possible open cholecystectomy with b enefits, alternatives, and risks including, but not limited to, infection, bleeding, damage to adjace nt structures, anesthesia complication, choledocholithiasis, bile leak, pancreatitis, AK, and even de ath. She also understands this may not relieve any symptoms, she might need more than one surgical i ntervention. TSERING/ALISSA Voice ID: [id number] Report ID: [id number]
[2025-04-21 04:51] LABS: Absolute Lymphocytes (CBC) 1.8 K/uL (0.7-4.9); Hematocrit 34.6 % (36.0-45.0); Hemoglobin 11.6 g/dL (12.0-15.0); MCH 28.6 pg (27.0-35.0); MCHC 33.6 g/dL (32.0-36.0); MCV 85.1 fL (80-100); MPV 8.6 fL (7.6-11.3); Nucleated RBC Absolute Count 0.0 (0-0); Nucleated Red Blood Cells % 0.0 % (0-0); RBC Red Blood Cell Count 4.06 M/uL (3.86-4.86); White Blood Count 5.90 thou/uL (4.3-10.9)
[2025-04-21] MEDS: POTASSIUM CL SA 10 MEQ TAB PO ONE (08:27)
--- NOTE | 2025-04-21 10:50 | P.PN ---
Subjective Date of Service: 04/21/25 Chief Complaint: Acute cholecystitis. Patient denies any new complaints today. No recorded fever Physical Examination - Vital Signs Temperature: 98.3 F Blood Pressure: 106/59 Pulse: 64 Respirations: 14 Pulse Ox (%): 99 Assessment And Plan - Plan Physical examination General: Alert and oriented x 3, NAD, HEENT: Anicteric sclera Heart: Heart sounds 1 and 2 normal, regular rhythm, normal rate, no pedal edema Lungs: Clear to auscultation bilaterally, adequate breath sounds bilaterally, no rhonchi or crackles. Abdomen: Soft, nondistended, mild right upper quadrant tenderness, no rebound tenderness or guarding, normal bowel sounds. Extremities: No tenderness, no deformity Skin: Normal skin turgor, no rash. Neuro: No focal motor deficit. Psychiatry: Normal mood. Diagnosis Acute cholecystitis Gallbladder sludge Elevated LFTs Hyperbilirubinemia Plan: GI Dr. Nguyen and general surgery Dr. Miller are following MRCP result reviewed, no CBD stone or CBD dilatation. MRCP confirmed pericholecystic fluid, gallbladder distention and sludge LFTs trending down Dr. Miller is planning lap cholecystectomy today Continue empiric IV Zosyn Continue IV hydration Monitor CMP and CBC DVT prophylaxis: SCD pending surgical procedures.
[2025-04-21 11:43] LABS: ALT/SGPT 312.0 U/L (13-56); AST/SGOT 101.0 U/L (15-37); Albumin 3.6 g/dL (3.4-5.0); Albumin/Globulin Ratio 0.9 (1.1-1.8); Alkaline Phosphatase 98.0 U/L (45-117); Anion Gap 7.5 mEq/L (5.0-15.0); BUN Blood Urea Nitrogen 8.0 mg/dL (7-18); Globulin 3.8 g/dL (2.3-3.5); Glucose Level 92.0 mg/dL (74-106); Potassium 3.5 mEq/L (3.5-5.1)
[2025-04-21] MEDS ORDERED: KETOROLAC 30 MG/ML INJ ONE (12:30)
[2025-04-21] MEDS ORDERED: GLYCOPYRROLATE 0.2 MG/ML SYR ONE (12:30)
[2025-04-21] MEDS ORDERED: LIDOCAINE 1% MPF 5 ML VIAL ONE (12:30)
[2025-04-21] MEDS ORDERED: ROCURONIUM 50 MG/5 ML VIAL IV ONE (12:30)
[2025-04-21] MEDS ORDERED: ONDANSETRON 4 MG/2 ML VIAL ONE (12:30)
[2025-04-21] MEDS ORDERED: FENTANYL CITR 100 MCG/2 ML ONE (12:30)
[2025-04-21] MEDS ORDERED: MIDAZOLAM HCL 2 MG/2 ML INJ ONE (12:30)
[2025-04-21] MEDS: Ringers Lactate 1,000 ML IV ONE (13:16)
[2025-04-21] MEDS ORDERED: Mastisol Adhesive Liq ONE (14:32)
--- NOTE | 2025-04-21 14:34 | P.BOP ---
Preoperative diagnosis: acute cholecystitis, symptomatic cholelithiasis Postoperative diagnosis: same Primary procedure: Laparoscopic cholecystectomy with intraoperative cholangiogram Estimated blood loss: <10cc Specimen: gb Findings: multiple gallstones identify inside the gallbladder, edematous gallbladder Anesthesia: General Complications: None Transferred to: Recovery Room Condition: Good
[2025-04-21] MEDS: HYDROMORPHONE HCL 0.5 MG/0.5 ML INJ ONE ×2 (15:14→15:25)
[2025-04-21 15:20] VITALS: O2SAT 99
--- NOTE | 2025-04-21 16:07 | P.PN ---
Subjective Date of Service: 04/21/25 Chief Complaint: Acute cholecystitis, cholelithiasis (sludge), RUQ pain, N/V Subjective: Improving (S/p lap ramo in PACU. Doing well post-op.) Physical Examination - Vital Signs Temperature: 97.9 F Blood Pressure: 108/53 Pulse: 59 Respirations: 18 Pulse Ox (%): 97 - Physical Exam General: Alert, In no apparent distress, Oriented x3, Cooperative HEENT: Atraumatic, Normocephalic, PERRLA, EOMI Neck: Supple Respiratory: Normal air movement Cardiovascular: Normal pulses Gastrointestinal: Tenderness (Mild post-op tenderness) Neurological: Normal speech, Normal strength at 5/5 x4 extr Assessment And Plan - Current Problems (Diagnosis) (1) Cholecystitis, acute Current Visit: Yes Status: Acute (2) Cholelithiasis Current Visit: Yes Status: Acute (3) Abnormal ultrasound of abdomen Current Visit: Yes Status: Acute (4) Abnormal magnetic resonance cholangiopancreatography (MRCP) Current Visit: Yes Status: Acute Comment: sludge in GB with GB wall thickening -> c/w cholecystitis, no stones / sludge in CBD. Indirect bilirubin 1.6, total bilirubin 2.4, direct bilirubin 0.8, & alk phos 101 (5) RUQ abdominal pain Current Visit: Yes Status: Acute (6) Nausea & vomiting Current Visit: Yes Status: Acute - Plan REC: 1) post-op diet as per surgery 2) continue IVFs and IV antibiotics
--- NOTE | 2025-04-21 16:25 | RAD REPORT ---
EXAM: Fluoroscopy use, Cholangiogram Oper-Xray Or HISTORY: IOC COMPARISON: None FINDINGS: A total of 16 images were sent to PACS, during a fluoroscopically guided intraoperative cho langiogram. No radiologist was involved in protocoling or performance of the study, and no radiologist was present for the duration of the procedure. No interpretation of the saved images will be provided. Total fluoroscopy time: 0.8 minutes. Cumulative dose: 17.4 mGy IMPRESSION: Documentation of fluoroscopy use as above.
[2025-04-21] MEDS: HYDROCODONE/APAP 5/325 MG TAB PO PRN (16:27)
[2025-04-21] MEDS: ONDANSETRON 4 MG/2 ML VIAL IV PRN (16:27)
[2025-04-21] MEDS: MORPHINE 4 MG/ML SYR IV PRN (19:37)
--- NOTE | 2025-04-21 19:42 | CON ---
Date of Consultation: 04/20/2025 Reason For Consultation: Right upper quadrant pain, and nausea and vomiting with cholecystitis and c holelithiasis. History Of Present Illness: This patient is a 29-year-old female with history of pituitary tumor with hyperprolactinemia, status post surgery in 2018 with recurrence in 2024, breast implants, status post removal of these breast implants in 2020. The patient presented to the hospital with rig ht upper quadrant pain maximum 8/10, now none, which was associated with nausea, vomiting, and found to have on ultrasound possible sludge in the gallbladder. MRCP revealed no stone or sludge in the ga llbladder, however. Ultrasound did reveal gallbladder distention with sludge and some mild perichole cystic fluid consistent with acute cholecystitis. The common bile duct was 9 mm and MRCP recommended . Subsequent MRCP which we ordered revealed moderate gallbladder distention with mild pericholecysti c fluid consistent with cholecystitis and there was some sludge as well. I see sludge in the gallbla dder, but none in the common bile duct. There was no intrahepatic or extrahepatic biliary dilatation on the MRCP. Past Medical History: Significant for pituitary tumor and with a prolactinoma. She had a brain surg palu to remove this in 2017. She had a recurrence that was noted in [place] at tertiary center in . She has history of breast implants that were removed in 2020. Allergies: NKDA. Home Medications: She was on the prolactinoma medication called Social History: She is . 2 children, son and a daughter. No tobacco. No alcohol. 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 Family History: Father is alive and well. Mother is alive with diabetes and hypertension. Review of Systems: She has right upper quadrant pain, nausea, and vomiting. She denies any change in bowel habits, diar madelyn, constipation, fevers, chills, family history of gallbladder disease, or other. No chest pain, shortness of breath, seizure, syncope, muscle aches, joint aches, backaches, melena, hematochezia, me bud, coffee-ground hematuria, dysuria, polyuria, polydipsia. No depression or anxiety. Physical Examination: Vital Signs: She is 5 feet 6 inches, 154 pounds, BMI of 24.9 kg/sq m. She has a temperature 98.8 Fa hrenheit, pulse 60, respirations 16, blood pressure 105/59, O2 saturation 100% on room air. General: She is a well-nourished, well-developed female, lying in bed, in no acute distress. HEENT: Normocephalic, atraumatic. Anicteric. Pupils equal, round, and reactive to light. Extraocu lar movements are intact. Oropharynx is clear. Neck: Supple. No masses. Respirations: Clear to auscultation bilaterally. Cardiac: Regular rate and rhythm. No gallop or rub. Gastrointestinal: Positive bowel sounds. Soft. Some right upper quadrant tenderness. s ign but no rebound. Extremities: No clubbing, cyanosis, or edema. 2+ pulses. Neuro: Alert and oriented x3. Grossly nonfocal. 5/5 motor strength. Sensation is intact to light touch. Laboratory Data: The patient has white count of 5.4, down from 8.5 yesterday, hemoglobin 11.6, down from 13.3 yesterday, hematocrit 35, MCV of 86, platelet count 248, polys of 56%, down from 81% yester day, lymphocytes 32%, monocytes 7%, eosinophils 4%, PT of 12.9, INR of 1.15, PTT of 28.4. The patien t has sodium 144, potassium 3.8, chloride 112, bicarb 31, BUN of 10, creatinine of 0.95, glucose of 9 7, calcium 8.6, magnesium 2.0, total bilirubin 2.4, direct bilirubin of 0.8, indirect of 1.6, AST of 310 down from 551 yesterday, ALT of 457 up from 430 yesterday, alkaline phosphatase 101, total protei n 6.5, albumin 3.2, lipase 84. Ultrasound of abdomen reveals sludge in gallbladder. Mild gallbladde r wall thickening consistent with acute cholecystitis. Common bile duct at 9 mm, and subsequent MRCP revealed no intra or extrahepatic biliary dilatation. There was no sludge or stones in the common b ile duct. There was sludge in the gallbladder with gallbladder wall thickening consistent with ramo cystitis again and cholelithiasis. Impression: 1. Cholelithiasis and cholecystitis. Patient has sludge in the gallbladder and gallbladder wall thic kening on ultrasound and MRCP. The MRCP did not show any stone or sludge in the common bile duct or biliary tree. The patient reported right upper quadrant pain, 8/10 maximum, now down to none, with a ssociated nausea and vomiting. She denied any fevers, chills, night sweats, change in bowel habits, diarrhea, constipation, family history of gallbladder disease, or other. 2. History of pituitary tumor with prolactinoma had brain surgery for this in 2017, with r esection of recurrence in 2024. She has a history of breast implants, breast implants removal in . Recommendations: 1. Continue IV fluids, IV antibiotics, and continue p.r.n. pain medicines, antiemetics. 2. Laparoscopic cholecystectomy as per Surgery. Negative MRCP for biliary stone or sludge in common bile duct and also bilirubin is mainly indirect 1.8 on indirect out of 2.4 total and alkaline phospha tase is normal, suggesting maybe inability to conjugate bilirubin such as with Gilbert syndrome. WS/MODL Voice ID: [id number] Report ID: [id number]
--- NOTE | 2025-04-21 21:47 | OP ---
Date of Procedure: 04/21/2025 Surgeon: Ramiro Miller MD Preoperative Diagnoses: Acute cholecystitis, symptomatic cholelithiasis, increased hepatic enzymes. Postoperative Diagnoses: Acute cholecystitis, symptomatic cholelithiasis, increased hepatic enzymes. Procedure: Laparoscopic cholecystectomy with an intraoperative cholangiogram. Estimated Blood Loss: Less than 10 cc. Specimen: Gallbladder. Findings: When we opened the gallbladder, there were multiple tiny gallstones present. The cholangi ogram shows good flow into the duodenum and I did not see at least any obvious filling defects. This will be sent to the radiologist for final evaluation. Anesthesia: General plus local. Complications: None. Indications: This is a case of a 29-year-old patient who came to us with acute cholecystitis. Even though the ultrasound shows what it claims sludge, the hepatic enzymes are elevated and there must be some connection between gallstones. We could not reproduce the findings of common bile duct stones, but still I believe since the LFTs were elevated, a laparoscopic cholecystectomy with IOC should be done. The benefits, alternatives, and risks of laparoscopic possible open cholecystectomy fully expl ained to the patient which include, but not limited to, infection, bleeding, damage to adjacent struc tures, anesthesia complication, pancreatitis, HI, and even . She also understands this may not relieve any symptoms, she might need more than one surgical intervention. We also explained to her w e might do an intraoperative cholangiogram, depends on the results and she might need further managem ent with ERCP in the future. She understood that plan and signed a consent. Description Of Procedure: The patient was brought to the operating room, placed in the supine positi on. Anesthesia was induced without complication. Abdominal area was prepped and draped in the usual sterile fashion. Local anesthesia was applied followed by sharp incision of the skin in the infraum bilical region. Incision was carried down to fascia, which was opened under direct vision. Peritone um was encountered, opened under direct vision. Vicryl #1 placed inside the fascia. Raymond trocar w as carefully introduced. Pneumoperitoneum was obtained. After I placed Vicryl #1 inside of the fasc ia, then we proceeded to inspect the area of the gallbladder. It looked so swollen. A grasper was p laced in the fundus of the gallbladder, another grasper in the infundibulum, retracting the gallbladd er in the inferolateral fashion exposing the triangle of Calot, and obtaining critical view. A small staple was placed in the proximal part of the gallbladder. A small incision was made in the cystic duct. A cholangiogram catheter was placed in that area inside the cystic duct and then after that, I proceeded to perform an intraoperative cholangiogram with the flow going nice and smooth, going to t he proximal and distal common bile duct into the hepatic area and on looking go into duodenum. I did not see any pressure in that region. At that moment, I proceeded then to remove the balloon and the n put 2 clips distal, ligation in the middle. Same was done with the cystic artery. Common bile dejuan ts were protected at all times. Hepatic arteries were protected at all times. At that moment, I pro ceeded to remove the gallbladder from the liver using Bovie cauterizer and removed it from the abdomi nal cavity using an EndoCatch through an umbilical incision. We inspected the gallbladder. It looke d like it had stones inside there and again they were not visualized properly on the ultrasound. So, we once again went back to the area, made sure we had complete hemostasis and no bile leak. Clips w ere intact. At that moment, I proceeded to remove the trocars under direct vision. Deflated the pne umoperitoneum. Closed the fascia with #1 Vicryl, irrigated subcutaneous tissue, closed that with 3-0 chromic and the skin in a subcuticular fashion with 3-0 Monocryl and Steri-Strips on top. Sponge c ounts and instrument counts were correct. The patient tolerated the procedure well. The patient sent to recovery in stable condition . TSERING/ALISSA Voice ID: [id number] Report ID: [id number]
[2025-04-21] MEDS ORDERED: SODIUM CHLORIDE 0.9% 10ML INJ IV PRN ×2 (22:05→22:07)
[2025-04-21] MEDS: PANTOPRAZOLE 40 MG INJ IVP ONE (22:22)
[2025-04-21] MEDS: KETOROLAC 30 MG/ML INJ IV PRN (22:33)
[2025-04-22 05:45] LABS: Absolute Lymphocytes (CBC) 1.0 K/uL (0.7-4.9); Hematocrit 32.5 % (36.0-45.0); Hemoglobin 11.4 g/dL (12.0-15.0); MCH 29.6 pg (27.0-35.0); MCHC 35.1 g/dL (32.0-36.0); MCV 84.3 fL (80-100); MPV 8.5 fL (7.6-11.3); Nucleated RBC Absolute Count 0.0 (0-0); Nucleated Red Blood Cells % 0.0 % (0-0); RBC Red Blood Cell Count 3.86 M/uL (3.86-4.86); White Blood Count 9.20 thou/uL (4.3-10.9)
[2025-04-22 06:00] LABS: ALT/SGPT 220.0 U/L (13-56); AST/SGOT 75.0 U/L (15-37); Albumin 3.1 g/dL (3.4-5.0); Albumin/Globulin Ratio 0.9 (1.1-1.8); Alkaline Phosphatase 83.0 U/L (45-117); Anion Gap 6.7 mEq/L (5.0-15.0); BUN Blood Urea Nitrogen 6.0 mg/dL (7-18); Globulin 3.5 g/dL (2.3-3.5); Glucose Level 120.0 mg/dL (74-106); Potassium 3.7 mEq/L (3.5-5.1)
[2025-04-22] MEDS: FLU (Fluarix) 25-26 (6MOS UP)/PF 45 MCG/0.5 ML Syringe IM ONE (07:15)
[2025-04-22] MEDS: PANTOPRAZOLE 40 MG INJ IVP SCH (08:24)
[2025-04-22] MEDS: POTASSIUM CL SA 10 MEQ TAB PO ONE (08:24)
--- NOTE | 2025-04-22 09:05 | P.DS ---
Admission Date: 04/19/25 Discharge Date: 04/22/25 Disposition: ROUTINE DISCHARGE Discharge Condition: FAIR Reason for Admission: Acute cholecystitis, cholelithiasis (sludge), RUQ pain, N/V Brief History of Present Illness: 29-year-old female with past medical history of pituitary tumor that was removed 2018, presented to the ER complaining of right upper quadrant abdominal pain with associated nausea. Patient workup in the ER with ultrasound abdomen showed gallbladder sludge with pericholecystic fluid suggestive of acute cholecystitis. General surgery Dr. Miller, and GI Dr. Nguyen were contacted, hospitalization for MRCP and further management recommended. Patient was admitted for further management. * Hospital Course: Diagnosis Acute cholecystitis Gallbladder sludge Elevated LFTs Hyperbilirubinemia Patient admitted to the medical floor, seen by GI Dr. Nguyen and general surgery Dr. Miller. MRCP was done which showed no CBD stone or CBD dilatation. MRCP confirmed pericholecystic fluid, gallbladder distention and sludge LFTs were elevated however, ALP normal. Direct bilirubin was only slightly elevated. Dr. Miller performed lap cholecystectomy with IntraOp cholangiogram, no CBD obstruction. Liver enzymes improved, hyperbilirubinemia resolved. Patient received empiric Zosyn and IV hydration Patient deemed stable for discharge per Dr. Miller. She is discharged with oral [place] and Augmentin She is informed to follow-up with Dr. Miller within a week. Vital Signs/Physical Exam: Temp Pulse Resp BP Pulse Ox 97.9 F 65 14 115/66 98 04/22/25 08:00 04/22/25 08:00 04/22/25 08:00 04/22/25 08:00 04/22/25 08:00 General: Alert, In no apparent distress, Oriented x3 Neck: JVD not distended Respiratory: Clear to auscultation bilaterally, Normal air movement Cardiovascular: Regular rate/rhythm, Normal S1 S2 Gastrointestinal: Normal bowel sounds, Soft and benign Musculoskeletal: No swelling Integumentary: No rashes, No cyanosis Neurological: Normal strength at 5/5 x4 extr Laboratory Data at Discharge: WBC 9.20 thou/uL (4.3-10.9) 04/22/25 05:15 Hgb 11.4 g/dL (12.0-15.0) L 04/22/25 05:15 Hct 32.5 % (36.0-45.0) L 04/22/25 05:15 Plt Count 284 thou/uL (152-406) 04/22/25 05:15 PT 12.9 SECONDS (10-13.0) 04/19/25 19:10 INR 1.15 04/19/25 19:10 APTT 28.4 SECONDS (27.2-37.4) 04/19/25 19:10 Sodium 139 mEq/L (136-145) 04/22/25 05:15 Potassium 3.7 mEq/L (3.5-5.1) 04/22/25 05:15 BUN 6 mg/dL (7-18) L 04/22/25 05:15 Creatinine 0.78 mg/dL (0.55-1.02) 04/22/25 05:15 Glucose 120 mg/dL (74-106) H 04/22/25 05:15 Magnesium 2.0 mg/dL (1.6-2.4) 04/21/25 04:23 Total Bilirubin 0.8 mg/dL (0.2-1.0) 04/22/25 05:15 AST 75 U/L (15-37) H 04/22/25 05:15 ALT 220 U/L (13-56) H 04/22/25 05:15 Alkaline Phosphatase 83 U/L (45-117) 04/22/25 05:15 Lipase 84 U/L (13-75) H 04/19/25 15:24 Home Medications: Amox/Clavulanate [Augmentin 875-125 Tab] 1 each PO BID #14 tab 04/22/25 Hydrocodone 5/APAP 325 [[place] 5/325*] 1 tab PO Q4H PRN #20 tab 04/22/25 Mag Hydrox/Al Hydrox/Simeth [Maalox Suspension] 30 ml PO TID PRN #355 ml 04/22/25 New Medications: Amox/Clavulanate [Augmentin 875-125 Tab] 1 each PO BID #14 tab Mag Hydrox/Al Hydrox/Simeth [Maalox Suspension] 30 ml PO TID PRN #355 ml PRN Reason: Heartburn Hydrocodone 5/APAP 325 [[place] 5/325*] 1 tab PO Q4H PRN #20 tab PRN Reason: Pain Scale 5-7 (Moderate) Diet: Regular Activity: Ad kandis Followup: NONE,NONE [Primary Care Provider] - Ramiro Miller MD [ACTIVE - CAN ADMIT] - 1 Week Time spent managing pt's care (in minutes): 34
[2025-04-22] MEDS: KETOROLAC 30 MG/ML INJ IV ONE (11:00)
[2025-04-22] MEDS: MAGNES/ALUMIN/SIMET 30ML UCUP PO SCH (11:03)
[2025-04-22 12:07] VITALS: BP 104/59; TEMP 98
--- NOTE | 2025-04-22 17:52 | PN ---
Date of Progress Note: 04/22/2025 Diagnoses: Acute cholecystitis, symptomatic cholelithiasis, increased liver enzymes. The patient burr d a laparoscopic cholecystectomy with intraoperative cholangiogram yesterday. Subjective: The patient is doing well. No complaint. Tolerating diet. Objective: Abdomen: Soft and depressible. Extremities: Good capillary refill. No calf tenderness. Laboratory Data: Total bilirubin of 0.8 and alkaline phosphatase is normal at 83. AST came down to 75 from 500 and ALT to 220 from 400. Plan: From the surgical standpoint, she is okay from our standpoint to be discharged home, follow wi th her stacker and sorter operator for her liver enzymes. No heavy lifting. Follow up in my office at the en d of next week. She is going to go home on p.o. antibiotics and pain medication. During the procedu re, we noticed small gallstones and also inflammation of the gallbladder consistent with cholecystiti s. TSERING/MODL Voice ID: [id number] Report ID: [id number]
== END 2025-04-22 15:39 | disposition home or self-care (01) | DRG 419 ==
LOC: ER 14:50 → ERHOLD 19:09 → 2ND 20:43
PROVIDERS: ADMIT Internal Medicine; ATTEND Internal Medicine
PROC: BF121ZZ Fluoroscopy of Gallbladder using Low Osmolar Contrast (ICD-10-PCS; 2025-04-21)
PROC: 0FT44ZZ Resection of Gallbladder, Percutaneous Endoscopic Approach (ICD-10-PCS; principal; 2025-04-21 12:30)
DX: K80.00 Calculus of gallbladder with acute cholecystitis without obstruction (principal); E80.6 Other disorders of bilirubin metabolism; D49.7 Neoplasm of unspecified behavior of endocrine glands and other parts of nervous system; R94.5 Abnormal results of liver function studies; R79.89 Other specified abnormal findings of blood chemistry
CPT/HCPCS: 36415; 74181; 74300; 76705; 80053; 82248; 83690; 83735; 85025; 85610; 85730; 88304; 94010; 96361; 96365; 96375; 99285; J1100; J1171; J1885; J2003; J2250; J2405; J2470; J2543; J2704; J3010; J7030; J7120; J7799